=== PATIENT | male | born 1950 | race African-American/Black ===

== ENCOUNTER 2017-04-18 02:44 | Inpatient (IN) ==
--- NOTE | 2017-04-18 02:58 | Emergency Department Note ---
Disposition Clinical Impression: Seizure, Post-ictal confusion Disposition: Admitted As Inpatient Condition: Fair Time of Disposition: 06:16 Altered Mental Status HPI - General Chief Complaint: ED Altered Mental Status Stated Complaint: AMS Time Seen by Provider: 04/18/17 02:52 Nursing Notes Reviewed: Yes Vital Signs Reviewed: Yes - History of Present Illness HPI Narrative: Mr. Seals, this 66-year-old male, presents from home via EMS. Patient states he accidentally called EMS and they would not let him stay home. Per EMS, patient' s initial complaint was dyspnea; on their arrival, he was in no respiratory distress and not dyspneic. While there, EMS witnessed what they are describing as a seizure-patient sitting in his chair with extension of his upper and lower extremities, head twitching rotating to the left with eyes deviated to the left , unresponsive to verbal stimuli. Patient did not bite his tongue or have incontinence of bowel or bladder. Initially, EMShis blood glucose was in the 450s. On interview, patient is a poor historian. He denies any history of seizure disorder. She does, however, note that he was hit in the back of the head by the roberts of his truck yesterday; no loss of consciousness, no visual changes, no confusion, no other traumas. 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 History of rectal cancer. He does not require home oxygen. Patient does have home health for wound care of chronic plantar wounds on bilateral feet. PSH: Abdominal aortic aneurysm repair. Habits: Current every day smoker. Compared to his baseline, patient denies any change in sensory, no change in motor, and no confusion. - Related Data Home Medications Medication Instructions Recorded Confirmed Hydrocodone/Acetaminophen [Vicodin 1 each PO Q6H PRN 10/19/15 10/19/15 Es 7.5-300 mg Tablet] Allergies Allergy/AdvReac Type Severity Reaction Status Date / Time Penicillins Allergy See Verified 10/19/15 20:58 Comments All systems ED: reviewed and negative except as stated. Review of Systems: As Per HPI Past Medical History - Past Medical History Medical history: Reports: arthritis, cancer, diabetes, hypertension Surgical history: Reports: colectomy, herniorrhaphy, other (Knee surgery) Psychiatric history: Reports: no psych history - Social History Smoking Status: Current every day smoker Alcohol use: Reports: none Physical Exam Vital Signs Reviewed General: Patient is alert, oriented, and in no acute distress. He appears disheveled HEENT: Right-sided facial droop-chronic per patient. Head is normocephalic and atraumatic. PERRLA, EOMI. mucosa moist. Trachea midline. Cardiovascular: Heart regular rate and rhythm without clicks, rubs, gallops, or murmurs. No JVD. PMI nondisplaced. Respiratory: Symmetric chest rise with poor respiratory effort. Prolonged expiratory phase. Bilateral breath sounds have scattered wheezes without crackles or rhonchi. Abdomen: Bowel sounds present normoactive x-4 quadrants. Abdomen is soft, nondistended, and nontender. Musculoskeletal: Muscle strength 5/5 and symmetric bilaterally in left upper and lower extremities. No limb drift of lower extremities. No limb drift of the left upper extremity. Right upper extremity strength 1/5 which is baseline per patient. Neuro: GCS 15. Alert and oriented to self, date, location, date. Incorrect year. Skin: Warm, dry. The ball the great toe, patient has hard closed calluses. Small laceration not requiring closure on dorsum of left great toe overlying the eponychiun (patient stubbed his toe). Psych: Patient's affect is appropriate for situation. Course Course Narrative: Patient is a poor historian. His daughter typically keeps track of his medical history; she is not at bedside. ECW was used to fill in multiple gaps in the local history as shown in history of present illness. Patient appears to have no focal neurologic deficits on my examination. He has no history of seizure however, EMS describes seizure-like activity. Concern for brain metastasis of previously diagnosed rectal cancer. We will CT head. Concern for possible DKA given his hyperglycemia and apparent confusion. Baseline mental status is unknown to me at this time. No family bedside. Concern for possible underlying infection; will chest x-ray and perform urinalysis as well as lab work. While in the ED, patient had a second seizure. Witnessed by my attending. Described as tonic-clonic movement of his extremities, tonic-clonic movement of his head rotating to the right, eyes deviated to the right. Lasted 30-40 seconds. He was post ictal medially afterwards; he did not know his name. The seizure spontaneously aborted without retention. Will load with 1 g of IV Keppra. I discussed the patient and his clinical picture with on-call neurology, Dr. Arreola, who agrees to consult with admission to medicine. He has no additional recommendations at this time prior to admission. I discussed the patient and his clinical picture as well as neurology consultation with the admitting hospitalist, Dr. Gray, who agrees to accept the patient for continued evaluation and management. Vital Signs Temperature 97.6 F 04/18/17 02:48 Pulse Rate 80 04/18/17 02:48 Respiratory Rate 14 04/18/17 02:48 Blood Pressure 144/85 04/18/17 02:48 O2 Sat by Pulse Oximetry 100 04/18/17 02:48 Temperature 97.6 F 04/18/17 02:48 Pulse Rate 72 04/18/17 06:12 Respiratory Rate 14 04/18/17 06:12 Blood Pressure 152/92 04/18/17 06:12 O2 Sat by Pulse Oximetry 99 04/18/17 06:12 Oxygen Delivery Oxygen Delivery Room Air Altered Mental Status - Lab Data Lab results reviewed: Yes I reviewed the patient's lab results. Result diagrams: 04/18/17 03:16 04/18/17 03:16 Lab Results 04/18/17 04/18/17 04/18/17 Range/Units 03:16 03:16 03:16 WBC 7.1 (4.3-11.1) K/mcL RBC 4.55 (4.19-5.50) M/mcL Hgb 13.8 (12.9-16.9) g/dL Hct 40.7 (37.5-50.1) % MCV 89.5 (83.0-100.0) fL MCH 30.3 (28.0-33.3) pg MCHC 33.9 (31.6-35.5) g/dL RDW 13.2 (11.5-14.5) % Plt Count 173 (140-400) K/mcL MPV 9.9 (9.4-12.4) fL Immature Gran % 0.7 (0-4) % Seg Neutrophils % 73.4 % Lymphocytes % 12.9 % Monocytes % 10.0 % Eosinophils % 2.0 % Basophils % 1.0 % Neutrophils # 5.2 (1.6-8.9) K/mcL Lymphocytes # 0.9 (0.6-4.6) K/mcL Monocytes # 0.7 (0.0-1.3) K/mcL Eosinophils # 0.1 (0.0-0.6) K/mcL Basophils # 0.1 (0.0-0.2) K/mcL PT 10.3 (9.4-12.1) Seconds INR 1.0 APTT 27.2 (26.0-36.0) Seconds Carboxyhemoglobin (0-5) % Sodium 131 L (136-145) mEq/L Potassium 3.7 (3.5-4.5) mEq/L Chloride 92 L (98-109) mEq/L Carbon Dioxide 31 H (19-29) mEq/L BUN 12 (8-26) mg/dL Creatinine 0.96 (0.72-1.25) mg/dL Est GFR ( Amer) > 60 (> 60) Est GFR (Non-Af Amer) > 60 (> 60) BUN/Creatinine Ratio 13 (6-26) Glucose 424 H (70-99) mg/dL Calculated Osmolality 290 (280-300) Calcium 9.7 (8.6-10.8) mg/dL Total Bilirubin 0.5 (0.2-1.2) mg/dL Direct Bilirubin 0.2 (0.0-0.5) mg/dL Indirect Bilirubin 0.3 (0.0-1.2) mg/dL AST 14 (5-34) Units/L ALT 19 (0-55) Units/L Alkaline Phosphatase 105 (38-126) Units/L Ammonia (18-72) mcmol/L Troponin I (0-0.03) ng/mL Serum Total Protein 7.9 (6.0-8.3) g/dL Albumin 3.0 L (3.5-5.0) g/dL Globulin 4.9 H (2.4-3.5) g/dL Albumin/Globulin Ratio 0.6 L (1.1-2.2) Beta-Hydroxybutyric Acd 0.15 (0.02-0.27) mmol/L Urine Color (Yellow) Urine Clarity (Clear) Urine pH (5.0-8.0) pH Units Ur Specific Lane (1.010-1.025) Urine Protein (Neg-Trace) mg/dL Urine Glucose (UA) (Normal) mg/dL Urine Ketones (Negative) mg/dL Urine Blood (Negative) Urine Nitrite (Negative) Urine Bilirubin (Negative) Urine Urobilinogen (Normal) mg/dL Ur Leukocyte Esterase (Negative) Urine Microscopic RBC (0-3) per hpf Urine Microscopic WBC (0-3) per hpf Ur Squamous Epith Cells (None-Few) per lpf Urine Bacteria (None-Few) per hpf Hyaline Casts (None-Few) per lpf Ur Culture Indicated? (NO) Urine Opiates Screen (Qgubll=638) ng/mL Ur Barbiturates Screen (Txdnil=222) ng/mL Ur Phencyclidine Scrn (Cutoff=25) ng/mL Ur Amphetamines Screen (Whcuoi=6422) ng/mL U Benzodiazepines Scrn (Qlgsis=287) ng/mL Urine Cocaine Screen (Cutoff= 300) ng/mL U Marijuana (THC) Screen (Cutoff = 50) ng/mL Ethyl Alcohol < 10 (0-10) mg/dL 04/18/17 04/18/17 04/18/17 Range/Units 03:16 03:16 03:16 WBC (4.3-11.1) K/mcL RBC (4.19-5.50) M/mcL Hgb (12.9-16.9) g/dL Hct (37.5-50.1) % MCV (83.0-100.0) fL MCH (28.0-33.3) pg MCHC (31.6-35.5) g/dL RDW (11.5-14.5) % Plt Count (140-400) K/mcL MPV (9.4-12.4) fL Immature Gran % (0-4) % Seg Neutrophils % % Lymphocytes % % Monocytes % % Eosinophils % % Basophils % % Neutrophils # (1.6-8.9) K/mcL Lymphocytes # (0.6-4.6) K/mcL Monocytes # (0.0-1.3) K/mcL Eosinophils # (0.0-0.6) K/mcL Basophils # (0.0-0.2) K/mcL PT (9.4-12.1) Seconds INR APTT (26.0-36.0) Seconds Carboxyhemoglobin 6.8 H (0-5) % Sodium (136-145) mEq/L Potassium (3.5-4.5) mEq/L Chloride (98-109) mEq/L Carbon Dioxide (19-29) mEq/L BUN (8-26) mg/dL Creatinine (0.72-1.25) mg/dL Est GFR ( Amer) (> 60) Est GFR (Non-Af Amer) (> 60) BUN/Creatinine Ratio (6-26) Glucose (70-99) mg/dL Calculated Osmolality (280-300) Calcium (8.6-10.8) mg/dL Total Bilirubin (0.2-1.2) mg/dL Direct Bilirubin (0.0-0.5) mg/dL Indirect Bilirubin (0.0-1.2) mg/dL AST (5-34) Units/L ALT (0-55) Units/L Alkaline Phosphatase (38-126) Units/L Ammonia 16 L (18-72) mcmol/L Troponin I 0.02 (0-0.03) ng/mL Serum Total Protein (6.0-8.3) g/dL Albumin (3.5-5.0) g/dL Globulin (2.4-3.5) g/dL Albumin/Globulin Ratio (1.1-2.2) Beta-Hydroxybutyric Acd (0.02-0.27) mmol/L Urine Color (Yellow) Urine Clarity (Clear) Urine pH (5.0-8.0) pH Units Ur Specific Lane (1.010-1.025) Urine Protein (Neg-Trace) mg/dL Urine Glucose (UA) (Normal) mg/dL Urine Ketones (Negative) mg/dL Urine Blood (Negative) Urine Nitrite (Negative) Urine Bilirubin (Negative) Urine Urobilinogen (Normal) mg/dL Ur Leukocyte Esterase (Negative) Urine Microscopic RBC (0-3) per hpf Urine Microscopic WBC (0-3) per hpf Ur Squamous Epith Cells (None-Few) per lpf Urine Bacteria (None-Few) per hpf Hyaline Casts (None-Few) per lpf Ur Culture Indicated? (NO) Urine Opiates Screen (Yeutxp=440) ng/mL Ur Barbiturates Screen (Wmxund=962) ng/mL Ur Phencyclidine Scrn (Cutoff=25) ng/mL Ur Amphetamines Screen (Rjpbbi=8403) ng/mL U Benzodiazepines Scrn (Vdvrnj=849) ng/mL Urine Cocaine Screen (Cutoff= 300) ng/mL U Marijuana (THC) Screen (Cutoff = 50) ng/mL Ethyl Alcohol (0-10) mg/dL 04/18/17 04/18/17 Range/Units 05:10 05:10 WBC (4.3-11.1) K/mcL RBC (4.19-5.50) M/mcL Hgb (12.9-16.9) g/dL Hct (37.5-50.1) % MCV (83.0-100.0) fL MCH (28.0-33.3) pg MCHC (31.6-35.5) g/dL RDW (11.5-14.5) % Plt Count (140-400) K/mcL MPV (9.4-12.4) fL Immature Gran % (0-4) % Seg Neutrophils % % Lymphocytes % % Monocytes % % Eosinophils % % Basophils % % Neutrophils # (1.6-8.9) K/mcL Lymphocytes # (0.6-4.6) K/mcL Monocytes # (0.0-1.3) K/mcL Eosinophils # (0.0-0.6) K/mcL Basophils # (0.0-0.2) K/mcL PT (9.4-12.1) Seconds INR APTT (26.0-36.0) Seconds Carboxyhemoglobin (0-5) % Sodium (136-145) mEq/L Potassium (3.5-4.5) mEq/L Chloride (98-109) mEq/L Carbon Dioxide (19-29) mEq/L BUN (8-26) mg/dL Creatinine (0.72-1.25) mg/dL Est GFR ( Amer) (> 60) Est GFR (Non-Af Amer) (> 60) BUN/Creatinine Ratio (6-26) Glucose (70-99) mg/dL Calculated Osmolality (280-300) Calcium (8.6-10.8) mg/dL Total Bilirubin (0.2-1.2) mg/dL Direct Bilirubin (0.0-0.5) mg/dL Indirect Bilirubin (0.0-1.2) mg/dL AST (5-34) Units/L ALT (0-55) Units/L Alkaline Phosphatase (38-126) Units/L Ammonia (18-72) mcmol/L Troponin I (0-0.03) ng/mL Serum Total Protein (6.0-8.3) g/dL Albumin (3.5-5.0) g/dL Globulin (2.4-3.5) g/dL Albumin/Globulin Ratio (1.1-2.2) Beta-Hydroxybutyric Acd (0.02-0.27) mmol/L Urine Color Yellow (Yellow) Urine Clarity Clear (Clear) Urine pH 7.0 (5.0-8.0) pH Units Ur Specific Lane > 1.030 H (1.010-1.025) Urine Protein 100 H (Neg-Trace) mg/dL Urine Glucose (UA) >=1000 H (Normal) mg/dL Urine Ketones Negative (Negative) mg/dL Urine Blood Small H (Negative) Urine Nitrite Negative (Negative) Urine Bilirubin Negative (Negative) Urine Urobilinogen Normal (Normal) mg/dL Ur Leukocyte Esterase Negative (Negative) Urine Microscopic RBC 15-30 H (0-3) per hpf Urine Microscopic WBC 0-3 (0-3) per hpf Ur Squamous Epith Cells Moderate H (None-Few) per lpf Urine Bacteria None Seen (None-Few) per hpf Hyaline Casts None Seen (None-Few) per lpf Ur Culture Indicated? NO (NO) Urine Opiates Screen Negative (Zuwesg=277) ng/mL Ur Barbiturates Screen Negative (Mhnnbg=158) ng/mL Ur Phencyclidine Scrn Negative (Cutoff=25) ng/mL Ur Amphetamines Screen Positive H (Qpskve=2682) ng/mL U Benzodiazepines Scrn Negative (Kclolb=295) ng/mL Urine Cocaine Screen Negative (Cutoff= 300) ng/mL U Marijuana (THC) Screen Negative (Cutoff = 50) ng/mL Ethyl Alcohol (0-10) mg/dL - Radiology Data Radiology results reviewed: Yes I reviewed the patient's radiology results. - EKG Data EKG attestation: Yes I reviewed and interpreted this EKG. EKG results narrative: EKG dated 04/18/17 at 03:24 interpreted as sinus rhythm with rate of 82. Normal intervals with IL 190, QRS 96, QT/QTC 358/396. Left axis. Compared to previous EKG dated 04/09/2010 showing no acute ischemic changes comparison there has, however, been an axis shift from borderline normal axis to left axis. TPA Checklist - LKW: 3-4.5 hrs Add. Warnings/Precautions Patient/family understanding: The patient/family members have been counseled and understood the risk, benefit , and alternatives of treatment. Attestation Statement - Attestation Attestation: I, Sony Mandel MD, personally evaluated this patient and discussed their management with the resident physician. I reviewed the resident's note and agree with the documented findings, medical decision making, and plan of care. 66-year-old male presents to the emergency department by ambulance for apparently multiple complaints and altered mental status. EMS reported that they were called for shortness of breath when they arrived the patient was not short of breath. He did have an episode of seizure activity which EMS witnessed. He was confused and disoriented. Here in the emergency department the patient had a second episode of seizure activity witnessed by me which did appear to be a tonic-clonic seizure. His head and upper body was deviated to the right with eyes deviated to the right with tonic-clonic jerking. Patient has right sided hemiparesis from an old stroke. The seizure lasted 30-60 seconds and then resolved spontaneously. Patient was immediately alert after the seizure resolved however he was very confused and disoriented and did not know his name. For several minutes patient became a little more oriented and reported that he was working on his truck and the roberts fell and hit him in the head. On examination patient is a elderly male in no acute distress. He is alert but confused and disoriented. There is no cyanosis or diaphoresis. Breath sounds are decreased bilaterally. Abdomen appreciated any significant rales or wheezes. Heart is regular rate and rhythm. Abdomen soft and nontender. Labs reviewed. Chest x-ray negative. Head CT shows no acute intracranial abnormality. Patient received Keppra 1 g IV. The neurologist on-call, Dr. Arreola, was consulted and Dr. Davidson discussed the case with him. He will consult on the patient for an EEG and MRA of the head. The hospitalist, Dr. Gray, was consulted and accepted admission of the patient.
[2017-04-18 03:28] LABS: Basophils # 0.1 K/mcL (0.0-0.2); Eosinophils # 0.1 K/mcL (0.0-0.6); Hematocrit 40.7 % (37.5-50.1); Hemoglobin 13.8 g/dL (12.9-16.9); Immature Granulocytes % 0.7 % (0-4); Lymphocytes # 0.9 K/mcL (0.6-4.6); Lymphocytes % 12.9 %; Mean Corpuscular HGB Conc 33.9 g/dL (31.6-35.5); Mean Corpuscular Hemoglobin 30.3 pg (28.0-33.3); Mean Corpuscular Volume 89.5 fL (83.0-100.0); Mean Platelet Volume 9.9 fL (9.4-12.4); Monocytes # 0.7 K/mcL (0.0-1.3); Neutrophils # 5.2 K/mcL (1.6-8.9); Platelet Count 173 K/mcL (140-400); Red Blood Count 4.55 M/mcL (4.19-5.50); Red Cell Distribution Width 13.2 % (11.5-14.5); Segmented Neutrophils % 73.4 %
[2017-04-18 03:34] LABS: Prothrombin Time 10.3 Seconds (9.4-12.1)
[2017-04-18 03:36] LABS: Activated Partial Thrombo Time 27.2 Seconds (26.0-36.0)
[2017-04-18 03:40] LABS: Alanine Aminotransferase 19 Units/L (0-55); Albumin/Globulin Ratio 0.6 (1.1-2.2); Alkaline Phosphatase 105 Units/L (38-126); Aspartate Amino Transferase 14 Units/L (5-34); BUN/Creatinine Ratio 13 (6-26); Bilirubin,Direct 0.2 mg/dL (0.0-0.5); Bilirubin,Indirect 0.3 mg/dL (0.0-1.2); Bilirubin,Total 0.5 mg/dL (0.2-1.2); Blood Urea Nitrogen 12 mg/dL (8-26); Calcium 9.7 mg/dL (8.6-10.8); Carbon Dioxide 31 mEq/L (19-29); Chloride 92 mEq/L (98-109); Globulin 4.9 g/dL (2.4-3.5); Glucose 424 mg/dL (70-99); Osmolality,Calculated 290 (280-300); Potassium 3.7 mEq/L (3.5-4.5); Sodium 131 mEq/L (136-145); Total Protein 7.9 g/dL (6.0-8.3); eGFR For African Americans > 60 (> 60); eGFR For Non-African Americans > 60 (> 60)
[2017-04-18 03:52] LABS: Ethanol < 10 mg/dL (0-10)
[2017-04-18 04:00] LABS: Beta-Hydroxybutyric Acid 0.15 mmol/L (0.02-0.27)
[2017-04-18] MEDS ORDERED: levETIRAcetam 1,000 MG in 0.9 % Sodium Chloride 100 ML IVPB ONE (04:11)
[2017-04-18 05:21] LABS: Bilirubin,Urine Negative (Negative); Blood,Urine Small (Negative); Clarity,Urine Clear (Clear); Color,Urine Yellow (Yellow); Glucose,Urine (UA) >=1000 mg/dL (Normal); Ketones,Urine Negative (Negative); Leukocyte Esterase,Urine Negative (Negative); Nitrite,Urine Negative (Negative); Protein,Urine 100 mg/dL (Neg-Trace); Specific Gravity,Urine > 1.030 (1.010-1.025); Urobilinogen,Urine Normal (Normal)
[2017-04-18 05:23] LABS: Bacteria,Urine None Seen per hpf (None-Few); Hyaline Casts,Urine None Seen per lpf (None-Few); RBC,Urine 15-30 per hpf (0-3); Squamous Epithelial Cell,Urine Moderate per lpf (None-Few); WBC,Urine 0-3 per hpf (0-3)
[2017-04-18 05:26] LABS: Amphetamine Screen,Urine Positive ng/mL (Cutoff=1000); Barbiturate Screen,Urine Negative ng/mL (Cutoff=200); Benzodiazepines Screen,Urine Negative ng/mL (Cutoff=200); Cannabinoid Screen,Urine Negative ng/mL (Cutoff = 50); Cocaine Screen,Urine Negative ng/mL (Cutoff= 300); Opiate Screen,Urine Negative ng/mL (Cutoff=300); Phencyclidine Screen,Urine Negative ng/mL (Cutoff=25)
--- NOTE | 2017-04-18 07:46 | Internal Med History&Physical ---
Date of Encounter: 04/18/17 Time of Encounter: 07:39 Assessment and Plan (1) Grand mal seizure Current visit: Yes Status: Acute We will admit to medical floor. Obtain MRI of the brain. Obtain EEG. Consult neurology. He is at high risk for morbidity, mortality and complications due to change in mental status. (2) Uncontrolled diabetes mellitus Current visit: Yes Status: Acute Check hemoglobin A1c. Start insulin sliding scale. Start insulin Levemir once patient is safe to eat. Provide diabetic education. Daily wound dressing to lower extremity diabetic foot ulcers. Qualifiers: Diabetes mellitus type: type 2 Diabetes mellitus complication status: with circulatory complication Diabetes mellitus complication detail: with peripheral angiopathy without gangrene Diabetes mellitus care home insulin use : unspecified care home insulin use status Qualified Code(s): E11.51 - Type 2 diabetes mellitus with diabetic peripheral angiopathy without gangrene; E11.65 - Type 2 diabetes mellitus with hyperglycemia; E11.65 - Type 2 diabetes mellitus with hyperglycemia; E11.65 - Type 2 diabetes mellitus with hyperglycemia; E11.65 - Type 2 diabetes mellitus with hyperglycemia (3) Seizure Current visit: Yes Status: Acute Seizure precautions. Consult neurology. Obtain EEG. Urine toxicology is positive for amphetamine which could be a false positive due to cross-reactivity with home medication or [id number] cold remedies. We will obtain additional information was the patient is more alert. Internal Medicine - H&P: HPI Chief complaint: Seizure Admitted From: Emergency Dept Plans for Post Hospital Care: Home History of present illness: Mr. Seals is a 66 year old male with past medical history significant for uncontrolled diabetes and hypertension who was brought to the hospital for evaluation of seizures. He cannot provide history due to altered mental status. The history was obtained from the patient's primary ED nurse. Patient called EMS due to shortness of breath however when EMS arrived he did not appear in respiratory distress but started having generalized tonic seizure with rigid posturing and head deviated to the left. This lasted for 20 seconds and then resolved. The patient was confused. His mental status progressively improved. He was brought to the hospital and while in the emergency departmen the had another episode of tonic seizure de described by the nurse as posturing , lasting 30 seconds followed by postictal confusion. He had a CT scan of the head which showed no acute findings and basic lab work which was within normal limits. Review of systems, past medical history, social history and family history as listed below from the medical records. Any additional history was not available due to altered mental status. Past Med Surg Social Fam HX - Past Medical History Medical history: arthritis, cancer, diabetes, hypertension Psychiatric history: no psych history - Past Surgical History Surgical History: colectomy, herniorrhaphy, other (Knee surgery) - Social History Smoking Status: Current every day smoker Smokeless Tobacco Status: No Alcohol use: none Drug use: marijuana Internal Medicine - H&P: Meds Hydrocodone/Acetaminophen [Vicodin Es 7.5-300 mg Tablet] 1 each PO Q6H PRN 10/18 [History] 3 Allergy/AdvReac Type Severity Reaction Status Date / Time Penicillins Allergy See Verified 10/19/15 20:58 Comments All Systems PM: A 10-system review of systems was performed and is negative for pertinent findings except as documented above in the HPI. - Constitutional Vitals: Temp Pulse Resp BP Pulse Ox 97.6 F 75 14 155/90 98 04/18/17 02:48 04/18/17 06:57 04/18/17 06:57 04/18/17 06:57 04/18/17 06:57 General appearance: Present: A&O X 0 - Eye Eye exam: Present: PERRL, conjuntiva pink, sclera anicteric Pupils: Present: PERRL - Respiratory Respiratory exam: Present: CTAB. Absent: accessory muscle use, rales, rhonchi, wheezes - Cardiovascular Cardiovascular exam: Present: RRR, +S1, +S2. Absent: diastolic murmur, gallop, rubs, systolic murmur - GI/Abdominal GI/Abdominal exam: Present: normal bowel sounds, soft, no peritoneal signs. Absent: distended, tenderness - Extremities Exam Extremities exam: Present: pedal edema, warm, radial pulses palpable and symmetrical. Absent: calf tenderness, cyanotic - Skin Skin exam: Present: dry Additional comments: Skin wounds covered with dressing on both feet. Internal Med - H&P Results - Labs CBC & Chem 7: 04/18/17 03:16 04/18/17 03:16 - EKG Data -: EKG Interpreted by Myself EKG shows normal: sinus rhythm, ST-T waves Rate: normal
[2017-04-18] MEDS ORDERED: Naloxone 0.4 MG/ML INJ IVP PRN (07:53)
[2017-04-18] MEDS ORDERED: Acetaminophen 325 MG TABLET PO PRN (07:53)
[2017-04-18] MEDS ORDERED: Ondansetron 4 MG/2 ML VIAL IVP PRN (07:53)
[2017-04-18] MEDS ORDERED: Dextrose Gel 15 GM PO PRN ×2 (07:57)
[2017-04-18] MEDS ORDERED: *HR* Dextrose 50 % in Water (Syg) 50 ML SYRINGE IVP PRN (07:57)
[2017-04-18] MEDS ORDERED: D5% in Water 1,000 ML IVC PRN (07:57)
[2017-04-18] MEDS ORDERED: 0.9 % Sodium Chloride 1,000 ML IVC SCH (08:00)
[2017-04-18 08:38] LABS: Estimated Average Glucose > 355 mg/dl; Hemoglobin A1C >= 14.1 %
--- NOTE | 2017-04-18 09:07 | Event Note ---
<Lucero Rosas - Last Filed: 04/18/17 16:18> Date of Encounter: 04/18/17 Time of Encounter: 14:35 Mr. Seals is a 66 year old male with PMH of uncontrolled diabetes mellitus and hypertension who was brought to the emergency department by EMS for evaluation of seizures. I saw and examined the patient at bedside. Pt is awake and alert, sitting up in bed. Difficult to obtain reliable, if any, history or ROS. Pt has altered mental status and marginally cooperative in answering questions. GEN: vital signs stable, disheveled, poor hygiene, NAD HEENT: NCAT, EOMI intact RESPIRATORY: normal respiratory effort, no wheezing CARDIOVASCULAR: no murmurs, RRR NEURO: alert, no focal deficits, moves all extremities, no facial droop or speech deficit 1. Grand mal seizure: 2 witnessed episodes, once by EMS crew and once in the ED. Received loading dose of IV Keppra. Keppra 500mg IVPB BID. Seizure percautions in place EEG has been ordered, results pending. Brain MRI ordered, awaiting results. Neurology consulted, recommendations appreciated. 2. Uncontrolled diabetes mellitus: HgbA1c greater than 14.1 and serum glucose of 424. Sliding scale insulin has been started. Will monitor blood glucose with POC glucose checks. Once patient is able to eat safely he will be started on Levemir. Patient also has diabetic foot ulcers--daily wound care. <Jesus Rondon - Last Filed: 04/18/17 18:03> Date of Encounter: 04/18/17 resume diabetic diet start levemir 10 units HS lispro 5 units TID plus sliding scale continue keppra neurology consulted I examined this patient and my medical decision-making was reviewed with the Resident Physician. I agree with the documented findings, disposition and treatment plan as described except to the extent set forth below.
[2017-04-18] MEDS: *HR* Heparin 5,000 UNIT/ML VIAL SQ SCH ×2 (10:34→17:35)
[2017-04-18] MEDS: Insulin LISPRO 300 UNITS/3 ML VIAL SQ SCH ×6 (10:35→20:31)
--- NOTE | 2017-04-18 11:35 | Electrocardiograph Report ---
[address] [address] Test Date: 2017-04-18 Pat Name: Steven Seals Department: 102 Room: [facility] Gender: M Video Engineer: : 1950 Requested By: Jacob Davidson Order Number: [id number] Reading MD: Eduardo Calvert MD Measurements Intervals [place] Rate: 82 P: 59 OR: 190 QRS: -18 QRSD: 96 T: 42 QT: 358 QTc: 396 Interpretive Statements SINUS RHYTHM MODERATE VOLTAGE CRITERIA FOR LVH Electronically Signed On 04-18-2017 11:34:09 EST by Eduardo Calvert MD
--- NOTE | 2017-04-18 16:01 | EEG/EMG/Oth Biometrics Report ---
EEG Procedure Report Date of procedure: 04/18/17 EEG Procedure: Routine EEG Procedure Note: This is a report of a 21 channel bipolar and referential montage EEG. There is no clear posterior dominant alpha rhythm identified in the recording. The rhythm looks to me to be low voltage mixed theta and delta frequencies. This rhythm however is poorly organized and poorly sustained. An emergency of K complexes and sleep spindles. The most outstanding feature of the recording is the presence of bitemporal spikes and phase reversals. This does not evolve into a full-blown seizure however however there is a field of activity identified. Hyperventilation is not performed during the recording. Photic stimulations performed and does not produce a driving response. The EKG rhythm strip reveals normal sinus rhythm at 72 beats per minute. Impressions: EEG recording is abnormal and does reveal phase reversals in the temporal lobes bilaterally. This does correlate with epileptiform potential please correlate clinically.
[2017-04-18] MEDS ORDERED: Permethrin Cream Rinse 60 ML LIQUID TP STA (18:29)
[2017-04-18] MEDS: Gabapentin 100 MG CAPSULE PO SCH (20:31)
[2017-04-18] MEDS: Lisinopril-HCTZ 20-12.5mg TABLET PO SCH (20:31)
[2017-04-18] MEDS ORDERED: Insulin DETEMIR 100 UNIT/ML X5UNITS SQ SCH (21:00)
[2017-04-19] MEDS: *HR* Heparin 5,000 UNIT/ML VIAL SQ SCH ×3 (00:26→16:20)
[2017-04-19] MEDS: *HR* LORazepam 2 MG/ML VIAL IVP PRN ×2 (02:45→19:39)
[2017-04-19] MEDS ORDERED: Fosphenytoin 1,000 MG in D5% in Water 50 ML IVPB ONE (03:17)
[2017-04-19] MEDS ORDERED: *HR* LORazepam 2 MG/ML VIAL IVP PRN (03:18)
--- NOTE | 2017-04-19 04:19 | Event Note ---
<Amanda Vaughan - Last Filed: 04/19/17 04:13> Date of Encounter: 04/19/17 Time of Encounter: 03:15 I was paged by nursing that the patient had a seizure at 1:30am after which he quickly recovered and vitals were stable. Then paged again at 3am that the patient had 2 more seizures. Myself and Dr. Troy assessed and examined the patient. He was post-ictal. He was oriented to person, place, date of . Vitals stable, he was protecting his airway. Ativan was given to the patient and fosphenytoin ordered as well. The nurse was instructed to call us if he should have anymore seizures. <Heriberto Troy - Last Filed: 04/19/17 05:02> Date of Encounter: 04/19/17 I conducted a face to face diagnostic evaluation of this patient and my medical decision-making was reviewed with the Resident Physician, Dr. Amanda Vaughan. I agree with the documented findings, disposition and treatment plan as described except to the extent set forth below: EEG obtained yesterday consistent with seizure activity. I will continue with Keppra 500 mg IV twice a day per neurology recommendations. Follow-up with official neurology consult report in the morning. We will order one loading dose of fosphenytoin. Continue with seizure precautions and aspiration precautions.
--- NOTE | 2017-04-19 07:35 | Neurology - Consult Note ---
Date of Encounter: 04/19/17 Time of Encounter: 07:33 Assessment and Plan (1) Seizure Current Visit: Yes Status: Acute This gentleman has experienced at least 3 episodes of generalized tonic-clonic seizure. The rest of which occurred about 1:00 and 1:30 this morning. MRI scan of the brain without contrast revealed volume loss and an old right cerebellar infarct. Toxicology screening reveals the presence of amphetamines. There are questions about whether or not he may be withdrawing from alcohol. He did have several elevated blood pressure since admission. He does have decreased tone of the right upper extremity. That perhaps this may be due to a postictal Quentin's paralysis. For now I will maintain him on Keppra 500 mg twice a day and reassess him later in the day. If he continues to have seizure activity we may have to transfer him to a tertiary care facility for continuous epilepsy monitoring. He has been afebrile since admission no leukocytosis is present. In addition, he has a history of colon cancer. The MRI scan of the brain was done without contrast. I would need to have a contrasted study completed as well. History of Present Illness HPI: Mr. Seals is a 66 year old male who was seen for neurologic consultation secondary to recurrent episodes of seizure activity. History is scant. To my understanding he does not have reported history of epilepsy. Patient is currently lethargic and perhaps postictal from another seizure he had a 1:00 in the morning. The sural nerves. However chart records reflect that he apparently called EMS with complaints of dyspnea. Apparently he had a general tonic-clonic seizure witnessed by EMS. He had another generalized tonic-clonic seizure after arriving to the ED. And apparently had a third generalized tonic- clonic seizure about 1:00 in the morning. He was loaded on Keppra upon admission. He is also loaded on fosphenytoin. This morning again he is postictal and difficult to arouse. He is not able to give any history. I did not yesterday which revealed bitemporal spikes and phase reversals, consistent with epileptiform activity. Past Med Surg Social Fam HX - Past Medical History Medical history: arthritis, cancer, diabetes, hypertension Psychiatric history: no psych history - Past Surgical History Surgical History: colectomy, herniorrhaphy, other - Social History Smoking Status: Current every day smoker Smokeless Tobacco Status: No Alcohol use: none Drug use: marijuana Medications and Allergies Albuterol Sulfate [Albuterol Inhaler] 2 puff IH Q4HR PRN 04/18/17 [History] Amlodipine Besylate 10 mg PO DAILY 04/18/17 [History] Esomeprazole Magnesium [Nexium] 20 mg PO DAILY 04/18/17 [History] Fluticasone Propionate Nasal [Flonase] 2 spr NS DAILY PRN 04/18/17 [History] Gabapentin [Neurontin] 100 mg PO TID 04/18/17 [History] Gentamicin Oint [Garamycin] 1 appl TP DAILY 04/18/17 [History] Insulin Regular, Human [Novolin R] 10 unit SQ TID 04/18/17 [History] Lisinopril-HCTZ 20-12.5 [Prinzide 20-12.5] 1 tab PO BID 04/18/17 [History] Loratadine [Allergy Relief] 10 mg PO DAILY 04/18/17 [History] Lovastatin 40 mg PO DAILY 04/18/17 [History] Metformin HCl [Glucophage] 1,000 mg PO BID 04/18/17 [History] Montelukast [Singulair] 10 mg PO DAILY 04/18/17 [History] Ondansetron HCl [Zofran] 4 mg PO Q8H PRN 04/18/17 [History] hydrOXYzine HCl [Hydroxyzine HCl] 50 mg PO HS PRN 04/18/17 [History] 3 Allergy/AdvReac Type Severity Reaction Status Date / Time Penicillins Allergy See Verified 10/19/15 20:58 Comments ROS unobtainable: due to mental status All Systems: A 10-system review of systems was performed and is negative for pertinent findings except as documented above in the HPI. Physical Examination - Vital Signs Vital Signs: Initial Vital Signs Temp Pulse Resp BP Pulse Ox 97.6 F 80 14 144/85 100 04/18/17 02:48 04/18/17 02:48 04/18/17 02:48 04/18/17 02:48 04/18/17 02:48 - Exam Exam: Neurologic examination is performed and finds following. For cerebral functions-he is very lethargic, difficult to arouse. Momentarily opened his eyes he does make eye contact, hemoglobin is nonsensically and injured his back also unconsciousness. He does not follow commands. He does withdrawal globally to noxious stimulation. Cranial nerves-pupils are miotic and about 3 mm symmetrically. Doll's eyes are present. Corneal reflexes are brisk bilaterally, there is no facial asymmetry. Gag reflex is intact. Motor exam finds decreased tone of the right upper extremity. He has normal tone of the left upper extremity and both lower extremities. Sensory exam-difficult to assess in an unconscious patient. Deep tendon reflexes-diminished throughout. No long tract signs are present. Cerebellar exam-no nystagmus is identified. Results - Laboratory Findings CBC and BMP: 04/18/17 03:16 04/18/17 03:16 Abnormal lab findings: Abnormal lab results Carboxyhemoglobin 6.8 % (0-5) H 04/18/17 03:16 Sodium 131 mEq/L (136-145) L 04/18/17 03:16 Chloride 92 mEq/L (98-109) L 04/18/17 03:16 Carbon Dioxide 31 mEq/L (19-29) H 04/18/17 03:16 Glucose 424 mg/dL (70-99) H 04/18/17 03:16 POC Glucose 160 (58-89) H 04/18/17 20:08 Hemoglobin A1c >= 14.1 % (-5.6) H 04/18/17 03:16 Ammonia 16 mcmol/L (18-72) L 04/18/17 03:16 Albumin 3.0 g/dL (3.5-5.0) L 04/18/17 03:16 Globulin 4.9 g/dL (2.4-3.5) H 04/18/17 03:16 Albumin/Globulin Ratio 0.6 (1.1-2.2) L 04/18/17 03:16 Ur Specific [place] > 1.030 (1.010-1.025) H 04/18/17 05:10 Urine Protein 100 mg/dL (Neg-Trace) H 04/18/17 05:10 Urine Glucose (UA) >=1000 mg/dL (Normal) H 04/18/17 05:10 Urine Blood Small (Negative) H 04/18/17 05:10 Urine Microscopic RBC 15-30 per hpf (0-3) H 04/18/17 05:10 Ur Squamous Epith Cells Moderate per lpf (None-Few) H 04/18/17 05:10 Ur Amphetamines Screen Positive ng/mL ([id number]) H 04/18/17 05:10 Consult Discharge Plan - Plan Referrals: NONE,PCP [Primary Care Provider] -
[2017-04-19 08:33] LABS: Basophils # 0.1 K/mcL (0.0-0.2); Basophils % 0.7 %; Eosinophils # 0.1 K/mcL (0.0-0.6); Eosinophils % 1.2 %; Hematocrit 39.1 % (37.5-50.1); Hemoglobin 12.8 g/dL (12.9-16.9); Immature Granulocytes % 0.5 % (0-4); Mean Corpuscular HGB Conc 32.7 g/dL (31.6-35.5); Mean Corpuscular Hemoglobin 29.9 pg (28.0-33.3); Mean Corpuscular Volume 91.4 fL (83.0-100.0); Mean Platelet Volume 10.2 fL (9.4-12.4); Monocytes # 0.9 K/mcL (0.0-1.3); Monocytes % 10.5 %; Neutrophils # 6.1 K/mcL (1.6-8.9); Platelet Count 183 K/mcL (140-400); Red Blood Count 4.28 M/mcL (4.19-5.50); Red Cell Distribution Width 13.5 % (11.5-14.5); Segmented Neutrophils % 75.1 %
[2017-04-19] MEDS: Insulin LISPRO 300 UNITS/3 ML VIAL SQ SCH ×7 (08:40→22:30)
[2017-04-19 08:48] LABS: BUN/Creatinine Ratio 16 (6-26); Blood Urea Nitrogen 15 mg/dL (8-26); Calcium 9.2 mg/dL (8.6-10.8); Carbon Dioxide 32 mEq/L (19-29); Chloride 100 mEq/L (98-109); Glucose 324 mg/dL (70-99); Magnesium 1.5 mg/dL (1.6-2.6); Osmolality,Calculated 299 (280-300); Potassium 4.1 mEq/L (3.5-4.5); eGFR For African Americans > 60 (> 60); eGFR For Non-African Americans > 60 (> 60)
[2017-04-19 09:05] LABS: Sodium 138 mEq/L (136-145)
[2017-04-19] MEDS: Gabapentin 100 MG CAPSULE PO SCH ×3 (10:31→22:32)
[2017-04-19] MEDS: Lisinopril-HCTZ 20-12.5mg TABLET PO SCH ×2 (10:31→22:32)
[2017-04-19] MEDS: amLODIPine 5 MG TABLET PO SCH (10:31)
--- NOTE | 2017-04-19 12:52 | Internal Med Progress Note ---
Date of Encounter: 04/19/17 Time of Encounter: 12:50 - Assessment and plan (1) Seizure Current Visit: Yes Status: Acute Assessment and plan: Patient presented with generalized seizure with postictal confusion and possible Quentin's paralysis in right upper extremity. Continues to have recurrent seizures, received 2 doses of Ativan last night. Currently drowsy. Continue telemetry monitoring. Has been started on IV Keppra, continue the same. When necessary IV Ativan for recurrent seizures. Seizure and fall precautions. Monitor and replete electrolytes. Neurology consult appreciated, recommend MRI brain with IV contrast due to history of cancer. EEG shows abnormal signals in bilateral temporal lobes. (2) Essential hypertension Current Visit: Yes Status: Chronic Assessment and plan: Noted to have uncontrolled hypertension in the emergency room likely related to seizures. Blood pressure currently well controlled. (3) Uncontrolled diabetes mellitus Current Visit: Yes Status: Chronic Assessment and plan: Hemoglobin A1c noted to be greater than 14.1%. Blood sugars noted to be elevated. Continue Accu-Chek blood glucose monitoring with basal bolus insulin regimen. Increase Levemir. Diabetic diet as tolerated. Qualifiers: Diabetes mellitus type: type 2 Diabetes mellitus complication status: with circulatory complication Diabetes mellitus complication detail: with peripheral angiopathy without gangrene Diabetes mellitus petroleum terminal plant operator insulin use : with snf use Qualified Code(s): E11.51 - Type 2 diabetes mellitus with diabetic peripheral angiopathy without gangrene; E11.65 - Type 2 diabetes mellitus with hyperglycemia; E11.65 - Type 2 diabetes mellitus with hyperglycemia; E11.65 - Type 2 diabetes mellitus with hyperglycemia; E11.65 - Type 2 diabetes mellitus with hyperglycemia; Z79.4 - senior living (current) use of insulin; Z79.4 - senior living (current) use of insulin; Z79.4 - middle or intermediate school principal (current ) use of insulin; Z79.4 - middle or intermediate school principal (current) use of insulin - Subjective Interval history: Very drowsy, unable to provide history or answer any questions; per full time staff interpreter, he has been asleep most of the day but woke up earlier and had some breakfast; blood sugars improving now; - Constitutional Vitals: Temp Pulse Resp BP Pulse Ox 97.6 F 62 12 104/40 93 04/19/17 11:00 04/19/17 11:00 04/19/17 11:00 04/19/17 11:00 04/19/17 11:00 General appearance: Present: A&O X 0. Absent: answers questions appropriately - Respiratory Respiratory exam: Present: CTAB (anterolaterally). Absent: accessory muscle use , rales, rhonchi, wheezes - Cardiovascular Cardiovascular exam: Present: RRR, +S1, +S2. Absent: diastolic murmur, gallop, rubs, systolic murmur - GI/Abdominal GI/Abdominal exam: Present: normal bowel sounds, soft, no peritoneal signs. Absent: distended, tenderness Internal Medicine: Result - Labs CBC & Chem 7: 04/20/17 04:43 04/20/17 04:43 Labs: Short CBC 04/19/17 Range/Units 07:36 WBC 8.1 (4.3-11.1) K/mcL Hgb 12.8 L (12.9-16.9) g/dL Hct 39.1 (37.5-50.1) % Plt Count 183 (140-400) K/mcL Neutrophils # 6.1 (1.6-8.9) K/mcL BMP 04/19/17 07:36 Sodium 138 D Potassium 4.1 Chloride 100 Carbon Dioxide 32 H BUN 15 Creatinine 0.95 Glucose 324 H Calcium 9.2 - ABG Interpretation ABG results: PT/INR, D-dimer PT 10.3 Seconds (9.4-12.1) 04/18/17 03:16 - Impressions Impressions Brain MRI 04/18/17 07:57 IMPRESSION: Chronic cerebellar infarct. D/ / Jeremias Johansen MD / Jeremias Johansen MD Interpreting Provider: Jeremias Johansen MD Brain MRI 04/19/17 07:45 IMPRESSION: Severe right cerebellar encephalomalacia No evidence of abnormal enhancement to suggest metastatic disease D/ / 04/19/2017 11:10:15 Lion Gray MD / raven Interpreting Provider: Lion Gray MD Consult Discharge Plan - Plan Referrals: Chip Caldwell DO [Resident] - 05/13/17 2:00 pm (PLEASE FILL OUT THE NEW PATIENT PACKET THAT IS BEING MAILED TO YOU, AND TAKE TO YOUR APPOINTMENT. PLEASE TAKE INS. CARDS, PICTURE ID, ALL MEDS IN THE BOTTLES TO YOUR APPOINTMENT. SHOW UP 15 MINS. EARLY. IF YOU NEED TO CANCEL PLEASE CALL [phone] WITHIN 24 HOURS OF YOUR APPOINTMENT.)
[2017-04-19] MEDS: Insulin DETEMIR 100 UNIT/ML X5UNITS SQ SCH (22:30)
[2017-04-20] MEDS: *HR* Heparin 5,000 UNIT/ML VIAL SQ SCH ×4 (01:05→23:48)
[2017-04-20 05:16] LABS: Basophils # 0.1 K/mcL (0.0-0.2); Basophils % 0.9 %; Eosinophils # 0.2 K/mcL (0.0-0.6); Eosinophils % 2.7 %; Hematocrit 39.3 % (37.5-50.1); Hemoglobin 12.8 g/dL (12.9-16.9); Immature Granulocytes % 0.5 % (0-4); Lymphocytes # 1.3 K/mcL (0.6-4.6); Lymphocytes % 17.7 %; Mean Corpuscular HGB Conc 32.6 g/dL (31.6-35.5); Mean Corpuscular Volume 92.3 fL (83.0-100.0); Mean Platelet Volume 9.9 fL (9.4-12.4); Monocytes # 0.9 K/mcL (0.0-1.3); Monocytes % 11.4 %; Platelet Count 162 K/mcL (140-400); Red Blood Count 4.26 M/mcL (4.19-5.50); Red Cell Distribution Width 13.5 % (11.5-14.5); Segmented Neutrophils % 66.8 %
[2017-04-20 05:37] LABS: BUN/Creatinine Ratio 21 (6-26); Blood Urea Nitrogen 15 mg/dL (8-26); Calcium 9.1 mg/dL (8.6-10.8); Carbon Dioxide 31 mEq/L (19-29); Chloride 99 mEq/L (98-109); Glucose 101 mg/dL (70-99); Magnesium 1.4 mg/dL (1.6-2.6); Osmolality,Calculated 287 (280-300); Potassium 3.3 mEq/L (3.5-4.5); Sodium 138 mEq/L (136-145); eGFR For African Americans > 60 (> 60); eGFR For Non-African Americans > 60 (> 60)
[2017-04-20] MEDS: amLODIPine 5 MG TABLET PO SCH (07:40)
[2017-04-20] MEDS: Lisinopril-HCTZ 20-12.5mg TABLET PO SCH ×2 (07:41→21:57)
[2017-04-20] MEDS: Insulin LISPRO 300 UNITS/3 ML VIAL SQ SCH ×7 (07:41→22:01)
[2017-04-20] MEDS: Gabapentin 100 MG CAPSULE PO SCH ×3 (07:41→21:57)
[2017-04-20] MEDS: Insulin DETEMIR 100 UNIT/ML X5UNITS SQ SCH ×3 (09:30→21:57)
[2017-04-20] MEDS ORDERED: Potassium Chloride Elixir 20 MEQ/15 ML UDC PO ONE (12:46)
--- NOTE | 2017-04-20 13:35 | Internal Med Progress Note ---
Date of Encounter: 04/20/17 Time of Encounter: 13:34 - Assessment and plan (1) Seizure Current Visit: Yes Status: Acute Assessment and plan: Patient presented with generalized seizure with postictal confusion and possible Quentin's paralysis in right upper extremity, after sustaining a head injury when a car roberts fell on his head. Had a few episodes of recurrent seizures since admission, including 1 last evening. Continue telemetry monitoring. Has been started on IV Keppra and Dilantin, continue the same. When necessary IV Ativan for recurrent seizures. Seizure and fall precautions. Monitor and replete electrolytes. Neurology consult appreciated, recommend MRI brain with IV contrast, which was done and showed no evidence of metastatic disease. EEG shows abnormal signals in bilateral temporal lobes. Physical and occupational therapy pending. (2) Essential hypertension Current Visit: Yes Status: Chronic (3) Uncontrolled diabetes mellitus Current Visit: Yes Status: Chronic Assessment and plan: Hemoglobin A1c noted to be greater than 14.1%. Blood sugars noted to be elevated in 200s with well controlled fasting sugars. We will decrease basal insulin and continue sliding scale insulin. Continue Accu-Chek blood glucose monitoring. Diabetic diet as tolerated. Qualifiers: Diabetes mellitus type: type 2 Diabetes mellitus complication status: with circulatory complication Diabetes mellitus complication detail: with peripheral angiopathy without gangrene Diabetes mellitus exterminator helper insulin use : with exterminator helper use Qualified Code(s): E11.51 - Type 2 diabetes mellitus with diabetic peripheral angiopathy without gangrene; E11.65 - Type 2 diabetes mellitus with hyperglycemia; E11.65 - Type 2 diabetes mellitus with hyperglycemia; E11.65 - Type 2 diabetes mellitus with hyperglycemia; E11.65 - Type 2 diabetes mellitus with hyperglycemia; Z79.4 - half-way (current) use of insulin; Z79.4 - extermination supervisor (current) use of insulin; Z79.4 - extermination supervisor (current ) use of insulin; Z79.4 - extermination supervisor (current) use of insulin - Subjective Interval history: Reports feeling well; does not remember about recurrent seizures overnight; denies headache, blurred vision, nausea, vomiting; continues to have right arm weakness; wants to go home today; - Constitutional Vitals: Temp Pulse Resp BP Pulse Ox 98.0 F 73 16 122/77 100 04/20/17 12:00 04/20/17 12:00 04/20/17 11:45 04/20/17 12:00 04/20/17 11:45 General appearance: Present: A&O X 3, answers questions appropriately - Respiratory Respiratory exam: Present: CTAB. Absent: accessory muscle use, rales, rhonchi, wheezes - Cardiovascular Cardiovascular exam: Present: RRR, +S1, +S2. Absent: diastolic murmur, gallop, rubs, systolic murmur - GI/Abdominal GI/Abdominal exam: Present: normal bowel sounds, soft, no peritoneal signs. Absent: distended, tenderness - Extremities Exam Extremities exam: Present: full ROM, pedal edema (B/L feet ulcers- chronic), warm, radial pulses palpable and symmetrical. Absent: calf tenderness, cyanotic - Neurological Exam Neurological exam: Present: CN II-XII intact, oriented X3, no focal deficits ( Weakness and right upper extremity, 3-4/5 motor power). Absent: pronater drift , facial droop, speech deficit Internal Medicine: Result - Labs CBC & Chem 7: 04/20/17 04:43 04/21/17 03:31 Labs: Short CBC 04/20/17 Range/Units 04:43 WBC 7.5 (4.3-11.1) K/mcL Hgb 12.8 L (12.9-16.9) g/dL Hct 39.3 (37.5-50.1) % Plt Count 162 (140-400) K/mcL Neutrophils # 5.0 (1.6-8.9) K/mcL BMP 04/20/17 04:43 Sodium 138 Potassium 3.3 L Chloride 99 Carbon Dioxide 31 H BUN 15 Creatinine 0.73 Glucose 101 H Calcium 9.1 - ABG Interpretation ABG results: PT/INR, D-dimer PT 10.3 Seconds (9.4-12.1) 04/18/17 03:16 Consult Discharge Plan - Plan Instructions: Phenytoin (By mouth), Levetiracetam (By mouth), Diabetes Mellitus Type 2 in Adults (DC), Epilepsy (DC) Additional Instructions: F/up with Neurology in 1-2 weeks Referrals: Chip Caldwell DO [Resident] - 05/13/17 2:00 pm (PLEASE FILL OUT THE NEW PATIENT PACKET THAT IS BEING MAILED TO YOU, AND TAKE TO YOUR APPOINTMENT. PLEASE TAKE INS. CARDS, PICTURE ID, ALL MEDS IN THE BOTTLES TO YOUR APPOINTMENT. SHOW UP 15 MINS. EARLY. IF YOU NEED TO CANCEL PLEASE CALL [phone] WITHIN 24 HOURS OF YOUR APPOINTMENT.) Prescriptions: levETIRAcetam [Keppra] 500 mg PO Q12HR #60 tablet Phenytoin ER [Dilantin ER] 300 mg PO DAILY #90 capsule
--- NOTE | 2017-04-20 14:25 | Neurology Progress Note ---
Date of Encounter: 04/20/17 Time of Encounter: 14:22 Assessment and Plan (1) Seizure Current Visit: Yes Status: Acute After taking a second look at the MRI scan of the brain I am unable to identify an area of diffusion abnormality in the left temporal lobe. It is possible that this may represent an area of contusion resulting from the injury of the car roberts falling on top of his head. He states he did not have seizures prior to this event. He is also possible that this could be an area of small infarct. In general I would not expect such a small area of infarct resulting new onset seizure particularly if it is not hemorrhagic, however certainly this is possible. Keppra levels as well as phenytoin levels were ordered today and are yet pending. I will check carotid duplex Doppler study as well as echocardiogram. However I may be more inclined to feel that this is likely contusion because of the rapid onset of seizure activity after the traumatic event. At this juncture since I have identified a cause for this, I am not as convinced that an LP is necessary. Subjective Interval history: Chart was reviewed, the patient was seen and examined. Patient experienced yet another episode of generalized tonic-clonic seizure last night. Approximately 2 :00 AM. Apparently theend of the room to find him having a generalized tonic- clonic seizure. His head and had "rotated toward the right. Patient is currently more awake and alert. However he still has profound weakness of the right upper extremity primarily. Repeat MRI scan of the brain with contrast did not reveal any evidence of enhancement revealed no evidence of metastatic lesion. However I did take another look at the initial MRI with diffusion images the initial MRI with diffusion does reveal an area of diffusion deficit in the left temporal lobe. This would of course explain his seizure activity along with the right upper extremity weakness. I am not certain whether or not this area of abnormality represents an infarct represents an area of contusion when the car roberts fell on top of his head. He insisted he did not have seizures prior to this. Currently is awake and alert sitting up in bed he is wanting to go home. Objective - Constitutional Vitals: Temp Pulse Resp BP Pulse Ox 98.0 F 73 16 122/77 100 04/20/17 12:00 04/20/17 12:00 04/20/17 11:45 04/20/17 12:00 04/20/17 11:45 - Neurological Exam Motor examination - right side: 2/5: wrist flexion, wrist extension, metal dealer, 3/5: deltoids, biceps, triceps, 5/5: hip flexors, tibialis Anterior, quadriceps, toe extension (EHL), plantarflexion Motor examination - left side: 5/5: deltoids, biceps, triceps, wrist flexion, wrist extension, hip flexors, metal dealer, quadriceps, tibialis Anterior, toe extension (EHL), plantarflexion Sensation intact: Present: intact Reflex and gait examination: other (Deep tendon reflexes are diminished throughout.) Mental Status Examination: Present: awake, alert, oriented to person (Patient still however seems to be a bit confused. He does follow simple commands and to simple questions. No agnosia or aphasia.) Cranial nerve examination: Present: PERRL, EOMI, visual mae intact, corneal reflexes brisk symmetrically, sensory to face intact, mastication intact, no facial asymmetry is present, hearing is intact symmetrically, soft palate elevates bilaterally upon phonation, tongue protrudes midline Ataxia: right upper extremity (Ataxia is due to motor weakness of the right upper extremity.) Results - Laboratory Findings CBC and BMP: 04/20/17 04:43 04/20/17 04:43 Abnormal lab findings: Abnormal lab results Hgb 12.8 g/dL (12.9-16.9) L 04/20/17 04:43 Carboxyhemoglobin 6.8 % (0-5) H 04/18/17 03:16 Potassium 3.3 mEq/L (3.5-4.5) L 04/20/17 04:43 Carbon Dioxide 31 mEq/L (19-29) H 04/20/17 04:43 Glucose 101 mg/dL (70-99) H 04/20/17 04:43 POC Glucose 334 (58-89) H 04/19/17 16:31 Hemoglobin A1c >= 14.1 % (-5.6) H 04/18/17 03:16 Magnesium 1.4 mg/dL (1.6-2.6) L 04/20/17 04:43 Ammonia 16 mcmol/L (18-72) L 04/18/17 03:16 Albumin 3.0 g/dL (3.5-5.0) L 04/18/17 03:16 Globulin 4.9 g/dL (2.4-3.5) H 04/18/17 03:16 Albumin/Globulin Ratio 0.6 (1.1-2.2) L 04/18/17 03:16 Ur Specific [place] > 1.030 (1.010-1.025) H 04/18/17 05:10 Urine Protein 100 mg/dL (Neg-Trace) H 04/18/17 05:10 Urine Glucose (UA) >=1000 mg/dL (Normal) H 04/18/17 05:10 Urine Blood Small (Negative) H 04/18/17 05:10 Urine Microscopic RBC 15-30 per hpf (0-3) H 04/18/17 05:10 Ur Squamous Epith Cells Moderate per lpf (None-Few) H 04/18/17 05:10 Ur Amphetamines Screen Positive ng/mL ([id number]) H 04/18/17 05:10 Consult Discharge Plan - Plan Referrals: Chip Caldwell DO [Resident] - 05/13/17 2:00 pm (PLEASE FILL OUT THE NEW PATIENT PACKET THAT IS BEING MAILED TO YOU, AND TAKE TO YOUR APPOINTMENT. PLEASE TAKE INS. CARDS, PICTURE ID, ALL MEDS IN THE BOTTLES TO YOUR APPOINTMENT. SHOW UP 15 MINS. EARLY. IF YOU NEED TO CANCEL PLEASE CALL [phone] WITHIN 24 HOURS OF YOUR APPOINTMENT.)
[2017-04-20] MEDS: *HR* LORazepam 2 MG/ML VIAL IVP PRN ×2 (15:55→23:48)
[2017-04-20] MEDS: Gentamicin Oint 15 GM TUBE TP SCH (16:05)
[2017-04-21 04:35] LABS: BUN/Creatinine Ratio 25 (6-26); Blood Urea Nitrogen 19 mg/dL (8-26); Calcium 9.3 mg/dL (8.6-10.8); Carbon Dioxide 32 mEq/L (19-29); Chloride 100 mEq/L (98-109); Glucose 67 mg/dL (70-99); Magnesium 1.6 mg/dL (1.6-2.6); Osmolality,Calculated 289 (280-300); Potassium 3.7 mEq/L (3.5-4.5); Sodium 139 mEq/L (136-145); eGFR For African Americans > 60 (> 60); eGFR For Non-African Americans > 60 (> 60)
[2017-04-21] MEDS ORDERED: levETIRAcetam 250 MG TABLET PO SCH (06:00)
[2017-04-21 07:55] LABS: Keppra (Levetiracetam) 18 ug/mL (12-46)
[2017-04-21] MEDS ORDERED: Aspirin Enteric Coated 81 MG Tablet PO SCH (09:00)
[2017-04-21] MEDS: Insulin LISPRO 300 UNITS/3 ML VIAL SQ SCH ×4 (09:19→11:54)
[2017-04-21] MEDS: Gabapentin 100 MG CAPSULE PO SCH (09:24)
[2017-04-21] MEDS: Insulin DETEMIR 100 UNIT/ML X5UNITS SQ SCH (09:24)
[2017-04-21] MEDS: Lisinopril-HCTZ 20-12.5mg TABLET PO SCH (09:24)
[2017-04-21] MEDS: amLODIPine 5 MG TABLET PO SCH (09:24)
[2017-04-21] MEDS: *HR* Heparin 5,000 UNIT/ML VIAL SQ SCH (09:25)
[2017-04-21] MEDS: Gentamicin Oint 15 GM TUBE TP SCH (09:25)
[2017-04-21 11:39] VITALS: BP 135/79
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
[2017-04-21 16:02] LABS: Phenytoin (Dilantin) Free 2.1 ug/mL (1.0-2.5); Phenytoin Dose NOT PROVIDED; Phenytoin Dose Frequency NOT PROVIDED; Phenytoin Route NOT PROVIDED
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
--- NOTE | 2017-04-21 16:10 | Physician Discharge Referral ---
Home Health/Hosp Referral Info Transfer to: Home Health Attending Provider: Chey Hi Provider in Charge Post Discharge: PCP - Diagnosis (1) Seizure Priority: Primary Status: Acute (2) Essential hypertension Priority: Secondary Status: Chronic (3) Uncontrolled diabetes mellitus Priority: Secondary Status: Chronic - Respiratory Orders Smoking Cessation: Smoking cessation has been advised. For more information, call the [place] Tobacco Quit Line at 7-083-XLIU-NOW. - Diet/Nutrition Diet/Nutrition Orders: Cardiac, No Concentrated Sweets (diabetic) - Activity Activity Orders: Ambulate - Services Needed Following services are medically necessary services: Nursing, Physical Therapy, Occupational Therapy - Transfer Medications Prescriptions: levETIRAcetam [Keppra] 500 mg PO Q12HR #60 tablet Phenytoin ER [Dilantin ER] 300 mg PO DAILY #90 capsule Home Medications: Albuterol Sulfate [Albuterol Inhaler] 2 puff IH Q4HR PRN 04/18/17 [History] Amlodipine Besylate 10 mg PO DAILY 04/18/17 [History] Esomeprazole Magnesium [Nexium] 20 mg PO DAILY 04/18/17 [History] Fluticasone Propionate Nasal [Flonase] 2 spr NS DAILY PRN 04/18/17 [History] Gabapentin [Neurontin] 100 mg PO TID 04/18/17 [History] Gentamicin Oint [Garamycin] 1 appl TP DAILY 04/18/17 [History] Insulin Regular, Human [Novolin R] 10 unit SQ TID 04/18/17 [History] Lisinopril-HCTZ 20-12.5 [Prinzide 20-12.5] 1 tab PO BID 04/18/17 [History] Loratadine [Allergy Relief] 10 mg PO DAILY 04/18/17 [History] Lovastatin 40 mg PO DAILY 04/18/17 [History] Metformin HCl [Glucophage] 1,000 mg PO BID 04/18/17 [History] Montelukast [Singulair] 10 mg PO DAILY 04/18/17 [History] Ondansetron HCl [Zofran] 4 mg PO Q8H PRN 04/18/17 [History] hydrOXYzine HCl [Hydroxyzine HCl] 50 mg PO HS PRN 04/18/17 [History] Phenytoin ER [Dilantin ER] 300 mg PO DAILY #90 capsule 04/21/17 [Rx] levETIRAcetam [Keppra] 500 mg PO Q12HR #60 tablet 04/21/17 [Rx] Allergies/Adverse Reactions: 3 Allergy/AdvReac Type Severity Reaction Status Date / Time Penicillins Allergy See Verified 10/19/15 20:58 Comments Certification: Further, I certify that my clinical findings support that this patient is homebound (i.e. absences from home require considerable and taxing effort and are for medical reasons or [facility] services or infrequently or short duration when for other reasons) because: Homebound Reason: Leaving home requires considerable and taxing effort due to condition Attestation: My signature below is to certify that this patient is under my care and that I, or nurse practitioner, or a physician's veterinary assistant technician working with me, has a face-to -face encounter with this patient.
[2017-04-22 08:38] LABS: Phenytoin Type of Draw NOT PROVIDED
== END 2017-04-21 17:44 | disposition home health service (06) | DRG 53 ==
LOC: EMEROO 02:44 → 2NNU 02:44 → SUATTDRO 05:22 → 2NNU 07:52 → SUATTDRO 07:53 → 2ANU 16:53 → 2NNU 17:05
PROVIDERS: ADMIT Internal Medicine; ATTEND Internal Medicine

== ENCOUNTER 2017-07-07 19:28 | Inpatient (IN) ==
[2017-07-07] MEDS ORDERED: 0.9 % Sodium Chloride 1,000 ML IVC ONE (19:39)
--- NOTE | 2017-07-07 19:45 | Emergency Department Note ---
Disposition Clinical Impression: Necrotizing fasciitis, Hyperglycemia, Hypokalemia Altered mental status Qualifiers: Altered mental status type: unspecified Qualified Code(s): R41.82 - Altered mental status, unspecified Sepsis Qualifiers: Sepsis type: sepsis due to unspecified organism Qualified Code(s): A41.9 - Sepsis, unspecified organism Disposition: Admitted As Inpatient Condition: Serious General Adult HPI - General Chief complaint: ED Shortness of Breath/Dyspnea Stated complaint: Difficulty breathing Time Seen by Provider: 07/07/17 19:39 Source: EMS Mode of arrival: EMS Limitations: altered mental status Nursing Notes Reviewed: Yes Vital Signs Reviewed: Yes - History of Present Illness HPI Narrative: 66-year-old male presents to the ER via EMS due to concern for hypoxia. Patient is altered alert and oriented times one and is not answering many questions correctly. History is obtained by EMS. Upon arrival the patient is noted be 100% by nonrebreather. There were reports that he was hypoxic on nonrebreather previously. He appears in no respiratory distress. He is noted to have swelling and redness to his right lower extremity. Accu-Chek was too high to register per EMS. Unable to obtain any more in terms of history. Patient has no complaints currently. Pt Subjective Complaint: Difficulty breathing Onset (ago): unknown Pain Scale: 0 Treatments Prior to Arrival: none - Related Data Home Medications Medication Instructions Recorded Confirmed Unable To Obtain [Unable to Obtain] 07/08/17 07/08/17 Allergies Allergy/AdvReac Type Severity Reaction Status Date / Time Penicillins Allergy See Verified 06/28/17 18:13 Comments Limitations: ROS unobtainable due to patients medical condition Past Medical History - Past Medical History Source: old records reviewed Medical history: Reports: arthritis, cancer, diabetes, hypertension Surgical history: Reports: colectomy, herniorrhaphy, other Psychiatric history: Reports: no psych history - Social History Smoking Status: Current every day smoker Smokeless Tobacco Status: No Alcohol use: Reports: none Drug use: Reports: marijuana Physical Exam - General Limitations: altered mental status General appearance: alert, lethargic - Head Head exam: atraumatic, normocephalic - Eye Eye exam: Present: normal appearance - ENT ENT exam: normal exam - Neck Neck exam: Present: normal inspection - Chest Chest inspection: Present: normal inspection, symmetric chest wall rise - Respiratory Respiratory exam: Present: normal lung sounds bilaterally - Cardiovascular Cardiovascular exam: Present: regular rate, normal rhythm, normal heart sounds - Abdominal Exam Abdominal exam: Present: soft, Non-Tender. Absent: tenderness - Extremities Exam Extremities exam: Present: normal inspection, full ROM - Expanded Upper Extremity Exam Shoulder exam: Present: normal inspection, full ROM Arm exam: Present: normal inspection, full ROM Elbow exam: Present: normal inspection, full ROM Forearm/Wrist exam: Present: normal inspection, full ROM Hand exam: Present: normal inspection, full ROM - Expanded Lower Extremity Exam Hip/Pelvis exam: Present: normal inspection, full ROM Upper leg exam: Present: normal inspection, full ROM Knee exam: Present: normal inspection, full ROM Lower leg exam: Present: swelling (There is soft tissue swelling to the right lower extremity distal to the knee with overlying cellulitic changes. There is discoloration of the distal right toes. Open ulceration to the plantar medial surface of the right foot.) - Neurological Exam Neurological exam: Present: alert. Absent: oriented X3 Course Course Narrative: Patient seen and examined. In no respiratory distress. He is altered here. We will pursue a CT scan of the head as well as EKG, chest x-ray, CT of the right lower extremity as well as labs for evaluation of sepsis and DKA. Patient given IV fluids. - Reevaluation(s) Reevaluation #1: Patient has improved during his stay here. He is more alert. Currently waiting for any family members. Reevaluation #2: Family at bedside. They are unsure how long that wound is been on his leg. Discussed the findings on CT and concern for an infection. Told them I would speak with surgery given this concerning finding. He is also receiving IV antibiotics. He remains hemodynamically stable. Reevaluation #3: Vascular surgery paged. Time: 23:57 - Consultations Consultation #1: I spoke with the on-call surgeon Dr. Scherer. Discussed the patient's history exam imaging labs and interventions. He reviewed the CT imaging and recommended I speak with vascular surgery for likely BKA. Consultation #2: I spoke with the on-call vascular surgeon Dr. Uriarte. Discussed the patient's history exam imaging labs interventions and prior input from general surgery. He does agree that this is likely been culminating over several days to weeks. We discussed about the urgency that would be required for surgery. The patient is noted to be septic with an elevated white count and altered mental status. He does have numerous metabolic derangements that make him a poor candidate for operative intervention at this time. Vascular surgery recommends to continue resuscitation to make him a better candidate for definitive operative management. They will see the patient in consultation. Vital Signs Temperature 98.2 F 07/07/17 19:32 Pulse Rate 67 07/07/17 19:32 Respiratory Rate 26 07/07/17 19:32 Blood Pressure 131/68 07/07/17 19:32 O2 Sat by Pulse Oximetry 100 07/07/17 19:32 Temperature 98.8 F 07/08/17 04:25 Pulse Rate 65 07/08/17 04:25 Respiratory Rate 18 07/08/17 04:25 Blood Pressure 131/62 07/08/17 04:25 O2 Sat by Pulse Oximetry 96 07/08/17 04:25 Oxygen Delivery Oxygen Delivery Nasal Cannula Medical Decision Making - MDM Narrative Medical decision making narrative: 66-year-old male presents to the ER due to altered mental status right lower extremity swelling and redness. Alert and oriented times one here which is not his baseline as per family. Extensive swelling and redness to the right lower extremity. During his workup is noted to have necrotizing fasciitis by CT scan. Labs reviewed with the leukocytosis as well as hyponatremia, hypokalemia , metabolic acidosis. Poorly controlled diabetes with glucose over 450. Patient given IV fluids, IV vancomycin and clindamycin. Case discussed with general surgery and vascular surgery. Patient is admitted to the hospitalist service with consultation to vascular surgery. - Lab Data Lab results reviewed: Yes I reviewed the patient's lab results. Result diagrams: 07/07/17 20:33 07/08/17 01:43 Lab Results 07/07/17 07/07/17 07/07/17 Range/Units 19:46 19:52 20:33 WBC 27.7 H (4.3-11.1) K/mcL RBC 2.96 L (4.19-5.50) M/mcL Hgb 8.8 L (12.9-16.9) g/dL Hct 26.9 L (37.5-50.1) % MCV 90.9 (83.0-100.0) fL MCH 29.7 (28.0-33.3) pg MCHC 32.7 (31.6-35.5) g/dL RDW 13.0 (11.5-14.5) % Plt Count 407 H (140-400) K/mcL MPV 9.5 (9.4-12.4) fL Immature Gran % 2.7 (0-4) % Seg Neutrophils % 90.5 % Lymphocytes % 2.3 % Monocytes % 4.3 % Eosinophils % 0.0 % Basophils % 0.2 % Neutrophils # 25.1 H (1.6-8.9) K/mcL Lymphocytes # 0.6 (0.6-4.6) K/mcL Monocytes # 1.2 (0.0-1.3) K/mcL Eosinophils # 0.0 (0.0-0.6) K/mcL Basophils # 0.1 (0.0-0.2) K/mcL Toxic Granulation Present A (Not Present) PT (9.4-12.1) Seconds INR APTT (26.0-36.0) Seconds VBG pH (7.32-7.42) pH Units VBG pCO2 (41-51) mmHg VBG pO2 (25-50) mmHg VBG HCO3 (21-27) mEq/L Sodium (136-145) mEq/L Potassium (3.5-5.1) mEq/L Chloride (98-107) mEq/L Carbon Dioxide (23-29) mEq/L BUN (8-23) mg/dL Creatinine (0.70-1.30) mg/dL Est GFR ( Amer) (> 60) Est GFR (Non-Af Amer) (> 60) BUN/Creatinine Ratio (6-26) Glucose (70-105) mg/dL POC Glucose 468 H* 504 H* (58-89) Calculated Osmolality (280-300) Lactic Acid (0.5-2.2) mmol/L Calcium (8.6-10.3) mg/dL Total Bilirubin (0.3-1.0) mg/dL Direct Bilirubin (0.0-0.2) mg/dL Indirect Bilirubin (0.0-1.2) mg/dL AST (13-39) Units/L ALT (7-52) Units/L Alkaline Phosphatase (34-104) Units/L Troponin I (< 0.04) ng/mL Serum Total Protein (6.4-8.9) g/dL Albumin (3.5-5.7) g/dL Globulin (2.4-3.5) g/dL Albumin/Globulin Ratio (1.1-2.2) Beta-Hydroxybutyric Acd (0.02-0.27) mmol/L TSH (0.340-5.600) mcIU/mL Urine Color (Yellow) Urine Clarity (Clear) Urine pH (5.0-8.0) pH Units Ur Specific [place] (1.010-1.025) Urine Protein (Neg-Trace) mg/dL Urine Glucose (UA) (Normal) mg/dL Urine Ketones (Negative) mg/dL Urine Blood (Negative) Urine Nitrite (Negative) Urine Bilirubin (Negative) Urine Urobilinogen (Normal) mg/dL Ur Leukocyte Esterase (Negative) Urine Microscopic RBC (0-3) per hpf Urine Microscopic WBC (0-3) per hpf Ur Squamous Epith Cells (None-Few) per lpf Urine Bacteria (None-Few) per hpf Hyaline Casts (None-Few) per lpf Ur Culture Indicated? (NO) 07/07/17 07/07/17 07/07/17 Range/Units 20:33 20:33 20:33 WBC (4.3-11.1) K/mcL RBC (4.19-5.50) M/mcL Hgb (12.9-16.9) g/dL Hct (37.5-50.1) % MCV (83.0-100.0) fL MCH (28.0-33.3) pg MCHC (31.6-35.5) g/dL RDW (11.5-14.5) % Plt Count (140-400) K/mcL MPV (9.4-12.4) fL Immature Gran % (0-4) % Seg Neutrophils % % Lymphocytes % % Monocytes % % Eosinophils % % Basophils % % Neutrophils # (1.6-8.9) K/mcL Lymphocytes # (0.6-4.6) K/mcL Monocytes # (0.0-1.3) K/mcL Eosinophils # (0.0-0.6) K/mcL Basophils # (0.0-0.2) K/mcL Toxic Granulation (Not Present) PT 13.1 H (9.4-12.1) Seconds INR 1.2 APTT 23.2 L (26.0-36.0) Seconds VBG pH (7.32-7.42) pH Units VBG pCO2 (41-51) mmHg VBG pO2 (25-50) mmHg VBG HCO3 (21-27) mEq/L Sodium 129 L (136-145) mEq/L Potassium 2.7 L (3.5-5.1) mEq/L Chloride 82 L (98-107) mEq/L Carbon Dioxide 36 H (23-29) mEq/L BUN 26 H (8-23) mg/dL Creatinine 0.97 (0.70-1.30) mg/dL Est GFR ( Amer) > 60 (> 60) Est GFR (Non-Af Amer) > 60 (> 60) BUN/Creatinine Ratio 27 H (6-26) Glucose 457 H (70-105) mg/dL POC Glucose (58-89) Calculated Osmolality 293 (280-300) Lactic Acid (0.5-2.2) mmol/L Calcium 8.5 L (8.6-10.3) mg/dL Total Bilirubin 0.5 (0.3-1.0) mg/dL Direct Bilirubin 0.2 (0.0-0.2) mg/dL Indirect Bilirubin 0.3 (0.0-1.2) mg/dL AST 14 (13-39) Units/L ALT 10 (7-52) Units/L Alkaline Phosphatase 128 H (34-104) Units/L Troponin I 0.03 (< 0.04) ng/mL Serum Total Protein 7.2 (6.4-8.9) g/dL Albumin 2.2 L (3.5-5.7) g/dL Globulin 5.0 H (2.4-3.5) g/dL Albumin/Globulin Ratio 0.4 L (1.1-2.2) Beta-Hydroxybutyric Acd (0.02-0.27) mmol/L TSH 0.757 (0.340-5.600) mcIU/mL Urine Color (Yellow) Urine Clarity (Clear) Urine pH (5.0-8.0) pH Units Ur Specific [place] (1.010-1.025) Urine Protein (Neg-Trace) mg/dL Urine Glucose (UA) (Normal) mg/dL Urine Ketones (Negative) mg/dL Urine Blood (Negative) Urine Nitrite (Negative) Urine Bilirubin (Negative) Urine Urobilinogen (Normal) mg/dL Ur Leukocyte Esterase (Negative) Urine Microscopic RBC (0-3) per hpf Urine Microscopic WBC (0-3) per hpf Ur Squamous Epith Cells (None-Few) per lpf Urine Bacteria (None-Few) per hpf Hyaline Casts (None-Few) per lpf Ur Culture Indicated? (NO) 07/07/17 07/07/17 07/07/17 Range/Units 20:33 20:33 21:04 WBC (4.3-11.1) K/mcL RBC (4.19-5.50) M/mcL Hgb (12.9-16.9) g/dL Hct (37.5-50.1) % MCV (83.0-100.0) fL MCH (28.0-33.3) pg MCHC (31.6-35.5) g/dL RDW (11.5-14.5) % Plt Count (140-400) K/mcL MPV (9.4-12.4) fL Immature Gran % (0-4) % Seg Neutrophils % % Lymphocytes % % Monocytes % % Eosinophils % % Basophils % % Neutrophils # (1.6-8.9) K/mcL Lymphocytes # (0.6-4.6) K/mcL Monocytes # (0.0-1.3) K/mcL Eosinophils # (0.0-0.6) K/mcL Basophils # (0.0-0.2) K/mcL Toxic Granulation (Not Present) PT (9.4-12.1) Seconds INR APTT (26.0-36.0) Seconds VBG pH (7.32-7.42) pH Units VBG pCO2 (41-51) mmHg VBG pO2 (25-50) mmHg VBG HCO3 (21-27) mEq/L Sodium (136-145) mEq/L Potassium (3.5-5.1) mEq/L Chloride (98-107) mEq/L Carbon Dioxide (23-29) mEq/L BUN (8-23) mg/dL Creatinine (0.70-1.30) mg/dL Est GFR ( Amer) (> 60) Est GFR (Non-Af Amer) (> 60) BUN/Creatinine Ratio (6-26) Glucose (70-105) mg/dL POC Glucose (58-89) Calculated Osmolality (280-300) Lactic Acid 1.6 (0.5-2.2) mmol/L Calcium (8.6-10.3) mg/dL Total Bilirubin (0.3-1.0) mg/dL Direct Bilirubin (0.0-0.2) mg/dL Indirect Bilirubin (0.0-1.2) mg/dL AST (13-39) Units/L ALT (7-52) Units/L Alkaline Phosphatase (34-104) Units/L Troponin I (< 0.04) ng/mL Serum Total Protein (6.4-8.9) g/dL Albumin (3.5-5.7) g/dL Globulin (2.4-3.5) g/dL Albumin/Globulin Ratio (1.1-2.2) Beta-Hydroxybutyric Acd 0.24 (0.02-0.27) mmol/L TSH (0.340-5.600) mcIU/mL Urine Color Yellow (Yellow) Urine Clarity Clear (Clear) Urine pH 6.0 (5.0-8.0) pH Units Ur Specific [place] 1.024 (1.010-1.025) Urine Protein 30 H (Neg-Trace) mg/dL Urine Glucose (UA) >=1000 H (Normal) mg/dL Urine Ketones Negative (Negative) mg/dL Urine Blood Negative (Negative) Urine Nitrite Negative (Negative) Urine Bilirubin Negative (Negative) Urine Urobilinogen Normal (Normal) mg/dL Ur Leukocyte Esterase Negative (Negative) Urine Microscopic RBC 3-5 H (0-3) per hpf Urine Microscopic WBC 0-3 (0-3) per hpf Ur Squamous Epith Cells Few (None-Few) per lpf Urine Bacteria None Seen (None-Few) per hpf Hyaline Casts None Seen (None-Few) per lpf Ur Culture Indicated? NO (NO) 07/07/17 07/07/17 07/07/17 Range/Units 21:08 22:55 22:57 WBC (4.3-11.1) K/mcL RBC (4.19-5.50) M/mcL Hgb (12.9-16.9) g/dL Hct (37.5-50.1) % MCV (83.0-100.0) fL MCH (28.0-33.3) pg MCHC (31.6-35.5) g/dL RDW (11.5-14.5) % Plt Count (140-400) K/mcL MPV (9.4-12.4) fL Immature Gran % (0-4) % Seg Neutrophils % % Lymphocytes % % Monocytes % % Eosinophils % % Basophils % % Neutrophils # (1.6-8.9) K/mcL Lymphocytes # (0.6-4.6) K/mcL Monocytes # (0.0-1.3) K/mcL Eosinophils # (0.0-0.6) K/mcL Basophils # (0.0-0.2) K/mcL Toxic Granulation (Not Present) PT (9.4-12.1) Seconds INR APTT (26.0-36.0) Seconds VBG pH 7.45 H (7.32-7.42) pH Units VBG pCO2 58 H (41-51) mmHg VBG pO2 96 H (25-50) mmHg VBG HCO3 40 H (21-27) mEq/L Sodium (136-145) mEq/L Potassium (3.5-5.1) mEq/L Chloride (98-107) mEq/L Carbon Dioxide (23-29) mEq/L BUN (8-23) mg/dL Creatinine (0.70-1.30) mg/dL Est GFR ( Amer) (> 60) Est GFR (Non-Af Amer) (> 60) BUN/Creatinine Ratio (6-26) Glucose (70-105) mg/dL POC Glucose 442 H* 476 H* (58-89) Calculated Osmolality (280-300) Lactic Acid (0.5-2.2) mmol/L Calcium (8.6-10.3) mg/dL Total Bilirubin (0.3-1.0) mg/dL Direct Bilirubin (0.0-0.2) mg/dL Indirect Bilirubin (0.0-1.2) mg/dL AST (13-39) Units/L ALT (7-52) Units/L Alkaline Phosphatase (34-104) Units/L Troponin I (< 0.04) ng/mL Serum Total Protein (6.4-8.9) g/dL Albumin (3.5-5.7) g/dL Globulin (2.4-3.5) g/dL Albumin/Globulin Ratio (1.1-2.2) Beta-Hydroxybutyric Acd (0.02-0.27) mmol/L TSH (0.340-5.600) mcIU/mL Urine Color (Yellow) Urine Clarity (Clear) Urine pH (5.0-8.0) pH Units Ur Specific [place] (1.010-1.025) Urine Protein (Neg-Trace) mg/dL Urine Glucose (UA) (Normal) mg/dL Urine Ketones (Negative) mg/dL Urine Blood (Negative) Urine Nitrite (Negative) Urine Bilirubin (Negative) Urine Urobilinogen (Normal) mg/dL Ur Leukocyte Esterase (Negative) Urine Microscopic RBC (0-3) per hpf Urine Microscopic WBC (0-3) per hpf Ur Squamous Epith Cells (None-Few) per lpf Urine Bacteria (None-Few) per hpf Hyaline Casts (None-Few) per lpf Ur Culture Indicated? (NO) - Radiology Data Radiology results reviewed: Yes I reviewed the patient's radiology results. Chest X-Ray 07/07/17 19:39 IMPRESSION: No acute process. D/ / Abdiaziz Aranda MD / Abdiaziz Aranda MD Interpreting Provider: Abdiaziz Aranda MD Head CT 07/07/17 19:39 IMPRESSION: No acute intracranial abnormality. D/ / Lalo Weems / Lalo Weems Interpreting Provider: Lalo Weems Lower Extremity CT 07/07/17 19:40 IMPRESSION: Extensive gas found throughout the lower extremity, tracking along the muscular and fascia planes, suggesting necrotizing fasciitis. Findings were discussed with Dereck Leavitt at 11:19 pm on 07/07/2017. D/ / Abdiaziz Aranda MD / Abdiaziz Aranda MD Interpreting Provider: Abdiaziz Aranda MD - EKG Data EKG #1 EKG attestation: Yes I reviewed and interpreted this EKG. EKG results narrative: EKG demonstrates sinus rhythm with rate of 68 bpm. Normal axis. Normal intervals. Normal R-wave progression. Nonspecific ST-T wave changes in the inferior leads. No gross ST elevations or depressions. No acute ischemic findings. No significant changes from previous EKG dated 06/20/17. Critical Care Time Critical Care Time: Yes Total Critical Care Time: 60 Attestation: Critical care performed: Time is exclusive of separately billable procedures. Time includes: direct patient care, patient reassessment, coordination of patient care, interpretation of data (laboratory data, radiology data, and respiratory data), review of patient's medical records, medical consultation and documentation of patient care. Procedures included in critical care time: Procedures excluded from critical care time: S.B.A.R. - S.B.A.R. Situation: Demographics, MOA Background: Presenting Complaint, Relevant PMH, Meds, & Allergies Assessment: Course and respsone to treatment, Exam Concerns, Patient/Family Expectation, Pertinant Lab Results Recommendation: Barrier(s) to disposition S.B.A.R. Report Given to: Dr Shonna Smith Repor Time: 00:33 Attestation Statement - Attestation Attestation: I, Sony Mandel MD, personally evaluated this patient and discussed their management with the resident physician. I reviewed the resident's note and agree with the documented findings, medical decision making, and plan of care. 66-year-old male presents to the emergency department by ambulance for reportedly difficulty breathing per EMS. Patient arrived on a nonrebreather and is in no respiratory distress at all. Is stressed heart rate is about 15 and his lungs are clear and his oxygen saturation 100%. Patient has an altered mental status. He is alert but unable to answer any questions. He just mumbles unintelligible answers. Patient has obvious gangrene of the right foot with the open ulcerations with very foul odor of the tissue. There is swelling and erythema up to the proximal lower leg. Patient apparently lives with a sister but no family is present. Patient has no idea how long he has had problems with the foot. On examination patient is a thin elderly male who is alert but confused and unable to answer any questions or provide any kind of history or review of systems. There is no cyanosis or diaphoresis. Breath sounds are clear and equal bilaterally. Heart regular rate and rhythm. Abdomen soft with present bowel sounds. Gangrene of the right foot with deep open wounds and foul smelling drainage. Erythema up to the proximal lower leg. Labs reviewed. WBC 27. CT of the lower extremity shows necrotizing fasciitis. Dr. Leavitt discussed with general surgery, Dr. Scherer. He recommended consulting vascular surgery. Dr. Leavitt discussed with the vascular surgeon on- call, Dr. Uriarte. He is agreeable with keeping the patient here. The hospitalist, Dr. Galeas, was consulted and accepted admission of the patient. Antibiotics initiated in the emergency department.
[2017-07-07 20:47] LABS: Basophils % 0.2 %; Hemoglobin 8.8 g/dL (12.9-16.9)
[2017-07-07 20:48] LABS: Basophils # 0.1 K/mcL (0.0-0.2); Hematocrit 26.9 % (37.5-50.1); Immature Granulocytes % 2.7 % (0-4); Lymphocytes # 0.6 K/mcL (0.6-4.6); Lymphocytes % 2.3 %; Mean Corpuscular HGB Conc 32.7 g/dL (31.6-35.5); Mean Corpuscular Hemoglobin 29.7 pg (28.0-33.3); Mean Corpuscular Volume 90.9 fL (83.0-100.0); Mean Platelet Volume 9.5 fL (9.4-12.4); Monocytes # 1.2 K/mcL (0.0-1.3); Monocytes % 4.3 %; Neutrophils # 25.1 K/mcL (1.6-8.9); Platelet Count 407 K/mcL (140-400); Red Blood Count 2.96 M/mcL (4.19-5.50); Segmented Neutrophils % 90.5 %
[2017-07-07 20:56] LABS: INR 1.2; Prothrombin Time 13.1 Seconds (9.4-12.1)
[2017-07-07 20:59] LABS: Activated Partial Thrombo Time 23.2 Seconds (26.0-36.0)
[2017-07-07 21:10] LABS: Bilirubin,Urine Negative (Negative); Blood,Urine Negative (Negative); Clarity,Urine Clear (Clear); Color,Urine Yellow (Yellow); Glucose,Urine (UA) >=1000 mg/dL (Normal); Ketones,Urine Negative (Negative); Leukocyte Esterase,Urine Negative (Negative); Nitrite,Urine Negative (Negative); Protein,Urine 30 mg/dL (Neg-Trace); Specific Gravity,Urine 1.024 (1.010-1.025); Urobilinogen,Urine Normal (Normal)
[2017-07-07 21:11] LABS: VBG HCO3 40 mEq/L (21-27); VBG PCO2 58 mmHg (41-51); VBG PH 7.45 pH Units (7.32-7.42); VBG PO2 96 mmHg (25-50)
[2017-07-07 21:12] LABS: Toxic Granulation Present (Not Present)
[2017-07-07 21:14] LABS: Bacteria,Urine None Seen per hpf (None-Few); Hyaline Casts,Urine None Seen per lpf (None-Few); Squamous Epithelial Cell,Urine Few per lpf (None-Few); WBC,Urine 0-3 per hpf (0-3)
[2017-07-07 21:21] LABS: Thyroid Stimulating Hormone 0.757 mcIU/mL (0.340-5.600)
[2017-07-07 21:37] LABS: Alanine Aminotransferase 10 Units/L (7-52); Albumin 2.2 g/dL (3.5-5.7); Albumin/Globulin Ratio 0.4 (1.1-2.2); Alkaline Phosphatase 128 Units/L (34-104); Aspartate Amino Transferase 14 Units/L (13-39); BUN/Creatinine Ratio 27 (6-26); Bilirubin,Direct 0.2 mg/dL (0.0-0.2); Bilirubin,Indirect 0.3 mg/dL (0.0-1.2); Bilirubin,Total 0.5 mg/dL (0.3-1.0); Blood Urea Nitrogen 26 mg/dL (8-23); Calcium 8.5 mg/dL (8.6-10.3); Carbon Dioxide 36 mEq/L (23-29); Chloride 82 mEq/L (98-107); Glucose 457 mg/dL (70-105); Osmolality,Calculated 293 (280-300); Potassium 2.7 mEq/L (3.5-5.1); Sodium 129 mEq/L (136-145); Total Protein 7.2 g/dL (6.4-8.9); eGFR For African Americans > 60 (> 60); eGFR For Non-African Americans > 60 (> 60)
[2017-07-07] MEDS ORDERED: Clindamycin 600 MG/50 ML 600 MG/50 ML IV.SOLN IVPB ONE (22:39)
[2017-07-08] MEDS ORDERED: 0.9 % Sodium Chloride 1,000 ML IVC ONE ×2 (00:31→01:23)
[2017-07-08] MEDS ORDERED: Naloxone 0.4 MG/ML INJ IVP PRN ×3 (00:58→17:56)
[2017-07-08] MEDS ORDERED: OXYCODONE Oral CONC 10 MG/0.5 ML ORAL.SYG SL PRN ×2 (00:58→17:56)
[2017-07-08] MEDS ORDERED: Ketorolac 15 MG/ML VIAL IVP PRN (00:58)
[2017-07-08] MEDS ORDERED: Ondansetron 4 MG/2 ML VIAL IVP PRN ×2 (00:58→17:56)
[2017-07-08] MEDS ORDERED: *HR* Dextrose 50 % in Water (Syg) 50 ML SYRINGE IVP PRN ×2 (01:02→17:56)
[2017-07-08] MEDS ORDERED: D5% in Water 1,000 ML IVC PRN ×2 (01:02→17:56)
[2017-07-08] MEDS ORDERED: Dextrose Gel 15 GM/37.5 ML TUBE PO PRN ×4 (01:02→17:56)
[2017-07-08] MEDS ORDERED: Insulin Regular, Human 100 UNIT/ML SQ ONE (01:25)
[2017-07-08] MEDS ORDERED: 0.9 % Sodium Chloride w KCl 20 MEQ/1,000 ML MLS IVC SCH (01:30)
--- NOTE | 2017-07-08 01:54 | Internal Med History&Physical ---
<Jacob Davidson - Last Filed: 07/08/17 02:57> Date of Encounter: 07/08/17 Time of Encounter: 01:48 Assessment and Plan (1) Necrotizing fasciitis Current visit: Yes Status: Acute CT RLE w/contrast: suggestive of necrotizing fasciitis. SIRS (-)...tachypnea, leukocytosis to 27.7. Afebrile, not hypotensive. Patient fluid resuscitated with 2L (just under 30mL/kg) NPO now. mIVF at 100% maintenance rate Empiric antibiotic coverage: Meropenem (PCN allergy), Vancomycin, Clindamycin Cultures pending: Blood culture x2, wound culture x1 Consult vascular: Dr. Azar called from the ED. With the understanding this is likely indolent clinical presentation, he prefers additional medical stabilization prior to operation. Patient will likely require below knee amputation for source control. Consult ID: eval pending and input appreciated Consult psychologist social: patient likely to require placement for rehabilitation Consult to PT/OT (2) Hypokalemia Current visit: Yes Status: Acute Hypokalemia 2.5 on intake. Now: 40mEq PO KCl, 40mEq K-rider Will closely monitor in the context of his hyperglycemia Electrolyte protocol (3) Hyperglycemia Current visit: Yes Status: Acute Intake BG 476. 10u Regular insulin now. POC glucose check 2hrs later. Low dose insulin sliding scale for NPO. (4) Anemia Current visit: Yes Status: Acute Hgb 8.8 in the context of chronic anemia with basline 11-12. No melena. No hematochezia. No hemetemesis or coffee-ground emesis. Will continue to monitor. Qualifiers: Anemia type: unspecified type Qualified Code(s): D64.9 - Anemia, unspecified (5) Hypocalcemia Current visit: Yes Status: Acute Intake Ca 7.9. Electrolyte protocol. Will continue to monitor. Internal Medicine - H&P: HPI History of present illness: Mr. Seals is a 66 year old male presents from home via EMS to the ER with initial concern for hypoxia. In the emergency department, patient was alert, altered, oriented to self only, and in no respiration distress. He was so profound that have right lower extremity cellulitis and necrotizing fasciitis. On interview, patient is unsure of how long his right lower extremity has been different than normal. He is unsure how an infection could have started. Family at bedside notes he has a history of picking at callouses. Neither patient nor family are certain about his past medical diagnoses or current medications. Patient denies pain and currently has no complaints. At baseline, patient ambulates with a walker. He is current non-ambulatory secondary to his right LE wound(s). Patient and family are uncertain about how long he has been non-ambulatory. They defer to patient's daughter who is not bedside at this time. Habits: No EtOH. Denies illicit. Current everyday smoker x "many years". Patient rolls his own cigarettes and cannot approximate his daily use. Family at bedside note "one after the other." Past Med Surg Social Fam HX - Past Medical History Medical history: arthritis, cancer, diabetes, hypertension Psychiatric history: no psych history - Past Surgical History Surgical History: colectomy, herniorrhaphy, other - Social History Smoking Status: Current every day smoker Smokeless Tobacco Status: No Alcohol use: none Drug use: marijuana Internal Medicine - H&P: Meds Unable To Obtain [Unable to Obtain] 07/08/17 [History] 3 Allergy/AdvReac Type Severity Reaction Status Date / Time Penicillins Allergy See Verified 06/28/17 18:13 Comments All Systems PM: A 10-system review of systems was performed and is negative for pertinent findings except as documented above in the HPI. - Constitutional Constitutional: no anorexia, no chills, no fever(s), no weakness - Cardiovascular Cardiovascular ROS IM: dyspnea, edema, no chest pain, no diaphoresis, no lightheadedness - Respiratory Respiratory: cough (chronic), no wheezing, no pain on inspiration, no pain with cough - Gastrointestinal Gastrointestinal: no change in bowel habits, no constipation, no diarrhea - Musculoskeletal Musculoskeletal ROS IM: joint swelling (RLE), limited range of motion (RLE), no numbness, no tingling - Integumentary Integumentary IM: new lesions, non-healing lesions, skin ulcer - Neurological Neurological ROS: no abnormal speech, no behavioral changes, no burning sensations, no confusion, no focal weakness, no headache(s) - Hematologic/Lymphatic Hematologic/Lymphatic: no easy bleeding, no easy bruising - Constitutional Vitals: Temp Pulse Resp BP Pulse Ox 98.2 F 72 18 116/57 100 07/07/17 19:32 02/15/18 23:52 07/08/17 00:53 07/08/17 00:53 07/07/17 23:52 General appearance: Present: cooperative, A&O X 1, pleasant, no acute distress - Head Head exam: Present: normal inspection - Eye Eye exam: Present: EOMI, PERRL, sclera anicteric - ENT ENT exam: Present: mucous membranes moist, normal exam - Respiratory Respiratory exam: Present: CTAB, prolonged expiratory phase. Absent: respiratory distress, wheezes - Cardiovascular Cardiovascular exam: Present: RRR, systolic murmur. Absent: clicks, diastolic murmur, gallop, JVD, rubs - GI/Abdominal GI/Abdominal exam: Present: soft. Absent: guarding, hepatomegaly - Expanded Lower Extremities Exam Hip exam: Present: normal inspection Upper Leg exam: Present: normal inspection Knee exam: Present: normal inspection Lower Leg exam: Present: erythema, swelling Ankle exam: Present: erythema, swelling Foot/Toe exam: Present: abrasion (open ulceration to plantar medial aspect of Rt foot), ecchymosis, erythema, swelling, tenderness Neuro vascular tendon exam: Present: abnormal 2-point discrimination, abnormal cap refill, decreased fine/light touch, extremity cold to touch (discoloration of distal RLE toes), pulse deficit. Absent: tendon deficit Gait: Present: not tested/not observed Internal Med - H&P Results - Labs CBC & Chem 7: 07/07/17 20:33 07/08/17 01:43 - ABG Interpretation Interpretation: abnormal, respiratory acidosis, metabolic alkalosis, venous blood gas - Diagnostic Studies Other Images Additional comments: Chest X-Ray 07/07/17 19:39 IMPRESSION: No acute process. D/ / Abdiaziz Aranda MD / Abdiaziz Aranda MD Interpreting Provider: Abdiaziz Aranda MD Head CT 07/07/17 19:39 IMPRESSION: No acute intracranial abnormality. D/ / Lalo Weems / Lalo Weems Interpreting Provider: Lalo Weems Lower Extremity CT 07/07/17 19:40 IMPRESSION: Extensive gas found throughout the lower extremity, tracking along the muscular and fascia planes, suggesting necrotizing fasciitis. Findings were discussed with Dereck Leavitt at 11:19 pm on 07/07/2017. D/ / Abdiaziz Aranda MD / Abdiaziz Aranda MD Interpreting Provider: Abdiaziz Aranda MD <YoniPal - Last Filed: 07/08/17 06:26> Date of Encounter: 07/08/17 Internal Medicine - H&P: HPI History of present illness: Mr. Seals is a 66 year old male All Systems PM: A 10-system review of systems was performed and is negative for pertinent findings except as documented above in the HPI. - Constitutional Vitals: Temp Pulse Resp BP Pulse Ox 98.8 F 65 18 131/62 96 07/08/17 04:25 07/08/17 04:25 07/08/17 04:25 07/08/17 04:25 07/08/17 04:25 Internal Med - H&P Results - Labs CBC & Chem 7: 07/07/17 20:33 07/08/17 05:10 Labs: BMP 07/08/17 07/08/17 01:43 05:10 Sodium 133 L 133 L Potassium 2.5 L* 2.5 L* Chloride 88 L 89 L Carbon Dioxide 34 H 33 H BUN 21 19 Creatinine 0.80 0.73 Glucose 409 H 348 H Calcium 7.9 L 8.2 L Cardiac Enzymes 07/08/17 Range/Units 01:43 Troponin I 0.03 (< 0.04) ng/mL Liver Function 07/08/17 Range/Units 01:43 Total Bilirubin 0.5 (0.3-1.0) mg/dL AST 11 L (13-39) Units/L ALT 9 (7-52) Units/L Alkaline Phosphatase 111 H (34-104) Units/L Albumin 1.9 L (3.5-5.7) g/dL - Attending Attestation I have seen and examined pt independently. I have discussed with Resident physician Dr Davidson regarding the management plan. Agree with the documentation.
[2017-07-08 02:20] LABS: Alanine Aminotransferase 9 Units/L (7-52); Albumin 1.9 g/dL (3.5-5.7); Albumin/Globulin Ratio 0.4 (1.1-2.2); Alkaline Phosphatase 111 Units/L (34-104); Aspartate Amino Transferase 11 Units/L (13-39); BUN/Creatinine Ratio 26 (6-26); Bilirubin,Total 0.5 mg/dL (0.3-1.0); Blood Urea Nitrogen 21 mg/dL (8-23); Calcium 7.9 mg/dL (8.6-10.3); Carbon Dioxide 34 mEq/L (23-29); Chloride 88 mEq/L (98-107); Globulin 4.5 g/dL (2.4-3.5); Glucose 409 mg/dL (70-105); Magnesium 1.5 mg/dL (1.6-2.6); Osmolality,Calculated 296 (280-300); Potassium 2.5 mEq/L (3.5-5.1); Sodium 133 mEq/L (136-145); Total Protein 6.4 g/dL (6.4-8.9); eGFR For African Americans > 60 (> 60); eGFR For Non-African Americans > 60 (> 60)
[2017-07-08] MEDS ORDERED: Insulin LISPRO 300 UNITS/3 ML VIAL SQ ONE (03:00)
[2017-07-08] MEDS ORDERED: Potassium Chloride 40 MEQ, Lidocaine 1% 2 ML in D5% in Water 500 ML IVPB ONE (03:41)
[2017-07-08] MEDS: 0.9 % Sodium Chloride 1,000 ML IVC SCH ×2 (03:54→10:14)
[2017-07-08] MEDS: Insulin LISPRO 300 UNITS/3 ML VIAL SQ SCH ×3 (05:32→20:16)
[2017-07-08 05:42] LABS: BUN/Creatinine Ratio 26 (6-26); Blood Urea Nitrogen 19 mg/dL (8-23); Calcium 8.2 mg/dL (8.6-10.3); Carbon Dioxide 33 mEq/L (23-29); Chloride 89 mEq/L (98-107); Glucose 348 mg/dL (70-105); Osmolality,Calculated 292 (280-300); Potassium 2.5 mEq/L (3.5-5.1); Sodium 133 mEq/L (136-145); eGFR For African Americans > 60 (> 60); eGFR For Non-African Americans > 60 (> 60)
[2017-07-08] MEDS: Clindamycin 600 MG/50 ML 600 MG/50 ML IV.SOLN IVPB SCH ×2 (08:20→17:37)
[2017-07-08] MEDS ORDERED: Nicotine 14 MG PATCH.TD24 TD SCH (09:30)
[2017-07-08] MEDS ORDERED: Meropenem 1,000 MG in Water for inj. (sterile) 10 ML IVP SCH (10:00)
--- NOTE | 2017-07-08 10:12 | Internal Med Progress Note ---
<Mirna Zhang - Last Filed: 07/08/17 11:32> Date of Encounter: 07/08/17 Time of Encounter: 10:10 - Assessment and plan (1) Gas gangrene Current Visit: Yes Status: Acute Assessment and plan: Patient arrived with significant amount of necrosis on his right lower extremity. CT of the right lower extremity showed extensive gas found throughout the lower extremity, tracking along the muscular and fascial planes, significant for gas gangrene. Patient receives 2 L of fluid with maintenance fluids running. Patient received vancomycin and clindamycin in the ED, he is currently receiving merit pendant. Plan: Blood culturesx2 wound culture NPO Appreciate vascular surgery and ID recs. Per vascular surgeon, he is to go to OR later today for an above the knee amputation PT/OT secondary social studies teacher continue electrolyte protocol. transfer to when bed available. (2) Hypokalemia Current Visit: Yes Status: Acute Assessment and plan: patient has received about 150 mEq of potassium replacement since admission. continue with electrolyte protocol. (3) Diabetes Current Visit: Yes Status: Acute Assessment and plan: Patient arrived with blood glucose of 468. He received insulin upon arrival. Continue with low-dose sliding scale with Q six-hour Accu checks. NPO will check A1C. Qualifiers: Diabetes mellitus type: other specified (including MINISTERIO) Diabetes mellitus complication status: with unspecified complications Diabetes mellitus long term care phlebotomist insulin use: unspecified long term care phlebotomist insulin use status Qualified Code(s): E13.8 - Other specified diabetes mellitus with unspecified complications (4) Hyperglycemia Current Visit: Yes Status: Acute Assessment and plan: plan as above (5) Anemia Current Visit: Yes Status: Acute Assessment and plan: Drop in hemoglobin from 03/2017. Current Hg 8.8 Plan: stool guia obtain anemia workup transfuse as needed. Qualifiers: Anemia type: unspecified type Qualified Code(s): D64.9 - Anemia, unspecified (6) Hypocalcemia Current Visit: Yes Status: Acute Assessment and plan: continue with electrolyte protocol. (7) DVT prophylaxis Current Visit: Yes Status: Acute Assessment and plan: SQ lovenox - Subjective Interval history: 66-year-old male evaluated at bedside. Patient is a poor historian, and is able to completely answer very few questions. He is not able to tell me when his foot first became infected. He admits to nausea but denies any vomiting. he denies fever. he admits to some mild intermittent denies chest pain or shortness of breath. - Constitutional Vitals: Temp Pulse Resp BP Pulse Ox 97.9 F 64 15 136/68 100 07/08/17 08:08 07/08/17 08:08 07/08/17 08:08 07/08/17 08:08 07/08/17 08:08 General appearance: Present: cooperative, A&O X 1, A&O X 3, no acute distress. Absent: answers questions appropriately - Head Head exam: Present: atraumatic, normocephalic - Neck Neck exam general surgery: Present: supple, trachea midline - Respiratory Respiratory exam: Present: CTAB - Cardiovascular Cardiovascular exam: Present: RRR, +S1, +S2 - GI/Abdominal GI/Abdominal exam: Present: normal bowel sounds, soft. Absent: distended, tenderness Additional comments: diastasis recti present. scars present from prior abdominal surgery. - Extremities Exam Additional comments: Left lower extremity: +2 pitting edema present on foot and goes up to the ankle. Callous x3 present at the base of the foot. Right lower extremity: +3 pitting edema present up to mid ankle. Right toes 1-4 are black and necrotic, with areas of necrosis present throughout the foot. The remainder of the right lower extremity appears red, and the skin is peeling. no crepitus can be appreciated on physical exam. - Neurological Exam Neurological exam: Present: alert, oriented X3, no focal deficits - Psychiatric Psychiatric exam: Present: normal affect, normal mood Internal Medicine: Result - Labs CBC & Chem 7: 07/07/17 20:33 07/08/17 09:49 - ABG Interpretation ABG results: PT/INR, D-dimer PT 13.1 Seconds (9.4-12.1) H 07/07/17 20:33 Consult Discharge Plan - Plan Referrals: NONE,PCP [Primary Care Provider] - <Heriberto Troy - Last Filed: 07/08/17 21:41> Date of Encounter: 07/08/17 - Constitutional Vitals: Temp Pulse Resp BP Pulse Ox 98.1 F 82 18 145/77 97 07/08/17 18:08 07/08/17 20:18 07/08/17 20:18 07/08/17 20:18 07/08/17 20:18 Internal Medicine: Result - Labs CBC & Chem 7: 07/07/17 20:33 07/08/17 19:36 Labs: BMP 07/08/17 07/08/17 09:49 19:36 Sodium 135 L 133 L Potassium 2.8 L 3.1 L Chloride 92 L 92 L Carbon Dioxide 36 H 30 H BUN 13 12 Creatinine 0.57 L 0.61 L Glucose 277 H 384 H Calcium 8.1 L 7.8 L - ABG Interpretation ABG results: PT/INR, D-dimer PT 13.1 Seconds (9.4-12.1) H 07/07/17 20:33 - Attending Attestation I examined this patient and my medical decision-making was reviewed with the Resident Physician, Dr Zhang. I agree with the documented findings, disposition and treatment plan as described except to the extent set forth below. For sepsis with Klebsiella pneumoniae secondary to gas gangrene of the right lower extremity we will treat the patient with meropenem and vancomycin. Patient is at high risk for morbidity mortality and complications due to need for emergent major surgery. Heriberto Troy MD
[2017-07-08 10:14] LABS: VBG Ionized Calcium 1.02 mmol/L (1.15-1.35)
--- NOTE | 2017-07-08 10:41 | Vascular/Endovasc Consult Note ---
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 His CT reveals evidence of infection to the level of the proximal leg. A right above knee amputation is recomended. The risks, benefits and alternatives were discussed and all questions were answered. The patient expressed understanding and wishes to proceed. (2) Essential hypertension Current Visit: No Status: Chronic (3) Sepsis Current Visit: Yes Status: Acute Qualifiers: Sepsis type: sepsis due to unspecified organism Qualified Code(s): A41.9 - Sepsis, unspecified organism (4) Anemia Current Visit: Yes Status: Acute Qualifiers: Anemia type: unspecified type Qualified Code(s): D64.9 - Anemia, unspecified (5) Tobacco abuse Current Visit: Yes Status: Acute - History of Present Illness Consult date: 07/08/17 Requesting physician: Dereck Leavitt Consult reason: Gangrene Chief complaint: Right lower extremity gangrene History of present illness: Mr. Seals is a 66 year old male with a medical history of diabetes, hypertension, peripheral vascular disease and tobacco abuse who presented to [facility] ER on via EMS with a gangrenous right foot. Dr. Scherer was contacted and he recommended that Vascular surgery be contacted. Dr. Uriarte spoke with the ER and requested that the patient be resuscitated prior to surgery. The patient is unsure regarding how long his foot has been infected. He previously walked with a walker, but has not ambulated due to right foot pain for some time. He was admitted to the Hospitalist service, started on antibiotics and his electrolyte abnormalities are being corrected. At this time, he states that he is comfortable except for his right foot pain. He denies any chest pain or shortness of breath. Past Med Surg Social Fam HX - Past Medical History Medical history: arthritis, cancer, diabetes, hypertension Psychiatric history: no psych history - Past Surgical History Surgical History: colectomy, herniorrhaphy, other - Social History Smoking Status: Current every day smoker Smokeless Tobacco Status: No Alcohol use: none Drug use: marijuana Medications and Allergies Albuterol Sulfate [Ventolin Hfa] 2 puff IH Q6H PRN 07/08/17 [History] Amlodipine Besylate 10 mg PO DAILY 07/08/17 [History] Gabapentin [Neurontin] 100 mg PO TID 07/08/17 [History] Insulin Regular, Human [Novolin R] 10 unit SQ TID 07/08/17 [History] Lansoprazole [Prevacid] 30 mg PO DAILY 07/08/17 [History] Lisinopril-HCTZ 20-12.5 [Prinzide 20-12.5] 1 tab PO BID 07/08/17 [History] Lovastatin 40 mg PO DAILY 07/08/17 [History] Metformin HCl [Glucophage] 1,000 mg PO BID 07/08/17 [History] Omeprazole [PriLOSEC] 20 mg PO DAILY 07/08/17 [History] 3 Allergy/AdvReac Type Severity Reaction Status Date / Time Penicillins Allergy See Verified 06/28/17 18:13 Comments All Systems Review: A 10-system review of systems was performed and is negative for pertinent findings except as documented above in the HPI. Exam Vital Signs, Last 4 Hours Temp Pulse Resp BP Pulse Ox 07/08/17 08:08 97.9 F 64 15 136/68 100 General: Present: Conversant HEENT: Present: Pupils equal Neck: Absent: Lymphadenopathy, Left Carotid bruit, Right Carotid bruit Cardiac: Present: Reg Rate and Rhythm Lungs: Present: Normal Breath Sounds, No Wheeze, Rales, Rhonchi Abdomen: Present: Soft, Non-tender. Absent: Hepatosplenomegaly, Masses Vascular: Present: Capillary refill delayed, Pulse, absent, Cyanosis, Edema, Other (cyantotic right lower extremity with multipe ulcers, eschars and gangrenous changes, celllitis noted to proximal leg) Musculoskeletal: Present: No Chest Wall Tenderness Consult Discharge Plan - Plan Referrals: NONE,PCP [Primary Care Provider] -
[2017-07-08 11:04] LABS: BUN/Creatinine Ratio 23 (6-26); Blood Urea Nitrogen 13 mg/dL (8-23); Calcium 8.1 mg/dL (8.6-10.3); Carbon Dioxide 36 mEq/L (23-29); Chloride 92 mEq/L (98-107); Glucose 277 mg/dL (70-105); Osmolality,Calculated 290 (280-300); Potassium 2.8 mEq/L (3.5-5.1); Sodium 135 mEq/L (136-145); eGFR For African Americans > 60 (> 60); eGFR For Non-African Americans > 60 (> 60)
[2017-07-08 11:43] LABS: Estimated Average Glucose > 355 mg/dl; Hemoglobin A1C >= 14.1 %
[2017-07-08 12:42] LABS: Acinetobacter baumannii by PCR Not Detected (Not Detect); Enterococcus by PCR Not Detected (Not Detect); Staphylococcus aureus by PCR Not Detected (Not Detect); Streptococcus agalactiae(B)PCR Not Detected (Not Detect); Streptococcus by PCR Not Detected (Not Detect); Streptococcus pneumoniae PCR Not Detected (Not Detect); Streptococcus pyogenes (A) PCR Not Detected (Not Detect); blaKPC Carbapenem-Resist Gene Not Detected (Not Detect)
[2017-07-08 12:43] LABS: Candida albicans by PCR Not Detected (Not Detect); Candida glabrata by PCR Not Detected (Not Detect); Candida krusei by PCR Not Detected (Not Detect); Candida parapsilosis by PCR Not Detected (Not Detect); Candida tropicalis by PCR Not Detected (Not Detect); Escherichia coli by PCR Not Detected (Not Detect); Klebsiella oxytoca by PCR Not Detected (Not Detect); Klebsiella pneumoniae by PCR ***DETECTED*** (Not Detect); Pseudomonas aeruginosa by PCR Not Detected (Not Detect); Serratia marcescens by PCR Not Detected (Not Detect)
[2017-07-08] MEDS ORDERED: Albuterol 2.5 MG/3 ML NEBULIZER IH ONE (13:34)
--- NOTE | 2017-07-08 13:43 | Anesthesia Evaluation PreOp ---
Date of Encounter: 07/08/17 Time of Encounter: 14:40 - Past History Planned Operation: Rt AKA Cardiac History: HTN, Hyperlipidemia, Other (Anemia, CAD) Pulmonary History: Smoker, COPD CASING SOAKER History: Denies Any Significant HX Other Medical History: Diabetes Type II Anesthesia History: No Prior Anesthetic Complications Alcohol Use: none Drug use: marijuana Medications and Allergies Albuterol Sulfate [Ventolin Hfa] 2 puff IH Q6H PRN 07/08/17 [History] Amlodipine Besylate 10 mg PO DAILY 07/08/17 [History] Gabapentin [Neurontin] 100 mg PO TID 07/08/17 [History] Insulin Regular, Human [Novolin R] 10 unit SQ TID 07/08/17 [History] Lansoprazole [Prevacid] 30 mg PO DAILY 07/08/17 [History] Lisinopril-HCTZ 20-12.5 [Prinzide 20-12.5] 1 tab PO BID 07/08/17 [History] Lovastatin 40 mg PO DAILY 07/08/17 [History] Metformin HCl [Glucophage] 1,000 mg PO BID 07/08/17 [History] Omeprazole [PriLOSEC] 20 mg PO DAILY 07/08/17 [History] 3 Allergy/AdvReac Type Severity Reaction Status Date / Time Penicillins Allergy See Verified 06/28/17 18:13 Comments - Meds/Allergy Pre-op Review Medications Reviewed: Yes Allergies Reviewed: Yes Beta Blockers on Current Med List: No Anesthesia Results - Labs 07/07/17 20:33 07/08/17 09:49 - Imaging EKG: report reviewed (SR old FL) Additional studies: ECHO EF 60% Anesthesia Exam O2 Sat Height 1.75 m Height 1.83 m Height 1.83 m Weight 68.039 kg Weight 68.039 kg O2 Sat by Pulse Oximetry 98 O2 Sat by Pulse Oximetry 100 O2 Sat by Pulse Oximetry 96 O2 Sat by Pulse Oximetry 100 O2 Sat by Pulse Oximetry 100 O2 Sat by Pulse Oximetry 100 O2 Sat by Pulse Oximetry 100 O2 Sat by Pulse Oximetry 100 Vital Signs Temp Pulse Resp BP Pulse Ox 98.2 F 67 26 131/68 100 07/07/17 19:32 07/07/17 19:32 07/07/17 19:32 07/07/17 19:32 07/07/17 19:32 Height: 5'9 Weight: 150 lbs NPO (# of Hours): MN Pain Scale: 0 - HEENT Pupil (Motor): Pupils equal, EOMI Mallampati: III Teeth: Edentulous Oral Opening: Less than or equal to 3 - CASING SOAKER LOC: Oriented CASING SOAKER Motor: Normal RUE, Normal LUE, Normal RLE, Normal LLE, Normal Face CASING SOAKER Sensory: Normal: RUE, LUE, Face, Deficit: RLE, LLE - Cardiac Rhythm: Regular Murmur: None JVD: No Carotid Bruit: No - Pulmonary Breath Sounds: bilateral Clear Respiratory Effort: Symmetrical Anesthesia Assess/Plan ASA Score: 4 (DM HTN COPD Tobacco) Modified [place] Scale for Level of Consciousness: Cooperative, oriented, and tranquil Anesthetic Plan: General Monitoring Plan: Standard Monitors Recovery Plan: PACU (Discussed GA, agrees to proceed)
[2017-07-08] MEDS ORDERED: *HR* Propofol 200 MG/20 ML VIAL IVP ONE (13:54)
[2017-07-08] MEDS ORDERED: *HR* FentaNYL (PF) 100 MCG/2 ML VIAL ONE (13:54)
[2017-07-08] MEDS ORDERED: Ketamine *HR* 500 MG/10 ML MDV ONE (13:54)
[2017-07-08] MEDS ORDERED: *HR* Phenylephrine 10 MG/ML VIAL ONE (14:02)
[2017-07-08] MEDS ORDERED: Lidocaine -MPF 2% 2 ML VIAL ONE (14:09)
[2017-07-08] MEDS ORDERED: *HR* Succinylcholine 200 MG/10 ML VIAL IVP ONE (14:21)
[2017-07-08] MEDS ORDERED: Vancomycin 1,000 MG VIAL ONE (14:22)
[2017-07-08 14:55] LABS: Magnesium 1.7 mg/dL (1.6-2.6)
[2017-07-08] MEDS ORDERED: MORPHINE SUL Oral CONC 10 MG/0.5 ML ORAL.SYG SL PRN (15:05)
[2017-07-08] MEDS ORDERED: *HR* Promethazine 25 MG/ML VIAL IVP PRN (15:05)
[2017-07-08] MEDS ORDERED: Acetaminophen IV 1,000 MG/100 ML INFUS..BTL ONE (15:15)
[2017-07-08] MEDS ORDERED: Morphine Oral CONC 5 MG/0.25 ML ORAL.SYG SL PRN (15:37)
--- NOTE | 2017-07-08 15:51 | Operative Note ---
Date of procedure: 07/08/17 Pre-op diagnosis: Peripheral vascular disease with gangrene Post-op diagnosis: same Procedure: Right above knee amputation Complications: None Anesthesia: GETA Surgeon: Lalo Amaya Was there an nursing assistant present: No Estimated blood loss (cc): 150 Specimen: Right lower extremity Condition: stable Disposition: PACU Procedure in Detail: Indications: The patient is a 66 year old male who presented to the emergency room with severe right lower extremity gangrene. He was noted to have gas in his tissues and urgent amputation has been recommended to reduce his risk of . He has agreed to proceed. Procedure: The patient was identified in the holding area. The risks, benefits and alternatives were discussed and all questions were answered. The patient was taken to the operating room and placed in the supine position on the operating room table. After the induction of general endotracheal anesthesia, the patient was cleaned and draped in the normal sterile fashion. The skin of the right thigh was demarcated along the midportion of the femur in a stand incision. The skin was incised with a #15 blade. Using a process of blunt, sharp and electrocautery dissection, the the subcutaneous tissues and muscle fascia were traversed. The muscle tissue was divided with electorcautery. The periosteum was elevated off of the femur. The femoral artery and vein were clamped and divided. The nerve was transected. Using a powered saw, the femur was then transected. The femoral artery and vein were then suture ligated with 0 silk suture ligature. The nerve was grasped and transected as high as possible. The wound was irrigated. Meticulous hemostasis was obtained through out the wound with electrocautery. The fascial layers were reapproximated with Vicryl surture. Skin was reapproximated with sita. A sterile dressing was applied. The patient was extubated and taken to the recovery room in stable condition.
[2017-07-08] MEDS: *HR* HYDROmorphone (PF) 1 MG/ML SYRINGE IVP PRN ×2 (16:01→16:06)
[2017-07-08] MEDS ORDERED: Permethrin Cream Rinse 60 ML LIQUID TP ONE (16:44)
[2017-07-08 16:50] LABS: Phosphorous 2.4 mg/dL (2.7-4.5)
[2017-07-08] MEDS ORDERED: Meropenem 1,000 MG in Water for inj. (sterile) 20 ML 10 ML IVP SCH ×2 (17:15→18:00)
[2017-07-08] MEDS ORDERED: 0.9 % Sodium Chloride 1,000 ML IVC SCH (17:56)
[2017-07-08 20:00] LABS: BUN/Creatinine Ratio 20 (6-26); Blood Urea Nitrogen 12 mg/dL (8-23); Calcium 7.8 mg/dL (8.6-10.3); Carbon Dioxide 30 mEq/L (23-29); Chloride 92 mEq/L (98-107); Glucose 384 mg/dL (70-105); Osmolality,Calculated 292 (280-300); Potassium 3.1 mEq/L (3.5-5.1); Sodium 133 mEq/L (136-145); eGFR For African Americans > 60 (> 60); eGFR For Non-African Americans > 60 (> 60)
[2017-07-08] MEDS: Gabapentin 100 MG CAPSULE PO SCH (20:16)
[2017-07-08] MEDS: Lisinopril-HCTZ 20-12.5mg TABLET PO SCH (20:16)
[2017-07-09] MEDS ORDERED: Clindamycin 600 MG/50 ML 600 MG/50 ML IV.SOLN IVPB SCH
[2017-07-09] MEDS: Insulin LISPRO 300 UNITS/3 ML VIAL SQ SCH ×4 (00:09→16:43)
[2017-07-09] MEDS: Meropenem 1,000 MG in Water for inj. (sterile) 20 ML 10 ML IVP SCH ×4 (00:09→23:49)
[2017-07-09 00:57] LABS: BUN/Creatinine Ratio 19 (6-26); Blood Urea Nitrogen 11 mg/dL (8-23); Calcium 7.7 mg/dL (8.6-10.3); Carbon Dioxide 36 mEq/L (23-29); Chloride 95 mEq/L (98-107); Glucose 239 mg/dL (70-105); Osmolality,Calculated 291 (280-300); Potassium 2.7 mEq/L (3.5-5.1); Sodium 137 mEq/L (136-145); eGFR For African Americans > 60 (> 60); eGFR For Non-African Americans > 60 (> 60)
[2017-07-09 01:31] LABS: Folate 10.3 ng/mL (3.0-16.0)
[2017-07-09 02:36] LABS: % Iron Saturation 23 % (20-55); Ferritin 1302 ng/ml (20-250); Iron 30 mcg/dL (65-175); Transferrin 95 mg/dL (203-362)
[2017-07-09 04:29] LABS: Basophils # 0.1 K/mcL (0.0-0.2); Basophils % 0.4 %; Eosinophils # 0.1 K/mcL (0.0-0.6); Eosinophils % 0.7 %; Hematocrit 25.1 % (37.5-50.1); Hemoglobin 8.1 g/dL (12.9-16.9); Immature Granulocytes % 4.4 % (0-4); Lymphocytes # 0.7 K/mcL (0.6-4.6); Lymphocytes % 4.9 %; Mean Corpuscular HGB Conc 32.3 g/dL (31.6-35.5); Mean Corpuscular Hemoglobin 29.6 pg (28.0-33.3); Mean Corpuscular Volume 91.6 fL (83.0-100.0); Mean Platelet Volume 9.4 fL (9.4-12.4); Monocytes # 0.8 K/mcL (0.0-1.3); Monocytes % 5.7 %; Neutrophils # 11.7 K/mcL (1.6-8.9); Platelet Count 361 K/mcL (140-400); Red Blood Count 2.74 M/mcL (4.19-5.50); Red Cell Distribution Width 13.2 % (11.5-14.5); Segmented Neutrophils % 83.9 %
[2017-07-09 05:06] LABS: BUN/Creatinine Ratio 19 (6-26); Blood Urea Nitrogen 9 mg/dL (8-23); Calcium 7.7 mg/dL (8.6-10.3); Carbon Dioxide 33 mEq/L (23-29); Chloride 94 mEq/L (98-107); Glucose 247 mg/dL (70-105); Osmolality,Calculated 291 (280-300); Potassium 3.2 mEq/L (3.5-5.1); Sodium 137 mEq/L (136-145); eGFR For African Americans > 60 (> 60); eGFR For Non-African Americans > 60 (> 60)
[2017-07-09 05:08] LABS: Magnesium 1.9 mg/dL (1.6-2.6); Phosphorous 3.7 mg/dL (2.7-4.5)
[2017-07-09] MEDS ORDERED: *HR* Enoxaparin 40 MG/0.4 ML SYRINGE SQ SCH ×2 (06:00→10:13)
[2017-07-09] MEDS: *HR* Enoxaparin 40 MG/0.4 ML SYRINGE SQ SCH (06:19)
[2017-07-09] MEDS: *HR* OxyCODONE/APAP 5/325 TABLET PO PRN ×4 (06:19→20:21)
[2017-07-09 06:41] LABS: VBG Ionized Calcium 0.98 mmol/L (1.15-1.35); VBG PH 7.47 pH Units (7.32-7.42)
[2017-07-09] MEDS: Lisinopril-HCTZ 20-12.5mg TABLET PO SCH ×2 (07:58→15:50)
[2017-07-09] MEDS: Gabapentin 100 MG CAPSULE PO SCH ×3 (07:58→20:21)
[2017-07-09] MEDS: amLODIPine 5 MG TABLET PO SCH (07:58)
[2017-07-09] MEDS: Nicotine 14 MG PATCH.TD24 TD SCH (07:59)
[2017-07-09] MEDS: *HR* HYDROcodone/Acet 5/325 mg TABLET PO PRN (09:17)
--- NOTE | 2017-07-09 15:35 | Vascular/Endovas Progress Note ---
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 He bandage will remain in place until Tuesday. Continue with pain control. (2) Essential hypertension Current Visit: No Status: Chronic (3) Sepsis Current Visit: Yes Status: Acute Qualifiers: Sepsis type: sepsis due to unspecified organism Qualified Code(s): A41.9 - Sepsis, unspecified organism (4) Anemia Current Visit: Yes Status: Acute Qualifiers: Anemia type: unspecified type Qualified Code(s): D64.9 - Anemia, unspecified - Subjective Interval history: The patient reports that he is comfortable. He denies chest pain or shortness of breath. Vital Signs, Last 4 Hours Temp Pulse Resp BP Pulse Ox 07/09/17 11:53 97.8 F 90 18 138/62 96 - Physical Examination General: Present: Conversant Cardiac: Present: Reg Rate and Rhythm Lungs: Present: Normal Breath Sounds Neuro: Present: No focal deficits noted Vascular: Present: Amputation(s) (bandage dry), Other (left pedal signals present) Abdomen: Present: Soft - VTE Documentation of Mechanical Device: Intermittent pneumatic compression device Results 07/09/17 04:15 07/09/17 04:15 Lab Results, Last 24 hours 07/08/17 07/08/17 07/09/17 14:24 19:36 00:20 WBC Hgb Hct Plt Count Sodium 133 L 137 Potassium 3.1 L 2.7 L Chloride 92 L 95 L Carbon Dioxide 30 H 36 H BUN 12 11 Creatinine 0.61 L 0.57 L Glucose 384 H 239 H Calcium 7.8 L 7.7 L Magnesium 1.7 07/09/17 07/09/17 07/09/17 00:20 04:15 04:15 WBC 14.0 H Hgb 8.1 L Hct 25.1 L Plt Count 361 Sodium 137 Potassium 3.2 L Chloride 94 L Carbon Dioxide 33 H BUN 9 Creatinine 0.48 L Glucose 247 H Calcium 7.7 L Magnesium 2.1 07/09/17 04:15 WBC Hgb Hct Plt Count Sodium Potassium Chloride Carbon Dioxide BUN Creatinine Glucose Calcium Magnesium 1.9 Consult Discharge Plan - Plan Referrals: NONE,PCP [Primary Care Provider] -
--- NOTE | 2017-07-09 16:53 | Internal Med Progress Note ---
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 (3) Essential hypertension Current Visit: No Status: Chronic Assessment and plan: Controlled; continue bisoprolol hydrochlorothiazide (4) Uncontrolled diabetes mellitus Current Visit: No Status: Chronic Assessment and plan: -Continue slight scale insulin Qualifiers: Diabetes mellitus type: type 2 Diabetes mellitus complication status: with circulatory complication Diabetes mellitus complication detail: with peripheral angiopathy without gangrene Diabetes mellitus senior care insulin use : with watermaster use Qualified Code(s): E11.51 - Type 2 diabetes mellitus with diabetic peripheral angiopathy without gangrene; E11.65 - Type 2 diabetes mellitus with hyperglycemia; E11.65 - Type 2 diabetes mellitus with hyperglycemia; E11.65 - Type 2 diabetes mellitus with hyperglycemia; E11.65 - Type 2 diabetes mellitus with hyperglycemia; Z79.4 - group home (current) use of insulin; Z79.4 - termite inspector (current) use of insulin; Z79.4 - group home (current ) use of insulin; Z79.4 - group home (current) use of insulin (5) Smoker Current Visit: Yes Status: Acute Assessment and plan: Nicotine replacement (6) DVT prophylaxis Current Visit: Yes Status: Acute Assessment and plan: SQ lovenox - Subjective Interval history: Right above the knee amputation POD1 Pain controlled Patient hemodynamically stable - Constitutional Vitals: Temp Pulse Resp BP Pulse Ox 98.5 F 71 20 147/77 95 07/09/17 15:56 07/09/17 15:56 07/09/17 15:56 07/09/17 15:56 07/09/17 15:56 General appearance: Present: cooperative, A&O X 1, A&O X 3, no acute distress. Absent: answers questions appropriately - Respiratory Respiratory exam: Present: CTAB. Absent: accessory muscle use, rales, rhonchi, wheezes - Cardiovascular Cardiovascular exam: Present: RRR, +S1, +S2. Absent: diastolic murmur, gallop, rubs, systolic murmur Internal Medicine: Result - Labs CBC & Chem 7: 07/09/17 04:15 07/09/17 04:15 Labs: Short CBC 07/09/17 Range/Units 04:15 WBC 14.0 H (4.3-11.1) K/mcL Hgb 8.1 L (12.9-16.9) g/dL Hct 25.1 L (37.5-50.1) % Plt Count 361 (140-400) K/mcL Neutrophils # 11.7 H (1.6-8.9) K/mcL BMP 07/08/17 07/09/17 07/09/17 19:36 00:20 04:15 Sodium 133 L 137 137 Potassium 3.1 L 2.7 L 3.2 L Chloride 92 L 95 L 94 L Carbon Dioxide 30 H 36 H 33 H BUN 12 11 9 Creatinine 0.61 L 0.57 L 0.48 L Glucose 384 H 239 H 247 H Calcium 7.8 L 7.7 L 7.7 L - ABG Interpretation ABG results: PT/INR, D-dimer PT 13.1 Seconds (9.4-12.1) H 07/07/17 20:33 - VTE Documentation of Mechanical Device: Intermittent pneumatic compression device Consult Discharge Plan - Plan Referrals: NONE,PCP [Primary Care Provider] -
[2017-07-09 19:50] LABS: Magnesium 1.6 mg/dL (1.6-2.6); Potassium 3.4 mEq/L (3.5-5.1)
[2017-07-09 20:33] LABS: VBG HCO3 37 mEq/L (21-27); VBG PCO2 48 mmHg (41-51); VBG PO2 249 mmHg (25-50)
[2017-07-09 20:58] LABS: VBG HCO3 38 mEq/L (21-27); VBG Ionized Calcium 1.04 mmol/L (1.15-1.35); VBG PCO2 38 mmHg (41-51); VBG PO2 226 mmHg (25-50)
[2017-07-09] MEDS ORDERED: Insulin LISPRO 300 UNITS/3 ML VIAL SQ SCH (21:00)
[2017-07-10 04:40] LABS: Basophils # 0.1 K/mcL (0.0-0.2); Basophils % 0.6 %; Eosinophils # 0.2 K/mcL (0.0-0.6); Eosinophils % 1.3 %; Hematocrit 27.9 % (37.5-50.1); Hemoglobin 8.9 g/dL (12.9-16.9); Immature Granulocytes % 5.8 % (0-4); Lymphocytes # 0.8 K/mcL (0.6-4.6); Lymphocytes % 7.2 %; Mean Corpuscular HGB Conc 31.9 g/dL (31.6-35.5); Mean Corpuscular Hemoglobin 29.3 pg (28.0-33.3); Mean Corpuscular Volume 91.8 fL (83.0-100.0); Mean Platelet Volume 9.1 fL (9.4-12.4); Monocytes # 0.7 K/mcL (0.0-1.3); Monocytes % 5.9 %; Neutrophils # 9.2 K/mcL (1.6-8.9); Platelet Count 372 K/mcL (140-400); Red Blood Count 3.04 M/mcL (4.19-5.50); Red Cell Distribution Width 13.2 % (11.5-14.5); Segmented Neutrophils % 79.2 %
[2017-07-10 04:54] LABS: VBG HCO3 36 mEq/L (21-27); VBG Ionized Calcium 1.07 mmol/L (1.15-1.35); VBG PCO2 48 mmHg (41-51); VBG PH 7.48 pH Units (7.32-7.42); VBG PO2 160 mmHg (25-50)
[2017-07-10 05:02] LABS: Platelet Estimate Normal (Normal)
[2017-07-10 05:17] LABS: BUN/Creatinine Ratio 15 (6-26); Blood Urea Nitrogen 8 mg/dL (8-23); Calcium 8.4 mg/dL (8.6-10.3); Carbon Dioxide 35 mEq/L (23-29); Chloride 90 mEq/L (98-107); Glucose 289 mg/dL (70-105); Magnesium 1.5 mg/dL (1.6-2.6); Osmolality,Calculated 279 (280-300); Phosphorous 1.9 mg/dL (2.7-4.5); Potassium 4.7 mEq/L (3.5-5.1); Sodium 130 mEq/L (136-145); eGFR For African Americans > 60 (> 60); eGFR For Non-African Americans > 60 (> 60)
[2017-07-10] MEDS: *HR* Enoxaparin 40 MG/0.4 ML SYRINGE SQ SCH (05:37)
[2017-07-10] MEDS: *HR* OxyCODONE/APAP 5/325 TABLET PO PRN ×4 (05:40→21:35)
[2017-07-10] MEDS ORDERED: Insulin LISPRO 300 UNITS/3 ML VIAL SQ SCH (07:30)
[2017-07-10] MEDS: Meropenem 1,000 MG in Water for inj. (sterile) 20 ML 10 ML IVP SCH ×3 (08:37→23:55)
[2017-07-10] MEDS: Nicotine 14 MG PATCH.TD24 TD SCH (08:38)
[2017-07-10] MEDS: Lisinopril-HCTZ 20-12.5mg TABLET PO SCH ×2 (08:39→16:24)
[2017-07-10] MEDS: amLODIPine 5 MG TABLET PO SCH (08:39)
[2017-07-10] MEDS: Gabapentin 100 MG CAPSULE PO SCH ×3 (08:39→21:35)
--- NOTE | 2017-07-10 11:03 | Electrocardiograph Report ---
[place] [id number] Test Date: 2017-07-07 Pat Name: Steven Seals Department: 104 Room: 2N11 Gender: M Tube Pusher: EKP : 1950 Requested By: Dereck Leavitt Order Number: [id number] Reading MD: Zuleima Graves Measurements Intervals [place] Rate: 68 P: 72 SD: 171 QRS: 30 QRSD: 107 T: 39 QT: 449 QTc: 466 Interpretive Statements SINUS RHYTHM MODERATE INTRAVENTRICULAR CONDUCTION DELAY NONSPECIFIC T-WAVE ABNORMALITY PROLONGED QT INTERVAL Electronically Signed On 07-10-2017 11:02:08 EST by Zuleima Graves
--- NOTE | 2017-07-10 11:07 | Vascular/[facility] Progress Note ---
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 He remains hemodynamically stable. He bandage will remain in place until Tuesday. Continue with pain control. An ankle brachial index will be ordered to assess his left lower extremity. (2) Essential hypertension Current Visit: No Status: Chronic (3) Sepsis Current Visit: Yes Status: Acute Qualifiers: Sepsis type: sepsis due to unspecified organism Qualified Code(s): A41.9 - Sepsis, unspecified organism (4) Anemia Current Visit: Yes Status: Acute Qualifiers: Anemia type: unspecified type Qualified Code(s): D64.9 - Anemia, unspecified - Subjective Interval history: He is alert today and reports adequate pain control. He denies chest pain or shortness of breath. Vital Signs, Last 4 Hours Temp Pulse Resp BP Pulse Ox 07/10/17 08:44 82 07/10/17 07:18 98.9 F 82 19 144/78 96 - Physical Examination General: Present: Conversant Cardiac: Present: Reg Rate and Rhythm Lungs: Present: Normal Breath Sounds Vascular: Present: Surgical incisions (bandage dry), Other (left pedal signals present) Abdomen: Present: Soft - VTE Documentation of Mechanical Device: Intermittent pneumatic compression device Results 07/10/17 04:32 07/10/17 04:32 Lab Results, Last 24 hours 07/09/17 07/10/17 07/10/17 18:32 04:32 04:32 WBC 11.6 H Hgb 8.9 L Hct 27.9 L Plt Count 372 Sodium 130 L Potassium 3.4 L 4.7 D Chloride 90 L Carbon Dioxide 35 H BUN 8 Creatinine 0.54 L Glucose 289 H Calcium 8.4 L Magnesium 1.6 1.5 L Consult Discharge Plan - Plan Referrals: NONE,PCP [Primary Care Provider] -
[2017-07-10] MEDS: Insulin LISPRO 300 UNITS/3 ML VIAL SQ SCH ×3 (12:00→21:35)
--- NOTE | 2017-07-10 17:45 | Internal Med Progress Note ---
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 Current Visit: Yes Status: Acute Assessment and plan: Patient found to have right lower extremity gangrene now status post Right above the knee amputation POD2 Pain controlled he remains hemodynamically stable Blood cultures collected on 07/07/17 and wound culture collected on 07/07/17 both positive for Klebsiella pneumonia Will continue IV meropenem until sensitivities known (2) Hypokalemia Current Visit: Yes Status: Acute Assessment and plan: Resolved; continue to monitor (3) Essential hypertension Current Visit: No Status: Chronic Assessment and plan: Controlled; continue bisoprolol hydrochlorothiazide (4) Uncontrolled diabetes mellitus Current Visit: No Status: Chronic Assessment and plan: -Hemoglobin A1c greater than 14 -Patient will be started on basal insulin in addition to average with sliding scale insulin Qualifiers: Diabetes mellitus type: type 2 Diabetes mellitus complication status: with circulatory complication Diabetes mellitus complication detail: with peripheral angiopathy without gangrene Diabetes mellitus terminologist insulin use : with mcc use Qualified Code(s): E11.51 - Type 2 diabetes mellitus with diabetic peripheral angiopathy without gangrene; E11.65 - Type 2 diabetes mellitus with hyperglycemia; E11.65 - Type 2 diabetes mellitus with hyperglycemia; E11.65 - Type 2 diabetes mellitus with hyperglycemia; E11.65 - Type 2 diabetes mellitus with hyperglycemia; Z79.4 - shelter (current) use of insulin; Z79.4 - remote computer terminal operator (current) use of insulin; Z79.4 - shelter (current ) use of insulin; Z79.4 - shelter (current) use of insulin (5) Smoker Current Visit: Yes Status: Acute Assessment and plan: Nicotine replacement (6) DVT prophylaxis Current Visit: Yes Status: Acute Assessment and plan: SQ lovenox - Subjective Interval history: Patient found to have right lower extremity gangrene now status post Right above the knee amputation POD2 Pain controlled he remains hemodynamically stable Blood cultures collected on 07/07/17 and wound culture collected on 07/07/17 both positive for Klebsiella pneumonia - Constitutional Vitals: Temp Pulse Resp BP Pulse Ox 98.6 F 77 18 139/77 95 07/10/17 15:48 07/10/17 15:48 07/10/17 15:48 07/10/17 15:48 07/10/17 15:48 General appearance: Present: cooperative, A&O X 1, A&O X 3, no acute distress. Absent: answers questions appropriately - Respiratory Respiratory exam: Present: CTAB. Absent: accessory muscle use, rales, rhonchi, wheezes Internal Medicine: Result - Labs CBC & Chem 7: 07/10/17 04:32 07/10/17 04:32 Labs: Short CBC 07/10/17 Range/Units 04:32 WBC 11.6 H (4.3-11.1) K/mcL Hgb 8.9 L (12.9-16.9) g/dL Hct 27.9 L (37.5-50.1) % Plt Count 372 (140-400) K/mcL Neutrophils # 9.2 H (1.6-8.9) K/mcL BMP 07/09/17 07/10/17 18:32 04:32 Sodium 130 L Potassium 3.4 L 4.7 D Chloride 90 L Carbon Dioxide 35 H BUN 8 Creatinine 0.54 L Glucose 289 H Calcium 8.4 L - ABG Interpretation ABG results: PT/INR, D-dimer PT 13.1 Seconds (9.4-12.1) H 07/07/17 20:33 - VTE Documentation of Mechanical Device: Intermittent pneumatic compression device Consult Discharge Plan - Plan Referrals: NONE,PCP [Primary Care Provider] -
[2017-07-10 20:31] LABS: Magnesium 1.4 mg/dL (1.6-2.6); Phosphorous 3.3 mg/dL (2.7-4.5)
[2017-07-10 20:52] LABS: VBG Ionized Calcium 1.04 mmol/L (1.15-1.35); VBG PH 7.48 pH Units (7.32-7.42)
[2017-07-10] MEDS: Insulin DETEMIR 100 UNIT/ML X5UNITS SQ SCH (21:35)
[2017-07-11 03:28] LABS: VBG Ionized Calcium 1.09 mmol/L (1.15-1.35); VBG PH 7.46 pH Units (7.32-7.42)
[2017-07-11 03:48] LABS: BUN/Creatinine Ratio 23 (6-26); Blood Urea Nitrogen 13 mg/dL (8-23); Calcium 8.2 mg/dL (8.6-10.3); Carbon Dioxide 35 mEq/L (23-29); Chloride 91 mEq/L (98-107); Glucose 352 mg/dL (70-105); Magnesium 1.7 mg/dL (1.6-2.6); Osmolality,Calculated 284 (280-300); Phosphorous 3.2 mg/dL (2.7-4.5); Potassium 4.2 mEq/L (3.5-5.1); Sodium 130 mEq/L (136-145); eGFR For African Americans > 60 (> 60); eGFR For Non-African Americans > 60 (> 60)
[2017-07-11] MEDS: *HR* OxyCODONE/APAP 5/325 TABLET PO PRN ×3 (04:39→19:55)
[2017-07-11] MEDS: *HR* Enoxaparin 40 MG/0.4 ML SYRINGE SQ SCH (04:39)
[2017-07-11] MEDS: *HR* HYDROcodone/Acet 5/325 mg TABLET PO PRN ×2 (08:11→15:45)
[2017-07-11] MEDS: Nicotine 14 MG PATCH.TD24 TD SCH (09:14)
[2017-07-11] MEDS: amLODIPine 5 MG TABLET PO SCH (09:15)
[2017-07-11] MEDS: Lisinopril-HCTZ 20-12.5mg TABLET PO SCH ×2 (09:15→17:11)
[2017-07-11] MEDS: Gabapentin 100 MG CAPSULE PO SCH ×3 (09:15→19:54)
[2017-07-11] MEDS: Meropenem 1,000 MG in Water for inj. (sterile) 20 ML 10 ML IVP SCH (09:15)
[2017-07-11] MEDS: Insulin LISPRO 300 UNITS/3 ML VIAL SQ SCH ×4 (09:23→20:13)
[2017-07-11 10:16] LABS: Basophils # 0.1 K/mcL (0.0-0.2); Basophils % 0.6 %; Eosinophils # 0.1 K/mcL (0.0-0.6); Eosinophils % 1.4 %; Hematocrit 28.5 % (37.5-50.1); Immature Granulocytes % 4.8 % (0-4); Lymphocytes # 0.7 K/mcL (0.6-4.6); Lymphocytes % 7.4 %; Mean Corpuscular HGB Conc 31.6 g/dL (31.6-35.5); Mean Corpuscular Hemoglobin 29.3 pg (28.0-33.3); Mean Corpuscular Volume 92.8 fL (83.0-100.0); Mean Platelet Volume 9.2 fL (9.4-12.4); Monocytes # 0.4 K/mcL (0.0-1.3); Monocytes % 4.2 %; Neutrophils # 7.3 K/mcL (1.6-8.9); Platelet Count 400 K/mcL (140-400); Red Blood Count 3.07 M/mcL (4.19-5.50); Red Cell Distribution Width 13.2 % (11.5-14.5); Segmented Neutrophils % 81.6 %
[2017-07-11 10:18] LABS: VBG Ionized Calcium 1.07 mmol/L (1.15-1.35)
--- NOTE | 2017-07-11 13:21 | Infectious Disease Consult ---
Date of Encounter: 07/11/17 Time of Encounter: 11:05 Assessment and Plan (1) Necrotizing fasciitis Status: Resolved Assessment and plan: Necrotizing fasciitis type I Causative organisms Klebsiella pneumoniae and group B streptococcus Status post AKA on 07/08 Had received 4 days of meropenem, now stopped Ordered to start Levaquin tomorrow morning Recommend continuing Levaquin for 10 days (2) Bacteremia Status: Acute Assessment and plan: Patient had blood cultures performed on 07/07 that were 1/2 positive for Klebsiella pneumonia pansensitive (same sensitivity pattern as seen in wound culture) Source from soft tissue infection of right leg Status post AKA on 07/08 Continue on Levaquin (3) Uncontrolled diabetes mellitus Status: Chronic Assessment and plan: Management per primary team Qualifiers: Diabetes mellitus type: type 2 Diabetes mellitus complication status: with circulatory complication Diabetes mellitus complication detail: with peripheral angiopathy without gangrene Diabetes mellitus alf insulin use : with alf use Qualified Code(s): E11.51 - Type 2 diabetes mellitus with diabetic peripheral angiopathy without gangrene; E11.65 - Type 2 diabetes mellitus with hyperglycemia; E11.65 - Type 2 diabetes mellitus with hyperglycemia; E11.65 - Type 2 diabetes mellitus with hyperglycemia; E11.65 - Type 2 diabetes mellitus with hyperglycemia; Z79.4 - long-term (current) use of insulin; Z79.4 - termite treater helper (current) use of insulin; Z79.4 - long-term (current ) use of insulin; Z79.4 - termite treater helper (current) use of insulin Infectious Disease HPI - Data of Consult Patient: new to practice Consult date: 07/11/17 Requesting Physician: Alejandro Dunbar Primary Care Provider: PCP NONE - Consult Narrative Reason for consult: RLE necrotizing fasciitis History of present illness: Mr. Seals is a 66 year old male with past medical history of colon cancer (s/p colectomy), DM, and htrn who presented to [facility] on 07/08 with findings concerning for necrotizing fasciitis. ID was consulted on 07/08 for the same diagnosis. He states that he has been having problems with overall malaise, anorexia, and leg pain for several months prior to coming to the hospital. Although he denies having had any fevers or chills, he reports feeling overall poorly. At the time of presentation to the hospital his vitals were stable, but he was found to have a significant leukocytosis of 27.7 (among other abnormalities) and to have extensive gas throughout his lower extremity that tracked along the muscular and fascial planes suggestive of nectrotizing fasciitis. He was started on Meropenem, vancomycin, and clindamycin. Cultures of his RLE and blood were obtained. Vascular surgery was consulted. Vascular surgery desired more medical stabilization prior to taking him to the OR. He underwent a AKA on 07/08. He tolerated the procedure well and he was continued on Meropenem following the procedure. On 07/10 he underwent arterial physiologic studies that shpwed moderate occlusive disease in his left leg. When seen today he reports that he has been feeling much improved since his leg was removed on 07/08, with improvement in his appetite and malaise. He continues to deny ever having had a fever. His WBC has continued to trend down and is now back to the normal level and he continues to have stable vitals. CC: Alejandro Dunbar Past Med Surg Social Fam HX - Past Medical History Medical history: arthritis, cancer, diabetes, hypertension Psychiatric history: no psych history - Past Surgical History Surgical History: colectomy, herniorrhaphy, other - Social History Smoking Status: Current every day smoker Smokeless Tobacco Status: No Alcohol use: none Drug use: marijuana Infectious Disease-CN:Meds Albuterol Sulfate [Ventolin Hfa] 2 puff IH Q6H PRN 07/08/17 [History] Amlodipine Besylate 10 mg PO DAILY 07/08/17 [History] Gabapentin [Neurontin] 100 mg PO TID 07/08/17 [History] Insulin Regular, Human [Novolin R] 10 unit SQ TID 07/08/17 [History] Lansoprazole [Prevacid] 30 mg PO DAILY 07/08/17 [History] Lisinopril-HCTZ 20-12.5 [Prinzide 20-12.5] 1 tab PO BID 07/08/17 [History] Lovastatin 40 mg PO DAILY 07/08/17 [History] Metformin HCl [Glucophage] 1,000 mg PO BID 07/08/17 [History] Omeprazole [PriLOSEC] 20 mg PO DAILY 07/08/17 [History] 3 Allergy/AdvReac Type Severity Reaction Status Date / Time Penicillins Allergy See Verified 06/28/17 18:13 Comments Review of systems: Gen: Denies fever, denies chills, denies weakness CV: Denies chest pain, denies palpitations Resp: Denies dyspnea, denies coughing GI: Denies nausea, denies vomiting, denies abdominal pain, denies constipation, denies diarrhea MSK: Reports mild tenderness in right leg stump Neuro: Denies headache, denies confusion, denies focal weakness Exam - Constitutional Vitals: Temp Pulse Resp BP Pulse Ox 97.2 F L 88 18 123/79 96 07/11/17 11:28 07/11/17 11:28 07/11/17 11:28 07/11/17 11:28 07/11/17 11:28 - Additional findings Additional findings: General: Cooperative, pleasant, no acute distress, alert and oriented 3, answers questions appropriately HEENT: Normocephalic, atraumatic,Conjunctiva pink, sclera anicteric, oral mucosa moist, no orophargeal erythema or exudates Respiratory: No accessory muscle usage, clear to auscultation bilaterally, no wheezes/rhonchi/rales appreciated Cardiovascular: Regular rate and rhythm, S1 and S2 present, no murmurs/rubs/ gallops/clicks appreciated GI/abdominal: Nondistended, nontender, soft, normal bowel sounds, no peritoneal signs Extremities: No left calf tenderness, no left pedal edema appreciated, warm, status post right-sided AKA Neurological: Alert and oriented 3, no facial droop, no focal deficits Skin: Dry, intact, normal color Infectious Disease CN: Results - Labs CBC & Chem 7: 07/11/17 10:05 07/11/17 10:04 - VTE Documentation of Mechanical Device: Intermittent pneumatic compression device Consult Discharge Plan - Plan Referrals: NONE,PCP [Primary Care Provider] - - Attending Attestation I examined this patient and my medical decision-making was reviewed with the Resident Physician. I agree with the documented findings, disposition and treatment plan as described except to the extent set forth below. This is an addendum to original report dictated by resident physician. Please refer to residents foot for full detail. Patient is 66-year-old gentleman with past medical history mentioned below including history of colon cancer status post colectomy and diabetes mellitus insulin-dependent came into the emergency department complaining of right lower extremity pain and discoloration for few months. Patient apparently has not followed up with physician. Patient denied any fevers or chills or night sweats but he was having malaise and anorexia. Patient came to the emergency department where his vital signs were all normal his WC was 27.7 thousand with 90% neutrophils. His hemoglobin A1c was over 14. Lactic acid was 1.6. Patient had the culture of the right foot on 07/07/2014 which grew group B strep and Klebsiella. Blood cultures were also positive on 07/07/17 for Klebsiella. Patient had a CT of the lower extremity which is pretty impressive for significant gas and then the very large area. Patient was taken to the OR where he had an above-knee amputation. We were asked to evaluate the patient make further sedation. Currently patient is sitting up in bed and appears comfortable no acute distress agree with above review of system and physical exam. Assessment and plan: #1 has gangrene/necrotizing fasciitis type I causative organism is Klebsiella and group B strep: Status post above-knee amputation on 07/08/17 #2 Klebsiella bacteremia culture positive on 07/07/17 Diabetes mellitus type 2 At this point I agree with levofloxacin. Patient creatinine clearance is 114. As for the necrotizing fasciitis the whole source has been amputated. As for the Klebsiella pneumoniae bacteremia new studies revealed that we dont need to repeat cultures to make sure that bacteremia has resolved especially that we have a source and probably will treat for 10 days total. Continue levofloxacin monitor for drug toxicity.
--- NOTE | 2017-07-11 17:16 | Podiatry Consult Note ---
Date of Encounter: 07/11/17 Time of Encounter: 16:00 Assessment and Plan (1) Ulcer Current visit: Yes Status: Acute Multiple ulcerations to the left foot. Two partial thickness ulcerations to sub #5 metatarsal head and lateral aspect of the 5th metatarsal head left foot. Dried eschar to the lateral aspect at the base of 5th metatarsal. No cellulitis, no tachycardia, no fever, no evidence of bacterial infection. ABIs of LLE: Left Posterior Tibial 83 0.56 Moderately Diminished Left Dorsalis Pedis 117 0.79 Moderately Diminished Plan: Will order xrays of the left foot. Loose skin removed with a sterile tissue nipper. Ulcers irrigated with saline and dry sterile dressing applied. Will order daily wound care with Santyl ointment. Recommend continuing daily wound care. Will f/u with patient tomorrow after Xray is completed. Recommend a surgical post op shoe. F/u with Dr. Perales in wound care one week after discharge from the hospital. (2) Pre-ulcerative calluses Current visit: Yes Status: Acute Large hemmorhaged callused lesion to sub #1 metatarsal head left foot. No signs of bacterial infection. Plan: Sharp cutting performed with a #15 scalpel blade to alleviate pressure and prevent ulceration. Pinpoint bleeding, adaptic applied with 4x4 dry sterile gauze. Will order a post op shoe for the left foot. Recommend diabetic foot care every three months. History of Present Illness HPI: Mr. Seals is a 66 year old male admitted to [place] for a right foot cellulitis and necrotizing fasciitis.. Patient has a medical history significant for arthritis, cancer, diabetes, and hypertension. Patient underwent a Right AKA by Dr. Amaya on 07/08/17. Podiatry was consulted for multiple ulcers to the left foot. Patient states he is not sure how long he has had the ulcers to the left foot. Patient states he was being treated by a doctor down in [place]. Patient states he thinks he has had the ulcers on his feet approximately 6 months. Patient states he needs the callus on his left foot trimmed. Patient states the ulcers started after he was wearing shoes that were too tight. Patient is a poor historian and unable to provide any further details in regards to the ulcers of the left foot. No c/o fever, chills or flu like symptoms. Past Med Surg Social Fam HX - Past Medical History Medical history: arthritis, cancer, diabetes, hypertension Psychiatric history: no psych history - Past Surgical History Surgical History: colectomy, herniorrhaphy, other - Social History Smoking Status: Current every day smoker Smokeless Tobacco Status: No Alcohol use: none Drug use: marijuana Medications and Allergies Albuterol Sulfate [Ventolin Hfa] 2 puff IH Q6H PRN 07/08/17 [History] Amlodipine Besylate 10 mg PO DAILY 07/08/17 [History] Gabapentin [Neurontin] 100 mg PO TID 07/08/17 [History] Insulin Regular, Human [Novolin R] 10 unit SQ TID 07/08/17 [History] Lansoprazole [Prevacid] 30 mg PO DAILY 07/08/17 [History] Lisinopril-HCTZ 20-12.5 [Prinzide 20-12.5] 1 tab PO BID 07/08/17 [History] Lovastatin 40 mg PO DAILY 07/08/17 [History] Metformin HCl [Glucophage] 1,000 mg PO BID 07/08/17 [History] Omeprazole [PriLOSEC] 20 mg PO DAILY 07/08/17 [History] 3 Allergy/AdvReac Type Severity Reaction Status Date / Time Penicillins Allergy See Verified 06/28/17 18:13 Comments All Systems Reviewed: A 10-system review of systems was performed and is negative for pertinent findings except as documented above in the HPI. Physical Exam - Constitutional Vitals: Temp Pulse Resp BP Pulse Ox 97.6 F 91 18 149/93 96 07/11/17 16:53 07/11/17 16:53 07/11/17 16:53 07/11/17 16:53 07/11/17 16:53 Exam: General appearance: alert awake oriented X 3. Calm and pleasant, no acute distress.. Vascular: Left: Pedal pulses +1/4 DP, 0/4PT , No evidence of cyanosis, pallor or rubor, Edema graded at 1+/4, Skin Temperature cool to warm from toes to tibia , No calf pain with manual compression. capillary refill time is immediate to digits. Neurologic: Sensation intact with light touch to left foot. . Integument: Large hemmorhaged callused lesion to sub #1 metatarsal head left foot. Partial thickness ulceration to the sub #5 metatarsal head left measuring 1.5 cm in length x 1 cm in wdith, base of wound white and yellow, surrounding edges are hyperkeratotic with loose skin. Partial thickness ulceration to the lateral aspect of the 5th metatarsal head measuring 1.5 cm in length x 1 cm in width x 0.1 cm in depth, base of wound with yellow slough, no pus, no odor, no periwound erythema, no probe to bone, no fluctuance, no tunneling, no sinus tracts. Hyperkeratotic edges. Dried eschar to the lateral aspect at the base of the 5th metatarsal, connected , measuring 0.5 cm in diameter, no periwound erythema, no fluctuance, no drainage. Results - Labs Result Diagrams: 07/11/17 10:05 07/11/17 10:04 Labs: Abnormal lab results RBC 3.07 M/mcL (4.19-5.50) L 07/11/17 10:05 Hgb 9.0 g/dL (12.9-16.9) L 07/11/17 10:05 Hct 28.5 % (37.5-50.1) L 07/11/17 10:05 MPV 9.2 fL (9.4-12.4) L 07/11/17 10:05 Immature Gran % 4.8 % (0-4) H 07/11/17 10:05 Toxic Granulation Present (Not Present) A 07/07/17 20:33 PT 13.1 Seconds (9.4-12.1) H 07/07/17 20:33 APTT 23.2 Seconds (26.0-36.0) L 07/07/17 20:33 VBG pH 7.46 pH Units (7.32-7.42) H 07/11/17 03:23 VBG pO2 160 mmHg (25-50) H 07/10/17 04:51 VBG HCO3 36 mEq/L (21-27) H 07/10/17 04:51 Sodium 130 mEq/L (136-145) L 07/11/17 03:15 Chloride 91 mEq/L (98-107) L 07/11/17 03:15 Carbon Dioxide 35 mEq/L (23-29) H 07/11/17 03:15 Creatinine 0.56 mg/dL (0.70-1.30) L 07/11/17 03:15 Glucose 352 mg/dL (70-105) H 07/11/17 03:15 POC Glucose 330 (58-89) H 07/10/17 19:38 Hemoglobin A1c >= 14.1 % (-5.6) H 07/08/17 01:43 Calcium 8.2 mg/dL (8.6-10.3) L 07/11/17 03:15 Venous Ioniz Calcium 1.07 mmol/L (1.15-1.35) L 07/11/17 10:14 Iron 30 mcg/dL (65-175) L 07/09/17 00:20 Transferrin 95 mg/dL (203-362) L 07/09/17 00:20 Ferritin 1302 ng/ml (20-250) H 07/09/17 00:20 AST 11 Units/L (13-39) L 07/08/17 01:43 Alkaline Phosphatase 111 Units/L (34-104) H 07/08/17 01:43 Albumin 1.9 g/dL (3.5-5.7) L 07/08/17 01:43 Globulin 4.5 g/dL (2.4-3.5) H 07/08/17 01:43 Albumin/Globulin Ratio 0.4 (1.1-2.2) L 07/08/17 01:43 Urine Protein 30 mg/dL (Neg-Trace) H 07/07/17 21:04 Urine Glucose (UA) >=1000 mg/dL (Normal) H 07/07/17 21:04 Urine Microscopic RBC 3-5 per hpf (0-3) H 07/07/17 21:04 Enterobacteriac sp PCR DETECTED (Not Detect) A 07/07/17 20:33 Klebsiella pneumoniae DETECTED (Not Detect) A 07/07/17 20:33 H & H 07/11/17 Range/Units 10:05 Hgb 9.0 L (12.9-16.9) g/dL Hct 28.5 L (37.5-50.1) % All other labs normal. Consult Discharge Plan - Plan Referrals: NONE,PCP [Primary Care Provider] -
--- NOTE | 2017-07-11 18:32 | Internal Med Progress Note ---
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 Current Visit: Yes Status: Acute Assessment and plan: Patient found to have right lower extremity gangrene now status post Right above the knee amputation POD3 Pain controlled he remains hemodynamically stable Blood cultures collected on 07/07/17 and wound culture collected on 07/07/17 both positive for Klebsiella pneumonia Sensitivities known today and meropenem switched to Levaquin Repeat blood cultures pending Exercise disease consulted for duration of antibiotic as an outpatient (2) Hypokalemia Current Visit: Yes Status: Acute Assessment and plan: Resolved; continue to monitor (3) Essential hypertension Current Visit: No Status: Chronic Assessment and plan: Controlled; continue bisoprolol hydrochlorothiazide (4) Uncontrolled diabetes mellitus Current Visit: No Status: Chronic Assessment and plan: -Hemoglobin A1c greater than 14 -Patient will be started on basal insulin in addition to average with sliding scale insulin Qualifiers: Diabetes mellitus type: type 2 Diabetes mellitus complication status: with circulatory complication Diabetes mellitus complication detail: with peripheral angiopathy without gangrene Diabetes mellitus dedicated intermodal truck driver insulin use : with dedicated intermodal truck driver use Qualified Code(s): E11.51 - Type 2 diabetes mellitus with diabetic peripheral angiopathy without gangrene; E11.65 - Type 2 diabetes mellitus with hyperglycemia; E11.65 - Type 2 diabetes mellitus with hyperglycemia; E11.65 - Type 2 diabetes mellitus with hyperglycemia; E11.65 - Type 2 diabetes mellitus with hyperglycemia; Z79.4 - computer terminal operator (current) use of insulin; Z79.4 - computer terminal operator (current) use of insulin; Z79.4 - computer terminal operator (current ) use of insulin; Z79.4 - USP (current) use of insulin (5) Smoker Current Visit: Yes Status: Acute Assessment and plan: Nicotine replacement (6) DVT prophylaxis Current Visit: Yes Status: Acute Assessment and plan: SQ lovenox - Subjective Interval history: Patient found to have right lower extremity gangrene now status post Right above the knee amputation POD3 Pain controlled he remains hemodynamically stable Blood cultures collected on 07/07/17 and wound culture collected on 07/07/17 both positive for Klebsiella pneumonia Blood cultures also positive for Klebsiella and repeat blood cultures pending Infectious disease consulted for antibiotic duration as an outpatient - Constitutional Vitals: Temp Pulse Resp BP Pulse Ox 97.6 F 88 20 149/93 96 07/11/17 16:53 07/11/17 18:17 07/11/17 18:17 07/11/17 16:53 07/11/17 16:53 General appearance: Present: cooperative, A&O X 1, A&O X 3, no acute distress. Absent: answers questions appropriately - Respiratory Respiratory exam: Present: CTAB. Absent: accessory muscle use, rales, rhonchi, wheezes - Cardiovascular Cardiovascular exam: Present: RRR, +S1, +S2. Absent: diastolic murmur, gallop, rubs, systolic murmur Internal Medicine: Result - Labs CBC & Chem 7: 07/11/17 10:05 07/11/17 10:04 Labs: Short CBC 07/11/17 Range/Units 10:05 WBC 9.0 (4.3-11.1) K/mcL Hgb 9.0 L (12.9-16.9) g/dL Hct 28.5 L (37.5-50.1) % Plt Count 400 (140-400) K/mcL Neutrophils # 7.3 (1.6-8.9) K/mcL BMP 07/11/17 07/11/17 03:15 10:04 Sodium 130 L Potassium 4.2 4.7 Chloride 91 L Carbon Dioxide 35 H BUN 13 Creatinine 0.56 L Glucose 352 H Calcium 8.2 L - ABG Interpretation ABG results: PT/INR, D-dimer PT 13.1 Seconds (9.4-12.1) H 07/07/17 20:33 - VTE Documentation of Mechanical Device: Intermittent pneumatic compression device Consult Discharge Plan - Plan Referrals: NONE,PCP [Primary Care Provider] -
[2017-07-11 19:45] LABS: VBG HCO3 32 mEq/L (21-27); VBG PCO2 57 mmHg (41-51); VBG PH 7.36 pH Units (7.32-7.42); VBG PO2 57 mmHg (25-50)
[2017-07-11] MEDS: Insulin DETEMIR 100 UNIT/ML X5UNITS SQ SCH (20:14)
--- NOTE | 2017-07-11 20:27 | Vascular/End[facility]as Progress Note ---
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 His wound is healing well. He will need staple removal in 4 weeks. His left COOPER is consistent with moderate disease. He will require further evaluation of his left lower extremity disease after discharge. He will follow-up in vascular clinic for further evaluation. (2) Essential hypertension Current Visit: No Status: Chronic (3) Sepsis Current Visit: Yes Status: Acute Qualifiers: Qualified Code(s): A41.9 - Sepsis, unspecified organism (4) Anemia Current Visit: Yes Status: Acute Qualifiers: Qualified Code(s): D64.9 - Anemia, unspecified (5) Tobacco abuse Current Visit: Yes Status: Acute - Subjective Interval history: Alert and comfortable without complaints. He denies chest pain or shortness of breath. Vital Signs, Last 4 Hours Temp Pulse Resp BP Pulse Ox 07/11/17 20:12 98.7 F 87 20 116/81 98 07/11/17 18:17 88 20 07/11/17 16:53 97.6 F 91 18 149/93 96 - Physical Examination General: Present: Conversant HEENT: Present: Pupils equal Cardiac: Present: Reg Rate and Rhythm Lungs: Present: Normal Breath Sounds Neuro: Present: Alert and responsive Vascular: Present: Normal capillary refill (left), Surgical incisions (incision clean and dry withotu erythema or drainage). Absent: Cyanosis, Edema Abdomen: Present: Soft - VTE Documentation of Mechanical Device: Intermittent pneumatic compression device Results 07/11/17 10:05 07/11/17 10:04 Lab Results, Last 24 hours 07/10/17 07/11/17 07/11/17 19:57 03:15 10:04 WBC Hgb Hct Plt Count Sodium 130 L Potassium 4.2 4.7 Chloride 91 L Carbon Dioxide 35 H BUN 13 Creatinine 0.56 L Glucose 352 H Calcium 8.2 L Magnesium 1.4 L 1.7 07/11/17 07/11/17 10:05 16:40 WBC 9.0 Hgb 9.0 L Hct 28.5 L Plt Count 400 Sodium Potassium Chloride Carbon Dioxide BUN Creatinine Glucose Calcium Magnesium 2.0 - Imaging / Other Tests Non Invasive Vascular Testing: report reviewed, image reviewed (Left COOPER 0.79) Consult Discharge Plan - Plan Referrals: NONE,PCP [Primary Care Provider] -
[2017-07-12] MEDS: *HR* Enoxaparin 40 MG/0.4 ML SYRINGE SQ SCH (06:22)
[2017-07-12] MEDS: Nicotine 14 MG PATCH.TD24 TD SCH (07:41)
[2017-07-12] MEDS: Gabapentin 100 MG CAPSULE PO SCH ×3 (07:42→21:43)
[2017-07-12] MEDS: Lisinopril-HCTZ 20-12.5mg TABLET PO SCH ×2 (07:42→17:19)
[2017-07-12] MEDS: amLODIPine 5 MG TABLET PO SCH (07:42)
[2017-07-12] MEDS: Insulin LISPRO 300 UNITS/3 ML VIAL SQ SCH ×4 (07:43→21:43)
[2017-07-12] MEDS ORDERED: Levofloxacin 750 MG/150 ML 750 MG/150 ML BAG IVPB SCH (09:00)
[2017-07-12] MEDS: Insulin DETEMIR 100 UNIT/ML X5UNITS SQ SCH ×2 (09:15→21:42)
--- NOTE | 2017-07-12 09:34 | Podiatry Progress Note ---
Date of Encounter: 07/12/17 Time of Encounter: 06:55 - Assessment and Plan (1) Ulcer Current Visit: Yes Status: Acute Multiple ulcerations to the left foot. Two partial thickness ulcerations to sub #5 metatarsal head and lateral aspect of the 5th metatarsal head left foot. Dried eschar to the lateral aspect at the base of 5th metatarsal. No cellulitis, no tachycardia, no fever, no evidence of bacterial infection. ABIs of LLE: Left Posterior Tibial 83 0.56 Moderately Diminished Left Dorsalis Pedis 117 0.79 Moderately Diminished Foot X-Ray 07/11/17 17:37 IMPRESSION: No radiographic evidence for osteomyelitis. D/ / Gutierrez Waller MD / Gutierrez Waller MD Interpreting Provider: Gutierrez Waller MD Plan: Continue daily wound care with Santyl ointment. Recommend a surgical post op shoe. F/u with Dr. Perales in wound care one week after discharge from the hospital. (2) Pre-ulcerative calluses Current Visit: Yes Status: Acute S/p Sharp cutting performed with a #15 scalpel blade to hemmorhaged callused lesion to sub #1 metatarsal head right left foot on 07/11/17. Will order a post op shoe for the left foot. Recommend diabetic foot care every three months. Subjective Interval history: Patient is lying in bed sleeping with dressing dry and intact to the left foot. Patient is arousable to verbal stimuli. Patient states he is feeling well, denies pain to the left foot. Patient is s/p Right AKA for necrotizing fasciitis by Dr. Amaya on 07/08/17. Objective - Vital Signs Vital Signs: Vital Signs Temp Pulse Resp BP Pulse Ox 07/12/17 07:40 89 07/12/17 07:21 98.3 F 89 15 125/81 95 07/12/17 04:00 86 07/12/17 03:55 98.7 F 88 17 138/87 96 07/12/17 00:10 88 07/11/17 23:12 97.5 F L 90 19 113/87 96 07/11/17 20:12 98.7 F 87 20 116/81 98 07/11/17 20:00 87 07/11/17 18:17 88 20 07/11/17 16:53 97.6 F 91 18 149/93 96 07/11/17 15:55 85 20 07/11/17 13:29 88 20 07/11/17 11:28 97.2 F L 88 18 123/79 96 07/11/17 10:20 84 18 98 07/11/17 09:39 79 07/11/17 09:37 78 16 94 Intake and Output 07/11/17 07/12/17 07/12/17 23:59 07:59 15:59 Intake Total 480 / 480 0 / 0 160 / 160 Output Total 1300 / 1300 0 / 0 Balance -820 / -820 0 / 0 160 / 160 Intake: Oral 480 / 480 0 / 0 160 / 160 Output: Urine 0 / 0 Catheter 1300 / 1300 Other: Meal Dinner Breakfast Percent of Meal Consumed 100% 100% Weight 61.5 kg Blood Glucose* [id number] Patient Weight 07/12/17 23:59 Weight 61.5 kg - Exam Exam: General appearance: alert awake oriented X 3. Calm and pleasant, no acute distress.. Vascular: Left: Pedal pulses +1/4 DP, 0/4PT , No evidence of cyanosis, pallor or rubor, Edema graded at 1+/4, Skin Temperature cool to warm from toes to tibia , No calf pain with manual compression. capillary refill time is immediate to digits. Neurologic: Sensation intact with light touch to left foot. . Integument: Dried blood to sub #1 metatarsal head left foot. Partial thickness ulceration to the sub #5 metatarsal head left measuring 1.5 cm in length x 1 cm in wdith, base of wound white and yellow, surrounding edges are hyperkeratotic with loose skin. Partial thickness ulceration to the lateral aspect of the 5th metatarsal head measuring 1.5 cm in length x 1 cm in width x 0.1 cm in depth, base of wound with yellow slough, no pus, no odor, no periwound erythema, no probe to bone, no fluctuance, no tunneling, no sinus tracts. Hyperkeratotic edges. Dried eschar to the lateral aspect at the base of the 5th metatarsal, connected , measuring 0.5 cm in diameter, no periwound erythema, no fluctuance, no drainage. - Lab Result Diagrams: 07/11/17 10:05 07/11/17 10:04 Labs: Abnormal lab results RBC 3.07 M/mcL (4.19-5.50) L 07/11/17 10:05 Hgb 9.0 g/dL (12.9-16.9) L 07/11/17 10:05 Hct 28.5 % (37.5-50.1) L 07/11/17 10:05 MPV 9.2 fL (9.4-12.4) L 07/11/17 10:05 Immature Gran % 4.8 % (0-4) H 07/11/17 10:05 Toxic Granulation Present (Not Present) A 07/07/17 20:33 PT 13.1 Seconds (9.4-12.1) H 07/07/17 20:33 APTT 23.2 Seconds (26.0-36.0) L 07/07/17 20:33 VBG pCO2 57 mmHg (41-51) H 07/11/17 19:14 VBG pO2 57 mmHg (25-50) H 07/11/17 19:14 VBG HCO3 32 mEq/L (21-27) H 07/11/17 19:14 Sodium 130 mEq/L (136-145) L 07/11/17 03:15 Chloride 91 mEq/L (98-107) L 07/11/17 03:15 Carbon Dioxide 35 mEq/L (23-29) H 07/11/17 03:15 Creatinine 0.56 mg/dL (0.70-1.30) L 07/11/17 03:15 Glucose 352 mg/dL (70-105) H 07/11/17 03:15 POC Glucose 372 (58-89) H 07/11/17 16:53 Hemoglobin A1c >= 14.1 % (-5.6) H 07/08/17 01:43 Calcium 8.2 mg/dL (8.6-10.3) L 07/11/17 03:15 Venous Ioniz Calcium 1.10 mmol/L (1.15-1.35) L 07/11/17 19:14 Iron 30 mcg/dL (65-175) L 07/09/17 00:20 Transferrin 95 mg/dL (203-362) L 07/09/17 00:20 Ferritin 1302 ng/ml (20-250) H 07/09/17 00:20 AST 11 Units/L (13-39) L 07/08/17 01:43 Alkaline Phosphatase 111 Units/L (34-104) H 07/08/17 01:43 Albumin 1.9 g/dL (3.5-5.7) L 07/08/17 01:43 Globulin 4.5 g/dL (2.4-3.5) H 07/08/17 01:43 Albumin/Globulin Ratio 0.4 (1.1-2.2) L 07/08/17 01:43 Urine Protein 30 mg/dL (Neg-Trace) H 07/07/17 21:04 Urine Glucose (UA) >=1000 mg/dL (Normal) H 07/07/17 21:04 Urine Microscopic RBC 3-5 per hpf (0-3) H 07/07/17 21:04 Enterobacteriac sp PCR DETECTED (Not Detect) A 07/07/17 20:33 Klebsiella pneumoniae DETECTED (Not Detect) A 07/07/17 20:33 - VTE Documentation of Mechanical Device: Intermittent pneumatic compression device Consult Discharge Plan - Plan Referrals: Lalo Amaya MD [Partnered Physician] - 08/09/17 1:10 pm
--- NOTE | 2017-07-12 09:49 | Infectious Disease Progress No ---
Date of Encounter: 07/12/17 Time of Encounter: 08:40 - Assessment and Plan (1) Necrotizing fasciitis Status: Acute Necrotizing fasciitis type I Causative organisms Klebsiella pneumoniae and group B streptococcus Status post AKA on 07/08 Had received 4 days of meropenem, now stopped Day one of Levaquin Recommend continuing Levaquin for 10 days from time of positive blood culture (2) Bacteremia Status: Acute Patient had blood cultures performed on 07/07 that were 1/2 positive for Klebsiella pneumonia pansensitive (same sensitivity pattern as seen in wound culture) Source from soft tissue infection of right leg Status post AKA on 07/08 Continue on Levaquin for 10 days from time of positive blood culture on 07/07 (3) Uncontrolled diabetes mellitus Status: Chronic Management per primary team Qualifiers: Diabetes mellitus type: type 2 Diabetes mellitus complication status: with circulatory complication Diabetes mellitus complication detail: with peripheral angiopathy without gangrene Diabetes mellitus correction insulin use : with correction use Qualified Code(s): E11.51 - Type 2 diabetes mellitus with diabetic peripheral angiopathy without gangrene; E11.65 - Type 2 diabetes mellitus with hyperglycemia; E11.65 - Type 2 diabetes mellitus with hyperglycemia; E11.65 - Type 2 diabetes mellitus with hyperglycemia; E11.65 - Type 2 diabetes mellitus with hyperglycemia; Z79.4 - oil heaterman (current) use of insulin; Z79.4 - oil heaterman (current) use of insulin; Z79.4 - long-term (current ) use of insulin; Z79.4 - oil heaterman (current) use of insulin - Subjective Interval history: Patient reports doing well this morning in no significant discomfort. He does report continued soreness in his leg stump but denies other problems. He denies having fever, chills, weakness, malaise, or diaphoresis. He states his appetite is better has been in months Vitals have been stable other than some tachycardia around 90 and no leukocytosis seen on labs drawn yesterday Infect Dis PN-Objective Data - Labs CBC & Chem 7: 07/11/17 10:05 07/13/17 07:02 Labs: Laboratory Results - last 24 hr 07/11/17 07/11/17 07/11/17 07:20 10:04 10:05 WBC 9.0 RBC 3.07 L Hgb 9.0 L Hct 28.5 L MCV 92.8 MCH 29.3 MCHC 31.6 RDW 13.2 Plt Count 400 MPV 9.2 L Immature Gran % 4.8 H Seg Neutrophils % 81.6 Lymphocytes % 7.4 Monocytes % 4.2 Eosinophils % 1.4 Basophils % 0.6 Neutrophils # 7.3 Lymphocytes # 0.7 Monocytes # 0.4 Eosinophils # 0.1 Basophils # 0.1 VBG pH VBG pCO2 VBG pO2 VBG HCO3 Potassium 4.7 POC Glucose 298 H Venous Ioniz Calcium Magnesium 07/11/17 07/11/17 07/11/17 10:14 11:26 16:40 WBC RBC Hgb Hct MCV MCH MCHC RDW Plt Count MPV Immature Gran % Seg Neutrophils % Lymphocytes % Monocytes % Eosinophils % Basophils % Neutrophils # Lymphocytes # Monocytes # Eosinophils # Basophils # VBG pH VBG pCO2 VBG pO2 VBG HCO3 Potassium POC Glucose 351 H Venous Ioniz Calcium 1.07 L Magnesium 2.0 07/11/17 07/11/17 16:53 19:14 WBC RBC Hgb Hct MCV MCH MCHC RDW Plt Count MPV Immature Gran % Seg Neutrophils % Lymphocytes % Monocytes % Eosinophils % Basophils % Neutrophils # Lymphocytes # Monocytes # Eosinophils # Basophils # VBG pH 7.36 VBG pCO2 57 H VBG pO2 57 H VBG HCO3 32 H Potassium POC Glucose 372 H Venous Ioniz Calcium 1.10 L Magnesium - Impressions Impressions Foot X-Ray 07/11/17 17:37 IMPRESSION: No radiographic evidence for osteomyelitis. D/ / Gutierrez Waller MD / Gutierrez Waller MD Interpreting Provider: Gutierrez Waller MD Exam - Constitutional Vitals: Temp Pulse Resp BP Pulse Ox 98.3 F 89 15 125/81 95 07/12/17 07:21 07/12/17 07:40 07/12/17 07:21 07/12/17 07:21 07/12/17 07:21 - Additional findings Additional findings: General: Cooperative, pleasant, no acute distress, alert and oriented 3, answers questions appropriately HEENT: Normocephalic, atraumatic,Conjunctiva pink, sclera anicteric, oral mucosa moist Respiratory: No accessory muscle usage, clear to auscultation bilaterally, no wheezes/rhonchi/rales appreciated Cardiovascular: Regular rate and rhythm, S1 and S2 present, no murmurs/rubs/ gallops/clicks appreciated GI/abdominal: Nondistended, nontender, soft, normal bowel sounds, no peritoneal signs Extremities: No left calf tenderness, no left pedal edema appreciated, warm, status post right-sided AKA Neurological: Alert and oriented 3, no facial droop, no focal deficits Skin: Dry, intact, normal color - VTE Documentation of Mechanical Device: Intermittent pneumatic compression device Consult Discharge Plan - Plan Instructions: Above the Knee Amputation (DC), Diabetic Foot Care (GEN), Diabetes Mellitus Type 2 in Adults (GEN) Referrals: wound,care [Other] - 07/21/17 10:30 am Lalo Amaya MD [Partnered Physician] - 08/09/17 1:10 pm Prescriptions: HYDROcodone/Acet 5/325 mg [[place] 5-325 mg] 1 tab PO Q6H PRN 4 Days #16 tablet PRN Reason: Mild Pain Insulin Degludec [Tresiba Flextouch U-100] 15 unit SQ BID #1 insuln.pen - Attending Attestation I examined this patient and my medical decision-making was reviewed with the Resident Physician. I agree with the documented findings, disposition and treatment plan as described except to the extent set forth below.
--- NOTE | 2017-07-12 11:45 | Vascular/[facility] Progress Note ---
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 He is postoperative day #4. - Subjective Interval history: Patient is status post right [id number] amputation. He is postop day #4. He has no complaints referable to the amputation site. The patient states he is otherwise feeling well and wants to go home. Vital Signs, Last 4 Hours Temp Pulse Resp BP Pulse Ox 07/12/17 11:34 98.5 F 94 18 91/54 99 - Physical Examination General: Present: Conversant, No Apparent Distress HEENT: Present: Atraumatic Neuro: Present: Alert and responsive Vascular: Present: Amputation(s) (Patient is status post right [id number] amputation) - VTE Documentation of Mechanical Device: Intermittent pneumatic compression device Results 07/11/17 10:05 07/11/17 10:04 Lab Results, Last 24 hours 07/11/17 16:40 Magnesium 2.0 Consult Discharge Plan - Plan Referrals: Lalo Amaya MD [Partnered Physician] - 08/09/17 1:10 pm
--- NOTE | 2017-07-12 13:05 | Internal Med Progress Note ---
Addendum entered and electronically signed by Phoenix Abel DO 07/12/17 16:56 : Correction in Physical Exam: Patient does not have a systolic murmur. CV exam is RRR, Normal S1S2. No murmurs, rubs or gallops. Original Note: <Phoenix Abel - Last Filed: 07/12/17 16:48> Date of Encounter: 07/12/17 Time of Encounter: 13:03 - Assessment and plan (1) Necrotizing fasciitis Current Visit: Yes Status: Resolved Assessment and plan: According to ID, patient has necrotizing fasciitis type I - caused by Klebsiella and Group B streptococcus - Post op day #4 AKA on 07/08 - Patient received 4 days of meropenem, stopped, and started on Levaquin 07/12. Continue for 10 days (07/22/16) per ID recommendations - Cultures are sensitive to Levaquin, will switch to PO tomorrow - Repeat blood cultures pending - WBC 11.6 -> 9.0 Neutrophils 9.2 -> 7.3 - Pain: Gabapentin 100mg PO TID, Oxycodone 10mg Q4H pRN, Oxycodone 5/325 PO PRN Q4H - Consults to PT,OT, [employer] Router (2) Ulcer Current Visit: Yes Status: Acute Assessment and plan: Seen by podiatry - Multiple ulcerations to left foot - No cellulitis, no evidence of bacterial infection. Foot x-ray negative for signs of osteomyelitis - Continue daily wound care per podiatry. Recommend surgical post op shoe. F/u with Dr. Perales one week s/p discharge. (3) Hypokalemia Current Visit: Yes Status: Acute Assessment and plan: Resolved. Electrolytes are being replaced by surgery. - Calcium, Magnesium, replaced today, (4) Uncontrolled diabetes mellitus Current Visit: No Status: Chronic Assessment and plan: Basal insulin Levemir 15 units SQ BID increased today from once daily. Qualifiers: Diabetes mellitus type: type 2 Diabetes mellitus complication status: with circulatory complication Diabetes mellitus complication detail: with peripheral angiopathy without gangrene Diabetes mellitus half-way insulin use : with half-way use Qualified Code(s): E11.51 - Type 2 diabetes mellitus with diabetic peripheral angiopathy without gangrene; E11.65 - Type 2 diabetes mellitus with hyperglycemia; E11.65 - Type 2 diabetes mellitus with hyperglycemia; E11.65 - Type 2 diabetes mellitus with hyperglycemia; E11.65 - Type 2 diabetes mellitus with hyperglycemia; Z79.4 - middle or intermediate school principal (current) use of insulin; Z79.4 - middle or intermediate school principal (current) use of insulin; Z79.4 - senior living (current ) use of insulin; Z79.4 - senior living (current) use of insulin (5) Essential hypertension Current Visit: No Status: Chronic Assessment and plan: Controlled on Lisinopril-HCTZ 20-12.5 BID and amlodipine 10mg PO daily - (6) Smoker Current Visit: Yes Status: Acute Assessment and plan: Nicotine replacement (7) DVT prophylaxis Current Visit: Yes Status: Acute Assessment and plan: Lovenox 40 mg SQ @ 0600 - Subjective Interval history: Patient is a 66-year-old male postop day 4 AKA of the right lower extremity secondary to necrotizing fasciitis. Patient is continuing antibiotics today we will stop his IV antibiotics and start him on by mouth tomorrow. The patient remains hemodynamically stable. The patient requires 10 more days of IV antibiotics. He is currently on day 5 of antibiotics, his first day of Levaquin. Patient states that he is doing well today and he is in good spirits. Denies any complaints at this time. Plan is for the patient to be discharged to an ECF for further PT evaluation. Possible discharge tomorrow. - Constitutional Vitals: Temp Pulse Resp BP Pulse Ox 98.5 F 88 18 91/54 99 07/12/17 11:34 07/12/17 11:40 07/12/17 11:34 07/12/17 11:34 07/12/17 11:34 General appearance: Present: cooperative, A&O X 1, A&O X 3, no acute distress. Absent: answers questions appropriately - Head Head exam: Present: atraumatic, normal inspection, normocephalic - Eye Eye exam: Present: normal appearance, PERRL - Neck Neck exam general surgery: Present: normal inspection - Respiratory Respiratory exam: Present: CTAB. Absent: rales, respiratory distress, rhonchi, stridor, wheezes, tachypnea - Cardiovascular Cardiovascular exam: Present: RRR, +S1, +S2, systolic murmur - GI/Abdominal GI/Abdominal exam: Present: normal bowel sounds, soft, no peritoneal signs. Absent: guarding - Extremities Exam Extremities exam: Absent: calf tenderness Additional comments: Patient has a bandage placed over his right lower extremity. He also has bandages placed over his left lower extremity of the foot. The patient's right lower extremity is being followed by vascular surgery. The patient's left foot is being followed by podiatry with wound care instructions. - Back Exam Back exam: Present: full ROM, normal inspection - Neurological Exam Neurological exam: Present: alert, oriented X3, no focal deficits - Psychiatric Psychiatric exam: Present: normal affect, normal mood - Skin Skin exam: Present: dry, normal color, warm. Absent: rash Internal Medicine: Result - Labs CBC & Chem 7: 07/11/17 10:05 07/11/17 10:04 - ABG Interpretation ABG results: PT/INR, D-dimer PT 13.1 Seconds (9.4-12.1) H 07/07/17 20:33 - Impressions Impressions Foot X-Ray 07/11/17 17:37 IMPRESSION: No radiographic evidence for osteomyelitis. D/ / Gutierrez Waller MD / Gutierrez Waller MD Interpreting Provider: Gutierrez Waller MD - VTE Documentation of Mechanical Device: Intermittent pneumatic compression device Consult Discharge Plan - Plan Referrals: wound,care [Other] - 07/21/17 10:30 am Lalo Amaya MD [Partnered Physician] - 08/09/17 1:10 pm <Lalo Smart - Last Filed: 07/12/17 17:18> Date of Encounter: 07/12/17 - Constitutional Vitals: Temp Pulse Resp BP Pulse Ox 99 F 90 20 121/79 99 07/12/17 16:36 07/12/17 16:36 07/12/17 16:36 07/12/17 16:36 07/12/17 16:36 Internal Medicine: Result - Labs CBC & Chem 7: 07/11/17 10:05 07/11/17 10:04 - ABG Interpretation ABG results: PT/INR, D-dimer PT 13.1 Seconds (9.4-12.1) H 07/07/17 20:33 - Impressions Impressions Foot X-Ray 07/11/17 17:37 IMPRESSION: No radiographic evidence for osteomyelitis. D/ / Gutierrez Waller MD / Gutierrez Waller MD Interpreting Provider: Gutierrez Waller MD - Attending Attestation I personally interviewed and examined this patient. I agree with the findings, assessment, and plan of Dr. Babb, internal medicine rn intern. He continues on Levaquin for additional 10 days to complete a 14 day course of antibiotics. Patient otherwise appears to be doing fairly well from a medical standpoint. His physician is pending, possibly to a retirement facility. All else as outlined above.
[2017-07-12] MEDS: Sennosides/Docusate Sodium TABLET PO SCH (15:11)
[2017-07-12] MEDS: *HR* HYDROcodone/Acet 5/325 mg TABLET PO PRN (15:21)
[2017-07-12] MEDS: *HR* OxyCODONE/APAP 5/325 TABLET PO PRN (23:29)
[2017-07-13] MEDS: *HR* Enoxaparin 40 MG/0.4 ML SYRINGE SQ SCH (06:04)
[2017-07-13] MEDS: *HR* OxyCODONE/APAP 5/325 TABLET PO PRN (06:04)
[2017-07-13 07:35] LABS: Carbon Dioxide 30 mEq/L (23-29); Chloride 94 mEq/L (98-107); Magnesium 1.5 mg/dL (1.6-2.6); Potassium 4.2 mEq/L (3.5-5.1); Sodium 130 mEq/L (136-145)
[2017-07-13 07:41] LABS: BUN/Creatinine Ratio 34 (6-26); Blood Urea Nitrogen 23 mg/dL (8-23); Glucose 194 mg/dL (70-105); Osmolality,Calculated 279 (280-300); eGFR For African Americans > 60 (> 60); eGFR For Non-African Americans > 60 (> 60)
[2017-07-13] MEDS ORDERED: Permethrin Cream Rinse 60 ML LIQUID TP ONE (08:48)
[2017-07-13] MEDS ORDERED: levoFLOXacin 750 MG TABLET PO SCH (09:00)
[2017-07-13 09:01] LABS: VBG HCO3 30 mEq/L (21-27); VBG PCO2 34 mmHg (41-51); VBG PH 7.56 pH Units (7.32-7.42); VBG PO2 216 mmHg (25-50)
[2017-07-13 09:34] LABS: VBG Ionized Calcium 0.84 mmol/L (1.15-1.35)
[2017-07-13] MEDS: Insulin DETEMIR 100 UNIT/ML X5UNITS SQ SCH (09:43)
[2017-07-13] MEDS: Gabapentin 100 MG CAPSULE PO SCH ×2 (09:44→17:18)
[2017-07-13] MEDS: amLODIPine 5 MG TABLET PO SCH (09:44)
[2017-07-13] MEDS: Lisinopril-HCTZ 20-12.5mg TABLET PO SCH ×2 (09:44→17:18)
[2017-07-13] MEDS: Nicotine 14 MG PATCH.TD24 TD SCH (09:45)
[2017-07-13] MEDS: Sennosides/Docusate Sodium TABLET PO SCH (09:45)
[2017-07-13] MEDS: Insulin LISPRO 300 UNITS/3 ML VIAL SQ SCH ×3 (09:54→17:19)
--- NOTE | 2017-07-13 11:09 | Podiatry Progress Note ---
Date of Encounter: 07/13/17 Time of Encounter: 09:30 - Assessment and Plan (1) Ulcer Current Visit: Yes Status: Acute Multiple ulcerations to the left foot. Two partial thickness ulcerations to sub #5 metatarsal head and lateral aspect of the 5th metatarsal head left foot. Dried eschar to the lateral aspect at the base of 5th metatarsal, left foot. No cellulitis, no tachycardia, no fever, no evidence of bacterial infection. ABIs of LLE: Left Posterior Tibial 83 0.56 Moderately Diminished Left Dorsalis Pedis 117 0.79 Moderately Diminished Foot X-Ray 07/11/17 17:37 IMPRESSION: No radiographic evidence for osteomyelitis. D/ / Gutierrez Waller MD / Gutierrez Waller MD Interpreting Provider: Gutierrez Waller MD Plan: Continue daily wound care with Santyl ointment. Recommend a surgical post op shoe. F/u with Dr. Perales in wound care one week after discharge from the hospital. (2) Pre-ulcerative calluses Current Visit: Yes Status: Acute S/p Sharp cutting performed with a #15 scalpel blade to hemmorhaged callused lesion to sub #1 metatarsal head right left foot on 07/11/17. Will order a post op shoe for the left foot. Recommend diabetic foot care every three months. Subjective Interval history: Patient is sitting up in bed with dressing dry and intact to the left foot. Patient states he is feeling well, denies pain to the left foot. Patient is s/ p Right AKA for necrotizing fasciitis by Dr. Amaya on 07/08/17. No c/o fever or chills. Objective - Vital Signs Vital Signs: Vital Signs Temp Pulse Resp BP Pulse Ox 07/13/17 09:45 77 07/13/17 07:37 97.8 F 75 18 116/76 97 07/13/17 04:31 98.2 F 75 16 121/78 97 07/12/17 23:43 97.9 F 84 18 139/95 100 07/12/17 19:22 98.6 F 92 18 140/90 96 07/12/17 16:36 99 F 90 20 121/79 99 07/12/17 15:00 93 07/12/17 11:40 88 07/12/17 11:34 98.5 F 94 18 91/54 99 Intake and Output 07/12/17 07/13/17 07/13/17 23:59 07:59 15:59 Intake Total 980 / 980 Output Total 300 / 300 400 / 400 Balance -300 / -300 580 / 580 Intake: Oral 980 / 980 Output: Urine 300 / 300 400 / 400 Other: Meal Dinner Breakfast Percent of Meal Consumed 100% 100% Stool Size Large Moderate Stool Consistency soft formed Stool Color Brown Weight 60.1 kg Blood Glucose* 271 209 Patient Weight 07/13/17 23:59 Weight 60.1 kg - Exam Exam: General appearance: alert awake oriented X 3. Calm and pleasant, no acute distress.. Vascular: Left: Pedal pulses +1/4 DP, 0/4PT , No evidence of cyanosis, pallor or rubor, Edema graded at 1+/4, Skin Temperature cool to warm from toes to tibia , No calf pain with manual compression. capillary refill time is immediate to digits. Neurologic: Sensation intact with light touch to left foot. . Integument: Dried blood to sub #1 metatarsal head left foot. Partial thickness ulceration to the sub #5 metatarsal head left measuring 1.5 cm in length x 1 cm in wdith, base of wound white and yellow, surrounding edges are hyperkeratotic. Partial thickness ulceration to the lateral aspect of the 5th metatarsal head measuring 1.5 cm in length x 1 cm in width x 0.1 cm in depth, base of wound with yellow slough, no pus, no odor, no periwound erythema, no probe to bone, no fluctuance, no tunneling, no sinus tracts. Hyperkeratotic edges. Dried eschar to the lateral aspect at the base of the 5th metatarsal,no periwound erythema, no fluctuance, no drainage. - Lab Result Diagrams: 07/11/17 10:05 07/13/17 07:02 Labs: Abnormal lab results RBC 3.07 M/mcL (4.19-5.50) L 07/11/17 10:05 Hgb 9.0 g/dL (12.9-16.9) L 07/11/17 10:05 Hct 28.5 % (37.5-50.1) L 07/11/17 10:05 MPV 9.2 fL (9.4-12.4) L 07/11/17 10:05 Immature Gran % 4.8 % (0-4) H 07/11/17 10:05 Toxic Granulation Present (Not Present) A 07/07/17 20:33 PT 13.1 Seconds (9.4-12.1) H 07/07/17 20:33 APTT 23.2 Seconds (26.0-36.0) L 07/07/17 20:33 VBG pH 7.56 pH Units (7.32-7.42) H 07/13/17 08:41 VBG pCO2 34 mmHg (41-51) L 07/13/17 08:41 VBG pO2 216 mmHg (25-50) H 07/13/17 08:41 VBG HCO3 30 mEq/L (21-27) H 07/13/17 08:41 Sodium 130 mEq/L (136-145) L 07/13/17 07:02 Chloride 94 mEq/L (98-107) L 07/13/17 07:02 Carbon Dioxide 30 mEq/L (23-29) H 07/13/17 07:02 Creatinine 0.68 mg/dL (0.70-1.30) L 07/13/17 07:02 BUN/Creatinine Ratio 34 (6-26) H 07/13/17 07:02 Glucose 194 mg/dL (70-105) H 07/13/17 07:02 POC Glucose 271 (58-89) H 07/12/17 19:24 Hemoglobin A1c >= 14.1 % (-5.6) H 07/08/17 01:43 Calculated Osmolality 279 (280-300) L 07/13/17 07:02 Calcium 8.0 mg/dL (8.6-10.3) L 07/13/17 07:02 Venous Ioniz Calcium 0.84 mmol/L (1.15-1.35) L 07/13/17 09:31 Magnesium 1.5 mg/dL (1.6-2.6) L 07/13/17 07:02 Iron 30 mcg/dL (65-175) L 07/09/17 00:20 Transferrin 95 mg/dL (203-362) L 07/09/17 00:20 Ferritin 1302 ng/ml (20-250) H 07/09/17 00:20 AST 11 Units/L (13-39) L 07/08/17 01:43 Alkaline Phosphatase 111 Units/L (34-104) H 07/08/17 01:43 Albumin 1.9 g/dL (3.5-5.7) L 07/08/17 01:43 Globulin 4.5 g/dL (2.4-3.5) H 07/08/17 01:43 Albumin/Globulin Ratio 0.4 (1.1-2.2) L 07/08/17 01:43 Urine Protein 30 mg/dL (Neg-Trace) H 07/07/17 21:04 Urine Glucose (UA) >=1000 mg/dL (Normal) H 07/07/17 21:04 Urine Microscopic RBC 3-5 per hpf (0-3) H 07/07/17 21:04 Enterobacteriac sp PCR DETECTED (Not Detect) A 07/07/17 20:33 Klebsiella pneumoniae DETECTED (Not Detect) A 07/07/17 20:33 - VTE Documentation of Mechanical Device: Intermittent pneumatic compression device Consult Discharge Plan - Plan Instructions: Above the Knee Amputation (DC), Diabetic Foot Care (GEN), Diabetes Mellitus Type 2 in Adults (GEN) Referrals: wound,care [Other] - 07/21/17 10:30 am Lalo Amaya MD [Partnered Physician] - 08/09/17 1:10 pm Prescriptions: HYDROcodone/Acet 5/325 mg [[place] 5-325 mg] 1 tab PO Q6H PRN 4 Days #16 tablet PRN Reason: Mild Pain Insulin Degludec [Tresiba Flextouch U-100] 15 unit SQ BID #1 insuln.pen
--- NOTE | 2017-07-13 13:08 | Discharge Summary ---
<Phoenix Abel - Last Filed: 07/13/17 13:27> - NOTES TO OUTPATIENT PROVIDER Notes to Outpatient Provider: Continue Levaquin for 9 days. 750 mg once daily. Orders not resulted at time of discharge: Pending orders 07/08/17 10:58 Occult Blood,Stool [BF] Routine 07/08/17 15:28 Surgical Pathology [PTH] Routine Pathology 07/08/17 15:28 Surgical Pathology [PTH] Routine Comment: Department: Surgical Pathology Specimen: Has been collected Specimen placed in fixative?: No Tissue Removal Time:: 15:10 DATE FERMIN:: 07/08/17 Collected At:: Float: [place] PRE-OP DIAGNOSIS:: peripheral vascular disease POST-OP DIAGNOSIS:: same SPECIMEN & SITE: 1: right lower leg Date of Encounter: 07/13/17 Time of Encounter: 13:07 - Discharge Diagnosis (1) Necrotizing fasciitis Priority: Primary Status: Acute (2) Ulcer Priority: Secondary Status: Acute (3) Hypokalemia Priority: Primary Status: Resolved (4) Uncontrolled diabetes mellitus Priority: Secondary Status: Chronic Qualifiers: Diabetes mellitus type: type 2 Diabetes mellitus complication status: with circulatory complication Diabetes mellitus complication detail: with peripheral angiopathy without gangrene Diabetes mellitus termite control servicer insulin use : with group home use Qualified Code(s): E11.51 - Type 2 diabetes mellitus with diabetic peripheral angiopathy without gangrene; E11.65 - Type 2 diabetes mellitus with hyperglycemia; E11.65 - Type 2 diabetes mellitus with hyperglycemia; E11.65 - Type 2 diabetes mellitus with hyperglycemia; E11.65 - Type 2 diabetes mellitus with hyperglycemia; Z79.4 - skilled nursing (current) use of insulin; Z79.4 - skilled nursing (current) use of insulin; Z79.4 - skilled nursing (current ) use of insulin; Z79.4 - skilled nursing (current) use of insulin (5) Essential hypertension Priority: Secondary Status: Chronic (6) Smoker Priority: Secondary Status: Acute (7) DVT prophylaxis Priority: Secondary Status: Acute Hospital course: Mr. Seals is a 66 year old male admitted to the hospital on July 072017 For the complaint of hypoxia/altered mental status which the patient was found to have swelling and redness to his right lower extremity with evidence of necrosis. The lower extremity CT that was performed showed a necrotizing fasciitis. Patient was seen by vascular surgery on 07/08/17 and underwent a right [id number] amputation. Prior to the amputation the patient had wound and blood cultures taken. He was initiated early on with IV antibiotics that were shown to be sensitive by the bacteria. The patient is being discharged on day 6 of antibiotics. He was switched to oral antibiotics prior to discharge. Plan is to continue the Levaquin for 9 days until completion (until July 22, 2017). The patient has been prescribed [place] for when necessary pain management. The patient was seen by vascular surgeon Dr. Amaya. The patient will require outpatient follow-up in vascular clinic for further evaluation. The patient was also seen by podiatry for ulcers on his left foot. His ulcers were treated in the hospital and there is no signs of cellulitis or bacterial function at that time. He is to continue daily wound care with Santyl ointment. A surgical postop shoe was prescribed. He is to follow-up with Dr. Palafox and wound care at proximally one week after discharge from the hospital Patient has a follow-up appointment with wound care scheduled on 07/21/17 at 10: 30 AM. The patient also has a follow-up appointment with the vascular surgeon on 08/09/17 at 1:10 PM. The patient also into the hospital with history of uncontrolled diabetes. During the patient's hospital stay he was requiring 15 units of long-acting insulin twice daily as well as sliding scale insulin 3 times a day. Recommend continuing the patient on his basal insulin and continuous monitoring improvement of his glucose. Patient's normals most likely in the 200s due to him having the chronic hyperglycemia, caution with overcorrection patient may present with signs of hypoglycemia at a normal glucose level. If the patient experiences any other concerning signs or symptoms such as fever, chills, altered mental status, chest pain, shortness of breath, nausea, vomiting, abdominal pain, worsening redness of his lower extremities or any other concerning signs he is to return to the nearest emergency department immediately for further evaluation and treatment. Discharge discussed with: patient - Time Spent with Patient Total time spent providing and/or coordinating discharge services: - Discharge Medications Prescriptions: HYDROcodone/Acet 5/325 mg [[place] 5-325 mg] 1 tab PO Q6H PRN 4 Days #16 tablet PRN Reason: Mild Pain Insulin Degludec [Tresiba Flextouch U-100] 15 unit SQ BID #1 insuln.pen Home Medications: Albuterol Sulfate [Ventolin Hfa] 2 puff IH Q6H PRN 07/08/17 [History] Amlodipine Besylate 10 mg PO DAILY 07/08/17 [History] Gabapentin [Neurontin] 100 mg PO TID 07/08/17 [History] Lansoprazole [Prevacid] 30 mg PO DAILY 07/08/17 [History] Lisinopril-HCTZ 20-12.5 [Prinzide 20-12.5] 1 tab PO BID 07/08/17 [History] Lovastatin 40 mg PO DAILY 07/08/17 [History] Metformin HCl [Glucophage] 1,000 mg PO BID 07/08/17 [History] Omeprazole [PriLOSEC] 20 mg PO DAILY 07/08/17 [History] Collagenase Oint [Santyl] 1 appl TP DAILY tube 07/13/17 [Rx] HYDROcodone/Acet 5/325 mg [[place] 5-325 mg] 1 tab PO Q6H PRN 4 Days #16 tablet [Rx] Insulin Degludec [Tresiba Flextouch U-100] 15 unit SQ BID #1 insuln.pen [Rx] Insulin LISPRO [HumaLOG] 0 units SQ HS vial 07/13/17 [Rx] Insulin LISPRO [HumaLOG] 0 units SQ TIDAC vial 07/13/17 [Rx] levoFLOXacin [Levaquin] 750 mg PO DAILY tablet 07/13/17 [Rx] Allergies/Adverse Reactions: 3 Allergy/AdvReac Type Severity Reaction Status Date / Time Penicillins Allergy See Verified 06/28/17 18:13 Comments Date of admission: 07/08/17 06:28 Primary care physician: PCP NONE Consults: 07/10/17 06:15 Consult to Wound Care [CONS] Routine Reason for Consult: New AKAto the right leg, Left foot with diabetic wounds Call Completed: No 07/10/17 11:23 Consult to Diabetes Education [CONS] Routine Comment: Reason for Consult: high hga1c 07/11/17 14:56 Consult to Podiatry [CONS] Routine Consulting Provider: [facility] Reason for Consult: necrotic wounds to left foot - just had necrotizing fasciitis to the right leg with AKA on 07/08 Time Notified: 14:58 Call Completed: Yes Discharging clinician: Lalo Smart Anticipated date of discharge: 07/13/17 - Constitutional Vitals: Temp Pulse Resp BP Pulse Ox 98.0 F 87 18 116/78 96 07/13/17 11:34 07/13/17 11:34 07/13/17 11:34 07/13/17 11:34 07/13/17 11:34 General appearance: Present: cooperative, A&O X 1, A&O X 3, no acute distress. Absent: answers questions appropriately Exam: Patient appears much improved today. He is sitting up in bed, alert and talking. He states he is ready to go home. No acute distress at this time. - Head Head exam: Present: atraumatic, normal inspection, normocephalic - Eye Eye exam: Present: normal appearance, PERRL - Neck Neck exam general surgery: Present: full ROM, normal inspection - Respiratory Respiratory exam: Present: CTAB. Absent: rales, respiratory distress, rhonchi, wheezes - Cardiovascular Cardiovascular exam: Present: RRR, +S1, +S2 - GI/Abdominal GI/Abdominal exam: Present: normal bowel sounds, soft, no peritoneal signs. Absent: guarding - Extremities Exam Additional comments: Patient has bandaging around his [id number] amputation. No signs of redness or swelling of the surrounding skin. Patient was seen by vascular surgery yesterday with no further instructions. Podiatry evaluated the patient' s left lower extremity today. No changes from yesterday. - Back Exam Back exam: Present: normal inspection - Neurological Exam Neurological exam: Present: alert, oriented X3 - Psychiatric Psychiatric exam: Present: normal affect, normal mood - Skin Skin exam: Present: dry, intact, warm - Patient Status Disposition: Transfer Inpatient Rehab Fac Condition: Fair Functional capacity at discharge: wheelchair bound Overall status at discharge: patient is progressing back to baseline - Discharge Instructions Instructions: Above the Knee Amputation (DC), Diabetic Foot Care (GEN), Diabetes Mellitus Type 2 in Adults (GEN) Follow Up With: wound,care [Other] - 07/21/17 10:30 am Lalo Amaya MD [Partnered Physician] - 08/09/17 1:10 pm - Diet and Activity Activity: as per physical therapy Diet: advance to your usual diet - VTE Documentation of Mechanical Device: Intermittent pneumatic compression device <SmartLalo - Last Filed: 07/13/17 15:16> Orders not resulted at time of discharge: Pending orders 07/08/17 10:58 Occult Blood,Stool [BF] Routine 07/08/17 15:28 Surgical Pathology [PTH] Routine Pathology 07/08/17 15:28 Surgical Pathology [PTH] Routine Comment: Department: Surgical Pathology Specimen: Has been collected Specimen placed in fixative?: No Tissue Removal Time:: 15:10 DATE FERMIN:: 07/08/17 Collected At:: [facility] PRE-OP DIAGNOSIS:: peripheral vascular disease POST-OP DIAGNOSIS:: same SPECIMEN & SITE: 1: right lower leg Date of Encounter: 07/13/17 Hospital course: Mr. Seals is a 66 year old male - Time Spent with Patient Total time spent providing and/or coordinating discharge services: Date of admission: 07/08/17 06:28 Primary care physician: PCP NONE Consults: 07/10/17 06:15 Consult to Wound Care [CONS] Routine Reason for Consult: New AKAto the right leg, Left foot with diabetic wounds Call Completed: No 07/10/17 11:23 Consult to Diabetes Education [CONS] Routine Comment: Reason for Consult: high hga1c 07/11/17 14:56 Consult to Podiatry [CONS] Routine Consulting Provider: [facility] Reason for Consult: necrotic wounds to left foot - just had necrotizing fasciitis to the right leg with AKA on 07/08 Time Notified: 14:58 Call Completed: Yes - Constitutional Vitals: Temp Pulse Resp BP Pulse Ox 98.0 F 87 18 116/78 96 07/13/17 11:34 07/13/17 11:34 07/13/17 11:34 07/13/17 11:34 07/13/17 11:34 - Attending Attestation I personally interviewed and examined this patient. I agree with the findings, assessment, and plan of Dr. Abel, internal medicine international trade compliance manager. She to complete Levaquin or 9 additional days, through 07/22/2017. Patient does have outpatient vascular surgery follow-up. He also will follow up with podiatry as recommended. He will need ongoing wound care. She was counseled on the importance of smoking cessation. We did adjust his insulin for elevated blood sugars. Patient otherwise is doing well and deemed stable for discharge. 32 minutes spent on discharge and coordination of care.
--- NOTE | 2017-07-13 13:45 | Physician Discharge Referral ---
ExtendedCare Referral Info Transfer To: [place] Provider in Charge: [place] Provider in Charge after Transfer: PCP Institutional Level of Care: Skilled - Diagnosis (1) Necrotizing fasciitis Priority: Primary Status: Acute (2) Ulcer Status: Acute (3) Hypokalemia Status: Resolved (4) Uncontrolled diabetes mellitus Status: Chronic (5) Essential hypertension Status: Chronic (6) Smoker Status: Acute (7) DVT prophylaxis Status: Acute - Transfer Medications Prescriptions: HYDROcodone/Acet 5/325 mg [[place] 5-325 mg] 1 tab PO Q6H PRN 4 Days #16 tablet PRN Reason: Mild Pain Insulin Degludec [Tresiba Flextouch U-100] 15 unit SQ BID #1 insuln.pen Home Medications: Albuterol Sulfate [Ventolin Hfa] 2 puff IH Q6H PRN 07/08/17 [History] Amlodipine Besylate 10 mg PO DAILY 07/08/17 [History] Gabapentin [Neurontin] 100 mg PO TID 07/08/17 [History] Lansoprazole [Prevacid] 30 mg PO DAILY 07/08/17 [History] Lisinopril-HCTZ 20-12.5 [Prinzide 20-12.5] 1 tab PO BID 07/08/17 [History] Lovastatin 40 mg PO DAILY 07/08/17 [History] Metformin HCl [Glucophage] 1,000 mg PO BID 07/08/17 [History] Omeprazole [PriLOSEC] 20 mg PO DAILY 07/08/17 [History] Collagenase Oint [Santyl] 1 appl TP DAILY tube 07/13/17 [Rx] HYDROcodone/Acet 5/325 mg [[place] 5-325 mg] 1 tab PO Q6H PRN 4 Days #16 tablet [Rx] Insulin Degludec [Tresiba Flextouch U-100] 15 unit SQ BID #1 insuln.pen [Rx] Insulin LISPRO [HumaLOG] 0 units SQ HS vial 07/13/17 [Rx] Insulin LISPRO [HumaLOG] 0 units SQ TIDAC vial 07/13/17 [Rx] levoFLOXacin [Levaquin] 750 mg PO DAILY tablet 07/13/17 [Rx] Allergies/Adverse Reactions: 3 Allergy/AdvReac Type Severity Reaction Status Date / Time Penicillins Allergy See Verified 06/28/17 18:13 Comments - Respiratory Orders None Smoking Cessation: Smoking cessation has been advised. For more information, call the [place] Tobacco Quit Line at 6-974-XFUB-NOW. - Rehabiliation Orders Rehab Orders: Evaluation for Physical Therapy, Evaluation for Occupational Therapy - Treatments List/Other: Wound care of right and left lower extremity. Continue Levaquin 750mg PO daily for the next 9 days - Diet Orders Regular CERTIFICATION: I certify that the transfer of the above named patient to an Extended Care Facility is necessary for the continuing treatment of the diagnosis listed. The above information is true and accurate reflection of patient's current condition. Confidential - Redisclosure prohibited without a patient's written consent.
[2017-07-13 16:28] VITALS: BP 107/75
== END 2017-07-13 18:49 | DRG 710 ==
LOC: 2SOUTHHOLD 19:28 → EMEROO 19:28 → 2SOUTHHOLD 07-08 00:53 → SUATTDRO 07-08 06:28 → 2NNU 07-08 16:17
PROVIDERS: ADMIT Internal Medicine; ATTEND Hospitalist

== ENCOUNTER 2018-08-25 15:09 | Inpatient (IN) ==
[2018-08-25] MEDS ORDERED: 0.9 % Sodium Chloride 1,000 ML IVC ONE (17:45)
[2018-08-25] MEDS ORDERED: Isovue-370 500 ML BOTTLE IVP ONE (17:50)
--- NOTE | 2018-08-25 18:03 | Emergency Department Note ---
Disposition Clinical Impression: Gangrene of toe of left foot Disposition: Still a Patient Condition: Fair General Adult HPI - General Chief complaint: ED Extremity Injury, Lower Stated complaint: gangrene L foot Time Seen by Provider: 08/25/18 17:28 Nursing Notes Reviewed: Yes Vital Signs Reviewed: Yes - History of Present Illness HPI Narrative: Patient is a 68-year-old male past medical history significant for poorly controlled insulin-dependent diabetes mellitus, prior right AKA. Presenting with his mother for evaluation and management of left foot infection. Patient was previously seen in emergency department 2 days ago with recommendation for admission, IV antibiotics, and surgery. Patient did leave against medical planner at that time. Patient states he is now agreeable to inpatient admission and treatment. He is unsure how long this infection has been present. He denies symptoms such as fever, nausea, vomiting, chest pain, shortness of breath, dizziness. Admits to purulent drainage. Pt Subjective Complaint: Foot infection Pain Scale: 10 Associated symptoms: Reports: denies other symptoms - Related Data Home Medications Medication Instructions Recorded Confirmed Albuterol Sulfate [Ventolin Hfa] 2 puff IH Q6H PRN 07/08/17 08/23/18 Amlodipine Besylate 10 mg PO DAILY 07/08/17 08/23/18 Gabapentin [Neurontin] 100 mg PO TID 07/08/17 08/23/18 Lansoprazole [Prevacid] 30 mg PO DAILY 07/08/17 08/23/18 Lisinopril-HCTZ 20-12.5 [Prinzide 1 tab PO BID 07/08/17 08/23/18 20-12.5] Lovastatin 40 mg PO DAILY 07/08/17 08/23/18 Metformin HCl [Glucophage] 1,000 mg PO BID 07/08/17 08/23/18 Omeprazole [PriLOSEC] 20 mg PO DAILY 07/08/17 08/23/18 Aspirin [Lo-Dose Aspirin EC] 81 mg PO DAILY 08/23/18 08/23/18 Clindamycin HCl [Cleocin HCl] 300 mg PO TID 08/23/18 08/23/18 Insulin LISPRO [HumaLOG] 20 units SQ TIDAC 08/23/18 08/23/18 Insulin LISPRO [HumaLOG] 50 units SQ HS 08/23/18 08/23/18 Previous Rx's Medication Instructions Recorded Collagenase Oint [Santyl] 1 appl TP DAILY tube 07/13/17 HYDROcodone/Acet 5/325 mg [[place] 1 tab PO Q6H PRN 4 Days #16 tablet 07/13/17 5-325 mg] Insulin Degludec [Tresiba 15 unit SQ BID #1 insuln.pen 07/13/17 Flextouch U-100] Allergies Allergy/AdvReac Type Severity Reaction Status Date / Time Penicillins Allergy See Verified 06/28/17 18:13 Comments Constitutional: Denies: fever, chills Eyes: Denies: vision change Cardiovascular: Denies: chest pain Respiratory: Denies: dyspnea Gastrointestinal: Denies: abdominal pain, nausea, vomiting, diarrhea Musculoskeletal: Denies: back pain Integumentary: Reports: lesions (left foot). Denies: rash Neurological: Reports: numbness (chronic neuropathy). Denies: weakness Past Medical History - Past Medical History Source: patient, nursing notes reviewed Medical history: Reports: arthritis, cancer, diabetes, hepatitis, hypertension, other Surgical history: Reports: colectomy, herniorrhaphy, other Psychiatric history: Reports: no psych history - Social History Smoking Status: Current every day smoker Smokeless Tobacco Status: No Alcohol use: Reports: none Drug use: Reports: none Physical Exam - General General appearance: alert, in no apparent distress - Head Head exam: atraumatic, normocephalic - Eye Eye exam: Absent: scleral icterus, conjunctival injection - ENT ENT exam: mucous membranes moist - Respiratory Respiratory exam: Present: normal lung sounds bilaterally. Absent: respiratory distress, wheezes, accessory muscle use, prolonged expiratory phase - Cardiovascular Cardiovascular exam: Present: regular rate, normal rhythm. Absent: systolic murmur, diastolic murmur - Abdominal Exam Abdominal exam: Present: soft, Non-Tender. Absent: distention, guarding, rebound - Extremities Exam Extremities exam: Present: pedal edema (Pitting edema to level of the knee. Gangranous left 5th toe, purulent lesion extending along the lateral aspect of the forefoot), other. Absent: calf tenderness - Expanded Lower Extremity Exam Neurovascular/Tendon exam: Present: pulse deficit, sensory deficit - Neurological Exam Neurological exam: Present: alert, oriented X3, CN II-XII intact - Psychiatric Psychiatric exam: Present: normal mood - Skin Skin exam: Present: warm, dry Course Course Narrative: Patient with gangrenous fifth toe on his left foot and purulent infection extending along the lateral forefoot. She is agreeable to admission. Will evaluate with CBC, CMP, lactate, blood cultures, CT of the left lower extremity, COOPER - Reevaluation(s) Reevaluation #1: Starting antibiotics with vancomycin COLIN. Will obtain venous Doppler study. Patient will be signed out shift change to evening attending. Please see their documentation for further management and findings. Vital Signs Temperature 97.9 F 08/25/18 15:12 Pulse Rate 101 08/25/18 15:12 Respiratory Rate 18 08/25/18 15:12 Blood Pressure 134/74 08/25/18 15:12 O2 Sat by Pulse Oximetry 96 08/25/18 15:12 Temperature 97.9 F 08/25/18 15:12 Pulse Rate 101 08/25/18 15:12 Respiratory Rate 18 08/25/18 15:12 Blood Pressure 134/74 08/25/18 15:12 O2 Sat by Pulse Oximetry 96 08/25/18 15:12 Oxygen Delivery Oxygen Delivery Room Air
[2018-08-25] MEDS ORDERED: Clindamycin 900 MG/50 ML 900 MG/50 ML IV.SOLN IVPB ONE (18:14)
[2018-08-25 18:16] LABS: Basophils # 0.1 K/mcL (0.0-0.2); Basophils % 0.9 %; Eosinophils # 0.1 K/mcL (0.0-0.6); Eosinophils % 1.2 %; Hematocrit 32.6 % (37.5-50.1); Hemoglobin 10.5 g/dL (12.9-16.9); Immature Granulocytes % 1.6 % (0-4); Lymphocytes # 1.1 K/mcL (0.6-4.6); Lymphocytes % 10.5 %; Mean Corpuscular HGB Conc 32.2 g/dL (31.6-35.5); Mean Corpuscular Hemoglobin 29.6 pg (28.0-33.3); Mean Corpuscular Volume 91.8 fL (83.0-100.0); Mean Platelet Volume 8.7 fL (9.4-12.4); Monocytes # 1.1 K/mcL (0.0-1.3); Monocytes % 10.5 %; Neutrophils # 7.9 K/mcL (1.6-8.9); Platelet Count 376 K/mcL (140-400); Red Blood Count 3.55 M/mcL (4.19-5.50); Red Cell Distribution Width 13.2 % (11.5-14.5); Segmented Neutrophils % 75.3 %
[2018-08-25 18:23] LABS: INR 1.1; Prothrombin Time 12.7 Seconds (9.4-12.1)
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
[2018-08-25 18:35] LABS: Alanine Aminotransferase 9 Units/L (7-52); Albumin/Globulin Ratio 0.6 (1.1-2.2); Alkaline Phosphatase 137 Units/L (34-104); Aspartate Amino Transferase 8 Units/L (13-39); BUN/Creatinine Ratio 20 (6-26); Bilirubin,Direct 0.1 mg/dL (0.0-0.2); Bilirubin,Indirect 0.2 mg/dL (0.0-1.2); Bilirubin,Total 0.3 mg/dL (0.3-1.0); Blood Urea Nitrogen 17 mg/dL (8-23); Calcium 9.1 mg/dL (8.6-10.3); Carbon Dioxide 31 mEq/L (23-29); Chloride 89 mEq/L (98-107); Globulin 4.8 g/dL (2.4-3.5); Glucose 681 mg/dL (70-105); Magnesium 1.6 mg/dL (1.6-2.6); Osmolality,Calculated 302 (280-300); Potassium 4.3 mEq/L (3.5-5.1); Sodium 129 mEq/L (136-145); Total Protein 7.8 g/dL (6.4-8.9); eGFR For Non-African Americans > 60 (> 60)
[2018-08-25] MEDS: 0.9 % Sodium Chloride 1,000 ML IVC SCH ×2 (19:05→20:56)
[2018-08-25 20:00] LABS: VBG HCO3 29 mEq/L (21-27); VBG PCO2 49 mmHg (41-51); VBG PH 7.38 pH Units (7.32-7.42); VBG PO2 93 mmHg (25-50)
[2018-08-25 21:42] LABS: C-Reactive Protein 94 mg/L (Less than 10)
[2018-08-25] MEDS ORDERED: *HR* Dextrose 50 % in Water (Syg) 50 ML SYRINGE IVP PRN (21:53)
[2018-08-25] MEDS ORDERED: Insulin Regular, Human 100 UNIT/ML IV ONE (21:53)
[2018-08-25] MEDS ORDERED: Insulin Human Regular 100 UNIT in 0.9 % Sodium Chloride 100 ML IVC SCH (22:00)
--- NOTE | 2018-08-25 23:03 | Podiatry Consult Note ---
Date of Encounter: 08/25/18 Time of Encounter: 23:15 Assessment and Plan (1) Gas gangrene Current visit: Yes Status: Acute I had a thorough review with the patient regarding the serious nature of his infection, my findings, and recommendations for treatment. We discussed infection present and emergent surgical intervention consisting of partial left foot amputation. Discussed with patient amputation site would likely be left open and he is going to require more surgery and there are no guarantees made that his foot will be salvageable and he could end up with an amputation of the leg or ultimately . Discussed with patient supportive choice of decision to leave the other night and worse outcome he could sustain due to this and his decisions and general. I am not optimistic that he will keep his leg but the patient wants to try to save it. All of his questions were answered and the informed consent was signed. On-call to the OR. (2) Osteomyelitis Current visit: Yes Status: Acute See above Qualifiers: Osteomyelitis type: other acute Osteomyelitis location: foot Laterality: right Qualified Code(s): M86.171 - Other acute osteomyelitis, right ankle and foot History of Present Illness Chief complaint: Left foot infection HPI: Mr. Seals is a 68 year old diabetic male who was in the ER 2 days ago and left despite being told he had a severe infection that needed surgery. Patient came back today reports that his foot is been darken infected and swollen and painful on the outside of the left foot for a few days. He says he does not know how it happened He has a history of a right [id number] amputation last year. He sees Dr. Morales and wound care and says he was recently there. He denies fever, chills, nausea, vomiting, shortness of breath, chest pain, calf pain. CT scan was done in the emergency room which showed left foot gas gangrene and podiatry was consult by the emergency room for surgical intervention. Past Med Surg Social Fam HX - Past Medical History Medical history: arthritis, cancer, diabetes, hepatitis, hypertension, other Additional medical history: allergic rhinitis. colon cancer. hepatitis c Psychiatric history: no psych history - Past Surgical History Surgical History: colectomy, herniorrhaphy, other (Right [id number] amputation) Additional surgical history: right aka. colon sx - Social History Smoking Status: Current every day smoker Smokeless Tobacco Status: No Alcohol use: none Drug use: none - Family History Mother Living Status: Hx Family Cardiac Disorders: No Hx Family Respiratory Disorders: No Hx Family Cancer: Yes (unknown) Hx Family GI Disorders: No Hx Family Endocrine Disorder: No Hx Family Neuromuscular Disorders: No Hx Family Neurologic Disorders: No Hx Family HEENT Disorders: No Hx Family Autoimmune Disorders: No Father Living Status: Medications and Allergies Albuterol Sulfate [Ventolin Hfa] 2 puff IH Q6H PRN 07/08/17 [History] Amlodipine Besylate 10 mg PO DAILY 07/08/17 [History] Gabapentin [Neurontin] 100 mg PO TID 07/08/17 [History] Lansoprazole [Prevacid] 30 mg PO DAILY 07/08/17 [History] Lisinopril-HCTZ 20-12.5 [Prinzide 20-12.5] 1 tab PO BID 07/08/17 [History] Lovastatin 40 mg PO DAILY 07/08/17 [History] Metformin HCl [Glucophage] 1,000 mg PO BID 07/08/17 [History] Omeprazole [PriLOSEC] 20 mg PO DAILY 07/08/17 [History] Collagenase Oint [Santyl] 1 appl TP DAILY tube 07/13/17 [Rx] HYDROcodone/Acet 5/325 mg [[place] 5-325 mg] 1 tab PO Q6H PRN 4 Days #16 tablet 07/13/17 [Rx] Insulin Degludec [Tresiba Flextouch U-100] 15 unit SQ BID #1 insuln.pen 07/13/17 [Rx] Aspirin [Lo-Dose Aspirin EC] 81 mg PO DAILY 08/23/18 [History] Clindamycin HCl [Cleocin HCl] 300 mg PO TID 08/23/18 [History] Insulin LISPRO [HumaLOG] 20 units SQ TIDAC 08/23/18 [History] Insulin LISPRO [HumaLOG] 50 units SQ HS 08/23/18 [History] Allergy/AdvReac Type Severity Reaction Status Date / Time Penicillins Allergy See Verified 06/28/17 18:13 Comments All Systems Reviewed: The remainder of the systems were reviewed and are negative - Constitutional Constitutional: no fever(s) - Cardiovascular Cardiovascular: no chest pain, no dyspnea - Respiratory Respiratory: no cough - Musculoskeletal Musculoskeletal: numbness Physical Exam - Constitutional Vitals: Temp Pulse Resp BP Pulse Ox 97.9 F 85 16 151/80 100 08/25/18 15:12 08/25/18 21:23 08/25/18 21:23 08/25/18 21:23 08/25/18 21:23 General appearance: cooperative, no acute distress - Head Head exam: Present: atraumatic - Neurological Exam Additional comments: Absent protective sensation left lower extremity. - Ankle & Foot Exam: Well-developed male in no acute distress Left foot is warm to touch and moderate edema is present. There is a dark gangrenous patch with erythema of the skin laterally. There is fluctuance. There is crepitus. Absent protective sensation. Medial aspect of right foot has a superficial abrasion. Right above-knee amputation. CT scan left foot soft tissue gas and osteomyelitis Results - Labs Result Diagrams: 08/25/18 17:50 08/25/18 17:50 Labs: Abnormal lab results RBC 3.55 M/mcL (4.19-5.50) L 08/25/18 17:50 Hgb 10.5 g/dL (12.9-16.9) L 08/25/18 17:50 Hct 32.6 % (37.5-50.1) L 08/25/18 17:50 MPV 8.7 fL (9.4-12.4) L 08/25/18 17:50 ESR >= 130 mm/hr (0-10) H 08/25/18 17:50 PT 12.7 Seconds (9.4-12.1) H 08/25/18 17:50 VBG pO2 93 mmHg (25-50) H 08/25/18 19:54 VBG HCO3 29 mEq/L (21-27) H 08/25/18 19:54 Sodium 129 mEq/L (136-145) L 08/25/18 17:50 Chloride 89 mEq/L (98-107) L 08/25/18 17:50 Carbon Dioxide 31 mEq/L (23-29) H 08/25/18 17:50 Glucose 681 mg/dL (70-105) H* 08/25/18 17:50 Calculated Osmolality 302 (280-300) H 08/25/18 17:50 AST 8 Units/L (13-39) L 08/25/18 17:50 Alkaline Phosphatase 137 Units/L (34-104) H 08/25/18 17:50 C-Reactive Protein 94 mg/L (Less than 10) H 08/25/18 17:50 Albumin 3.0 g/dL (3.5-5.7) L 08/25/18 17:50 Globulin 4.8 g/dL (2.4-3.5) H 08/25/18 17:50 Albumin/Globulin Ratio 0.6 (1.1-2.2) L 08/25/18 17:50 H & H 08/25/18 Range/Units 17:50 Hgb 10.5 L (12.9-16.9) g/dL Hct 32.6 L (37.5-50.1) % All other labs normal. Consult Discharge Plan - Plan Referrals: NONE,PCP [Primary Care Provider] -
--- NOTE | 2018-08-25 23:40 | Emergency Department Note ---
Disposition Clinical Impression: Gangrene of toe of left foot, Hyperglycemia Osteomyelitis Qualifiers: Osteomyelitis type: other acute Osteomyelitis location: foot Laterality: right Qualified Code(s): M86.171 - Other acute osteomyelitis, right ankle and foot Disposition: Admitted As Inpatient Condition: Fair Extremity Problem HPI - General Chief complaint: ED Extremity Injury, Lower Stated complaint: gangrene L foot Time Seen by Provider: 08/25/18 17:28 Source: patient Nursing Notes Reviewed: Yes Vital Signs Reviewed: Yes - History of Present Illness Pain Scale: 0 - Related Data Home Medications Medication Instructions Recorded Confirmed RX: Albuterol Sulfate [Ventolin 2 puff IH Q6H PRN 07/08/17 08/25/18 Hfa] RX: Amlodipine Besylate 10 mg PO DAILY 07/08/17 08/25/18 RX: Gabapentin [Neurontin] 100 mg PO TID 07/08/17 08/25/18 RX: Lansoprazole [Prevacid] 30 mg PO DAILY 07/08/17 08/25/18 RX: Lisinopril-HCTZ 20-12.5 1 tab PO BID 07/08/17 08/25/18 [Prinzide 20-12.5] RX: Lovastatin 40 mg PO DAILY 07/08/17 08/25/18 RX: Metformin HCl [Glucophage] 1,000 mg PO BID 07/08/17 08/25/18 RX: Omeprazole [PriLOSEC] 20 mg PO DAILY 07/08/17 08/25/18 Aspirin [Lo-Dose Aspirin EC] 81 mg PO DAILY 08/23/18 08/25/18 Clindamycin HCl [Cleocin HCl] 300 mg PO TID 08/23/18 08/25/18 RX: Insulin LISPRO [HumaLOG] 20 units SQ TIDAC 08/23/18 08/25/18 RX: Insulin LISPRO [HumaLOG] 50 units SQ HS 08/23/18 08/25/18 Previous Rx's Medication Instructions Recorded Insulin Degludec [Tresiba 15 unit SQ BID #1 insuln.pen 07/13/17 Flextouch U-100] RX: Collagenase Oint [Santyl] 1 appl TP DAILY tube 07/13/17 RX: HYDROcodone/Acet 5/325 mg 1 tab PO Q6H PRN 4 Days #16 tablet 02/21/18 [[place] 5-325 mg] Allergies Allergy/AdvReac Type Severity Reaction Status Date / Time Penicillins Allergy See Verified 06/28/17 18:13 Comments Constitutional: Denies: fever, chills Eyes: Denies: vision change Cardiovascular: Denies: chest pain Respiratory: Denies: dyspnea Gastrointestinal: Denies: abdominal pain, nausea, vomiting, diarrhea Musculoskeletal: Denies: back pain Integumentary: Reports: lesions (left foot). Denies: rash Neurological: Reports: numbness (chronic neuropathy). Denies: weakness Past Medical History - Past Medical History Medical history: Reports: arthritis, cancer, diabetes, hepatitis, hypertension, other Surgical history: Reports: colectomy, herniorrhaphy, other (Right [id number] amputation) Psychiatric history: Reports: no psych history - Social History Smoking Status: Current every day smoker Smokeless Tobacco Status: No Alcohol use: Reports: none Drug use: Reports: none Physical Exam - General General appearance: alert, in no apparent distress Course Vital Signs Temperature 97.9 F 08/25/18 15:12 Pulse Rate 101 08/25/18 15:12 Respiratory Rate 18 08/25/18 15:12 Blood Pressure 134/74 08/25/18 15:12 O2 Sat by Pulse Oximetry 96 08/25/18 15:12 Temperature 98.8 F 08/26/18 11:39 Pulse Rate 76 08/26/18 11:39 Respiratory Rate 16 08/26/18 11:39 Blood Pressure 129/68 08/26/18 11:39 O2 Sat by Pulse Oximetry 98 08/26/18 11:39 Oxygen Delivery Oxygen Delivery Room Air Extremity Problem, Nontraumati - MDM Narrative Medical decision making narrative: 68-year-old male received in sign out at 7 PM pending laboratory evaluation and imaging, reevaluation and disposition. Patient has soft tissue gas, likely osteomyelitis on CT scan of the left lower extremity. Patient vital signs are stable in emergency department. He was given vancomycin and clindamycin secondary to an allergy to penicillins. Upon return receiving the CT results I called the lumber marker who agreed with the plan of action and will see the susu nt in the hospital. Patient will be admitted to hospitalist for further care and evaluation. Vital signs stable prior to admission to hospital. - Medical Records Medical records reviewed: Yes I reviewed the patient's medical records. - Lab Data Lab results reviewed: Yes I reviewed the patient's lab results. Result diagrams: 08/25/18 17:50 08/25/18 17:50 Lab Results 08/25/18 08/25/18 08/25/18 Range/Units 17:50 17:50 17:50 WBC 10.4 (4.3-11.1) K/mcL RBC 3.55 L (4.19-5.50) M/mcL Hgb 10.5 L (12.9-16.9) g/dL Hct 32.6 L (37.5-50.1) % MCV 91.8 (83.0-100.0) fL MCH 29.6 (28.0-33.3) pg MCHC 32.2 (31.6-35.5) g/dL RDW 13.2 (11.5-14.5) % Plt Count 376 (140-400) K/mcL MPV 8.7 L (9.4-12.4) fL Immature Gran % 1.6 (0-4) % Seg Neutrophils % 75.3 % Lymphocytes % 10.5 % Monocytes % 10.5 % Eosinophils % 1.2 % Basophils % 0.9 % Neutrophils # 7.9 (1.6-8.9) K/mcL Lymphocytes # 1.1 (0.6-4.6) K/mcL Monocytes # 1.1 (0.0-1.3) K/mcL Eosinophils # 0.1 (0.0-0.6) K/mcL Basophils # 0.1 (0.0-0.2) K/mcL ESR (0-10) mm/hr PT 12.7 H (9.4-12.1) Seconds INR 1.1 APTT 31.0 (26.0-36.0) Seconds VBG pH (7.32-7.42) pH Units VBG pCO2 (41-51) mmHg VBG pO2 (25-50) mmHg VBG HCO3 (21-27) mEq/L Sodium 129 L (136-145) mEq/L Potassium 4.3 (3.5-5.1) mEq/L Chloride 89 L (98-107) mEq/L Carbon Dioxide 31 H (23-29) mEq/L BUN 17 (8-23) mg/dL Creatinine 0.85 (0.70-1.30) mg/dL Est GFR ( Amer) > 60 (> 60) Est GFR (Non-Af Amer) > 60 (> 60) BUN/Creatinine Ratio 20 (6-26) Glucose 681 H* (70-105) mg/dL POC Glucose (70-99) mg/dL Est Mean Plasma Glucose mg/dl Hemoglobin A1c ( - 5.6) % Calculated Osmolality 302 H (280-300) Lactic Acid (0.5-2.2) mmol/L Calcium 9.1 (8.6-10.3) mg/dL Phosphorus 3.0 (2.7-4.5) mg/dL Magnesium 1.6 (1.6-2.6) mg/dL Total Bilirubin 0.3 (0.3-1.0) mg/dL Direct Bilirubin 0.1 (0.0-0.2) mg/dL Indirect Bilirubin 0.2 (0.0-1.2) mg/dL AST 8 L (13-39) Units/L ALT 9 (7-52) Units/L Alkaline Phosphatase 137 H (34-104) Units/L C-Reactive Protein 94 H (Less than 10) mg/L Serum Total Protein 7.8 (6.4-8.9) g/dL Albumin 3.0 L (3.5-5.7) g/dL Globulin 4.8 H (2.4-3.5) g/dL Albumin/Globulin Ratio 0.6 L (1.1-2.2) Beta-Hydroxybutyric Acd (0.02-0.27) mmol/L 08/25/18 08/25/18 08/25/18 Range/Units 17:50 17:50 17:50 WBC (4.3-11.1) K/mcL RBC (4.19-5.50) M/mcL Hgb (12.9-16.9) g/dL Hct (37.5-50.1) % MCV (83.0-100.0) fL MCH (28.0-33.3) pg MCHC (31.6-35.5) g/dL RDW (11.5-14.5) % Plt Count (140-400) K/mcL MPV (9.4-12.4) fL Immature Gran % (0-4) % Seg Neutrophils % % Lymphocytes % % Monocytes % % Eosinophils % % Basophils % % Neutrophils # (1.6-8.9) K/mcL Lymphocytes # (0.6-4.6) K/mcL Monocytes # (0.0-1.3) K/mcL Eosinophils # (0.0-0.6) K/mcL Basophils # (0.0-0.2) K/mcL ESR >= 130 H (0-10) mm/hr PT (9.4-12.1) Seconds INR APTT (26.0-36.0) Seconds VBG pH (7.32-7.42) pH Units VBG pCO2 (41-51) mmHg VBG pO2 (25-50) mmHg VBG HCO3 (21-27) mEq/L Sodium (136-145) mEq/L Potassium (3.5-5.1) mEq/L Chloride (98-107) mEq/L Carbon Dioxide (23-29) mEq/L BUN (8-23) mg/dL Creatinine (0.70-1.30) mg/dL Est GFR ( Amer) (> 60) Est GFR (Non-Af Amer) (> 60) BUN/Creatinine Ratio (6-26) Glucose (70-105) mg/dL POC Glucose (70-99) mg/dL Est Mean Plasma Glucose mg/dl Hemoglobin A1c ( - 5.6) % Calculated Osmolality (280-300) Lactic Acid 2.2 (0.5-2.2) mmol/L Calcium (8.6-10.3) mg/dL Phosphorus (2.7-4.5) mg/dL Magnesium (1.6-2.6) mg/dL Total Bilirubin (0.3-1.0) mg/dL Direct Bilirubin (0.0-0.2) mg/dL Indirect Bilirubin (0.0-1.2) mg/dL AST (13-39) Units/L ALT (7-52) Units/L Alkaline Phosphatase (34-104) Units/L C-Reactive Protein (Less than 10) mg/L Serum Total Protein (6.4-8.9) g/dL Albumin (3.5-5.7) g/dL Globulin (2.4-3.5) g/dL Albumin/Globulin Ratio (1.1-2.2) Beta-Hydroxybutyric Acd 0.18 (0.02-0.27) mmol/L 08/25/18 08/25/18 08/25/18 Range/Units 19:54 21:56 22:37 WBC (4.3-11.1) K/mcL RBC (4.19-5.50) M/mcL Hgb (12.9-16.9) g/dL Hct (37.5-50.1) % MCV (83.0-100.0) fL MCH (28.0-33.3) pg MCHC (31.6-35.5) g/dL RDW (11.5-14.5) % Plt Count (140-400) K/mcL MPV (9.4-12.4) fL Immature Gran % (0-4) % Seg Neutrophils % % Lymphocytes % % Monocytes % % Eosinophils % % Basophils % % Neutrophils # (1.6-8.9) K/mcL Lymphocytes # (0.6-4.6) K/mcL Monocytes # (0.0-1.3) K/mcL Eosinophils # (0.0-0.6) K/mcL Basophils # (0.0-0.2) K/mcL ESR (0-10) mm/hr PT (9.4-12.1) Seconds INR APTT (26.0-36.0) Seconds VBG pH 7.38 (7.32-7.42) pH Units VBG pCO2 49 (41-51) mmHg VBG pO2 93 H (25-50) mmHg VBG HCO3 29 H (21-27) mEq/L Sodium (136-145) mEq/L Potassium (3.5-5.1) mEq/L Chloride (98-107) mEq/L Carbon Dioxide (23-29) mEq/L BUN (8-23) mg/dL Creatinine (0.70-1.30) mg/dL Est GFR ( Amer) (> 60) Est GFR (Non-Af Amer) (> 60) BUN/Creatinine Ratio (6-26) Glucose (70-105) mg/dL POC Glucose 459 H* (70-99) mg/dL Est Mean Plasma Glucose mg/dl Hemoglobin A1c ( - 5.6) % Calculated Osmolality (280-300) Lactic Acid 2.2 (0.5-2.2) mmol/L Calcium (8.6-10.3) mg/dL Phosphorus (2.7-4.5) mg/dL Magnesium (1.6-2.6) mg/dL Total Bilirubin (0.3-1.0) mg/dL Direct Bilirubin (0.0-0.2) mg/dL Indirect Bilirubin (0.0-1.2) mg/dL AST (13-39) Units/L ALT (7-52) Units/L Alkaline Phosphatase (34-104) Units/L C-Reactive Protein (Less than 10) mg/L Serum Total Protein (6.4-8.9) g/dL Albumin (3.5-5.7) g/dL Globulin (2.4-3.5) g/dL Albumin/Globulin Ratio (1.1-2.2) Beta-Hydroxybutyric Acd (0.02-0.27) mmol/L 08/25/18 08/26/18 08/26/18 Range/Units 22:39 07:00 11:42 WBC (4.3-11.1) K/mcL RBC (4.19-5.50) M/mcL Hgb (12.9-16.9) g/dL Hct (37.5-50.1) % MCV (83.0-100.0) fL MCH (28.0-33.3) pg MCHC (31.6-35.5) g/dL RDW (11.5-14.5) % Plt Count (140-400) K/mcL MPV (9.4-12.4) fL Immature Gran % (0-4) % Seg Neutrophils % % Lymphocytes % % Monocytes % % Eosinophils % % Basophils % % Neutrophils # (1.6-8.9) K/mcL Lymphocytes # (0.6-4.6) K/mcL Monocytes # (0.0-1.3) K/mcL Eosinophils # (0.0-0.6) K/mcL Basophils # (0.0-0.2) K/mcL ESR (0-10) mm/hr PT (9.4-12.1) Seconds INR APTT (26.0-36.0) Seconds VBG pH (7.32-7.42) pH Units VBG pCO2 (41-51) mmHg VBG pO2 (25-50) mmHg VBG HCO3 (21-27) mEq/L Sodium (136-145) mEq/L Potassium (3.5-5.1) mEq/L Chloride (98-107) mEq/L Carbon Dioxide (23-29) mEq/L BUN (8-23) mg/dL Creatinine (0.70-1.30) mg/dL Est GFR ( Amer) (> 60) Est GFR (Non-Af Amer) (> 60) BUN/Creatinine Ratio (6-26) Glucose (70-105) mg/dL POC Glucose 414 H* 212 H (70-99) mg/dL Est Mean Plasma Glucose 355 mg/dl Hemoglobin A1c 14.0 H ( - 5.6) % Calculated Osmolality (280-300) Lactic Acid (0.5-2.2) mmol/L Calcium (8.6-10.3) mg/dL Phosphorus (2.7-4.5) mg/dL Magnesium (1.6-2.6) mg/dL Total Bilirubin (0.3-1.0) mg/dL Direct Bilirubin (0.0-0.2) mg/dL Indirect Bilirubin (0.0-1.2) mg/dL AST (13-39) Units/L ALT (7-52) Units/L Alkaline Phosphatase (34-104) Units/L C-Reactive Protein (Less than 10) mg/L Serum Total Protein (6.4-8.9) g/dL Albumin (3.5-5.7) g/dL Globulin (2.4-3.5) g/dL Albumin/Globulin Ratio (1.1-2.2) Beta-Hydroxybutyric Acd (0.02-0.27) mmol/L - Radiology Data Radiology results reviewed: Yes I reviewed the patient's radiology results.
[2018-08-26] MEDS ORDERED: Vancomycin 1,000 MG VIAL ONE (00:04)
--- NOTE | 2018-08-26 00:20 | Anesthesia Evaluation PreOp ---
Date of Encounter: 08/26/18 Time of Encounter: 00:18 - Past History Planned Operation: Partial Amputation Left Foot Cardiac History: HTN, Hyperlipidemia Pulmonary History: Smoker (36 years), COPD [employer] History: Denies Any Significant HX Other Medical History: Hepatic (hepatitis C), Diabetes Type II (poorly controlled on insulin infusion), GERD, Other (H/O colon CA S/P colon resection and chemo) Anesthesia History: No Prior Anesthetic Complications, Past Anesthesia Alcohol Use: none Drug use: none Medications and Allergies Albuterol Sulfate [Ventolin Hfa] 2 puff IH Q6H PRN 07/08/17 [History] Amlodipine Besylate 10 mg PO DAILY 07/08/17 [History] Gabapentin [Neurontin] 100 mg PO TID 07/08/17 [History] Lansoprazole [Prevacid] 30 mg PO DAILY 07/08/17 [History] Lisinopril-HCTZ 20-12.5 [Prinzide 20-12.5] 1 tab PO BID 07/08/17 [History] Lovastatin 40 mg PO DAILY 07/08/17 [History] Metformin HCl [Glucophage] 1,000 mg PO BID 07/08/17 [History] Omeprazole [PriLOSEC] 20 mg PO DAILY 07/08/17 [History] Collagenase Oint [Santyl] 1 appl TP DAILY tube 07/13/17 [Rx] HYDROcodone/Acet 5/325 mg [[place] 5-325 mg] 1 tab PO Q6H PRN 4 Days #16 tablet 07/13/17 [Rx] Insulin Degludec [Tresiba Flextouch U-100] 15 unit SQ BID #1 insuln.pen 07/13/17 [Rx] Aspirin [Lo-Dose Aspirin EC] 81 mg PO DAILY 08/23/18 [History] Clindamycin HCl [Cleocin HCl] 300 mg PO TID 08/23/18 [History] Insulin LISPRO [HumaLOG] 20 units SQ TIDAC 08/23/18 [History] Insulin LISPRO [HumaLOG] 50 units SQ HS 08/23/18 [History] Allergy/AdvReac Type Severity Reaction Status Date / Time Penicillins Allergy See Verified 06/28/17 18:13 Comments - Meds/Allergy Pre-op Review Medications Reviewed: Yes Allergies Reviewed: Yes Beta Blockers on Current Med List: No Anesthesia Results - Labs 08/25/18 17:50 08/25/18 17:50 - Imaging EKG: report reviewed (07/07/2017 SINUS RHYTHM MODERATE INTRAVENTRICULAR CONDUCTION DELAY NONSPECIFIC T-WAVE ABNORMALITY PROLONGED QT INTERVAL) Additional studies: 04/20/2017 Echo Impressions: LVEF 60-65%. Normal LV chamber size and function. Mild concentric left ventricular hypertrophy. Mild left ventricular diastolic dysfunction. Normal right ventricular structure and function. Mild to moderately dilated left atrium. No evidence of PFO with agitated saline contrast. No significant valvular dysfunction. Anesthesia Exam Vital Signs/O2 Sat/Glucose, Most Recent Temp Pulse Resp BP Pulse Ox 98.6 F 83 16 163/76 99 08/25/18 23:37 08/25/18 23:37 08/25/18 23:37 08/25/18 23:37 08/25/18 23:37 Blood Glucose* 281 Height: 5'9''/1.75m Weight: 142/64.7 kg NPO (# of Hours): 1 - HEENT Pupil (Motor): EOMI Mallampati: II Teeth: Edentulous Oral Opening: Greater than 3 - [employer] LOC: Oriented [employer] Motor: Normal RUE, Normal LUE, Normal LLE, Normal Face, Deficit RLE (right AKA) [employer] Sensory: Normal: RUE, LUE, LLE, Face, Deficit: RLE (right AKA) - Cardiac Rhythm: Regular Murmur: None - Pulmonary Breath Sounds: bilateral Clear Respiratory Effort: Symmetrical Anesthesia Assess/Plan ASA Score: 4, E Level of consciousness: Cooperative, Oriented, Tranquil Anesthetic Plan: General (rapid sequence) Monitoring Plan: Standard Monitors Recovery Plan: PACU
--- NOTE | 2018-08-26 00:20 | Operative Note ---
Date of procedure: 08/26/18 Pre-op diagnosis: left foot gas gangrene, osteomyelitis, abscess Post-op diagnosis: same Procedure: incision and drainage left foot into deep fascia, partial 4th and 5th ray amputation left foot Implants: none Complications: none Anesthesia: DENNISA Surgeon: Daniel Perales Was there an project assistant present: No Estimated blood loss (cc): 10 Specimen: left foot soft tissue and bone-micro and path Condition: stable Disposition: PACU Procedure in Detail: Indications: 68-year-old diabetic male with right AKA came back to the ER after leaving AMA from the ER a couple days prior with left foot gas gangrene and osteomyelitis with a necrotic fifth digit and purulent drainage from the necrotic patch being brought to the operating room for the above procedures after having the nature the procedures, risks first benefits potential complications consequences of surgery and his condition discussed at length. No guarantees were made as to the outcome or that his limb would be salvageable. It was explained to the patient that he will need multiple trips to the operating room to try to salvage his limb. It was explained to the patient that he could end up with an amputation of his leg. All of his questions have been answered and the informed consent was signed. Patient was taken from the preoperative holding area and operating room placed on operating room table in the supine position the left lower extremity was scrubbed prepped and draped in the usual sterile fashion. No tourniquet was utilized during the procedure. Incision and drainage left foot. Attention was directed and lateral aspect of the patient's left foot #15 blade was used to make an incision over the necrotic patch which purulent drainage was expressed. Purulent drainage was noted to track medially into the third interspace. It did not track proximally. There was purulent drainage around the bone. The site was irrigated with normal sterile saline which contained vancomycin. Tissue was resected which was nonviable and haynes in nature. Tendons in the operative site were traced as far proximal as possible and resected. Deep fascia tissue was also resected. This tissue was sent to microbiology. After irrigating the site, no more purulence could be expressed and devitalized tissue was felt to have been adequately resected. Partial left fourth and fifth ray amputation. With the abscess and nonviable tissue removed the fourth and fifth metatarsals were freed from their remaining soft tissue attachments and sagittal saw was used to make an osteotomy of the fourth and fifth metatarsals and the bones were excised as well as the respective toes and sent to pathology. Minimal bleeding was present. Retention sutures were placed in the wound was packed open. The wound was packed open with iodoform packing. Postoperative bandaging included adaptic, 4 x 4 gauze, ABD and Kerlix. Patient was escorted the recovery room vital signs stable. He will be admitted to the floor where he will continue IV antibiotics.
[2018-08-26] MEDS ORDERED: Ondansetron 4 MG/2 ML VIAL IVP ONE (00:25)
[2018-08-26] MEDS ORDERED: *HR* HYDROmorphone (PF) 1 MG/ML SYRINGE IVP PRN (00:25)
[2018-08-26] MEDS ORDERED: Albuterol 2.5 MG/3 ML NEBULIZER IH ONE (00:29)
[2018-08-26] MEDS ORDERED: Albuterol 2.5 MG/3 ML NEBULIZER ONE (00:30)
[2018-08-26] MEDS ORDERED: Lidocaine -MPF 2% 2 ML VIAL ONE (00:38)
[2018-08-26] MEDS ORDERED: *HR* Succinylcholine 200 MG/10 ML VIAL IVP ONE (00:38)
[2018-08-26] MEDS ORDERED: *HR* Rocuronium Bromide 50 MG/5 ML VIAL ONE (00:38)
[2018-08-26] MEDS ORDERED: *HR* Propofol 200 MG/20 ML VIAL IVP ONE (00:38)
[2018-08-26] MEDS ORDERED: *HR* FentaNYL (PF) 100 MCG/2 ML VIAL ONE (00:38)
[2018-08-26] MEDS ORDERED: Dexamethasone 4 MG/ML VIAL ONE (00:39)
[2018-08-26] MEDS ORDERED: Ondansetron 4 MG/2 ML VIAL ONE (00:39)
[2018-08-26] MEDS ORDERED: D5% in 0.9% NACL 1,000 ML IVC ONE ×2 (01:00→02:43)
[2018-08-26] MEDS ORDERED: D5% in 0.9% NACL 1,000 ML IVC SCH (01:00)
[2018-08-26] MEDS ORDERED: *HR* PHENYLEPHRINE 1,000 MCG/10 ML SYRINGE IVP ONE (01:23)
--- NOTE | 2018-08-26 02:25 | Anesthesia Evaluation Post Op ---
Date of Encounter: 08/26/18 Time of Encounter: 02:24 - Vital Signs Vital Signs: Vital Signs/O2 Sat, Most Current Temp Pulse Resp BP Pulse Ox 98.6 F 83 16 163/76 99 08/25/18 23:37 08/25/18 23:37 08/25/18 23:37 08/25/18 23:37 08/25/18 23:37 - Lungs Lungs: Clear Ascult./Percussion - Airway Airway: Non-obstructed - Cardiovascular Regular Rate - Mental Status Mental Status: Asleep with brisk response to light stimulation - Pain Pain Scale: 0 Pain Scale used: Numeric (1 - 10) - Nausea Vomiting Nausea Vomiting: Not Present - Hydration Hydration: NPO, Has not voided - Discharge PostOp Status: Transfer Patient to floor
[2018-08-26] MEDS ORDERED: *HR* Dextrose 50 % in Water (Syg) 50 ML SYRINGE IVP PRN ×2 (02:43→05:29)
[2018-08-26] MEDS ORDERED: Insulin Human Regular 100 UNIT in 0.9 % Sodium Chloride 100 ML IVC SCH (02:43)
[2018-08-26] MEDS ORDERED: Dextrose Gel 15 GM/37.5 ML TUBE PO PRN ×2 (05:29)
[2018-08-26] MEDS ORDERED: D5% in Water 1,000 ML IVC PRN (05:29)
--- NOTE | 2018-08-26 05:38 | Internal Med History&Physical ---
Date of Encounter: 08/26/18 Time of Encounter: 05:30 Internal Medicine - H&P: HPI Chief complaint: Left foot pain Admitted From: Emergency Dept Plans for Post Hospital Care: Home History of present illness: Mr. Seals is a 68 year old male w/PMH of arthritis, diabetes, hypertension, allergic rhinitis, hepatitis C, and colon cancer presents from the ED with chief complaint of left foot pain. Patient was present in the ED 2 days ago but left AMA in spite of being told he had a severe infection that required surgery. Moi benitez returned today with dark and an infected left foot which was swollen and painful on the outside portion. History of right goikn-jyz-omtf amputation last year. Patient sees Dr. Morales and wound care. Hx of poorly controlled DM. CT in the ED showed left foot gas gangrene with possible osteomyelitis. Podiatry consulted for surgical intervention. Patient denied recent illness, fever, chills, nausea, vomiting, shortness of breath, chest pain, or calf pain while in the ED. Due to pt. being taken to surgery shortly after reaching the 3NE unit, no history or physical was possible d/t pt. still being under the effects of anesthesia post-amputation this a.m. Morning team to follow-up and complete history and physical when pt. is A&O and less somnolent. Pt. was able to verify his CODE STATUS clearly for me which is FULL CODE. Past Med Surg Social Fam HX - Past Medical History Source: old records reviewed Medical history: arthritis, cancer, diabetes, hepatitis, hypertension, other Additional medical history: allergic rhinitis. colon cancer. hepatitis c Psychiatric history: no psych history - Past Surgical History Surgical History: colectomy, herniorrhaphy, other (Right ljecl-wem-lgcj amputation last year) Additional surgical history: right aka. colon sx - Social History Smoking Status: Current every day smoker Packs per day: 1.5 PPD Smokeless Tobacco Status: No Alcohol use: none Drug use: none Current living situation: Home Activity Level: Uses cane/walker Recent Out of Country Travel Within the Last 8 Weeks: No Exposure or Possible Exposure to Illness During Travel: No - Family History Mother Living Status: Hx Family Cardiac Disorders: No Hx Family Respiratory Disorders: No Hx Family Cancer: Yes (unknown) Hx Family GI Disorders: No Hx Family Endocrine Disorder: No Hx Family Neuromuscular Disorders: No Hx Family Neurologic Disorders: No Hx Family HEENT Disorders: No Hx Family Autoimmune Disorders: No Father Living Status: Internal Medicine - H&P: Meds Albuterol Sulfate [Ventolin Hfa] 2 puff IH Q6H PRN 07/08/17 [History] Amlodipine Besylate 10 mg PO DAILY 07/08/17 [History] Gabapentin [Neurontin] 100 mg PO TID 07/08/17 [History] Lansoprazole [Prevacid] 30 mg PO DAILY 07/08/17 [History] Lisinopril-HCTZ 20-12.5 [Prinzide 20-12.5] 1 tab PO BID 07/08/17 [History] Lovastatin 40 mg PO DAILY 07/08/17 [History] Metformin HCl [Glucophage] 1,000 mg PO BID 07/08/17 [History] Omeprazole [PriLOSEC] 20 mg PO DAILY 07/08/17 [History] Collagenase Oint [Santyl] 1 appl TP DAILY tube 07/13/17 [Rx] HYDROcodone/Acet 5/325 mg [[place] 5-325 mg] 1 tab PO Q6H PRN 4 Days #16 tablet 07/13/17 [Rx] Insulin Degludec [Tresiba Flextouch U-100] 15 unit SQ BID #1 insuln.pen 07/13/17 [Rx] Aspirin [Lo-Dose Aspirin EC] 81 mg PO DAILY 08/23/18 [History] Clindamycin HCl [Cleocin HCl] 300 mg PO TID 08/23/18 [History] Insulin LISPRO [HumaLOG] 20 units SQ TIDAC 08/23/18 [History] Insulin LISPRO [HumaLOG] 50 units SQ HS 08/23/18 [History] Allergy/AdvReac Type Severity Reaction Status Date / Time Penicillins Allergy See Verified 06/28/17 18:13 Comments ROS unobtainable: other (D/t pt. still being under the effects of anesthesia) All Systems PM: A 10-system review of systems was performed and is negative for pertinent findings except as documented above in the HPI. - Constitutional Vitals: Temp Pulse Resp BP Pulse Ox 98.6 F 83 16 163/76 96 08/25/18 23:37 08/25/18 23:37 08/25/18 23:37 08/25/18 23:37 08/26/18 03:12 General appearance: Present: A&O X 0 Exam: Pt. unable to provide H&P d/t being under anesthesia post-amputation. A.M team to evaluate and obtain pertinent information when the patient is A&O. Pt. examined at bedside and was somnolent but arousable. Reported that he is not in pain at this time. Denied any CP, SOB, or other complaints. VS: 98.2F temp, HR 80, RR 17, BP 145/74, SPO2 97% on room air. - Head Head exam: Present: atraumatic, normocephalic - Eye Eye exam: Present: PERRL, conjuntiva pink, sclera anicteric Pupils: Present: PERRL - ENT ENT exam: Present: normal exam - Neck Neck exam general surgery: Present: normal inspection - Respiratory Respiratory exam: Present: CTAB. Absent: accessory muscle use, rales, rhonchi, wheezes - Cardiovascular Cardiovascular exam: Present: RRR, +S1, +S2. Absent: diastolic murmur, gallop, rubs, systolic murmur - GI/Abdominal GI/Abdominal exam: Present: normal bowel sounds, soft, no peritoneal signs. Absent: distended, tenderness - Rectal Rectal exam: Present: deferred - Additional comments: exam deferred. - Extremities Exam Extremities exam: Present: pedal edema, warm, radial pulses palpable and symmetrical. Absent: calf tenderness, cyanotic - Neurological Exam Neurological exam: Present: altered - Skin Skin exam: Present: dry, intact Internal Med - H&P Results - Labs CBC & Chem 7: 08/25/18 17:50 08/25/18 17:50 Labs: Short CBC 08/25/18 Range/Units 17:50 WBC 10.4 (4.3-11.1) K/mcL Hgb 10.5 L (12.9-16.9) g/dL Hct 32.6 L (37.5-50.1) % Plt Count 376 (140-400) K/mcL Neutrophils # 7.9 (1.6-8.9) K/mcL BMP 08/25/18 17:50 Sodium 129 L Potassium 4.3 Chloride 89 L Carbon Dioxide 31 H BUN 17 Creatinine 0.85 Glucose 681 H* Calcium 9.1 Liver Function 08/25/18 Range/Units 17:50 Total Bilirubin 0.3 (0.3-1.0) mg/dL Direct Bilirubin 0.1 (0.0-0.2) mg/dL AST 8 L (13-39) Units/L ALT 9 (7-52) Units/L Alkaline Phosphatase 137 H (34-104) Units/L Albumin 3.0 L (3.5-5.7) g/dL - ABG Interpretation ABG results: 08/25/18 19:54 VBG pH 7.38 VBG pCO2 49 VBG pO2 93 H VBG HCO3 29 H - Impressions ITS Impressions Foot CT 08/25/18 17:50 IMPRESSION: 1. Evaluation limited by patient motion artifact. 2. Large deep soft tissue ulceration lateral to the 5th metatarsal head and proximal phalanx with extensive underlying soft tissue gas. No definite drainable fluid collection. 3. Erosive changes of the 5th metatarsal head compatible with osteomyelitis. Suspected pathologic fracture of the 5th metatarsal head and base of the 5th proximal phalanx. D/ / Jean Lawrence MD / Jean Lawrence MD Interpreting Provider: Jean Lawrence MD - Diagnostic Studies Other Images Additional comments: Impressions Foot CT 08/25/18 17:50 IMPRESSION: 1. Evaluation limited by patient motion artifact. 2. Large deep soft tissue ulceration lateral to the 5th metatarsal head and proximal phalanx with extensive underlying soft tissue gas. No definite drainable fluid collection. 3. Erosive changes of the 5th metatarsal head compatible with osteomyelitis. Suspected pathologic fracture of the 5th metatarsal head and base of the 5th proximal phalanx. D/ / Jean Lawrence MD / Jean Lawrence MD Interpreting Provider: Jean Lawrence MD - Assessment and Plan (1) Gangrene of toe of left foot Current Visit: Yes Status: Acute Assessment and plan: Acute gangrene of the toe of left foot. CT of the left foot shows no syndesmotic widening. The distal tibia and fibula are intact. Mild tibiotalar degenerative changes. Subtalar joint is unremarkable. Moderate retro-calcaneal enthesophyte. The talonavicular and calcaneocuboid joints are unremarkable. Normal midfoot alignment is maintained. Evaluation of the forefoot is limited by patient motion artifact. There is a large deep soft tissue ulceration lateral to the fifth metatarsal head and proximal phalanx with extensive underlying soft tissue gas. Erosive changes are suspected pathological fracturing of the fifth metatarsal head and base of the proximal phalanx gas may extend in the medullary space of the fifth metatarsal head. Extensive subcutaneous fat stranding. No well-defined drainable fluid collection. Partial left fourth and fifth ray amputation this morning. IVPB Flagyl, levofloxacin, and Vancomycin w/Pharmacy dosing for infection coverage. Stair- step pain medications for pain mgmt. PT/OT consults ordered. Current WBC 10.4 on admission. Will monitor closely for signs of increasing infection and/or sepsis criteria. Pt. is high risk d/t current poorly controlled DM and hyperglycemia, gangrene and osteomyelitis of the left foot on admission resulting in amputation, increased risk for infection/sepsis, hx of previous right grdqz-ndo-otox amputation, hx; and current risk factors of HLD, HTN, poorly controlled DM, and current tobacco abuse. Observation. (2) Osteomyelitis Current Visit: Yes Status: Acute Assessment and plan: Acute osteomyelitis of the left foot according to CT of the left foot which showed erosive changes of the fifth metatarsal head compatible with osteomyelitis. Suspected pathological fracture of the fifth metatarsal head and base of the fifth proximal phalanx. Surgical intervention planned and completed this a.m. Will order IVBP Flagyl, levofloxacin, and vancomycin with pharmacy dosing for infection coverage. Qualifiers: Osteomyelitis type: other acute Osteomyelitis location: foot Laterality: right Qualified Code(s): M86.171 - Other acute osteomyelitis, right ankle and foot (3) Hyperglycemia Current Visit: Yes Status: Acute Assessment and plan: Acute hyperglycemia on admission w/BG of 681 d/t poorly controlled DM. Insulin gtt initiated w/titration. BG 209 at 05:57. Continue to monitor. Add SS coverage and pts. home Humalog dosing once gtt is stopped and BG under control. (4) Altered mental status Current Visit: Yes Status: Acute Assessment and plan: Acute somnolence d/t effects of anesthesia from post-surgery status. Pt. arousable for brief periods on exam but returns to somnolence quickly. VS stable. Continuous cardiac telemetry. Supplemental O2 w/titration and SpO2 monitoring. NPO. Dysphasia screen. Advance diet as tolerated once dysphasia screen is passed. Falls/safety precautions. Up with assist only. Qualifiers: Altered mental status type: somnolence Qualified Code(s): R40.0 - Somnolence (5) HTN (hypertension) Current Visit: Yes Status: Chronic Assessment and plan: Hx of chronic HTN. Monitor pt. and VS. Continue pts. Amlodipine and lisinopril HCTZ. Qualifiers: Hypertension type: essential hypertension Qualified Code(s): I10 - Essential (primary) hypertension (6) HLD (hyperlipidemia) Current Visit: Yes Status: Chronic Assessment and plan: Hx of chronic HLD. Lipid panel in a.m. labs. Continue pts. Lovastatin. Qualifiers: Hyperlipidemia type: pure hypercholesterolemia Qualified Code(s): E78.00 - Pure hypercholesterolemia, unspecified; E78.0 - Pure hypercholesterolemia (7) Uncontrolled diabetes mellitus Current Visit: Yes Status: Chronic Assessment and plan: Hx of poorly controlled DM resulting in hyperglycemia and amputations. Pt. had right wdvcg-ban-tsdb amputation last year and now partial amputation of the left foot this morning. Pt. currently on insulin gtt for HHS and initial BG of 681 on admission. NPO status now until dysphasia screen passed so Q6HR BG checks. Change to ACHS once diet is advanced as tolerated. Add SS coverage once gtt is stopped and BG is under control. A1c in a.m. labs. Qualifiers: Diabetes mellitus type: type 2 Glycemic state: with hyperglycemia Qualified Code(s): E11.65 - Type 2 diabetes mellitus with hyperglycemia (8) Smoker Current Visit: Yes Status: Chronic Assessment and plan: Hx of chronic tobacco abuse. Pt. reports smoking 1.5 PPD. Add nicotine patch if pt. requires. (9) DVT prophylaxis Current Visit: Yes Status: Acute Assessment and plan: Heparin 5,000 units SQ Q12HR to start this evening. Monitor pt. for signs of bleeding. - Time Spent With Patient Total time spent is greater than 50% in coordination of care (as documented) at patient's floor/unit and/or counseling patient: less than 15 minutes
[2018-08-26] MEDS ORDERED: Naloxone 0.4 MG/ML INJ IVP PRN (06:18)
[2018-08-26] MEDS ORDERED: *HR* OxyCODONE Immed Rel 5 MG TABLET PO PRN (06:18)
[2018-08-26] MEDS ORDERED: Acetaminophen 325 MG TABLET PO PRN (06:18)
[2018-08-26] MEDS ORDERED: *HR* Promethazine 25 MG/ML VIAL IVP PRN (06:18)
[2018-08-26] MEDS ORDERED: *HR* HYDROcodone/Acet 5/325 mg TABLET PO PRN (06:18)
[2018-08-26] MEDS ORDERED: MetroNIDAZOLE 500 MG/100 ML 500 MG/100 ML BAG IVPB SCH (08:00)
--- NOTE | 2018-08-26 08:07 | Event Note ---
Date of Encounter: 08/26/18 Time of Encounter: 08:07 Patient seen and examined at bedside. Feeling much better. some pain on Lt foot Has Rt AKA. Bandage on Lt foot. RRR, S1S2 no MRG CTAB A/P Gangrene of toe of left foot and osteomyelitis - s/p surgery with intent to salvage foot. Had I&D of left foot into deep fascia, partial 4th and 5th ray amputation left foot - c/w vancomycin. Will switch to zosyn and clindamycin. Patient had only some rash with penicillin. Monitor for reaction - f/u culture. Blood culture NGTD uncontrolled DM - On insulin drip. a1c of 14. Switch to long acting. c/w accuchecks achs DVT ppx with heparin
[2018-08-26] MEDS ORDERED: Levofloxacin 750 MG/150 ML 750 MG/150 ML BAG IVPB SCH (09:00)
[2018-08-26] MEDS ORDERED: Insulin DETEMIR 100 UNIT/ML X5UNITS SQ SCH (09:15)
[2018-08-26] MEDS: 0.9 % Sodium Chloride 1,000 ML IVC SCH (09:23)
[2018-08-26] MEDS: Clindamycin 900 MG/50 ML 900 MG/50 ML IV.SOLN IVPB SCH ×3 (09:25→23:30)
[2018-08-26] MEDS: Gabapentin 100 MG CAPSULE PO SCH ×3 (09:26→21:26)
[2018-08-26] MEDS: Lisinopril-HCTZ 20-12.5mg TABLET PO SCH ×2 (09:26→21:26)
[2018-08-26] MEDS: amLODIPine 5 MG TABLET PO SCH (09:26)
[2018-08-26] MEDS: Piperacillin/Tazobactam 3.375 GM in 0.9 % Sodium Chloride Mini Bag 100 ML IVPB SCH ×3 (09:27→23:31)
[2018-08-26] MEDS: Insulin LISPRO 300 UNITS/3 ML VIAL SQ SCH ×4 (09:52→21:25)
[2018-08-26 13:50] LABS: Estimated Average Glucose 355 mg/dl
[2018-08-26] MEDS: *HR* Heparin 5,000 UNIT/ML VIAL SQ SCH (16:49)
[2018-08-26] MEDS ORDERED: Insulin LISPRO 300 UNITS/3 ML VIAL SQ SCH (21:00)
[2018-08-26] MEDS: Insulin DETEMIR 100 UNIT/ML X5UNITS SQ SCH (21:35)
[2018-08-27] MEDS: *HR* Heparin 5,000 UNIT/ML VIAL SQ SCH ×2 (05:33→18:14)
[2018-08-27] MEDS: 0.9 % Sodium Chloride 1,000 ML IVC SCH (05:36)
[2018-08-27] MEDS: Lisinopril-HCTZ 20-12.5mg TABLET PO SCH ×2 (08:13→20:40)
[2018-08-27] MEDS: Gabapentin 100 MG CAPSULE PO SCH ×3 (08:13→20:40)
[2018-08-27] MEDS: amLODIPine 5 MG TABLET PO SCH (08:13)
[2018-08-27] MEDS: Clindamycin 900 MG/50 ML 900 MG/50 ML IV.SOLN IVPB SCH ×2 (08:14→15:45)
[2018-08-27] MEDS: Insulin LISPRO 300 UNITS/3 ML VIAL SQ SCH ×4 (08:15→20:29)
--- NOTE | 2018-08-27 08:15 | Electrocardiograph Report ---
[address] [place], [place] [address] Test Date: 2018-08-25 Pat Name: Steven Seals Department: [id number] Room: [facility] Gender: M Rn Plastic Surgery: : 1950 Requested By: Faustino Meng Order Number: [id number] Reading MD: Zuleima Graves Measurements Intervals [place] Rate: 92 P: 47 ID: [id number] QRS: 7 QRSD: 96 T: 63 QT: 379 QTc: 469 Interpretive Statements Sinus rhythm Anteroseptal infarct, old Electronically Signed On 08-27-2018 8:14:10 EDT by Zuleima Graves
[2018-08-27] MEDS: Piperacillin/Tazobactam 3.375 GM in 0.9 % Sodium Chloride Mini Bag 100 ML IVPB SCH ×2 (08:16→15:44)
[2018-08-27 10:04] LABS: Hematocrit 30.1 % (37.5-50.1); Hemoglobin 9.8 g/dL (12.9-16.9); Mean Corpuscular HGB Conc 32.6 g/dL (31.6-35.5); Mean Corpuscular Hemoglobin 29.5 pg (28.0-33.3); Mean Corpuscular Volume 90.7 fL (83.0-100.0); Mean Platelet Volume 8.5 fL (9.4-12.4); Platelet Count 335 K/mcL (140-400); Red Blood Count 3.32 M/mcL (4.19-5.50); Red Cell Distribution Width 13.1 % (11.5-14.5)
[2018-08-27 10:24] LABS: BUN/Creatinine Ratio 17 (6-26); Blood Urea Nitrogen 10 mg/dL (8-23); Calcium 8.4 mg/dL (8.6-10.3); Carbon Dioxide 29 mEq/L (23-29); Chloride 98 mEq/L (98-107); Chol/HDL Ratio 4.2 (0-4.9); Cholesterol 123 mg/dL (< 200); Glucose 119 mg/dL (70-105); HDL Cholesterol 29 mg/dL (40-59); LDL Cholesterol,Calculated 72 mg/dL (0-99); Magnesium 1.6 mg/dL (1.6-2.6); Osmolality,Calculated 282 (280-300); Potassium 3.2 mEq/L (3.5-5.1); Sodium 136 mEq/L (136-145); Triglycerides 109 mg/dL (< 150); eGFR For Non-African Americans > 60 (> 60)
--- NOTE | 2018-08-27 10:32 | Podiatry Progress Note ---
Date of Encounter: 08/27/18 Time of Encounter: 10:15 - Assessment and Plan (1) Gas gangrene Current Visit: Yes Status: Acute resting in bed. says he feels better today than he did when he came to the hospital denies f/c/n/v/sob/cp. left foot retention sutures intact. wound base is granular. no purulence. no erythema of the skin. discussed condition and treatment plan with patient. discussed left foot washout and delayed closure of surgical wound left foot. nature of procedure, risks vs benefits potential complications and consequences of surgery and condition. discussed at risk for limb loss and no guarantees made as to the outcome or that his limb will be able to be salvaged. added on to OR tomorrow. NPO after 8am (breakfast) tomorrow. all questions answered and informed consent was signed. Lab did not answer the phone, microbiology specimens were specified to be sent multiple times during the surgery and were handed off to staff. to this point they are not locatable in the computer or physically. (2) Osteomyelitis Current Visit: Yes Status: Acute See above Qualifiers: Osteomyelitis type: other acute Osteomyelitis location: foot Laterality: right Qualified Code(s): M86.171 - Other acute osteomyelitis, right ankle and foot Objective - Vital Signs Vital Signs: Vital Signs Temp Pulse Resp BP Pulse Ox 08/27/18 07:03 98.9 F 77 17 138/70 98 08/27/18 04:47 98.3 F 79 18 155/80 98 08/27/18 00:10 98.5 F 83 20 130/66 98 08/26/18 21:44 99 08/26/18 18:30 97.6 F 81 16 126/75 99 08/26/18 16:49 97.6 F 88 16 135/79 100 08/26/18 11:39 98.8 F 76 16 129/68 98 Intake and Output 08/26/18 08/27/18 08/27/18 23:59 07:59 15:59 Intake Total 640 / 640 1100 / 1100 Output Total 1400 / 1400 1375 / 1375 Balance -760 / -760 -275 / -275 Intake: IV Fluids 400 / 400 1100 / 1100 0.9 % Sodium Chloride 1,000 ML 950 / 950 @ 60 mls/hr IVC .[id number] [facility] Rx #:[id number] Cleocin Premix 900 MG/50 ML 900 50 / 50 50 / 50 mg In 50 ml @ 50 mls/hr IVPB Q8HR [facility] Rx#:[id number] Zosyn 3.375 GM In 0.9 % Sodium 100 / 100 100 / 100 Chloride (Mini-Bag +) 100 ML @ 25 mls/hr IVPB Q8HR [facility] Rx#: [id number] Vancocin 1,000 MG In 0.9 % 250 / 250 Sodium Chloride 250 ML @ 167 mls/hr IVPB Q12H [facility] Rx#: [id number] Oral 240 / 240 0 / 0 Output: Urine 1400 / 1400 1375 / 1375 Other: Meal Dinner Percent of Meal Consumed 100% Weight 64.86 kg Blood Glucose* 326 180 Patient Weight 08/27/18 23:59 Weight 64.86 kg - Lab Result Diagrams: 08/27/18 09:36 08/27/18 09:36 Labs: Abnormal lab results RBC 3.32 M/mcL (4.19-5.50) L 08/27/18 09:36 Hgb 9.8 g/dL (12.9-16.9) L 08/27/18 09:36 Hct 30.1 % (37.5-50.1) L 08/27/18 09:36 MPV 8.5 fL (9.4-12.4) L 08/27/18 09:36 ESR >= 130 mm/hr (0-10) H 08/25/18 17:50 PT 12.7 Seconds (9.4-12.1) H 08/25/18 17:50 VBG pO2 93 mmHg (25-50) H 08/25/18 19:54 VBG HCO3 29 mEq/L (21-27) H 08/25/18 19:54 Potassium 3.2 mEq/L (3.5-5.1) L 08/27/18 09:36 Creatinine 0.58 mg/dL (0.70-1.30) L 08/27/18 09:36 Glucose 119 mg/dL (70-105) H 08/27/18 09:36 POC Glucose 336 mg/dL (70-99) H 08/26/18 16:57 Hemoglobin A1c 14.0 % (-5.6) H 08/26/18 07:00 Calcium 8.4 mg/dL (8.6-10.3) L 08/27/18 09:36 AST 8 Units/L (13-39) L 08/25/18 17:50 Alkaline Phosphatase 137 Units/L (34-104) H 08/25/18 17:50 C-Reactive Protein 94 mg/L (Less than 10) H 08/25/18 17:50 Albumin 3.0 g/dL (3.5-5.7) L 08/25/18 17:50 Globulin 4.8 g/dL (2.4-3.5) H 08/25/18 17:50 Albumin/Globulin Ratio 0.6 (1.1-2.2) L 08/25/18 17:50 HDL Cholesterol 29 mg/dL (40-59) L 08/27/18 09:36 Microbiology, Last 48 Hours 08/25/18 17:50 Blood Culture - Preliminary Peripheral Venipuncture Culture is incubating and being continuously monitored for growth. Final report to follow. 08/25/18 18:01 Blood Culture - Preliminary Peripheral Venipuncture Culture is incubating and being continuously monitored for growth. Final report to follow. Consult Discharge Plan - Plan Referrals: NONE,PCP [Primary Care Provider] -
[2018-08-27] MEDS: Insulin DETEMIR 100 UNIT/ML X5UNITS SQ SCH ×2 (10:36→20:40)
--- NOTE | 2018-08-27 14:16 | Internal Med Progress Note ---
Hospitalist Progress Note - Encounter Date of Encounter: 08/27/18 Time of Encounter: 10:16 - Subjective Interval History: Patient seen and examined this morning at bedside. No acute overnight events. Feeling much better. Remains afebrile. Denies new complaints. - Exam Vitals: Temp Pulse Resp BP Pulse Ox 98.1 F 80 18 138/65 96 08/27/18 12:18 08/27/18 12:18 08/27/18 12:18 08/27/18 12:18 08/27/18 12:18 Exam: General: In no acute distress. Respiratory exam: CTAB. no accessory muscle use, rales, rhonchi, wheezes Cardiovascular exam: RRR, +S1, +S2. no murmur, gallop, rubs. GI/Abdominal exam: Non-tender, Non-distended, normal bowel sounds, soft, no peritoneal signs. Extremities exam: Has Rt AKA. Bandage on Lt foot. Neurological exam: CN II-XII intact, AO X3, no focal deficits. Skin exam: No skin rash - Assessment and Plan (1) Hyperglycemia Current Visit: Yes Status: Acute (2) Altered mental status Current Visit: Yes Status: Acute (3) DVT prophylaxis Current Visit: Yes Status: Acute (4) Smoker Current Visit: Yes Status: Chronic (5) Gangrene of toe of left foot Current Visit: Yes Status: Acute (6) Osteomyelitis Current Visit: Yes Status: Acute (7) HTN (hypertension) Current Visit: Yes Status: Chronic (8) HLD (hyperlipidemia) Current Visit: Yes Status: Chronic (9) Uncontrolled diabetes mellitus Current Visit: Yes Status: Chronic - Summary of Assessment and Plan Summary of Assessment and Plan: Gangrene of toe of left foot and osteomyelitis - s/p surgery. Had I&D of left foot into deep fascia, partial 4th and 5th ray amputation left foot - Plan for left foot washout and delayed closure of surgical wound left foot tomorrow. - c/w vancomycin, zosyn and clindamycin. Did not have any reaction to zosyn with his history of penicillin. will consult ID tomorrow. - f/u culture. Blood culture NGTD - No surgical available. Spoke with microbiology who is investigating location of sample. uncontrolled DM - a1c of 14. - c/w Levemir, SSI and accuchecks achs. BG now controlled DVT ppx - sc heparin - Time Spent with Patient Total time spent is greater than 50% in coordination of care (as documented) at patient's floor/unit and/or counseling patient: Internal Medicine: Result - Labs CBC & Chem 7: 08/27/18 09:36 08/27/18 09:36 Labs: Short CBC 08/27/18 Range/Units 09:36 WBC 8.6 (4.3-11.1) K/mcL Hgb 9.8 L (12.9-16.9) g/dL Hct 30.1 L (37.5-50.1) % Plt Count 335 (140-400) K/mcL BMP 08/27/18 09:36 Sodium 136 Potassium 3.2 L Chloride 98 Carbon Dioxide 29 BUN 10 Creatinine 0.58 L Glucose 119 H Calcium 8.4 L - ABG Interpretation ABG results: PT/INR, D-dimer PT 12.7 Seconds (9.4-12.1) H 08/25/18 17:50 Consult Discharge Plan - Plan Referrals: NONE,PCP [Primary Care Provider] - (2) Altered mental status Qualifiers: Altered mental status type: somnolence Qualified Code(s): R40.0 - Somnolence (6) Osteomyelitis Qualifiers: Osteomyelitis type: other acute Osteomyelitis location: foot Laterality: right Qualified Code(s): M86.171 - Other acute osteomyelitis, right ankle and foot (7) HTN (hypertension) Qualifiers: Hypertension type: essential hypertension Qualified Code(s): I10 - Essential (primary) hypertension (8) HLD (hyperlipidemia) Qualifiers: Hyperlipidemia type: pure hypercholesterolemia Qualified Code(s): E78.00 - Pure hypercholesterolemia, unspecified; E78.0 - Pure hypercholesterolemia (9) Uncontrolled diabetes mellitus Qualifiers: Diabetes mellitus type: type 2 Glycemic state: with hyperglycemia Qualified Code(s): E11.65 - Type 2 diabetes mellitus with hyperglycemia
[2018-08-28] MEDS: Piperacillin/Tazobactam 3.375 GM in 0.9 % Sodium Chloride Mini Bag 100 ML IVPB SCH ×3 (00:14→16:30)
[2018-08-28] MEDS: Clindamycin 900 MG/50 ML 900 MG/50 ML IV.SOLN IVPB SCH ×3 (00:14→16:29)
[2018-08-28 03:22] LABS: Hemoglobin 9.5 g/dL (12.9-16.9); Mean Corpuscular HGB Conc 31.7 g/dL (31.6-35.5); Mean Corpuscular Volume 91.5 fL (83.0-100.0); Mean Platelet Volume 8.5 fL (9.4-12.4); Platelet Count 329 K/mcL (140-400); Red Blood Count 3.28 M/mcL (4.19-5.50)
[2018-08-28 03:40] LABS: BUN/Creatinine Ratio 20 (6-26); Blood Urea Nitrogen 13 mg/dL (8-23); Calcium 8.6 mg/dL (8.6-10.3); Carbon Dioxide 29 mEq/L (23-29); Chloride 94 mEq/L (98-107); Glucose 350 mg/dL (70-105); Osmolality,Calculated 286 (280-300); Potassium 3.8 mEq/L (3.5-5.1); Sodium 131 mEq/L (136-145); eGFR For Non-African Americans > 60 (> 60)
[2018-08-28] MEDS: *HR* Heparin 5,000 UNIT/ML VIAL SQ SCH ×2 (05:45→16:31)
--- NOTE | 2018-08-28 08:03 | Internal Med Progress Note ---
Hospitalist Progress Note - Encounter Date of Encounter: 08/28/18 Time of Encounter: 08:02 - Subjective Interval History: Patient seen and examined this morning with. No acute overnight events. Feeling much better and wants to leave as early as possible. Denies any fevers chills nausea vomiting or diarrhea. NPO after breakfast for surgery. - Exam Vitals: Temp Pulse Resp BP Pulse Ox 98.2 F 74 18 138/89 98 08/28/18 06:45 08/28/18 06:45 08/28/18 06:45 08/28/18 06:45 08/28/18 06:45 Exam: General: In no acute distress. Respiratory exam: CTAB. no accessory muscle use, rales, rhonchi, wheezes Cardiovascular exam: RRR, +S1, +S2. no murmur, gallop, rubs. GI/Abdominal exam: Non-tender, Non-distended, no peritoneal signs. Extremities exam: Has Rt AKA. Bandage on Lt foot. Neurological exam: CN II-XII intact, AO X3, no focal deficits. Skin exam: No skin rash - Assessment and Plan (1) Hyperglycemia Current Visit: Yes Status: Acute (2) Altered mental status Current Visit: Yes Status: Acute (3) DVT prophylaxis Current Visit: Yes Status: Acute (4) Smoker Current Visit: Yes Status: Chronic (5) Gangrene of toe of left foot Current Visit: Yes Status: Acute (6) Osteomyelitis Current Visit: Yes Status: Acute (7) HTN (hypertension) Current Visit: Yes Status: Chronic (8) HLD (hyperlipidemia) Current Visit: Yes Status: Chronic (9) Uncontrolled diabetes mellitus Current Visit: Yes Status: Chronic - Summary of Assessment and Plan Summary of Assessment and Plan: Gangrene of toe of left foot and osteomyelitis - s/p surgery. 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 Currently NPO - c/w vancomycin, zosyn and clindamycin. Did not have any reaction to zosyn with his history of penicillin. ID consulted. Previoulsy wound culture and blood cultures positive for Klebsiella with similar sensitivity profile. - f/u culture. Blood culture NGTD - Surgical biopsy with GPC in preliminary and anerobic culture incubating. uncontrolled DM - a1c of 14. - c/w Levemir, SSI and accuchecks achs. BG elevated. will cover with SSI and not adjust levemir for now. - c/w statin HTN - c/w amlodipine, lisinopril/HCTZ DVT ppx - sc heparin - Time Spent with Patient Total time spent is greater than 50% in coordination of care (as documented) at patient's floor/unit and/or counseling patient: Internal Medicine: Result - Labs CBC & Chem 7: 08/28/18 02:55 08/28/18 02:55 Labs: Short CBC 08/27/18 08/28/18 Range/Units 09:36 02:55 WBC 8.6 8.9 (4.3-11.1) K/mcL Hgb 9.8 L 9.5 L (12.9-16.9) g/dL Hct 30.1 L 30.0 L (37.5-50.1) % Plt Count 335 329 (140-400) K/mcL BMP 08/27/18 08/28/18 09:36 02:55 Sodium 136 131 L Potassium 3.2 L 3.8 Chloride 98 94 L Carbon Dioxide 29 29 BUN 10 13 Creatinine 0.58 L 0.65 L Glucose 119 H 350 H Calcium 8.4 L 8.6 - ABG Interpretation ABG results: PT/INR, D-dimer PT 12.7 Seconds (9.4-12.1) H 08/25/18 17:50 Consult Discharge Plan - Plan Referrals: NONE,PCP [Primary Care Provider] - (2) Altered mental status Qualifiers: Altered mental status type: somnolence Qualified Code(s): R40.0 - Somnolence (6) Osteomyelitis Qualifiers: Osteomyelitis type: other acute Osteomyelitis location: foot Laterality: right Qualified Code(s): M86.171 - Other acute osteomyelitis, right ankle and foot (7) HTN (hypertension) Qualifiers: Hypertension type: essential hypertension Qualified Code(s): I10 - Essential (primary) hypertension (8) HLD (hyperlipidemia) Qualifiers: Hyperlipidemia type: pure hypercholesterolemia Qualified Code(s): E78.00 - Pure hypercholesterolemia, unspecified; E78.0 - Pure hypercholesterolemia (9) Uncontrolled diabetes mellitus Qualifiers: Diabetes mellitus type: type 2 Glycemic state: with hyperglycemia Qualified Code(s): E11.65 - Type 2 diabetes mellitus with hyperglycemia
[2018-08-28] MEDS: Insulin LISPRO 300 UNITS/3 ML VIAL SQ SCH ×4 (08:09→20:38)
[2018-08-28] MEDS: Gabapentin 100 MG CAPSULE PO SCH ×3 (08:13→21:04)
[2018-08-28] MEDS: Lisinopril-HCTZ 20-12.5mg TABLET PO SCH ×2 (08:13→21:04)
[2018-08-28] MEDS: amLODIPine 5 MG TABLET PO SCH (08:13)
[2018-08-28] MEDS: 0.9 % Sodium Chloride 1,000 ML IVC SCH ×2 (08:24→21:05)
[2018-08-28] MEDS: Insulin DETEMIR 100 UNIT/ML X5UNITS SQ SCH ×2 (11:10→21:06)
--- NOTE | 2018-08-28 15:49 | Podiatry Progress Note ---
Date of Encounter: 08/28/18 Time of Encounter: 14:30 Subjective Interval history: Patient sitting up in bed requesting something to eat. Discussed NPO status since he is having surgery last this evening. He verbalized understanding. No acute distress noted. He denies any further questions regarding his upcoming surgery and reports he last ate around 0630. He denies any chest pain, SOB, or calf pain. He denies any fever, chills, nausea, vomiting, or diarrhea. Pending ID recommendations [facility] after discharge with Dr. Perales, please call to schedule appointment. Objective - Vital Signs Vital Signs: Vital Signs Temp Pulse Resp BP Pulse Ox 08/28/18 10:45 98.1 F 81 17 115/71 97 08/28/18 08:35 98 08/28/18 06:45 98.2 F 74 18 138/89 98 08/28/18 03:24 97.9 F 85 17 125/70 97 08/27/18 23:34 98.2 F 91 15 146/82 95 08/27/18 20:50 97 08/27/18 19:31 98.0 F 84 17 131/79 97 08/27/18 17:05 98.4 F 76 17 139/74 95 Intake and Output 08/27/18 08/28/18 08/28/18 23:59 07:59 15:59 Intake Total 1800 / 1800 50 / 50 640 / 640 Output Total 1000 / 1000 1175 / 1175 Balance 800 / 800 50 / 50 -535 / -535 Intake: IV Fluids 1400 / 1400 50 / 50 400 / 400 0.9 % Sodium Chloride 1,000 ML 1000 / 1000 @ 60 mls/hr IVC .[id number] [facility] Rx #:[id number] Cleocin Premix 900 MG/50 ML 900 50 / 50 50 / 50 50 / 50 mg In 50 ml @ 50 mls/hr IVPB Q8HR [facility] Rx#:[id number] Zosyn 3.375 GM In 0.9 % Sodium 100 / 100 100 / 100 Chloride (Mini-Bag +) 100 ML @ 25 mls/hr IVPB Q8HR [facility] Rx#: [id number] Vancocin 1,000 MG In 0.9 % 250 / 250 250 / 250 Sodium Chloride 250 ML @ 167 mls/hr IVPB Q12H [facility] Rx#: [id number] Oral 400 / 400 240 / 240 Output: Urine 1000 / 1000 1175 / 1175 Other: Meal Breakfast Percent of Meal Consumed 100% Weight 64.9 kg Blood Glucose* 170 202 302 Patient Weight 08/28/18 23:59 Weight 64.9 kg - Lab Result Diagrams: 08/28/18 02:55 08/28/18 02:55 Labs: Abnormal lab results RBC 3.28 M/mcL (4.19-5.50) L 08/28/18 02:55 Hgb 9.5 g/dL (12.9-16.9) L 08/28/18 02:55 Hct 30.0 % (37.5-50.1) L 08/28/18 02:55 MPV 8.5 fL (9.4-12.4) L 08/28/18 02:55 ESR >= 130 mm/hr (0-10) H 08/25/18 17:50 PT 12.7 Seconds (9.4-12.1) H 08/25/18 17:50 VBG pO2 93 mmHg (25-50) H 08/25/18 19:54 VBG HCO3 29 mEq/L (21-27) H 08/25/18 19:54 Sodium 131 mEq/L (136-145) L 08/28/18 02:55 Chloride 94 mEq/L (98-107) L 08/28/18 02:55 Creatinine 0.65 mg/dL (0.70-1.30) L 08/28/18 02:55 Glucose 350 mg/dL (70-105) H 08/28/18 02:55 POC Glucose 302 mg/dL (70-99) H 08/28/18 10:51 Hemoglobin A1c 14.0 % (-5.6) H 08/26/18 07:00 AST 8 Units/L (13-39) L 08/25/18 17:50 Alkaline Phosphatase 137 Units/L (34-104) H 08/25/18 17:50 C-Reactive Protein 94 mg/L (Less than 10) H 08/25/18 17:50 Albumin 3.0 g/dL (3.5-5.7) L 08/25/18 17:50 Globulin 4.8 g/dL (2.4-3.5) H 08/25/18 17:50 Albumin/Globulin Ratio 0.6 (1.1-2.2) L 08/25/18 17:50 HDL Cholesterol 29 mg/dL (40-59) L 08/27/18 09:36 Microbiology, Last 48 Hours 08/26/18 01:40 Surgical Biopsy Culture - Preliminary Left Foot Strep agalactiae - (Group B) 08/26/18 01:40 Anaerobic Culture - Preliminary Left Foot Culture is incubating. Consult Discharge Plan - Plan Referrals: NONE,PCP [Primary Care Provider] -
[2018-08-28] MEDS ORDERED: Vancomycin 1,000 MG VIAL ONE (17:53)
--- NOTE | 2018-08-28 18:03 | Anesthesia Evaluation PreOp ---
Date of Encounter: 08/28/18 Time of Encounter: 18:18 - Past History Planned Operation: LEFT FOOT WASHOUT Cardiac History: HTN, Hyperlipidemia Pulmonary History: Smoker, COPD Other Medical History: Hepatic (HEP C), Diabetes Type II (INSULIN DEPENDENT), GERD, Other (CA COLON, POST CHEMO, ANEMIA) Anesthesia History: No Prior Anesthetic Complications, Past Anesthesia Alcohol Use: none Drug use: none Medications and Allergies Albuterol Sulfate [Ventolin Hfa] 2 puff IH Q6H PRN 07/08/17 [History] Lisinopril-HCTZ 20-12.5 [Prinzide 20-12.5] 1 tab PO BID 07/08/17 [History] Lovastatin 40 mg PO DAILY 07/08/17 [History] Metformin HCl [Glucophage] 1,000 mg PO BID 07/08/17 [History] Aspirin [Lo-Dose Aspirin EC] 81 mg PO DAILY 08/23/18 [History] Amlodipine Besylate 10 mg PO DAILY 08/27/18 [History] DULoxetine [Cymbalta] 30 mg PO DAILY 08/27/18 [History] Fluticasone Propionate Nasal [Flonase] 1 spr NS DAILY 08/27/18 [History] Insulin ASPART [Novolog Flexpen] 20 unit SQ TIDWM 08/27/18 [History] Insulin Glargine,Hum.rec.anlog [Basaglar Kwikpen U-100] 0 unit SQ HS 08/27/18 [History] Loratadine [Claritin] 10 mg PO DAILY 08/27/18 [History] Montelukast [Singulair] 10 mg PO HS 08/27/18 [History] hydrOXYzine HCl [Hydroxyzine HCl] 50 - 100 mg PO HS PRN 08/27/18 [History] Allergy/AdvReac Type Severity Reaction Status Date / Time Penicillins Allergy See Verified 06/28/17 18:13 Comments - Meds/Allergy Pre-op Review Medications Reviewed: Yes Allergies Reviewed: Yes Anesthesia Results - Labs 08/28/18 02:55 08/28/18 02:55 Anesthesia Exam Vital Signs/O2 Sat/Glucose, Most Recent Temp Pulse Resp BP Pulse Ox 98.3 F 76 16 111/68 99 08/28/18 15:29 08/28/18 15:29 08/28/18 15:29 08/28/18 15:29 08/28/18 15:29 Blood Glucose* 125 Weight: 65 KG - BMI 21 NPO (# of Hours): >0730 - HEENT Mallampati: II (BEARDED) Teeth: Edentulous Oral Opening: Greater than 3 - Cardiac Rhythm: Regular - Pulmonary Breath Sounds: bilateral Clear Respiratory Effort: Symmetrical Anesthesia Assess/Plan ASA Score: 4 Anesthetic Plan: MAC Monitoring Plan: Standard Monitors Recovery Plan: PACU
[2018-08-28] MEDS ORDERED: Lidocaine -MPF 2% 2 ML VIAL ONE (18:05)
[2018-08-28] MEDS ORDERED: *HR* FentaNYL (PF) 100 MCG/2 ML VIAL ONE (18:05)
[2018-08-28] MEDS ORDERED: *HR* Propofol 200 MG/20 ML VIAL IVP ONE ×2 (18:06→18:46)
--- NOTE | 2018-08-28 19:23 | Operative Note ---
Date of procedure: 08/28/18 Pre-op diagnosis: left foot surgical wound 8cmx1.5cmx1.9cm Post-op diagnosis: same Procedure: left foot delayed closure of surgical wound Implants: none Complications: none Anesthesia: MAC Local Anesthetics: 1% Lidocaine HCL SubQ (cc) Surgeon: Daniel Perales Was there an bilingual teacher assistant present: No Estimated blood loss (cc): 5 Specimen: none Condition: stable Disposition: PACU Procedure in Detail: Indications: 68-year-old male with previous left partial foot amputation measuring and surgical wound being brought back to the operating room for delayed closure of the surgical wound. The skin had no cellulitis and wound was dry. Nature of the above procedure, risks versus benefits potential complications consequences of surgery and his condition discussed at length. No guarantees made as to the outcome or that his limb could be salvaged. All of his questions had been answered informed consent was signed patient was taken from the preoperative holding area into the operating room. Placed on operating room table in the supine position. Tourniquet was applied but not utilized during the procedure. The perfusion team to obtain the patient's blood and spun it into PRP which was applied into the wound. The left foot was scrubbed prepped and draped in the usual sterile fashion. The following procedure then began. Delayed closure left foot surgical wound. Attention was directed to the left where a #15 blade used to remove the retention stitch. Debridement of the tissue at the wound margins was performed full-thickness with a #15 blade. The wound base was completely granular. The pulse lavage with vancomycin was used to irrigate the wound. There was no purulence expressed. There was no devitalized tissue in the wound. The wound was deemed adequate for closure and 2-0 and 3-0 Vicryl was used to reapproximate deep and subcutaneous tissue and 2-0 Prolene was used to reapproximate the skin margins. PRP had been applied to the wound bed site prior to closure. Postoperative bandaging included Adaptic, 4 x 4 gauze Kerlix and an [place] wrap. Patient tolerated the anesthesia and the procedure well escorted the recovery room vital signs stable and vascular status intact to the left foot. Patient will return to the floor and continue IV antibiotics.
[2018-08-28] MEDS ORDERED: Aminoglycoside Consult 1 EACH MC ONE (19:29)
[2018-08-28] MEDS ORDERED: Naloxone 0.4 MG/ML INJ IVP PRN (19:39)
[2018-08-28] MEDS ORDERED: D5% in Water 1,000 ML IVC PRN (19:39)
[2018-08-28] MEDS ORDERED: *HR* Dextrose 50 % in Water (Syg) 50 ML SYRINGE IVP PRN (19:39)
[2018-08-28] MEDS ORDERED: *HR* Promethazine 25 MG/ML VIAL IVP PRN (19:39)
[2018-08-28] MEDS ORDERED: Dextrose Gel 15 GM/37.5 ML TUBE PO PRN ×2 (19:39)
[2018-08-28] MEDS ORDERED: Acetaminophen 325 MG TABLET PO PRN (19:39)
[2018-08-28] MEDS: *HR* HYDROcodone/Acet 5/325 mg TABLET PO PRN (21:04)
[2018-08-29] MEDS: Clindamycin 900 MG/50 ML 900 MG/50 ML IV.SOLN IVPB SCH ×2 (01:45→09:20)
[2018-08-29] MEDS: Piperacillin/Tazobactam 3.375 GM in 0.9 % Sodium Chloride Mini Bag 100 ML IVPB SCH ×2 (01:46→09:20)
[2018-08-29 02:28] LABS: Hemoglobin 9.8 g/dL (12.9-16.9); Mean Corpuscular HGB Conc 31.6 g/dL (31.6-35.5); Mean Corpuscular Volume 91.7 fL (83.0-100.0); Mean Platelet Volume 8.6 fL (9.4-12.4); Platelet Count 339 K/mcL (140-400); Red Blood Count 3.38 M/mcL (4.19-5.50); Red Cell Distribution Width 13.3 % (11.5-14.5)
[2018-08-29 02:45] LABS: BUN/Creatinine Ratio 19 (6-26); Blood Urea Nitrogen 16 mg/dL (8-23); Calcium 8.5 mg/dL (8.6-10.3); Carbon Dioxide 31 mEq/L (23-29); Chloride 96 mEq/L (98-107); Glucose 442 mg/dL (70-105); Osmolality,Calculated 296 (280-300); Potassium 4.3 mEq/L (3.5-5.1); Sodium 133 mEq/L (136-145); eGFR For Non-African Americans > 60 (> 60)
[2018-08-29] MEDS: *HR* Heparin 5,000 UNIT/ML VIAL SQ SCH ×2 (05:03→17:12)
[2018-08-29] MEDS: *HR* HYDROcodone/Acet 5/325 mg TABLET PO PRN (05:27)
[2018-08-29] MEDS: Insulin LISPRO 300 UNITS/3 ML VIAL SQ SCH ×4 (06:10→23:28)
[2018-08-29] MEDS ORDERED: Insulin DETEMIR 100 UNIT/ML X5UNITS SQ ONE (08:41)
[2018-08-29] MEDS: Insulin DETEMIR 100 UNIT/ML X5UNITS SQ SCH ×2 (08:43→21:08)
[2018-08-29] MEDS: Lisinopril-HCTZ 20-12.5mg TABLET PO SCH ×2 (09:20→21:07)
[2018-08-29] MEDS: Gabapentin 100 MG CAPSULE PO SCH ×3 (09:20→21:07)
[2018-08-29] MEDS: amLODIPine 5 MG TABLET PO SCH (09:21)
[2018-08-29] MEDS: *HR* OxyCODONE Immed Rel 5 MG TABLET PO PRN ×2 (09:21→21:08)
--- NOTE | 2018-08-29 10:03 | Podiatry Progress Note ---
Date of Encounter: 08/29/18 Time of Encounter: 09:45 - Assessment and Plan (1) Gangrene of left foot Current Visit: No Status: Acute Assessment: -Post op day #1 left foot delayed closure of surgical wound by Dr. Perales on 08/28/2018 -Surgical wound with sutures intact, edges coapting, serosanguineous drainage on dressing, no erythema, no odor, no lymphangitis -Skin warm from tibia to toes -WBC 11.2 and patient remains afebrile -Wound cultures final for Strep. agalactiae (Group B) Plan: -Dressing changed -Site flushed with sterile .9NS and pat dry -Site covered with adaptic, 4x4 dry gauze, and Kerlix -Secured with DENNIS -NWB LLE -Continue OT/PT -Follow up with [facility] one week after discharge, please call to schedule Subjective Interval history: Post op day #1 left foot delayed closure of surgical wound by Dr. Perales on 08/28/2018. Patient is alert and oriented sitting up on bedside commode. Patient denies any chest pain, shortness of breath, or calf pain. Patient denies any fever, chills, nausea, vomiting, or diarrhea. Objective - Vital Signs Vital Signs: Vital Signs Temp Pulse Resp BP Pulse Ox 08/29/18 07:18 98.0 F 82 16 122/77 95 08/29/18 03:28 97.8 F 86 17 119/75 96 08/29/18 01:15 95 08/29/18 00:27 98.1 F 83 16 125/77 95 08/28/18 20:33 97.8 F 82 14 141/76 98 08/28/18 19:45 97.8 F 74 14 120/70 92 08/28/18 15:29 98.3 F 76 16 111/68 99 08/28/18 10:45 98.1 F 81 17 115/71 97 Intake and Output 08/28/18 08/29/18 08/29/18 23:59 07:59 15:59 Intake Total 200 / 200 400 / 400 Output Total 5 / 5 550 / 550 Balance 195 / 195 -150 / -150 Intake: IV Fluids 200 / 200 400 / 400 Cleocin Premix 900 MG/50 ML 900 50 / 50 mg In 50 ml @ 50 mls/hr IVPB Q8HR [facility] Rx#:[id number] Zosyn 3.375 GM In 0.9 % Sodium 200 / 200 100 / 100 Chloride (Mini-Bag +) 100 ML @ 25 mls/hr IVPB Q8HR [facility] Rx#: [id number] Vancocin 1,000 MG In 0.9 % 250 / 250 Sodium Chloride 250 ML @ 167 mls/hr IVPB Q12H [facility] Rx#: [id number] Output: Urine 550 / 550 Estimated Blood Loss 5 / 5 Other: Stool Size Large Stool Consistency loose liquid Stool Color Brown # Bowel Movements 1 Blood Glucose* 91 347 - Exam Exam: Constitutional: Alert and oriented x 3, no acute distress noted Vascular: Skin warm from tibia to toes LLE, Rt AKA Neurological: Diminished protective sensation, abnormal plantar response, abnormal proprioception dorsiflexion/plantar flexion Dermatological: Surgical wound with sutures intact, edges coapting, s erosanguineous drainage on dressing, no erythema, no odor, no lymphangitis Musculoskeletal: 3/5 muscle strength and normal muscle tone - Lab Result Diagrams: 08/29/18 01:37 08/29/18 01:37 Labs: Abnormal lab results WBC 11.2 K/mcL (4.3-11.1) H 08/29/18 01:37 RBC 3.38 M/mcL (4.19-5.50) L 08/29/18 01:37 Hgb 9.8 g/dL (12.9-16.9) L 08/29/18 01:37 Hct 31.0 % (37.5-50.1) L 08/29/18 01:37 MPV 8.6 fL (9.4-12.4) L 08/29/18 01:37 ESR >= 130 mm/hr (0-10) H 08/25/18 17:50 PT 12.7 Seconds (9.4-12.1) H 08/25/18 17:50 VBG pO2 93 mmHg (25-50) H 08/25/18 19:54 VBG HCO3 29 mEq/L (21-27) H 08/25/18 19:54 Sodium 133 mEq/L (136-145) L 08/29/18 01:37 Chloride 96 mEq/L (98-107) L 08/29/18 01:37 Carbon Dioxide 31 mEq/L (23-29) H 08/29/18 01:37 Glucose 442 mg/dL (70-105) H 08/29/18 01:37 POC Glucose 302 mg/dL (70-99) H 08/28/18 10:51 Hemoglobin A1c 14.0 % (-5.6) H 08/26/18 07:00 Calcium 8.5 mg/dL (8.6-10.3) L 08/29/18 01:37 AST 8 Units/L (13-39) L 08/25/18 17:50 Alkaline Phosphatase 137 Units/L (34-104) H 08/25/18 17:50 C-Reactive Protein 94 mg/L (Less than 10) H 08/25/18 17:50 Albumin 3.0 g/dL (3.5-5.7) L 08/25/18 17:50 Globulin 4.8 g/dL (2.4-3.5) H 08/25/18 17:50 Albumin/Globulin Ratio 0.6 (1.1-2.2) L 08/25/18 17:50 HDL Cholesterol 29 mg/dL (40-59) L 08/27/18 09:36 Vancomycin Trough 13 mcg/mL (5-10) H 08/28/18 20:07 Microbiology, Last 48 Hours 08/26/18 01:40 Surgical Biopsy Culture - Final Left Foot Strep agalactiae - (Group B) 08/26/18 01:40 Anaerobic Culture - Preliminary Left Foot Culture is incubating. Consult Discharge Plan - Plan Referrals: NONE,PCP [Primary Care Provider] -
--- NOTE | 2018-08-29 11:01 | Infectious Disease Progress No ---
ID Progress Note Date of Encounter: 08/29/18 Time of Encounter: 10:05 - Subjective Subjective: Patient seen and examined. No acute events noted overnight. Patient reports some intermittent pain to the left foot surgical site. Denies any fevers or chills or rigors. Denies chest pain, shortness of breath, or cough. Denies nausea, vomiting, or constipation. Reports loose stool this morning. Denies abdominal pain or urinary complaints. Denies any oral thrush or new skin le sions. - Objective CBC & Chem 7: 08/30/18 08:12 08/30/18 08:12 - Line Documentation Line Documentation: Peripheral - Exam Vitals: Temp Pulse Resp BP Pulse Ox 98.0 F 82 16 122/77 95 08/29/18 07:18 08/29/18 07:18 08/29/18 07:18 08/29/18 07:18 08/29/18 07:18 Exam: Head: Atraumatic, normal inspection, normocephalic. Eye: EOMI, PERRLA, no scleral icterus noted. ENT: Mucous membranes moist. Adentitious. Neck: Normal inspection, no meningismus. Respiratory: Clear to auscultation. No rales, respiratory distress, rhonchi, or wheezes noted. Cardiovascular: Regular rate and rhythm, S1 and S2 audible. No murmurs, rubs, or gallops. GI: Soft, nondistended, normal bowel sounds. Hernia noted to the lower abdomen. Extremities: Left foot dressing clean, dry, and intact. No joint swelling, pedal edema, or tenderness noted. Right AKA stump without abnormality. Neurological: Alert, oriented 3, no focal deficits. Psychiatric, normal affect, normal mood. Skin: Dry, intact, warm. Normal color. No rashes. - Assessment and Plan (1) Osteomyelitis Current Visit: Yes Status: Acute Location: Left foot fifth metatarsal. Causative organism: Group B strep. Likely secondary to chronic diabetic foot ulcer. CT of the left foot showed extensive soft tissue gas and osteo-myelitis of the fifth metatarsal. Preop ESR greater than 130, CRP 94. Podiatry consult. The status post I&D of the left foot to the deep fascia and partial fourth and fifth ray amputation 08/26/[address] Palafox. Operative note reviewed. Cultures as above. Anaerobic cultures are preliminarily negative. Pathology is pending. Status post delayed wound closure 08/28/[address] Palafox. Operative note reviewed. No evidence of infection noted during the surgery. Currently on vancomycin, Zosyn, and clindamycin. Qualifiers: Osteomyelitis type: other acute Osteomyelitis location: foot Laterality: right Qualified Code(s): M86.171 - Other acute osteomyelitis, right ankle and foot SNOMED Code(s): 10056402 (2) Gas gangrene Current Visit: Yes Status: Acute Location: Left foot. Likely secondary to gas forming organism. Status post I&D 08/26/18 Dr. Palafox. Currently on vancomycin, Zosyn, and clindamycin. SNOMED Code(s): 04446584 (3) Chronic diabetic ulcer of left foot determined by examination Current Visit: No Status: Acute Etiology: Unclear. Patient denies any known trauma. He states it had been there for about a week prior to admission. Podiatry consulted. SNOMED Code(s): 365932558 (4) HTN (hypertension) Current Visit: Yes Status: Chronic Qualifiers: Hypertension type: essential hypertension Qualified Code(s): I10 - Essential (primary) hypertension SNOMED Code(s): 59620032 (5) HLD (hyperlipidemia) Current Visit: Yes Status: Chronic Qualifiers: Hyperlipidemia type: pure hypercholesterolemia Qualified Code(s): E78.00 - Pure hypercholesterolemia, unspecified; E78.0 - Pure hypercholesterolemia SNOMED Code(s): 48606149 (6) Uncontrolled diabetes mellitus Current Visit: Yes Status: Chronic Hemoglobin A1c 14. Recommend aggressive glucose monitoring and control to promote wound healing and prevent reinfection. Management per the primary team. Qualifiers: Diabetes mellitus type: type 2 Glycemic state: with hyperglycemia Qualified Code(s): E11.65 - Type 2 diabetes mellitus with hyperglycemia SNOMED Code(s): 90049058, 985386138 (7) Smoker Current Visit: Yes Status: Chronic SNOMED Code(s): 44557340 - Recommendations Recommendations: Check post-op ESR and CRP. Await blood cultures to finalize. Wound care and activity per podiatry's recommendations. Discontinue vancomycin, Zosyn, and clindamycin. Start Rocephin 2 g IV daily. Start Flagyl 500 mg by mouth 3 times a day until anaerobic cultures finalize. Duration of treatment depends on the clinical picture, but likely 6 weeks. Monitor renal function for drug toxicity and does adjust antibiotics. patient services clerk to assist with discharge planning. The patient would likely be best suited to go to an ECF on discharge. We will need weekly CBC, BUN/creatinine, ESR, and CRP. Will need weekly IV care per protocol. Follow-up with ID 2 weeks post discharge. Consult Discharge Plan - Plan Referrals: Brinda Porter [employer] [Advanced Practice Nurse] - 09/13/18 2:25 pm NONE,PCP [Primary Care Provider] - Prescriptions: RX: cefTRIAXone [Rocephin] 2,000 mg IVPB DAILY 42 Days #42 vial - Attending Attestation I have personally performed a face to face evaluation on this patient. I have reviewed and agree with the care plan. History and Exam by me shows: Assessment and plan: 1.Osteomyelitis left foot fifth metatarsal causative organism not clear likely gram-positive cocci 2.Gas gangrene left foot status post I&D 08/26/2018 by 3.Chronic diabetic ulcer of the left foot determined by examination 4.Hepatitis C 5.Cachexia Recommendations Await cultures to finalize Continue vancomycin, Zosyn and clindamycin for now; if it is not grew a Streptococcus, we will stop the clindamycin. Tailor antibiotics according to culture results. Records say patient is allergic to penicillin but clearly is t olerating Zosyn. Duration of treatment likely 6 weeks Patient will probably need a PICC line placement Monitor labs and for drug toxicity
[2018-08-29 11:19] LABS: C-Reactive Protein 22 mg/L (Less than 10)
[2018-08-29] MEDS: cefTRIAXone 2,000 MG in Water for inj. (sterile) 20 ML 20 ML IVP SCH (11:50)
--- NOTE | 2018-08-29 14:16 | Internal Med Progress Note ---
Hospitalist Progress Note - Encounter Date of Encounter: 08/29/18 Time of Encounter: 14:15 - Subjective Interval History: Seen and examined this morning at bedside. No acute overnight events. Denies new complaint. No fever or chills nausea vomiting or diarrhea. Wants to go home. - Exam Vitals: Temp Pulse Resp BP Pulse Ox 97.6 F 83 16 125/82 99 08/29/18 11:50 08/29/18 11:50 08/29/18 11:50 08/29/18 11:50 08/29/18 11:50 Exam: General: In no acute distress. Respiratory exam: CTAB. no accessory muscle use, rales, rhonchi, wheezes Cardiovascular exam: RRR, +S1, +S2. no murmur, gallop, rubs. GI/Abdominal exam: Non-tender, Non-distended, no peritoneal signs. Extremities exam: Has Rt AKA. Bandage on Lt foot. Neurological exam: CN II-XII intact, AO X3, no focal deficits. - Assessment and Plan (1) Hyperglycemia Current Visit: Yes Status: Acute (2) Altered mental status Current Visit: Yes Status: Acute (3) DVT prophylaxis Current Visit: Yes Status: Acute (4) Smoker Current Visit: Yes Status: Chronic (5) Gangrene of toe of left foot Current Visit: Yes Status: Acute (6) Osteomyelitis Current Visit: Yes Status: Acute (7) HTN (hypertension) Current Visit: Yes Status: Chronic (8) HLD (hyperlipidemia) Current Visit: Yes Status: Chronic (9) Uncontrolled diabetes mellitus Current Visit: Yes Status: Chronic - Summary of Assessment and Plan Summary of Assessment and Plan: Gangrene of toe of left foot and osteomyelitis - s/p surgery on 08/26/18 and Had I&D of left foot into deep fascia, partial 4th and 5th ray amputation left foot - s/p left foot washout and delayed closure of surgical wound left foot on 08/28/18 - ID following. Surgical culture growing strep B. anerobic culture pending - abx changed to rocephin and metronidazole. Will need 6 week IV antbiotics. Will get midline place. uncontrolled DM - a1c of 14. - c/w Levemir, SSI and accuchecks achs. Will increase levemir dose. - c/w statin HTN - c/w amlodipine, lisinopril/HCTZ DVT ppx - sc heparin PT recommending rehab. SW arranging however patient expressing wish to leave to home which he would be unsafe. - Time Spent with Patient Total time spent is greater than 50% in coordination of care (as documented) at patient's floor/unit and/or counseling patient: Internal Medicine: Result - Labs CBC & Chem 7: 08/29/18 01:37 08/29/18 01:37 Labs: Short CBC 08/29/18 Range/Units 01:37 WBC 11.2 H (4.3-11.1) K/mcL Hgb 9.8 L (12.9-16.9) g/dL Hct 31.0 L (37.5-50.1) % Plt Count 339 (140-400) K/mcL BMP 08/29/18 01:37 Sodium 133 L Potassium 4.3 Chloride 96 L Carbon Dioxide 31 H BUN 16 Creatinine 0.84 Glucose 442 H Calcium 8.5 L - ABG Interpretation ABG results: PT/INR, D-dimer PT 12.7 Seconds (9.4-12.1) H 08/25/18 17:50 Consult Discharge Plan - Plan Referrals: NONE,PCP [Primary Care Provider] - Prescriptions: cefTRIAXone [Rocephin] 2,000 mg IVPB DAILY 42 Days #42 vial (2) Altered mental status Qualifiers: Altered mental status type: somnolence Qualified Code(s): R40.0 - Somnolence (6) Osteomyelitis Qualifiers: Osteomyelitis type: other acute Osteomyelitis location: foot Laterality: right Qualified Code(s): M86.171 - Other acute osteomyelitis, right ankle and foot (7) HTN (hypertension) Qualifiers: Hypertension type: essential hypertension Qualified Code(s): I10 - Essential (primary) hypertension (8) HLD (hyperlipidemia) Qualifiers: Hyperlipidemia type: pure hypercholesterolemia Qualified Code(s): E78.00 - Pure hypercholesterolemia, unspecified; E78.0 - Pure hypercholesterolemia (9) Uncontrolled diabetes mellitus Qualifiers: Diabetes mellitus type: type 2 Glycemic state: with hyperglycemia Qualified Code(s): E11.65 - Type 2 diabetes mellitus with hyperglycemia
--- NOTE | 2018-08-29 14:49 | Infectious Disease Consult ---
Infectious Disease-Consult - Encounter Date/Time Date of Encounter: 08/28/18 Time of Encounter: 11:09 - Data of Consult Patient: new to practice Reason for consult: Left foot OM. Consult date: 08/28/18 Requesting Physician: Jay Barakat MD Primary Care Provider: PCP NONE - HPI HPI: Reason for consult: Left foot OM HPI: Mr. Seals is a 68-year-old male with past medical history of diabetes, colon cancer status post colectomy, hepatitis C, hypertension, and right AKA in 2018. The patient was admitted to the hospital 08/25/18 for left foot gangrene. We are consulted for further treatment recommendations for left foot osteomyelitis and gangrene. Briefly, the patient is a 68 year old male with past medical history as stated above. The patient presented to the emergency department on the day of admission complaint of worsening left foot infection. He had been evaluated in the emergency department 2 days prior and sign out AMA. Upon arrival, he was tachycardic, but was afebrile and otherwise hemodynamically stable. Laboratory studies revealed a normal white blood cell count, lactic acid, and renal function. His glucose was markedly elevated at 681. ESR was elevated at greater than 130 with a CRP of 94. He had a left foot CT scan that showed extensive soft tissue gas and osteo-myelitis of the fifth metatarsal. He had left lower showed COOPER studies that were normal. Venous duplex study was negative for SVT or DVT. Blood cultures were obtained 2 sets are no growth. He was evaluated by podiatry in the ER and was taken emergently to the operating room where he underwent an I&D of the left foot to the deep fascia and partial fourth and fifth ray amputation. Intraoperative cultures are pending, but the Gram stain does show many gram-positive cocci. His A1c is elevated at 14. Currently, he is on IV and the mycin, Zosyn, and vancomycin. We have been asked to evaluate and make further recommendations. During my exam today, the patient states that his foot had been turning black for about a week prior to admission. He states he is unsure what caused the ulceration to the lateral aspect of his left foot. He denies any known trauma. He states the foot was painful. He denies any fevers or chills or rigors. Denies chest pain, shortness of breath, or cough. Denies nausea, vomiting, diarrhea, or constipation. Denies abdominal pain or urinary complaints. Denies any oral thrush or skin rashes. He does have an allergy to penicillin listed, but states it was when he was a child and he is unsure of the reaction. Appears he is tolerating Zosyn without a problem. The patient lives at home with his daughter. He is disabled and does not work outside the home. He denies any pet or animal exposures. He is positive for hepatitis C. He denies any other chronic infectious diseases. He denies any recent travel. - ROS Review of Systems: All systems reviewed and no additional remarkable complaints except as stated. - Results CBC & Chem 7: 08/28/18 02:55 08/28/18 02:55 - Exam Vitals: Temp Pulse Resp BP Pulse Ox 98.1 F 81 17 115/71 97 08/28/18 10:45 08/28/18 10:45 08/28/18 10:45 08/28/18 10:45 08/28/18 10:45 Exam: Head: Atraumatic, normal inspection, normocephalic. Eye: EOMI, PERRLA, no scleral icterus noted. ENT: Mucous membranes moist. Adentitious. Neck: Normal inspection, no meningismus. Respiratory: Clear to auscultation. No rales, respiratory distress, rhonchi, or wheezes noted. Cardiovascular: Regular rate and rhythm, S1 and S2 audible. No murmurs, rubs, or gallops. GI: Soft, nondistended, normal bowel sounds. Hernia noted to the lower abdomen. Extremities: Left foot dressing clean, dry, and intact. No joint swelling, pedal edema, or tenderness noted. Right AKA stump without abnormality. Back: Normal inspection. Neurological: Alert, oriented 3, no focal deficits. Psychiatric, normal affect, normal mood. Skin: Dry, intact, warm. Normal color. No rashes. Albuterol Sulfate [Ventolin Hfa] 2 puff IH Q6H PRN 07/08/17 [History] Lisinopril-HCTZ 20-12.5 [Prinzide 20-12.5] 1 tab PO BID 07/08/17 [History] Lovastatin 40 mg PO DAILY 07/08/17 [History] Metformin HCl [Glucophage] 1,000 mg PO BID 07/08/17 [History] Aspirin [Lo-Dose Aspirin EC] 81 mg PO DAILY 08/23/18 [History] Amlodipine Besylate 10 mg PO DAILY 08/27/18 [History] DULoxetine [Cymbalta] 30 mg PO DAILY 08/27/18 [History] Fluticasone Propionate Nasal [Flonase] 1 spr NS DAILY 08/27/18 [History] Insulin ASPART [Novolog Flexpen] 20 unit SQ TIDWM 08/27/18 [History] Insulin Glargine,Hum.rec.anlog [Basaglar Kwikpen U-100] 0 unit SQ HS 08/27/18 [History] Loratadine [Claritin] 10 mg PO DAILY 08/27/18 [History] Montelukast [Singulair] 10 mg PO HS 08/27/18 [History] hydrOXYzine HCl [Hydroxyzine HCl] 50 - 100 mg PO HS PRN 08/27/18 [History] Allergy/AdvReac Type Severity Reaction Status Date / Time Penicillins Allergy See Verified 06/28/17 18:13 Comments - Assessment and Plan (1) Osteomyelitis Current Visit: Yes Status: Acute Location: Left foot fifth metatarsal. Causative organism: Unclear. Likely secondary to chronic diabetic foot ulcer. CT of the left foot showed extensive soft tissue gas and osteo-myelitis of the fifth metatarsal. Preop ESR greater than 130, CRP 94. Podiatry consult. The status post I&D of the left foot to the deep fascia and partial fourth and fifth ray amputation 08/26/[address] Palafox. Operative note reviewed. Cultures are pending. Gram stain shows many gram-positive cocci. Pathology is pending. Currently on vancomycin, Zosyn, and clindamycin. Qualifiers: Osteomyelitis type: other acute Osteomyelitis location: foot Laterality: right Qualified Code(s): M86.171 - Other acute osteomyelitis, right ankle and foot SNOMED Code(s): 93738132 (2) Gas gangrene Current Visit: Yes Status: Acute Location: Left foot. Likely secondary to gas forming organism. Status post I&D 08/26/18 Dr. Palafox. Currently on vancomycin, Zosyn, and clindamycin. SNOMED Code(s): 48050902 (3) Chronic diabetic ulcer of left foot determined by examination Current Visit: No Status: Acute Etiology: Unclear. Patient denies any known trauma. He states it had been there for about a week prior to admission. Podiatry consulted. SNOMED Code(s): 057126816 (4) HTN (hypertension) Current Visit: Yes Status: Chronic Qualifiers: Hypertension type: essential hypertension Qualified Code(s): I10 - Essential (primary) hypertension SNOMED Code(s): 93813473 (5) HLD (hyperlipidemia) Current Visit: Yes Status: Chronic Qualifiers: Hyperlipidemia type: pure hypercholesterolemia Qualified Code(s): E78.00 - Pure hypercholesterolemia, unspecified; E78.0 - Pure hypercholesterolemia SNOMED Code(s): 18324522 (6) Uncontrolled diabetes mellitus Current Visit: Yes Status: Chronic Hemoglobin A1c 14. Recommend aggressive glucose monitoring and control to promote wound healing and prevent reinfection. Management per the primary team. Qualifiers: Diabetes mellitus type: type 2 Glycemic state: with hyperglycemia Qualified Code(s): E11.65 - Type 2 diabetes mellitus with hyperglycemia SNOMED Code(s): 37241500, 569885864 (7) Smoker Current Visit: Yes Status: Chronic SNOMED Code(s): 06330770 - Recommendations Recommendations: Await intraoperative cultures. Await blood cultures to finalize. Wound care and activity per podiatry's recommendations. Continue vancomycin IV. Pharmacy to dose. Goal trough approximately 15. Continue Zosyn 3.375 g IV every 8 hours. Continue clindamycin 600 mg IV every 8 hours. Duration of treatment depends on the clinical picture, but likely 6 weeks. Monitor renal function for drug toxicity and does adjust antibiotics. clinical services consultant to assist with discharge planning. Avoid insertion of long-term IV access until final antibiotic regimens are determined. Past Med Surg Social Fam HX - Past Medical History Attestation: Yes The following information was validated with the patient. Source: patient, old records reviewed, nursing notes reviewed Medical history: arthritis, cancer, diabetes, hepatitis, hypertension, other Additional medical history: allergic rhinitis. colon cancer. hepatitis c Psychiatric history: no psych history - Past Surgical History Surgical History: colectomy, herniorrhaphy, other (Right vsonw-bmz-fvqg amputat ion) Additional surgical history: right aka. colon sx - Social History Smoking Status: Current every day smoker Packs per day: 1.5 PPD Smokeless Tobacco Status: No Alcohol use: none Drug use: none Occupational status: disabled Current living situation: Home, With Family Activity Level: Bed bound Recent Out of Country Travel Within the Last 8 Weeks: No Exposure or Possible Exposure to Illness During Travel: No - Family History Mother Living Status: Hx Family Cardiac Disorders: No Hx Family Respiratory Disorders: No Hx Family Cancer: Yes (unknown) Hx Family GI Disorders: No Hx Family Endocrine Disorder: No Hx Family Neuromuscular Disorders: No Hx Family Neurologic Disorders: No Hx Family HEENT Disorders: No Hx Family Autoimmune Disorders: No Father Living Status: Consult Discharge Plan - Plan Referrals: NONE,PCP [Primary Care Provider] - - Attending Attestation I have personally performed a face to face evaluation on this patient. I have reviewed and agree with the care plan. History and Exam by me shows: This is an addendum to original report dictated by Brinda Porter CNP. Please refer to Brinda's note for full detail. Patient is a 68-year-old gentleman with extensive past medical history including diabetes mellitus, history of colon cancer status post colectomy, hepatitis C, hypertension and right AKA in 2018 presented for the treatment of the left foot gangrene/osteomyelitis. Patient is not the best historian and really unable to give much information. Patient denies any trauma to his foot. Assessment and plan: Osteomyelitis left foot fifth metatarsal causative organism not clear likely gram-positive cocci Gas gangrene left foot status post I&D 08/26/2018 by Chronic diabetic ulcer of the left foot determined by examination Hepatitis C Cachexia Recommendations Await cultures to finalize Continue vancomycin, Zosyn and clindamycin for now; if it is not grew a Streptococcus, we will stop the clindamycin. Tailor antibiotics according to culture results. Records say patient is allergic to penicillin but clearly is tolerating Zosyn. Duration of treatment likely 6 weeks Patient will probably need a PICC line placement Monitor labs and for drug toxicity
[2018-08-29] MEDS: metroNIDAZOLE 500 MG TABLET PO SCH ×2 (15:44→21:07)
[2018-08-29] MEDS: 0.9 % Sodium Chloride 1,000 ML IVC SCH (21:08)
[2018-08-30] MEDS: 0.9 % Sodium Chloride 1,000 ML IVC SCH ×2 (01:40→06:02)
[2018-08-30] MEDS: *HR* Heparin 5,000 UNIT/ML VIAL SQ SCH (06:03)
[2018-08-30] MEDS: Gabapentin 100 MG CAPSULE PO SCH ×2 (08:32→14:16)
[2018-08-30] MEDS: metroNIDAZOLE 500 MG TABLET PO SCH ×2 (08:32→14:16)
[2018-08-30] MEDS: Insulin DETEMIR 100 UNIT/ML X5UNITS SQ SCH (08:32)
[2018-08-30] MEDS: amLODIPine 5 MG TABLET PO SCH (08:33)
[2018-08-30] MEDS: Lisinopril-HCTZ 20-12.5mg TABLET PO SCH (08:33)
[2018-08-30] MEDS: Insulin LISPRO 300 UNITS/3 ML VIAL SQ SCH ×3 (08:34→17:13)
[2018-08-30 08:59] LABS: Hematocrit 30.6 % (37.5-50.1); Hemoglobin 9.6 g/dL (12.9-16.9); Mean Corpuscular HGB Conc 31.4 g/dL (31.6-35.5); Mean Corpuscular Hemoglobin 29.2 pg (28.0-33.3); Mean Platelet Volume 8.6 fL (9.4-12.4); Platelet Count 326 K/mcL (140-400); Red Blood Count 3.29 M/mcL (4.19-5.50); Red Cell Distribution Width 13.5 % (11.5-14.5)
[2018-08-30 09:21] LABS: BUN/Creatinine Ratio 19 (6-26); Blood Urea Nitrogen 13 mg/dL (8-23); Calcium 8.7 mg/dL (8.6-10.3); Carbon Dioxide 31 mEq/L (23-29); Chloride 98 mEq/L (98-107); Glucose 162 mg/dL (70-105); Osmolality,Calculated 288 (280-300); Potassium 3.5 mEq/L (3.5-5.1); Sodium 137 mEq/L (136-145); eGFR For Non-African Americans > 60 (> 60)
--- NOTE | 2018-08-30 10:56 | Infectious Disease Progress No ---
ID Progress Note Date of Encounter: 08/30/18 Time of Encounter: 10:52 - Subjective Subjective: Patient seen and examined. No acute events noted overnight. Patient reports some intermittent pain to the left foot surgical site. Denies any fevers or chills or rigors. Denies chest pain, shortness of breath, or cough. Denies nausea, vomiting, or constipation. Reports loose stool yesterday. Denies abdominal pain or urinary complaints. Denies any oral thrush or new skin lesio ns. - Objective CBC & Chem 7: 08/30/18 08:12 08/30/18 08:12 - Line Documentation Line Documentation: Midline (RUE with transparent dressing C/D/I.) - Exam Vitals: Temp Pulse Resp BP Pulse Ox 98.3 F 100 15 154/77 99 08/30/18 07:12 08/30/18 07:12 08/30/18 07:12 08/30/18 07:58 08/30/18 07:12 Exam: Head: Atraumatic, normal inspection, normocephalic. Eye: EOMI, PERRLA, no scleral icterus noted. ENT: Mucous membranes moist. Adentitious. Neck: Normal inspection, no meningismus. Respiratory: Clear to auscultation. No rales, respiratory distress, rhonchi, or wheezes noted. Cardiovascular: Regular rate and rhythm, S1 and S2 audible. No murmurs, rubs, or gallops. GI: Soft, nondistended, normal bowel sounds. Hernia noted to the lower abdomen. Extremities: Left foot dressing clean, dry, and intact. No joint swelling, ped al edema, or tenderness noted. Right AKA stump without abnormality. Neurological: Alert, oriented 3, no focal deficits. Psychiatric, normal affect, normal mood. Skin: Dry, intact, warm. Normal color. No rashes. - Assessment and Plan (1) Osteomyelitis Status: Acute Location: Left foot fifth metatarsal. Causative organism: Group B strep. Likely secondary to chronic diabetic foot ulcer. CT of the left foot showed extensive soft tissue gas and osteo-myelitis of the fifth metatarsal. Preop ESR greater than 130, CRP 94. Podiatry consult. The status post I&D of the left foot to the deep fascia and partial fourth and fifth ray amputation 08/26/[address] Perales. Operative note reviewed. Cultures as above. Anaerobic cultures are preliminarily negative. Pathology is pending. Status post delayed wound closure 08/28/[address] Palafox. Operative note reviewed. No evidence of infection noted during the surgery. Currently on Rocephin and flagyl. Qualifiers: Osteomyelitis type: other acute Osteomyelitis location: foot Laterality: right Qualified Code(s): M86.171 - Other acute osteomyelitis, right ankle and foot SNOMED Code(s): 15329379 (2) Gas gangrene Status: Acute Location: Left foot. Likely secondary to gas forming organism. Status post I&D 08/26/18 Dr. Perales. Currently on Rocephin and flagyl. SNOMED Code(s): 20570137 (3) Chronic diabetic ulcer of left foot determined by examination Status: Acute Etiology: Unclear. Patient denies any known trauma. He states it had been t here for about a week prior to admission. Podiatry consulted. SNOMED Code(s): 699978061 (4) HTN (hypertension) Status: Chronic Qualifiers: Hypertension type: essential hypertension Qualified Code(s): I10 - Essential (primary) hypertension SNOMED Code(s): 54739013 (5) HLD (hyperlipidemia) Status: Chronic Qualifiers: Hyperlipidemia type: pure hypercholesterolemia Qualified Code(s): E78.00 - Pure hypercholesterolemia, unspecified; E78.0 - Pure hypercholesterolemia SNOMED Code(s): 21074137 (6) Uncontrolled diabetes mellitus Status: Chronic Hemoglobin A1c 14. Recommend aggressive glucose monitoring and control to promote wound healing and prevent reinfection. Management per the primary team. Qualifiers: Diabetes mellitus type: type 2 Glycemic state: with hyperglycemia Qualified Code(s): E11.65 - Type 2 diabetes mellitus with hyperglycemia SNOMED Code(s): 04056190, 957176437 (7) Smoker Status: Chronic SNOMED Code(s): 35851366 - Recommendations Recommendations: Await blood cultures to finalize. Wound care and activity per podiatry's recommendations. Continue Rocephin 2 g IV daily. Continue Flagyl 500 mg by mouth 3 times a day until anaerobic cultures finalize. Duration of treatment depends on the clinical picture, but likely 6 weeks. Monitor renal function for drug toxicity and does adjust antibiotics. creative services manager to assist with discharge planning. The patient would likely be best suited to go to an [facility] on discharge. We will need weekly CBC, BUN/creatinine, ESR, and CRP. Will need weekly IV care per protocol. Follow-up with ID 09/13/18 at 1425. Consult Discharge Plan - Plan Additional Instructions: WOUND CARE: Cleanse with .9NS and pat dry Wyatt with betadine cover 4x4 dry gauze, and Kerlix Secured with DENNIS Change daily -NWB LLE *FOLLOW UP WITH IN WOUND CLINIC WITHIN ONE WEEK *FOLLOW UP WITH INFECTIOUS DISEASE WITHIN ONE WEEK. *CONTINUE ROCPEHIN AND FLAGYL. Follow-up appointments: If there is not an appointment listed below, please call your physician and schedule a follow-up appointment. If you have congestive heart failure and your symptoms return, make an appointment with your physician. Medication List: Carry an up to date list of medications you are taking at all time. We have given you an updated medication list including any new medications that you have been prescribed. Please provide that list to your primary provider Symptoms: If your condition changes or you experience any of the following symptoms, notify your physician immediately: Unusual or worsening pain, fever, persistent nausea and vomiting, bleeding, increase in swelling (especially in your legs), sudden weight gain, extreme dizziness, chest pain, increased drainage or redness from a wound or incision. Go to the emergency department if you experience a problem with breathing. Weights: If you have a history of swelling or shortness of breath, weigh yourself daily and notify your physician if you have a weight gain of two or more pounds in one day or 5 or more pounds in a week. If you experience any of the warning signs for stroke: Sudden numbness or weakness of the face, arm or leg; especially on one side of the body, sudden confusion, trouble speaking or understanding, sudden trouble seeing in one or both eyes, sudden trouble walking, dizziness, loss of balance or coordination, sudden sever headache with no cause; Call 911 or go to the emergency room. Stroke is a medical emergency. Some risk factors for stroke: Age, cigarette smoking, diabetes, excessive alcohol consumption, family history, high blood pressure, overweight, physical inactivity, prior stroke, heart att ack, diagnosis of carotid artery stenosis or other artery disease. If you smoke, STOP: Smoking or tobacco use significantly increases your risk of heart and lung disease. Your chance of disease greatly increases if you continue to smoke. For more information, call the [place] tobacco quit line for smoking cessation 7-083-PTAP-NOW ( ) Referrals: NONE,PCP [Primary Care Provider] - Brinda Porter, PRODUCT MARKETER [Advanced Practice Nurse] - 09/13/18 2:25 pm Prescriptions: RX: HYDROcodone/Acet 5/325 mg [[place] 5-325 mg] 1 tab PO Q6HR PRN 2 Days #10 tablet PRN Reason: Moderate Pain RX: cefTRIAXone [Rocephin] 2,000 mg IVPB DAILY 42 Days #42 vial metroNIDAZOLE [Flagyl] 500 mg PO TID #30 tablet - Attending Attestation I have personally performed a face to face evaluation on this patient. I have reviewed and agree with the care plan. History and Exam by me shows: Assessment and plan: 1.Osteomyelitis left foot fifth metatarsal causative organism not clear likely gram-positive cocci 2.Gas gangrene left foot status post I&D 08/26/2018 by 3.Chronic diabetic ulcer of the left foot determined by examination 4.Hepatitis C 5.Cachexia Recommended continuing Rocephin and Flagyl. Patient was insisting on leaving AMA. Hospitalist told me that the patient again see if he states. If patient decides to be transferred to correction on to Rocephin plus Flagyl for 6 weeks duration and follow-up with us in clinic but if he decides so no AMA then Augmentin for 6 weeks and no follow-up needed.
--- NOTE | 2018-08-30 11:00 | Consult Note ---
Date of Encounter: 08/30/18 Time of Encounter: 09:30 Assessment & Recommendation (1) Encounter for psychiatric assessment Current visit: Yes Status: Acute Assessment & Recommendation: -Although patient understands why he is currently having medical difficulties, he does not have proper insight into his current disability or the common dangers that can occur if he were to go home. He is not understanding of the amount help that he needs. As such, he is not seen to have capacity for making the decision of declining inpatient PT rehabilitation at this time. -Please let us know if you have questions or concerns about this case. Will sign off at this time. Thank you for the consult. History of Present Illness Patient: new to practice Requesting Physician: Jay Barakat MD Reason for consult: Capacity evaluation History of present illness: Mr. Seals is a 68 year old male with no significant past psychiatric history who is admitted on 08/26/2018 for an infection in the left foot and was consulted today to psychiatry for capacity evaluation. 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 Physical therapy reports that he will need PT rehabilitation in an ECF, but the patient has declined. OT reports that he has "decreased safety awareness." Notes explain that he is a 3 person assist to get out of bed, but patient states that he can ambulate himself. Reports explain the patient does say he will go to an ECF but does need to go home first. In speaking with the patient, he is aware of his current condition. 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 He explains that once he gets his prosthetic, he will be able to walk. When asked how he will be able to walk, he states that he will practice with it on a chair, "sitting up and down." He explains that he will do this at his home and once he does this, he will get his strength back. When asked his opinion of what PT stated that he needed to go to inpatient rehabilitation, he reports he does not need this. He reports, "I can get stronger my own." He states that he will be okay on his own and will be able to regain his strength through practicing. When asked what kind of help he has, he states his daughter. When asked if she has any special medical training, he denied that she has formal training but reports that she was trained when he had cancer to help him. When asks about the negative things that could happen, he said "nothing happened." He does admit that "anything could happen," but he explains that he is "going to be careful." He reports that he just has to "take my time." When asked why he wants to go home, he reports that he needs to get the electricity turned back on. He explains that he "may" go to the ECF in about 1 week but needs to get things situated. When asked why he cannot deal with electricity in an ECF, he does admit that he also has his daughter at home who is upset that he is not there. He denies current issues with depression. He does report "a little bit" of anxiety explains that he does not take medication for this and is doing well. He denies issues with sleep outside hospital but reports not getting enough hours while in the hospital. He denies issues appetite. He denies SI, HI, and AVH. CC: Jay Barakat MD Past Med Surg Social Fam HX - Past Medical History Source: patient Medical history: arthritis, cancer, diabetes, hepatitis, hypertension, other - Past Psychiatric History Psychiatric history: Reports: no psych history (None noted), other (Does take duloxetine but it may be for neuropathic pain) Family psychiatric history: Unknown Family History of Suicide: Unknown - Past Surgical History Surgical History: colectomy, herniorrhaphy, other (Right [id number] amputation) - Social History Smoking Status: Current every day smoker Smokeless Tobacco Status: No Alcohol use: none Drug use: none - Family History Mother Living Status: Hx Family Cardiac Disorders: No Hx Family Respiratory Disorders: No Hx Family Cancer: Yes (unknown) Hx Family GI Disorders: No Hx Family Endocrine Disorder: No Hx Family Neuromuscular Disorders: No Hx Family Neurologic Disorders: No Hx Family HEENT Disorders: No Hx Family Autoimmune Disorders: No Father Living Status: Medications & Allergies Albuterol Sulfate [Ventolin Hfa] 2 puff IH Q6H PRN 07/08/17 [History] Lisinopril-HCTZ 20-12.5 [Prinzide 20-12.5] 1 tab PO BID 07/08/17 [History] Lovastatin 40 mg PO DAILY 07/08/17 [History] Metformin HCl [Glucophage] 1,000 mg PO BID 07/08/17 [History] Aspirin [Lo-Dose Aspirin EC] 81 mg PO DAILY 08/23/18 [History] Amlodipine Besylate 10 mg PO DAILY 08/27/18 [History] DULoxetine [Cymbalta] 30 mg PO DAILY 08/27/18 [History] Fluticasone Propionate Nasal [Flonase] 1 spr NS DAILY 08/27/18 [History] Insulin ASPART [Novolog Flexpen] 20 unit SQ TIDWM 08/27/18 [History] Insulin Glargine,Hum.rec.anlog [Basaglar Kwikpen U-100] 0 unit SQ HS 08/27/18 [History] Loratadine [Claritin] 10 mg PO DAILY 08/27/18 [History] Montelukast [Singulair] 10 mg PO HS 08/27/18 [History] hydrOXYzine HCl [Hydroxyzine HCl] 50 - 100 mg PO HS PRN 08/27/18 [History] cefTRIAXone [Rocephin] 2,000 mg IVPB DAILY 42 Days #42 vial 08/29/18 [Rx] Allergy/AdvReac Type Severity Reaction Status Date / Time Penicillins Allergy See Verified 06/28/17 18:13 Comments Review of Systems Musculoskeletal: Reports: other (Toe pain due to amputation) Psychiatric: Reports: anxiety, abnormal sleep pattern. Denies: depression, suicidal ideation, change in appetite, homicidal ideation, auditory hallucinations, visual hallucinations Psychiatry Exam - Constitutional Vitals: Temp Pulse Resp BP Pulse Ox 98.3 F 100 15 154/77 99 08/30/18 07:12 08/30/18 07:12 08/30/18 07:12 08/30/18 07:58 08/30/18 07:12 General appearance: age & developmentally appropriate, well-groomed, well- nourished, thin Additional observations: Long unkempt lassiter, hollowed cheeks Bandaged left foot, clean Right AKA present - Musculoskeletal Gait: other (Not assessed) Station: relaxed Strength & Tone: normal for patient (Grossly) - Psychiatric Patient Orientation: Yes Person, Yes Time, Yes Place, Yes Circumstance Level of alertness: Alert, Follows commands Behavior: calm, cooperative Psychomotor activity: Normal Eye Contact: Maintains Eye Contact Mood Description: Euthymic/stable Patient description of mood: "All right" Affect description: congruent with mood, full range Speech Volume: Loud Speech pattern: normal rate, normal rhythm, normal tone, fluent, spontaneous, appropriate, slurred, garbled, mumbled (Speech issues made it moderately difficult to understand the patient) Language & Vocabulary: consistent with education Thought Process: Logical, Linear, Goal Oriented Thought Content: No Suicidal ideation, No Homicidal ideation, No Overt delusions Perceptual Disturbances: No Reacting to internal stimuli, No Auditory hallucinations, No Visual hallucinations Attention Span Ability: Capable of Focused Attention Memory Description: Grossly Intact Patient Reliability: Reliable Historian Fund of knowledge: Yes abstraction ability, Yes aware of current events Intelligence Estimate: Average Judgment: Limited Insight: Partial Results - Drug Levels and Toxicology Drug Levels and Toxicology: None noted this a.m. - Labs Labs: Laboratory Last Values WBC 9.8 K/mcL (4.3-11.1) 08/30/18 08:12 RBC 3.29 M/mcL (4.19-5.50) L 08/30/18 08:12 Hgb 9.6 g/dL (12.9-16.9) L 08/30/18 08:12 Hct 30.6 % (37.5-50.1) L 08/30/18 08:12 MCV 93.0 fL (83.0-100.0) 08/30/18 08:12 MCH 29.2 pg (28.0-33.3) 08/30/18 08:12 MCHC 31.4 g/dL (31.6-35.5) L 08/30/18 08:12 RDW 13.5 % (11.5-14.5) 08/30/18 08:12 Plt Count 326 K/mcL (140-400) 08/30/18 08:12 MPV 8.6 fL (9.4-12.4) L 08/30/18 08:12 Immature Gran % 1.6 % (0-4) 08/25/18 17:50 Seg Neutrophils % 75.3 % 08/25/18 17:50 Lymphocytes % 10.5 % 08/25/18 17:50 Monocytes % 10.5 % 08/25/18 17:50 Eosinophils % 1.2 % 08/25/18 17:50 Basophils % 0.9 % 08/25/18 17:50 Neutrophils # 7.9 K/mcL (1.6-8.9) 08/25/18 17:50 Lymphocytes # 1.1 K/mcL (0.6-4.6) 08/25/18 17:50 Monocytes # 1.1 K/mcL (0.0-1.3) 08/25/18 17:50 Eosinophils # 0.1 K/mcL (0.0-0.6) 08/25/18 17:50 Basophils # 0.1 K/mcL (0.0-0.2) 08/25/18 17:50 ESR >= 130 mm/hr (0-10) H 08/29/18 01:37 PT 12.7 Seconds (9.4-12.1) H 08/25/18 17:50 INR 1.1 08/25/18 17:50 APTT 31.0 Seconds (26.0-36.0) 08/25/18 17:50 VBG pH 7.38 pH Units (7.32-7.42) 08/25/18 19:54 VBG pCO2 49 mmHg (41-51) 08/25/18 19:54 VBG pO2 93 mmHg (25-50) H 08/25/18 19:54 VBG HCO3 29 mEq/L (21-27) H 08/25/18 19:54 Sodium 137 mEq/L (136-145) 08/30/18 08:12 Potassium 3.5 mEq/L (3.5-5.1) 08/30/18 08:12 Chloride 98 mEq/L (98-107) 08/30/18 08:12 Carbon Dioxide 31 mEq/L (23-29) H 08/30/18 08:12 BUN 13 mg/dL (8-23) 08/30/18 08:12 Creatinine 0.69 mg/dL (0.70-1.30) L 08/30/18 08:12 Est GFR ( Amer) > 60 (> 60) 08/30/18 08:12 Est GFR (Non-Af Amer) > 60 (> 60) 08/30/18 08:12 BUN/Creatinine Ratio 19 (6-26) 08/30/18 08:12 Glucose 162 mg/dL (70-105) H 08/30/18 08:12 POC Glucose 124 mg/dL (70-99) H 08/29/18 19:42 Est Mean Plasma Glucose 355 mg/dl 08/26/18 07:00 Hemoglobin A1c 14.0 % (-5.6) H 08/26/18 07:00 Calculated Osmolality 288 (280-300) 08/30/18 08:12 Lactic Acid 2.2 mmol/L (0.5-2.2) 08/25/18 21:56 Calcium 8.7 mg/dL (8.6-10.3) 08/30/18 08:12 Phosphorus 3.0 mg/dL (2.7-4.5) 08/25/18 17:50 Magnesium 1.6 mg/dL (1.6-2.6) 08/27/18 09:36 Total Bilirubin 0.3 mg/dL (0.3-1.0) 08/25/18 17:50 Direct Bilirubin 0.1 mg/dL (0.0-0.2) 08/25/18 17:50 Indirect Bilirubin 0.2 mg/dL (0.0-1.2) 08/25/18 17:50 AST 8 Units/L (13-39) L 08/25/18 17:50 ALT 9 Units/L (7-52) 08/25/18 17:50 Alkaline Phosphatase 137 Units/L (34-104) H 08/25/18 17:50 C-Reactive Protein 22 mg/L (Less than 10) H 08/29/18 01:37 Serum Total Protein 7.8 g/dL (6.4-8.9) 08/25/18 17:50 Albumin 3.0 g/dL (3.5-5.7) L 08/25/18 17:50 Globulin 4.8 g/dL (2.4-3.5) H 08/25/18 17:50 Albumin/Globulin Ratio 0.6 (1.1-2.2) L 08/25/18 17:50 Triglycerides 109 mg/dL (< 150) 08/27/18 09:36 Cholesterol 123 mg/dL (< 200) 08/27/18 09:36 LDL Cholesterol, Calc 72 mg/dL (0-99) 08/27/18 09:36 VLDL Cholesterol, Calc 22 mg/dL (< 31) 08/27/18 09:36 HDL Cholesterol 29 mg/dL (40-59) L 08/27/18 09:36 Cholesterol/HDL Ratio 4.2 (0-4.9) 08/27/18 09:36 Beta-Hydroxybutyric Acd 0.18 mmol/L (0.02-0.27) 08/25/18 17:50 Vancomycin Trough 13 mcg/mL (5-10) H 08/28/18 20:07 - Impressions None noted this a.m. Consult Discharge Plan - Plan Referrals: Brinda Porter CNP [Advanced Practice Nurse] - 09/13/18 2:25 pm NONE,PCP [Primary Care Provider] - Prescriptions: cefTRIAXone [Rocephin] 2,000 mg IVPB DAILY 42 Days #42 vial - Attending Attestation I examined this patient and my medical decision-making was reviewed with the Resident Physician. I agree with the documented findings, disposition and treatment plan as described.
--- NOTE | 2018-08-30 12:11 | Podiatry Progress Note ---
Date of Encounter: 08/30/18 Time of Encounter: 11:00 - Assessment and Plan (1) Gangrene of left foot Current Visit: No Status: Acute Assessment: -Post op day #2 left foot delayed closure of surgical wound by Dr. Perales on 08/28/2018 -Surgical wound with sutures intact, edges coapting, serosanguineous drainage on dressing, no erythema, no odor, no lymphangitis. Minimal maceration of tissue noted proximal aspect of surgical wound. -Skin warm from tibia to toes -WBC 9.8 and patient remains afebrile -Wound cultures final for Strep. agalactiae (Group B) Plan: -Dressing changed -Site flushed with sterile .9NS and pat dry -Painted with betadine -Site covered 4x4 dry gauze, and Kerlix -Secured with DENNIS -NWB LLE -Continue OT/PT -ID following -Follow up with [facility] one week after discharge, please call to schedule Subjective Interval history: Post op day #2 left foot delayed closure of surgical wound by Dr. Perales on 08/28/2018. Patient is alert and oriented sitting up in bed eating ice cream. Patient denies any chest pain, shortness of breath, or calf pain. Patient denies any fever, chills, nausea, vomiting, or diarrhea. Objective - Vital Signs Vital Signs: Vital Signs Temp Pulse Resp BP Pulse Ox 08/30/18 11:06 98.1 F 81 16 135/77 97 08/30/18 07:58 154/77 08/30/18 07:12 98.3 F 100 15 185/90 99 08/30/18 04:10 97.9 F 75 18 121/77 100 08/29/18 22:59 98.8 F 87 17 147/83 99 08/29/18 21:25 93 08/29/18 19:45 98.7 F 84 16 135/86 97 08/29/18 15:55 97.5 F L 74 15 137/80 96 Intake and Output 08/29/18 08/30/18 08/30/18 23:59 07:59 15:59 Intake Total 100 / 100 260 / 260 Output Total 1000 / 1000 350 / 350 Balance -1000 / -1000 -250 / -250 260 / 260 Intake: IV Fluids 20 / 20 Rocephin 2,000 MG In Water for inj. (sterile) 20 ML @ 600 mls/ hr IVP Q24H [facility] Rx#:[id number] Oral 100 / 100 240 / 240 Output: Urine 1000 / 1000 350 / 350 Other: Meal Breakfast Percent of Meal Consumed 25% Stool Size Large Stool Consistency loose liquid Weight 65 kg Blood Glucose* 247 169 211 Patient Weight 08/30/18 23:59 Weight 65 kg - Exam Exam: Constitutional: Alert and oriented x 3, no acute distress noted Vascular: Skin warm from tibia to toes LLE, Rt AKA Neurological: Diminished protective sensation, abnormal plantar response, abnormal proprioception dorsiflexion/plantar flexion Dermatological: Surgical wound with sutures intact, edges coapting, serosanguineous drainage on dressing, no erythema, no odor, no lymphangitis. Minimal maceration of tissue noted proximal aspect of surgical wound. Musculoskeletal: 3/5 muscle strength and normal muscle tone - Lab Result Diagrams: 08/30/18 08:12 08/30/18 08:12 Labs: Abnormal lab results RBC 3.29 M/mcL (4.19-5.50) L 08/30/18 08:12 Hgb 9.6 g/dL (12.9-16.9) L 08/30/18 08:12 Hct 30.6 % (37.5-50.1) L 08/30/18 08:12 MCHC 31.4 g/dL (31.6-35.5) L 08/30/18 08:12 MPV 8.6 fL (9.4-12.4) L 08/30/18 08:12 ESR >= 130 mm/hr (0-10) H 08/29/18 01:37 PT 12.7 Seconds (9.4-12.1) H 08/25/18 17:50 VBG pO2 93 mmHg (25-50) H 08/25/18 19:54 VBG HCO3 29 mEq/L (21-27) H 08/25/18 19:54 Carbon Dioxide 31 mEq/L (23-29) H 08/30/18 08:12 Creatinine 0.69 mg/dL (0.70-1.30) L 08/30/18 08:12 Glucose 162 mg/dL (70-105) H 08/30/18 08:12 POC Glucose 124 mg/dL (70-99) H 08/29/18 19:42 Hemoglobin A1c 14.0 % (-5.6) H 08/26/18 07:00 AST 8 Units/L (13-39) L 08/25/18 17:50 Alkaline Phosphatase 137 Units/L (34-104) H 08/25/18 17:50 C-Reactive Protein 22 mg/L (Less than 10) H 08/29/18 01:37 Albumin 3.0 g/dL (3.5-5.7) L 08/25/18 17:50 Globulin 4.8 g/dL (2.4-3.5) H 08/25/18 17:50 Albumin/Globulin Ratio 0.6 (1.1-2.2) L 08/25/18 17:50 HDL Cholesterol 29 mg/dL (40-59) L 08/27/18 09:36 Vancomycin Trough 13 mcg/mL (5-10) H 08/28/18 20:07 Microbiology, Last 48 Hours 08/26/18 01:40 Anaerobic Culture - Preliminary Left Foot At this time, no anaerobic growth is present. The culture will be finalized after 5 days of incubation. 08/26/18 01:40 Surgical Biopsy Culture - Final Left Foot Strep agalactiae - (Group B) Consult Discharge Plan - Plan Referrals: Brinda Porter CNP [Advanced Practice Nurse] - 09/13/18 2:25 pm NONE,PCP [Primary Care Provider] - Prescriptions: cefTRIAXone [Rocephin] 2,000 mg IVPB DAILY 42 Days #42 vial
[2018-08-30] MEDS: cefTRIAXone 2,000 MG in Water for inj. (sterile) 20 ML 20 ML IVP SCH (12:20)
[2018-08-30] MEDS ORDERED: Nicotine 14 MG PATCH.TD24 TD SCH (14:45)
[2018-08-30 15:54] VITALS: BP 134/73
--- NOTE | 2018-08-30 17:42 | Discharge Summary ---
- NOTES TO OUTPATIENT PROVIDER Notes to Outpatient Provider: Follow-up with Dr. humphreys in wound care center in 1 week-follow wound care instruction as per decorating inspector's. Follow-up ID specialist in one week. Follow-up with PCP 7-10 days Orders not resulted at time of discharge: Pending orders 08/25/18 17:50 Culture,Blood [BC] Stat 08/26/18 01:40 Culture,Anaerobic [RM] Routine 08/31/18 04:00 BMP [Basic Metabolic Panel] AM 0400 BMP [Basic Metabolic Panel] AM 0400 CBC [Complete Blood Count] [HEME] AM 0400 CBC no Diff [Complete Blood Count w/o Diff] [HEME] AM 0400 Date of Encounter: 08/30/18 Time of Encounter: 17:39 - Discharge Diagnosis (1) Gangrene of toe of left foot Priority: Primary Status: Acute Assessment and Plan: - s/p surgery on 08/26/18 and Had I&D of left foot into deep fascia, partial 4th and 5th ray amputation left foot - s/p left foot washout and delayed closure of surgical wound left foot on 08/28/18 - ID on board and acute to discharge patient on Rocephin for 6 week and metronidazole until anaerobic culture finalize. Follow-up with ID specialist in one week. -Okay to discharge to SNF facility from ID standpoint Follow with decorating inspector in [facility] week [facility]. -Okay to discharge from podiatry standpoint Surgical culture growing strep B. pagalactie. Patient is being transferred to [facility] (2) Hyperglycemia Priority: Primary Status: Acute Assessment and Plan: Better controlled blood glucose level. Continue long-acting insulin with sliding scale coverage is. Needs close monitoring of blood glucose level. Continue a diabetic diet. Acute hyperglycemia on admission w/BG of 681 d/t poorly controlled DM. Insulin gtt initiated w/titration. (3) Altered mental status Priority: Primary Status: Acute Assessment and Plan: Back to baseline. Qualifiers: Altered mental status type: somnolence Qualified Code(s): R40.0 - Somnolence (4) Smoker Priority: Secondary Status: Chronic Assessment and Plan: Hx of chronic tobacco abuse. Pt. reports smoking 1.5 PPD. Add nicotine patch . A smoking cessation education given (5) Osteomyelitis Priority: Primary Status: Acute Assessment and Plan: Acute osteomyelitis of the left foot according to CT of the left foot which showed erosive changes of the fifth metatarsal head compatible with osteomyelitis. Suspected pathological fracture of the fifth metatarsal head and base of the fifth proximal phalanx. Please see details as above Qualifiers: Osteomyelitis type: other acute Osteomyelitis location: foot Laterality: right Qualified Code(s): M86.171 - Other acute osteomyelitis, right ankle and foot (6) HTN (hypertension) Priority: Primary Status: Chronic Assessment and Plan: Well controlled. Continue home medicine Qualifiers: Hypertension type: essential hypertension Qualified Code(s): I10 - Essential (primary) hypertension (7) HLD (hyperlipidemia) Priority: Secondary Status: Chronic Assessment and Plan: Stable. Qualifiers: Hyperlipidemia type: pure hypercholesterolemia Qualified Code(s): E78.00 - Pure hypercholesterolemia, unspecified; E78.0 - Pure hypercholesterolemia (8) Uncontrolled diabetes mellitus Priority: Primary Status: Chronic Assessment and Plan: As mentioned above Qualifiers: Diabetes mellitus type: type 2 Glycemic state: with hyperglycemia Qualified Code(s): E11.65 - Type 2 diabetes mellitus with hyperglycemia Hospital course: Mr. Seals is a 68 year old male patient got admitted for osteomyelitis, gas gangrene, uncontrolled diabetes mellitus. Is status post AKA. decorating inspector's, ID specialist where consulted. Please see details in diagnosis section of discharge summary. Psychiatrist was consulted and did not find competent enough to take care at home. Patient is being discharged to SNF to complete antibiotic course, PTOT and close diabetes management. Discharge discussed with: patient, nurse Time spent discussing smoking cessation with patient: more than 10 minutes - Time Spent with Patient Total time spent providing and/or coordinating discharge services: Time spent: Greater than 30 minutes - Discharge Medications Prescriptions: New cefTRIAXone [Rocephin] 2,000 mg IVPB DAILY 42 Days #42 vial No Action Albuterol Sulfate [Ventolin Hfa] 2 puff IH Q6H PRN PRN Reason: Dyspnea Metformin HCl [Glucophage] 1,000 mg PO BID Lovastatin 40 mg PO DAILY Lisinopril-HCTZ 20-12.5 [Prinzide 20-12.5] 1 tab PO BID Amlodipine Besylate 10 mg PO DAILY DULoxetine [Cymbalta] 30 mg PO DAILY Fluticasone Propionate Nasal [Flonase] 1 spr NS DAILY hydrOXYzine HCl [Hydroxyzine HCl] 50 - 100 mg PO HS PRN PRN Reason: Sleep Insulin ASPART [Novolog Flexpen] 20 unit SQ TIDWM Insulin Glargine,Hum.rec.anlog [Basaglar Kwikpen U-100] 0 unit SQ HS Loratadine [Claritin] 10 mg PO DAILY Montelukast [Singulair] 10 mg PO HS Aspirin [Lo-Dose Aspirin EC] 81 mg PO DAILY Home Medications: Albuterol Sulfate [Ventolin Hfa] 2 puff IH Q6H PRN 07/08/17 [History] Lisinopril-HCTZ 20-12.5 [Prinzide 20-12.5] 1 tab PO BID 07/08/17 [History] Lovastatin 40 mg PO DAILY 07/08/17 [History] Metformin HCl [Glucophage] 1,000 mg PO BID 07/08/17 [History] Aspirin [Lo-Dose Aspirin EC] 81 mg PO DAILY 08/23/18 [History] Amlodipine Besylate 10 mg PO DAILY 08/27/18 [History] DULoxetine [Cymbalta] 30 mg PO DAILY 08/27/18 [History] Fluticasone Propionate Nasal [Flonase] 1 spr NS DAILY 08/27/18 [History] Insulin ASPART [Novolog Flexpen] 20 unit SQ TIDWM 08/27/18 [History] Insulin Glargine,Hum.rec.anlog [Basaglar Kwikpen U-100] 0 unit SQ HS 08/27/18 [History] Loratadine [Claritin] 10 mg PO DAILY 08/27/18 [History] Montelukast [Singulair] 10 mg PO HS 08/27/18 [History] hydrOXYzine HCl [Hydroxyzine HCl] 50 - 100 mg PO HS PRN 08/27/18 [History] cefTRIAXone [Rocephin] 2,000 mg IVPB DAILY 42 Days #42 vial 08/29/18 [Rx] Allergies/Adverse Reactions: Allergy/AdvReac Type Severity Reaction Status Date / Time Penicillins Allergy See Verified 06/28/17 18:13 Comments Date of admission: 08/26/18 13:10 Primary care physician: PCP NONE Consults: 08/25/18 23:49 Consult to Liquor Gallery Operator [CONS] Routine Reason for SW Consult: non compliant, unable to get medications 08/26/18 05:32 Consult to Occupational Therapy [CONS] Routine Comment: Evaluate, develop and implement POC Reason for Consult: Patient is status post-amputation Does patient have active BEDREST order?: Yes Is patient medically & hemodynamically stable?: Yes Patient assessed for mobility or mobilized this visit?: No Consult to Physical Therapy [CONS] Routine Comment: Evaluate, develop and implement POC Reason for Consult: Patient is status post-amputation Does patient have active BEDREST order?: Yes Is patient medically & hemodynamically stable?: Yes Patient assessed for mobility or mobilized this visit?: No 08/28/18 07:09 Consult to Infectious Diseases [CONS] Routine Consulting Provider: Infectious Disease Stitzer Reason for Consult: osteomyelitis Call Completed: Yes 08/29/18 12:17 Consult to Psychiatry [CONS] Routine Consulting Provider: Psychiatry Misty Reason consult: Capacity assessment 08/29/18 15:30 Consult to Invasive Line Access Team [CONS] Routine Reason for Consult: 6 weeks IV abx Line Type: Midline 08/29/18 15:37 Consult to Invasive Line Access Team [CONS] Routine Reason for Consult: midline 6 weeks rocephin Line Type: Midline - Constitutional Vitals: Temp Pulse Resp BP Pulse Ox 98.6 F 82 16 134/73 99 08/30/18 15:52 08/30/18 15:52 08/30/18 15:52 08/30/18 15:52 08/30/18 15:52 General appearance: Present: A&O X 0 Exam: General appearance: No acute distress Eye exam: EOMI, PERRLA ENT exam: Moist oral mucosa Neck nontender, supple Respiratory exam: Clear to auscultation bilaterally Cardiovascular exam: Regular rate and rhythm, no systolic murmur Abdominal exam: Soft, nontender, nondistended, positive bowel sounds Extremities exam: Right AKA Neurological exam: Grossly intact - Patient Status Disposition: Transfer SNF Condition: Fair Overall status at discharge: patient is progressing back to baseline - Discharge Instructions Follow Up With: Brinda Porter WET END HELPER [Advanced Practice Nurse] - 09/13/18 2:25 pm NONE,PCP [Primary Care Provider] - - Diet and Activity Activity: as per physical therapy Diet: diabetic diet, low fat, low cholesterol, low salt diet, regular diet
--- NOTE | 2018-08-30 18:00 | Physician Discharge Referral ---
ExtendedCare Referral Info Transfer To: [facility] - Diagnosis (1) Gangrene of toe of left foot Priority: Primary Status: Acute (2) Hyperglycemia Priority: Primary Status: Acute (3) Altered mental status Priority: Primary Status: Acute (4) Smoker Priority: Primary Status: Chronic (5) Osteomyelitis Priority: Primary Status: Acute (6) HTN (hypertension) Priority: Primary Status: Chronic (7) HLD (hyperlipidemia) Priority: Secondary Status: Chronic (8) Uncontrolled diabetes mellitus Priority: Primary Status: Chronic - Transfer Medications Prescriptions: HYDROcodone/Acet 5/325 mg [[place] 5-325 mg] 1 tab PO Q6HR PRN 2 Days #10 tablet PRN Reason: Moderate Pain cefTRIAXone [Rocephin] 2,000 mg IVPB DAILY 42 Days #42 vial Home Medications: Albuterol Sulfate [Ventolin Hfa] 2 puff IH Q6H PRN 07/08/17 [History] Lisinopril-HCTZ 20-12.5 [Prinzide 20-12.5] 1 tab PO BID 07/08/17 [History] Lovastatin 40 mg PO DAILY 07/08/17 [History] Metformin HCl [Glucophage] 1,000 mg PO BID 07/08/17 [History] Aspirin [Lo-Dose Aspirin EC] 81 mg PO DAILY 08/23/18 [History] DULoxetine [Cymbalta] 30 mg PO DAILY 08/27/18 [History] Fluticasone Propionate Nasal [Flonase] 1 spr NS DAILY 08/27/18 [History] Insulin ASPART [Novolog Flexpen] 20 unit SQ TIDWM 08/27/18 [History] Loratadine [Claritin] 10 mg PO DAILY 08/27/18 [History] Montelukast [Singulair] 10 mg PO HS 08/27/18 [History] hydrOXYzine HCl [Hydroxyzine HCl] 50 - 100 mg PO HS PRN 08/27/18 [History] cefTRIAXone [Rocephin] 2,000 mg IVPB DAILY 42 Days #42 vial 08/29/18 [Rx] Acetaminophen [Tylenol] 650 mg PO Q6HR PRN tablet 08/30/18 [Rx] Docusate [Colace] 100 mg PO BID capsule 08/30/18 [Rx] HYDROcodone/Acet 5/325 mg [[place] 5-325 mg] 1 tab PO Q6HR PRN 2 Days #10 tablet 08/30/18 [Rx] Insulin DETEMIR [Levemir] 30 unit SQ BID [id number] 08/30/18 [Rx] Insulin LISPRO [HumaLOG] 0 units SQ HS vial 08/30/18 [Rx] Nicotine Patch [Nicoderm] 14 mg TD DAILY patch.[id number] 08/30/18 [Rx] amLODIPine [Norvasc] 10 mg PO DAILY tablet 08/30/18 [Rx] metroNIDAZOLE [Flagyl] 500 mg PO TID tablet 08/30/18 [Rx] Allergies/Adverse Reactions: Allergy/AdvReac Type Severity Reaction Status Date / Time Penicillins Allergy See Verified 06/28/17 18:13 Comments - Respiratory Orders Smoking Cessation: Smoking cessation has been advised. For more information, call the [employer] Tobacco Quit Line at 4-945-CUQM-NOW. 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 Close blood glucose level monitoring) CERTIFICATION: I certify that the transfer of the above named patient to an Extended Care Facility is necessary for the continuing treatment of the diagnosis listed. The above information is true and accurate reflection of patient's current condition. Confidential - Redisclosure prohibited without a patient's written consent.
== END 2018-08-30 19:30 | DRG 305 ==
LOC: EMEROOARM 15:09 → INTOOBSV 22:43 → 3NENU 22:43
PROVIDERS: ADMIT Family Medicine; ATTEND Internal Medicine

== ENCOUNTER 2019-03-26 11:11 | Inpatient (IN) ==
[2019-03-26] MEDS ORDERED: 0.9 % Sodium Chloride 1,000 ML IVC ONE (12:04)
[2019-03-26 12:38] LABS: Prothrombin Time 11.6 Seconds (9.4-12.1)
[2019-03-26 12:40] LABS: Bilirubin,Urine Negative (Negative); Blood,Urine Moderate (Negative); Clarity,Urine Cloudy (Clear); Color,Urine Yellow (Yellow); Glucose,Urine (UA) >=1000 mg/dL (Normal); Ketones,Urine Negative (Negative); Leukocyte Esterase,Urine Small (Negative); Nitrite,Urine Negative (Negative); PH,Urine 6.5 pH Units (5.0-8.0); Protein,Urine 30 mg/dL (Neg-Trace); Specific Gravity,Urine > 1.030 (1.010-1.025); Urobilinogen,Urine Normal (Normal)
[2019-03-26 12:41] LABS: Activated Partial Thrombo Time 27.5 Seconds (26.0-36.0)
[2019-03-26 12:42] LABS: Bacteria,Urine None Seen per hpf (None-Few); Hyaline Casts,Urine None Seen per lpf (None-Few); RBC,Urine 15-30 per hpf (0-3); Squamous Epithelial Cell,Urine None Seen per lpf (None-Few); WBC,Urine TNTC per hpf (0-3)
[2019-03-26 12:49] LABS: Basophils # 0.1 K/mcL (0.0-0.2); Basophils % 0.8 %; Eosinophils # 0.1 K/mcL (0.0-0.6); Eosinophils % 1.4 %; Hematocrit 31.8 % (37.5-50.1); Hemoglobin 10.5 g/dL (12.9-16.9); Lymphocytes # 1.2 K/mcL (0.6-4.6); Lymphocytes % 13.2 %; Mean Corpuscular Volume 87.8 fL (83.0-100.0); Mean Platelet Volume 9.3 fL (9.4-12.4); Monocytes # 0.9 K/mcL (0.0-1.3); Monocytes % 10.4 %; Neutrophils # 6.4 K/mcL (1.6-8.9); Platelet Count 316 K/mcL (140-400); Red Blood Count 3.62 M/mcL (4.19-5.50); Red Cell Distribution Width 13.4 % (11.5-14.5); Segmented Neutrophils % 73.2 %; White Blood Count 8.7 K/mcL (4.3-11.1)
[2019-03-26 12:59] LABS: Yeast,Urine Few per hpf (None Seen)
[2019-03-26 13:25] LABS: Alanine Aminotransferase 8 Units/L (7-52); Albumin 2.7 g/dL (3.5-5.7); Albumin/Globulin Ratio 0.6 (1.1-2.2); Alkaline Phosphatase 133 Units/L (34-104); Aspartate Amino Transferase 7 Units/L (13-39); BUN/Creatinine Ratio 20 (6-26); Bilirubin,Direct 0.1 mg/dL (0.0-0.2); Bilirubin,Indirect 0.1 mg/dL (0.0-1.0); Bilirubin,Total 0.2 mg/dL (0.3-1.0); Blood Urea Nitrogen 11 mg/dL (8-23); Calcium 8.5 mg/dL (8.6-10.3); Carbon Dioxide 27 mEq/L (23-29); Chloride 90 mEq/L (98-107); Globulin 4.5 g/dL (2.4-3.5); Glucose 552 mg/dL (70-105); Osmolality,Calculated 287 (280-300); Potassium 4.6 mEq/L (3.5-5.1); Sodium 126 mEq/L (136-145); Total Protein 7.2 g/dL (6.4-8.9); Troponin I < 0.03 ng/mL (< 0.04); eGFR For African Americans > 60 (> 60); eGFR For Non-African Americans > 60 (> 60)
[2019-03-26] MEDS ORDERED: 0.9 % Sodium Chloride 2,000 ML IV ONE (13:31)
[2019-03-26] MEDS ORDERED: Insulin Human Regular 10 UNIT in 0.9 % Sodium Chloride 10 ML IV ONE (13:32)
[2019-03-26] MEDS ORDERED: Cefepime HCl 1,000 MG in Water for inj. (sterile) 10 ML IVP ONE (13:35)
[2019-03-26 15:02] LABS: C-Reactive Protein 105 mg/L (Less than 10)
[2019-03-26] MEDS ORDERED: metroNIDAZOLE 500 MG TABLET PO ONE (16:07)
[2019-03-26] MEDS ORDERED: Ondansetron 4 MG/2 ML VIAL IVP PRN (16:41)
[2019-03-26] MEDS ORDERED: Naloxone 0.4 MG/ML INJ IVP PRN (16:41)
[2019-03-26] MEDS ORDERED: Acetaminophen 325 MG TABLET PO PRN (16:41)
[2019-03-26] MEDS ORDERED: traMADol 50 MG TABLET PO PRN (16:41)
[2019-03-26] MEDS ORDERED: Dextrose Gel 15 GM/37.5 ML TUBE PO PRN ×2 (16:47)
[2019-03-26] MEDS ORDERED: D5% in Water 1,000 ML IVC PRN (16:47)
[2019-03-26] MEDS ORDERED: *HR* Dextrose 50 % in Water (Syg) 50 ML SYRINGE IVP PRN (16:47)
[2019-03-26] MEDS: *HR* Heparin 5,000 UNIT/ML VIAL SQ SCH (21:18)
[2019-03-26] MEDS: Insulin LISPRO 300 UNITS/3 ML VIAL SQ SCH (21:19)
[2019-03-26] MEDS: Insulin DETEMIR 100 UNIT/ML X5UNITS SQ SCH (21:19)
[2019-03-26] MEDS: 0.9 % Sodium Chloride 1,000 ML IVC SCH (21:26)
[2019-03-26] MEDS: Cefepime HCl 1,000 MG in Water for inj. (sterile) 10 ML IVP SCH (23:46)
[2019-03-26] MEDS: MetroNIDAZOLE 500 MG/100 ML 500 MG/100 ML BAG IVPB SCH (23:46)
[2019-03-27] MEDS: *HR* Heparin 5,000 UNIT/ML VIAL SQ SCH ×2 (05:15→20:32)
[2019-03-27 05:51] LABS: Basophils # 0.1 K/mcL (0.0-0.2); Eosinophils # 0.2 K/mcL (0.0-0.6); Hematocrit 29.2 % (37.5-50.1); Hemoglobin 9.7 g/dL (12.9-16.9); Immature Granulocytes % 0.7 % (0-4); Lymphocytes # 1.5 K/mcL (0.6-4.6); Lymphocytes % 16.8 %; Mean Corpuscular HGB Conc 33.2 g/dL (31.6-35.5); Mean Corpuscular Hemoglobin 28.7 pg (28.0-33.3); Mean Corpuscular Volume 86.4 fL (83.0-100.0); Mean Platelet Volume 9.1 fL (9.4-12.4); Monocytes # 1.1 K/mcL (0.0-1.3); Monocytes % 11.9 %; Neutrophils # 6.2 K/mcL (1.6-8.9); Platelet Count 292 K/mcL (140-400); Red Blood Count 3.38 M/mcL (4.19-5.50); Red Cell Distribution Width 13.6 % (11.5-14.5); Segmented Neutrophils % 67.6 %; White Blood Count 9.1 K/mcL (4.3-11.1)
[2019-03-27 06:09] LABS: BUN/Creatinine Ratio 22 (6-26); Blood Urea Nitrogen 13 mg/dL (8-23); Calcium 8.1 mg/dL (8.6-10.3); Carbon Dioxide 29 mEq/L (23-29); Chloride 101 mEq/L (98-107); Glucose 66 mg/dL (70-105); Magnesium 1.6 mg/dL (1.6-2.6); Osmolality,Calculated 276 (280-300); Phosphorous 2.3 mg/dL (2.7-4.5); Potassium 3.7 mEq/L (3.5-5.1); Sodium 134 mEq/L (136-145); eGFR For African Americans > 60 (> 60); eGFR For Non-African Americans > 60 (> 60)
[2019-03-27] MEDS: Insulin LISPRO 300 UNITS/3 ML VIAL SQ SCH ×6 (08:01→16:20)
[2019-03-27] MEDS: Insulin DETEMIR 100 UNIT/ML X5UNITS SQ SCH ×2 (08:10→20:45)
[2019-03-27] MEDS: Cefepime HCl 1,000 MG in Water for inj. (sterile) 10 ML IVP SCH ×3 (08:11→22:59)
[2019-03-27] MEDS: MetroNIDAZOLE 500 MG/100 ML 500 MG/100 ML BAG IVPB SCH ×3 (08:12→23:49)
[2019-03-27] MEDS: 0.9 % Sodium Chloride 1,000 ML IVC SCH (08:16)
[2019-03-27] MEDS: Gabapentin 100 MG CAPSULE PO SCH ×2 (16:21→20:32)
[2019-03-27 18:24] LABS: Estimated Average Glucose 355 mg/dl
[2019-03-27] MEDS: Lisinopril-HCTZ 20-12.5mg TABLET PO SCH (20:32)
[2019-03-27] MEDS: Budesonide/Formoterol 160/4.5 1 PUFF INH IH SCH (21:43)
[2019-03-28] MEDS: *HR* Heparin 5,000 UNIT/ML VIAL SQ SCH ×2 (05:19→17:38)
[2019-03-28] MEDS: Budesonide/Formoterol 160/4.5 1 PUFF INH IH SCH ×2 (07:15→19:44)
[2019-03-28] MEDS: Insulin LISPRO 300 UNITS/3 ML VIAL SQ SCH ×6 (08:53→18:05)
[2019-03-28] MEDS: Gabapentin 100 MG CAPSULE PO SCH ×3 (08:55→20:05)
[2019-03-28] MEDS: Lisinopril-HCTZ 20-12.5mg TABLET PO SCH ×2 (08:55→20:05)
[2019-03-28] MEDS: Insulin DETEMIR 100 UNIT/ML X5UNITS SQ SCH ×2 (08:55→21:12)
[2019-03-28] MEDS: Cefepime HCl 1,000 MG in Water for inj. (sterile) 10 ML IVP SCH ×2 (08:55→16:08)
[2019-03-28] MEDS: MetroNIDAZOLE 500 MG/100 ML 500 MG/100 ML BAG IVPB SCH ×3 (08:57→23:58)
[2019-03-28] MEDS ORDERED: Fluticasone Propionate Nasal 50 MCG/SPRAY BOTTLE NS SCH (09:00)
[2019-03-28] MEDS ORDERED: Aspirin Enteric Coated 81 MG Tablet PO SCH (09:00)
[2019-03-28] MEDS ORDERED: amLODIPine 5 MG TABLET PO SCH (09:00)
[2019-03-28] MEDS ORDERED: Loratadine 10 MG TABLET PO SCH (09:00)
[2019-03-28] MEDS ORDERED: NON-FORMULARY MEDICATION 1 EACH EACH (Fluticasone/Vilanterol [Breo Ellipta 200-25 Mcg Inh] IH SCH (09:00)
[2019-03-28] MEDS ORDERED: Morphine Sulfate 2 MG/ML SYRINGE IVP PRN ×2 (12:43→14:53)
[2019-03-28] MEDS ORDERED: *HR* Propofol 200 MG/20 ML VIAL IVP ONE (13:02)
[2019-03-28] MEDS ORDERED: Lidocaine -MPF 2% 2 ML VIAL ONE (13:03)
[2019-03-28] MEDS ORDERED: *HR* Midazolam HCl 2 MG/2 ML VIAL ONE (13:03)
[2019-03-28] MEDS ORDERED: *HR* FentaNYL (PF) 100 MCG/2 ML VIAL ONE (13:03)
[2019-03-28] MEDS ORDERED: Lidocaine 1% 20 ML MDV ONE (13:32)
[2019-03-28] MEDS ORDERED: D5% in Water 1,000 ML IVC PRN (14:53)
[2019-03-28] MEDS ORDERED: Naloxone 0.4 MG/ML INJ IVP PRN (14:53)
[2019-03-28] MEDS ORDERED: Ondansetron 4 MG/2 ML VIAL IVP PRN (14:53)
[2019-03-28] MEDS ORDERED: Dextrose Gel 15 GM/37.5 ML TUBE PO PRN ×2 (14:53)
[2019-03-28] MEDS ORDERED: *HR* Dextrose 50 % in Water (Syg) 50 ML SYRINGE IVP PRN (14:53)
[2019-03-28] MEDS ORDERED: Desitin (Zinc Oxide) 56 GM TUBE TP PRN (15:16)
[2019-03-29] MEDS ORDERED: Isovue-370 500 ML BOTTLE IVP ONE (00:34)
[2019-03-29] MEDS: *HR* Heparin 5,000 UNIT/ML VIAL SQ SCH ×2 (05:09→17:46)
[2019-03-29] MEDS: Budesonide/Formoterol 160/4.5 1 PUFF INH IH SCH ×2 (07:43→22:01)
[2019-03-29 09:02] LABS: Hemoglobin 10.4 g/dL (12.9-16.9); Mean Corpuscular HGB Conc 33.5 g/dL (31.6-35.5); Mean Corpuscular Volume 86.4 fL (83.0-100.0); Mean Platelet Volume 8.9 fL (9.4-12.4); Platelet Count 243 K/mcL (140-400); Red Blood Count 3.59 M/mcL (4.19-5.50); Red Cell Distribution Width 13.8 % (11.5-14.5)
[2019-03-29 09:19] LABS: BUN/Creatinine Ratio 29 (6-26); Blood Urea Nitrogen 18 mg/dL (8-23); Carbon Dioxide 29 mEq/L (23-29); Chloride 97 mEq/L (98-107); Glucose 208 mg/dL (70-105); Osmolality,Calculated 282 (280-300); Potassium 3.5 mEq/L (3.5-5.1); Sodium 132 mEq/L (136-145); eGFR For African Americans > 60 (> 60); eGFR For Non-African Americans > 60 (> 60)
[2019-03-29] MEDS: Lisinopril-HCTZ 20-12.5mg TABLET PO SCH ×2 (10:24→21:25)
[2019-03-29] MEDS: Loratadine 10 MG TABLET PO SCH (10:24)
[2019-03-29] MEDS: Gabapentin 100 MG CAPSULE PO SCH ×3 (10:24→21:25)
[2019-03-29] MEDS: Aspirin Enteric Coated 81 MG Tablet PO SCH (10:25)
[2019-03-29] MEDS: Cefepime HCl 1,000 MG in Water for inj. (sterile) 10 ML IVP SCH ×4 (10:25→23:56)
[2019-03-29] MEDS: amLODIPine 5 MG TABLET PO SCH (10:25)
[2019-03-29] MEDS: MetroNIDAZOLE 500 MG/100 ML 500 MG/100 ML BAG IVPB SCH ×3 (10:26→23:57)
[2019-03-29] MEDS: Insulin LISPRO 300 UNITS/3 ML VIAL SQ SCH ×6 (10:27→17:47)
[2019-03-29] MEDS: Fluticasone Propionate Nasal 50 MCG/SPRAY BOTTLE NS SCH (10:36)
[2019-03-29] MEDS: Insulin DETEMIR 100 UNIT/ML X5UNITS SQ SCH ×2 (11:36→21:25)
[2019-03-30 05:10] LABS: Hematocrit 28.6 % (37.5-50.1); Hemoglobin 9.5 g/dL (12.9-16.9); Mean Corpuscular HGB Conc 33.2 g/dL (31.6-35.5); Mean Corpuscular Hemoglobin 28.5 pg (28.0-33.3); Mean Corpuscular Volume 85.9 fL (83.0-100.0); Platelet Count 281 K/mcL (140-400); Red Blood Count 3.33 M/mcL (4.19-5.50); Red Cell Distribution Width 13.9 % (11.5-14.5); White Blood Count 14.5 K/mcL (4.3-11.1)
[2019-03-30 05:20] LABS: BUN/Creatinine Ratio 30 (6-26); Blood Urea Nitrogen 16 mg/dL (8-23); Calcium 8.2 mg/dL (8.6-10.3); Carbon Dioxide 30 mEq/L (23-29); Chloride 94 mEq/L (98-107); Glucose 56 mg/dL (70-105); Magnesium 1.4 mg/dL (1.6-2.6); Osmolality,Calculated 271 (280-300); Potassium 3.5 mEq/L (3.5-5.1); Sodium 131 mEq/L (136-145); eGFR For African Americans > 60 (> 60); eGFR For Non-African Americans > 60 (> 60)
[2019-03-30] MEDS: *HR* Heparin 5,000 UNIT/ML VIAL SQ SCH ×2 (06:07→17:35)
[2019-03-30] MEDS: Budesonide/Formoterol 160/4.5 1 PUFF INH IH SCH ×2 (07:38→19:58)
[2019-03-30] MEDS: Aspirin Enteric Coated 81 MG Tablet PO SCH (08:43)
[2019-03-30] MEDS: Loratadine 10 MG TABLET PO SCH (08:44)
[2019-03-30] MEDS: Cefepime HCl 1,000 MG in Water for inj. (sterile) 10 ML IVP SCH ×3 (08:44→23:39)
[2019-03-30] MEDS: Lisinopril-HCTZ 20-12.5mg TABLET PO SCH ×2 (08:44→21:15)
[2019-03-30] MEDS: amLODIPine 5 MG TABLET PO SCH (08:44)
[2019-03-30] MEDS: Gabapentin 100 MG CAPSULE PO SCH ×3 (08:44→21:15)
[2019-03-30] MEDS: Insulin LISPRO 300 UNITS/3 ML VIAL SQ SCH ×6 (08:46→17:49)
[2019-03-30] MEDS: MetroNIDAZOLE 500 MG/100 ML 500 MG/100 ML BAG IVPB SCH ×3 (08:46→23:40)
[2019-03-30] MEDS: Fluticasone Propionate Nasal 50 MCG/SPRAY BOTTLE NS SCH (08:48)
[2019-03-30] MEDS: Insulin DETEMIR 100 UNIT/ML X5UNITS SQ SCH ×2 (10:19→21:10)
[2019-03-30] MEDS: traMADol 50 MG TABLET PO PRN (21:15)
[2019-03-30] MEDS: Melatonin 3 MG TABLET PO PRN (23:37)
[2019-03-31 01:54] LABS: Hematocrit 27.4 % (37.5-50.1); Mean Corpuscular HGB Conc 32.8 g/dL (31.6-35.5); Mean Corpuscular Hemoglobin 28.8 pg (28.0-33.3); Mean Corpuscular Volume 87.5 fL (83.0-100.0); Mean Platelet Volume 9.1 fL (9.4-12.4); Platelet Count 256 K/mcL (140-400); Red Blood Count 3.13 M/mcL (4.19-5.50); Red Cell Distribution Width 14.1 % (11.5-14.5); White Blood Count 10.7 K/mcL (4.3-11.1)
[2019-03-31 01:59] LABS: Alanine Aminotransferase 7 Units/L (7-52); Albumin 2.2 g/dL (3.5-5.7); Albumin/Globulin Ratio 0.6 (1.1-2.2); Alkaline Phosphatase 88 Units/L (34-104); Aspartate Amino Transferase 11 Units/L (13-39); BUN/Creatinine Ratio 38 (6-26); Bilirubin,Total 0.2 mg/dL (0.3-1.0); Blood Urea Nitrogen 23 mg/dL (8-23); Calcium 7.8 mg/dL (8.6-10.3); Carbon Dioxide 29 mEq/L (23-29); Chloride 92 mEq/L (98-107); Globulin 3.9 g/dL (2.4-3.5); Glucose 247 mg/dL (70-105); Osmolality,Calculated 278 (280-300); Potassium 4.1 mEq/L (3.5-5.1); Sodium 128 mEq/L (136-145); Total Protein 6.1 g/dL (6.4-8.9); eGFR For African Americans > 60 (> 60); eGFR For Non-African Americans > 60 (> 60)
[2019-03-31] MEDS: *HR* Heparin 5,000 UNIT/ML VIAL SQ SCH ×2 (06:18→17:42)
[2019-03-31] MEDS: Budesonide/Formoterol 160/4.5 1 PUFF INH IH SCH ×2 (07:49→21:17)
[2019-03-31] MEDS: MetroNIDAZOLE 500 MG/100 ML 500 MG/100 ML BAG IVPB SCH ×3 (08:16→22:59)
[2019-03-31] MEDS: Cefepime HCl 1,000 MG in Water for inj. (sterile) 10 ML IVP SCH ×3 (08:16→23:00)
[2019-03-31] MEDS: Loratadine 10 MG TABLET PO SCH (08:17)
[2019-03-31] MEDS: Gabapentin 100 MG CAPSULE PO SCH ×3 (08:17→20:48)
[2019-03-31] MEDS: amLODIPine 5 MG TABLET PO SCH (08:17)
[2019-03-31] MEDS: Lisinopril-HCTZ 20-12.5mg TABLET PO SCH ×2 (08:17→20:47)
[2019-03-31] MEDS: Aspirin Enteric Coated 81 MG Tablet PO SCH (08:17)
[2019-03-31] MEDS: Insulin LISPRO 300 UNITS/3 ML VIAL SQ SCH ×6 (08:18→16:44)
[2019-03-31] MEDS: Fluticasone Propionate Nasal 50 MCG/SPRAY BOTTLE NS SCH (08:19)
[2019-03-31] MEDS: Insulin DETEMIR 100 UNIT/ML X5UNITS SQ SCH ×2 (08:32→20:48)
[2019-04-01 01:11] LABS: Hematocrit 28.3 % (37.5-50.1); Mean Corpuscular HGB Conc 31.8 g/dL (31.6-35.5); Mean Corpuscular Hemoglobin 28.7 pg (28.0-33.3); Mean Corpuscular Volume 90.1 fL (83.0-100.0); Mean Platelet Volume 9.1 fL (9.4-12.4); Platelet Count 278 K/mcL (140-400); Red Blood Count 3.14 M/mcL (4.19-5.50); Red Cell Distribution Width 14.2 % (11.5-14.5); White Blood Count 8.1 K/mcL (4.3-11.1)
[2019-04-01 01:31] LABS: Alanine Aminotransferase 7 Units/L (7-52); Albumin 2.4 g/dL (3.5-5.7); Albumin/Globulin Ratio 0.6 (1.1-2.2); Alkaline Phosphatase 90 Units/L (34-104); Aspartate Amino Transferase 10 Units/L (13-39); BUN/Creatinine Ratio 32 (6-26); Bilirubin,Total 0.2 mg/dL (0.3-1.0); Blood Urea Nitrogen 27 mg/dL (8-23); Calcium 8.1 mg/dL (8.6-10.3); Carbon Dioxide 29 mEq/L (23-29); Chloride 92 mEq/L (98-107); Globulin 4.1 g/dL (2.4-3.5); Glucose 357 mg/dL (70-105); Osmolality,Calculated 285 (280-300); Potassium 4.1 mEq/L (3.5-5.1); Sodium 128 mEq/L (136-145); Total Protein 6.5 g/dL (6.4-8.9); eGFR For African Americans > 60 (> 60); eGFR For Non-African Americans > 60 (> 60)
[2019-04-01] MEDS: *HR* Heparin 5,000 UNIT/ML VIAL SQ SCH ×2 (06:44→18:17)
[2019-04-01] MEDS: Budesonide/Formoterol 160/4.5 1 PUFF INH IH SCH ×2 (08:15→20:19)
[2019-04-01] MEDS: Gabapentin 100 MG CAPSULE PO SCH ×3 (08:53→21:58)
[2019-04-01] MEDS: amLODIPine 5 MG TABLET PO SCH (08:53)
[2019-04-01] MEDS: Lisinopril-HCTZ 20-12.5mg TABLET PO SCH ×2 (08:53→21:58)
[2019-04-01] MEDS: Loratadine 10 MG TABLET PO SCH (08:54)
[2019-04-01] MEDS: Insulin DETEMIR 100 UNIT/ML X5UNITS SQ SCH ×2 (08:54→21:58)
[2019-04-01] MEDS: Aspirin Enteric Coated 81 MG Tablet PO SCH (08:54)
[2019-04-01] MEDS: Cefepime HCl 1,000 MG in Water for inj. (sterile) 10 ML IVP SCH ×2 (08:54→15:50)
[2019-04-01] MEDS: Insulin LISPRO 300 UNITS/3 ML VIAL SQ SCH ×6 (08:55→18:14)
[2019-04-01] MEDS: Fluticasone Propionate Nasal 50 MCG/SPRAY BOTTLE NS SCH (09:09)
[2019-04-01] MEDS: metroNIDAZOLE 500 MG TABLET PO SCH ×3 (11:15→21:58)
[2019-04-02] MEDS: Cefepime HCl 1,000 MG in Water for inj. (sterile) 10 ML IVP SCH ×3 (00:52→19:18)
[2019-04-02] MEDS: *HR* Heparin 5,000 UNIT/ML VIAL SQ SCH ×2 (05:20→18:05)
[2019-04-02 05:24] LABS: Hematocrit 28.7 % (37.5-50.1); Hemoglobin 9.3 g/dL (12.9-16.9); Mean Corpuscular HGB Conc 32.4 g/dL (31.6-35.5); Mean Corpuscular Hemoglobin 28.6 pg (28.0-33.3); Mean Corpuscular Volume 88.3 fL (83.0-100.0); Mean Platelet Volume 8.8 fL (9.4-12.4); Platelet Count 313 K/mcL (140-400); Red Blood Count 3.25 M/mcL (4.19-5.50); Red Cell Distribution Width 14.3 % (11.5-14.5); White Blood Count 10.4 K/mcL (4.3-11.1)
[2019-04-02 05:39] LABS: Alanine Aminotransferase 7 Units/L (7-52); Albumin 2.4 g/dL (3.5-5.7); Albumin/Globulin Ratio 0.6 (1.1-2.2); Alkaline Phosphatase 83 Units/L (34-104); Aspartate Amino Transferase 9 Units/L (13-39); BUN/Creatinine Ratio 29 (6-26); Bilirubin,Total 0.2 mg/dL (0.3-1.0); Blood Urea Nitrogen 19 mg/dL (8-23); Calcium 8.2 mg/dL (8.6-10.3); Carbon Dioxide 29 mEq/L (23-29); Chloride 95 mEq/L (98-107); Glucose 265 mg/dL (70-105); Osmolality,Calculated 280 (280-300); Sodium 129 mEq/L (136-145); Total Protein 6.4 g/dL (6.4-8.9); eGFR For African Americans > 60 (> 60); eGFR For Non-African Americans > 60 (> 60)
[2019-04-02] MEDS: traMADol 50 MG TABLET PO PRN ×2 (07:20→19:44)
[2019-04-02] MEDS: Budesonide/Formoterol 160/4.5 1 PUFF INH IH SCH ×2 (07:35→20:16)
[2019-04-02] MEDS ORDERED: Aminoglycoside Consult 1 EACH MC ONE (09:27)
[2019-04-02] MEDS: amLODIPine 5 MG TABLET PO SCH (10:06)
[2019-04-02] MEDS: Acetaminophen 325 MG TABLET PO PRN ×2 (10:06→21:25)
[2019-04-02] MEDS: Lisinopril-HCTZ 20-12.5mg TABLET PO SCH ×2 (10:07→21:25)
[2019-04-02] MEDS: Aspirin Enteric Coated 81 MG Tablet PO SCH (10:07)
[2019-04-02] MEDS: Loratadine 10 MG TABLET PO SCH (10:07)
[2019-04-02] MEDS: metroNIDAZOLE 500 MG TABLET PO SCH ×3 (10:07→22:57)
[2019-04-02] MEDS: Gabapentin 100 MG CAPSULE PO SCH ×3 (10:07→21:25)
[2019-04-02] MEDS: Insulin LISPRO 300 UNITS/3 ML VIAL SQ SCH ×6 (10:08→18:08)
[2019-04-02] MEDS: Fluticasone Propionate Nasal 50 MCG/SPRAY BOTTLE NS SCH (10:09)
[2019-04-02] MEDS: Insulin DETEMIR 100 UNIT/ML X5UNITS SQ SCH ×2 (10:09→21:25)
[2019-04-02] MEDS: levoFLOXacin 750 MG/150 ML 750 MG/150 ML BAG IVPB SCH (18:06)
[2019-04-02] MEDS: MetroNIDAZOLE 500 MG/100 ML 500 MG/100 ML BAG IVPB SCH (19:17)
[2019-04-02] MEDS: Melatonin 3 MG TABLET PO PRN (21:25)
[2019-04-03 06:56] LABS: Hematocrit 28.2 % (37.5-50.1); Hemoglobin 9.2 g/dL (12.9-16.9); Mean Corpuscular HGB Conc 32.6 g/dL (31.6-35.5); Mean Corpuscular Hemoglobin 29.1 pg (28.0-33.3); Mean Corpuscular Volume 89.2 fL (83.0-100.0); Mean Platelet Volume 8.7 fL (9.4-12.4); Platelet Count 358 K/mcL (140-400); Red Blood Count 3.16 M/mcL (4.19-5.50); Red Cell Distribution Width 14.6 % (11.5-14.5); White Blood Count 12.9 K/mcL (4.3-11.1)
[2019-04-03 07:17] LABS: Alanine Aminotransferase 7 Units/L (7-52); Albumin 2.6 g/dL (3.5-5.7); Albumin/Globulin Ratio 0.6 (1.1-2.2); Alkaline Phosphatase 90 Units/L (34-104); Aspartate Amino Transferase 9 Units/L (13-39); BUN/Creatinine Ratio 38 (6-26); Bilirubin,Total 0.3 mg/dL (0.3-1.0); Blood Urea Nitrogen 20 mg/dL (8-23); Calcium 8.6 mg/dL (8.6-10.3); Carbon Dioxide 30 mEq/L (23-29); Chloride 96 mEq/L (98-107); Globulin 4.2 g/dL (2.4-3.5); Glucose 123 mg/dL (70-105); Osmolality,Calculated 278 (280-300); Potassium 3.8 mEq/L (3.5-5.1); Sodium 132 mEq/L (136-145); Total Protein 6.8 g/dL (6.4-8.9); eGFR For African Americans > 60 (> 60); eGFR For Non-African Americans > 60 (> 60)
[2019-04-03] MEDS: *HR* Heparin 5,000 UNIT/ML VIAL SQ SCH ×2 (07:58→16:34)
[2019-04-03] MEDS: Insulin LISPRO 300 UNITS/3 ML VIAL SQ SCH ×6 (07:59→16:29)
[2019-04-03] MEDS: Insulin DETEMIR 100 UNIT/ML X5UNITS SQ SCH ×2 (10:19→20:46)
[2019-04-03] MEDS: levoFLOXacin 750 MG/150 ML 750 MG/150 ML BAG IVPB SCH (10:20)
[2019-04-03] MEDS: amLODIPine 5 MG TABLET PO SCH (10:20)
[2019-04-03] MEDS: Loratadine 10 MG TABLET PO SCH (10:24)
[2019-04-03] MEDS: Gabapentin 100 MG CAPSULE PO SCH ×3 (10:24→20:46)
[2019-04-03] MEDS: Lisinopril-HCTZ 20-12.5mg TABLET PO SCH ×2 (10:24→20:46)
[2019-04-03] MEDS: Fluticasone Propionate Nasal 50 MCG/SPRAY BOTTLE NS SCH (10:25)
[2019-04-03] MEDS: Aspirin Enteric Coated 81 MG Tablet PO SCH (10:25)
[2019-04-03] MEDS: metroNIDAZOLE 500 MG TABLET PO SCH (10:25)
[2019-04-03] MEDS: Budesonide/Formoterol 160/4.5 1 PUFF INH IH SCH ×2 (11:13→21:28)
[2019-04-03] MEDS ORDERED: Lidocaine -MPF 1% 5 ML AMPUL INFILT ONE (14:11)
[2019-04-04 05:05] LABS: Hematocrit 27.6 % (37.5-50.1); Hemoglobin 8.9 g/dL (12.9-16.9); Mean Corpuscular HGB Conc 32.2 g/dL (31.6-35.5); Mean Corpuscular Hemoglobin 29.2 pg (28.0-33.3); Mean Corpuscular Volume 90.5 fL (83.0-100.0); Mean Platelet Volume 8.6 fL (9.4-12.4); Platelet Count 341 K/mcL (140-400); Red Blood Count 3.05 M/mcL (4.19-5.50); Red Cell Distribution Width 14.7 % (11.5-14.5); White Blood Count 10.1 K/mcL (4.3-11.1)
[2019-04-04 05:27] LABS: Alanine Aminotransferase 7 Units/L (7-52); Albumin 2.4 g/dL (3.5-5.7); Albumin/Globulin Ratio 0.6 (1.1-2.2); Alkaline Phosphatase 86 Units/L (34-104); Aspartate Amino Transferase 9 Units/L (13-39); BUN/Creatinine Ratio 25 (6-26); Bilirubin,Total 0.2 mg/dL (0.3-1.0); Blood Urea Nitrogen 24 mg/dL (8-23); Calcium 8.3 mg/dL (8.6-10.3); Carbon Dioxide 30 mEq/L (23-29); Chloride 95 mEq/L (98-107); Globulin 3.9 g/dL (2.4-3.5); Glucose 337 mg/dL (70-105); Osmolality,Calculated 287 (280-300); Potassium 4.3 mEq/L (3.5-5.1); Sodium 130 mEq/L (136-145); Total Protein 6.3 g/dL (6.4-8.9); eGFR For African Americans > 60 (> 60); eGFR For Non-African Americans > 60 (> 60)
[2019-04-04] MEDS: *HR* Heparin 5,000 UNIT/ML VIAL SQ SCH (05:45)
[2019-04-04] MEDS: Budesonide/Formoterol 160/4.5 1 PUFF INH IH SCH (07:10)
[2019-04-04] MEDS: levoFLOXacin 750 MG/150 ML 750 MG/150 ML BAG IVPB SCH (08:43)
[2019-04-04] MEDS: Insulin DETEMIR 100 UNIT/ML X5UNITS SQ SCH (08:45)
[2019-04-04] MEDS: Aspirin Enteric Coated 81 MG Tablet PO SCH (08:45)
[2019-04-04] MEDS: amLODIPine 5 MG TABLET PO SCH (08:46)
[2019-04-04] MEDS: Lisinopril-HCTZ 20-12.5mg TABLET PO SCH (08:46)
[2019-04-04] MEDS: Loratadine 10 MG TABLET PO SCH (08:46)
[2019-04-04] MEDS: Gabapentin 100 MG CAPSULE PO SCH ×2 (08:46→17:11)
[2019-04-04] MEDS: Insulin LISPRO 300 UNITS/3 ML VIAL SQ SCH ×6 (08:47→17:11)
[2019-04-04] MEDS: Fluticasone Propionate Nasal 50 MCG/SPRAY BOTTLE NS SCH (08:52)
[2019-04-04 16:29] VITALS: BP 137/67
[2019-04-04] MEDS ORDERED: Insulin DETEMIR 100 UNIT/ML X5UNITS SQ SCH (21:00)
== END 2019-04-04 18:04 | DRG 710 ==
LOC: EMEROOARM 11:11 → 3BNU 11:11 → SUATTDRO 16:05 → 3BNU 17:15 → SUATTDRO 03-28 13:51
PROVIDERS: ADMIT Internal Medicine; ATTEND Internal Medicine

== ENCOUNTER 2019-07-30 15:12 | Inpatient (IN) ==
[2019-07-30] MEDS ORDERED: 0.9 % Sodium Chloride 1,000 ML IVC ONE (16:31)
[2019-07-30] MEDS ORDERED: Isovue-370 500 ML BOTTLE IVP ONE (16:32)
[2019-07-30 17:03] LABS: Basophils # 0.1 K/mcL (0.0-0.2); Basophils % 0.5 %; Eosinophils # 0.1 K/mcL (0.0-0.6); Eosinophils % 0.7 %; Hematocrit 35.7 % (37.5-50.1); Hemoglobin 11.5 g/dL (12.9-16.9); Lymphocytes # 1.4 K/mcL (0.6-4.6); Lymphocytes % 12.1 %; Mean Corpuscular HGB Conc 32.2 g/dL (31.6-35.5); Mean Corpuscular Hemoglobin 28.5 pg (28.0-33.3); Mean Corpuscular Volume 88.6 fL (83.0-100.0); Monocytes # 1.2 K/mcL (0.0-1.3); Monocytes % 10.1 %; Neutrophils # 8.7 K/mcL (1.6-8.9); Platelet Count 307 K/mcL (140-400); Red Blood Count 4.03 M/mcL (4.19-5.50); Segmented Neutrophils % 75.6 %; White Blood Count 11.5 K/mcL (4.3-11.1)
[2019-07-30 17:25] LABS: Bilirubin,Urine Negative (Negative); Blood,Urine Large (Negative); Clarity,Urine Turbid (Clear); Color,Urine Yellow (Yellow); Glucose,Urine (UA) >=1000 mg/dL (Normal); Ketones,Urine Negative (Negative); Leukocyte Esterase,Urine Large (Negative); Nitrite,Urine Negative (Negative); Protein,Urine 100 mg/dL (Neg-Trace); Specific Gravity,Urine 1.026 (1.010-1.025); Urobilinogen,Urine Normal (Normal)
[2019-07-30] MEDS ORDERED: Ibuprofen 600 MG TABLET PO ONE (17:25)
[2019-07-30 17:28] LABS: Hyaline Casts,Urine None Seen per lpf (None-Few); WBC,Urine TNTC per hpf (0-3)
[2019-07-30 17:35] LABS: Alanine Aminotransferase 11 Units/L (7-52); Albumin/Globulin Ratio 0.7 (1.1-2.2); Alkaline Phosphatase 107 Units/L (34-104); Aspartate Amino Transferase 9 Units/L (13-39); BUN/Creatinine Ratio 19 (6-26); Bilirubin,Indirect 0.3 mg/dL (0.0-1.0); Bilirubin,Total 0.3 mg/dL (0.3-1.0); Blood Urea Nitrogen 19 mg/dL (8-23); Calcium 8.8 mg/dL (8.6-10.3); Carbon Dioxide 28 mEq/L (23-29); Chloride 90 mEq/L (98-107); Globulin 4.5 g/dL (2.4-3.5); Glucose 646 mg/dL (70-105); Lipase 24 Units/L (11-82); Osmolality,Calculated 295 (280-300); Potassium 4.7 mEq/L (3.5-5.1); Sodium 126 mEq/L (136-145); Total Protein 7.5 g/dL (6.4-8.9); Troponin I < 0.03 ng/mL (< 0.04); eGFR For African Americans > 60 (> 60); eGFR For Non-African Americans > 60 (> 60)
[2019-07-30 17:42] LABS: RBC,Urine TNTC per hpf (0-3); Squamous Epithelial Cell,Urine Few per lpf (None-Few)
[2019-07-30 17:45] LABS: Bacteria,Urine Few per hpf (None-Few); Yeast,Urine Few per hpf (None Seen)
[2019-07-30] MEDS ORDERED: cefTRIAXone 1,000 MG in Water for inj. (sterile) 10 ML IVP ONE ×2 (17:52→19:55)
[2019-07-30 18:11] LABS: C-Reactive Protein 68 mg/L (Less than 10)
[2019-07-30] MEDS: 0.9 % Sodium Chloride 1,000 ML IVC SCH (18:25)
[2019-07-30] MEDS ORDERED: Insulin Regular, Human 100 UNIT/ML SQ ONE (19:04)
[2019-07-30] MEDS ORDERED: Acetaminophen 325 MG TABLET PO PRN (19:43)
[2019-07-30] MEDS ORDERED: Naloxone 0.4 MG/ML INJ IVP PRN (19:43)
[2019-07-30] MEDS ORDERED: Ondansetron 4 MG/2 ML VIAL IVP PRN (19:43)
[2019-07-30] MEDS ORDERED: D5% in Water 1,000 ML IVC PRN (19:48)
[2019-07-30] MEDS ORDERED: Dextrose Gel 15 GM/37.5 ML TUBE PO PRN ×2 (19:48)
[2019-07-30] MEDS ORDERED: *HR* Dextrose 50 % in Water (Syg) 50 ML SYRINGE IVP PRN (19:48)
[2019-07-30] MEDS ORDERED: Insulin LISPRO 300 UNITS/3 ML VIAL SQ ONE (19:51)
[2019-07-30] MEDS ORDERED: Desitin (Zinc Oxide) 56 GM TUBE TP PRN (19:52)
[2019-07-30] MEDS ORDERED: hydrOXYzine pamoate 25 MG CAPSULE PO PRN (19:52)
[2019-07-30] MEDS ORDERED: Ipratropium/Albuterol Neb 3 ML IH PRN (19:53)
[2019-07-30] MEDS ORDERED: Insulin DETEMIR 100 UNIT/ML X5UNITS SQ SCH (21:00)
[2019-07-30] MEDS ORDERED: Ringers Solution, Lactated 1,000 ML IVC ONE (21:43)
[2019-07-30] MEDS: Lactobacillus 1 EACH CAP.SPRINK PO SCH (22:16)
[2019-07-30] MEDS: Gabapentin 100 MG CAPSULE PO SCH (22:16)
[2019-07-30] MEDS: Insulin LISPRO 300 UNITS/3 ML VIAL SQ SCH (22:17)
[2019-07-31 01:38] LABS: Basophils # 0.1 K/mcL (0.0-0.2); Basophils % 0.9 %; Eosinophils # 0.2 K/mcL (0.0-0.6); Eosinophils % 2.1 %; Hemoglobin 10.4 g/dL (12.9-16.9); Lymphocytes # 1.9 K/mcL (0.6-4.6); Lymphocytes % 21.2 %; Mean Corpuscular HGB Conc 32.5 g/dL (31.6-35.5); Mean Corpuscular Hemoglobin 28.6 pg (28.0-33.3); Mean Corpuscular Volume 87.9 fL (83.0-100.0); Mean Platelet Volume 8.6 fL (9.4-12.4); Monocytes # 1.2 K/mcL (0.0-1.3); Monocytes % 12.6 %; Neutrophils # 5.7 K/mcL (1.6-8.9); Platelet Count 254 K/mcL (140-400); Red Blood Count 3.64 M/mcL (4.19-5.50); Red Cell Distribution Width 13.8 % (11.5-14.5); Segmented Neutrophils % 62.2 %; White Blood Count 9.1 K/mcL (4.3-11.1)
[2019-07-31 01:56] LABS: BUN/Creatinine Ratio 20 (6-26); Blood Urea Nitrogen 15 mg/dL (8-23); Calcium 8.2 mg/dL (8.6-10.3); Carbon Dioxide 26 mEq/L (23-29); Chloride 102 mEq/L (98-107); Glucose 89 mg/dL (70-105); Magnesium 1.6 mg/dL (1.6-2.6); Osmolality,Calculated 276 (280-300); Potassium 3.6 mEq/L (3.5-5.1); Sodium 133 mEq/L (136-145); eGFR For African Americans > 60 (> 60); eGFR For Non-African Americans > 60 (> 60)
[2019-07-31] MEDS: *HR* Heparin 5,000 UNIT/ML VIAL SQ SCH ×3 (05:48→22:52)
[2019-07-31] MEDS: Aspirin Enteric Coated 81 MG Tablet PO SCH (07:56)
[2019-07-31] MEDS: Lactobacillus 1 EACH CAP.SPRINK PO SCH ×2 (07:56→22:48)
[2019-07-31] MEDS: Gabapentin 100 MG CAPSULE PO SCH ×3 (07:56→22:48)
[2019-07-31] MEDS: Lisinopril-HCTZ 20-12.5mg TABLET PO SCH (07:56)
[2019-07-31] MEDS: amLODIPine 5 MG TABLET PO SCH (07:56)
[2019-07-31] MEDS: Loratadine 10 MG TABLET PO SCH (07:56)
[2019-07-31] MEDS: Fluticasone Propionate Nasal 50 MCG/SPRAY BOTTLE NS SCH (07:57)
[2019-07-31] MEDS: cefTRIAXone 2,000 MG in 0.9 % Sodium Chloride Mini Bag 100 ML IVPB SCH (07:57)
[2019-07-31] MEDS: Insulin LISPRO 300 UNITS/3 ML VIAL SQ SCH ×5 (08:00→16:59)
[2019-07-31] MEDS ORDERED: *HR* Dextrose 50 % in Water (Syg) 50 ML SYRINGE IVP PRN (08:39)
[2019-07-31] MEDS ORDERED: D5% in Water 1,000 ML IVC PRN (08:39)
[2019-07-31] MEDS ORDERED: Dextrose Gel 15 GM/37.5 ML TUBE PO PRN ×2 (08:39)
[2019-07-31 08:48] LABS: Estimated Average Glucose 315 mg/dl
[2019-07-31] MEDS ORDERED: Insulin LISPRO 300 UNITS/3 ML VIAL SQ SCH (21:00)
[2019-07-31] MEDS: Insulin DETEMIR 100 UNIT/ML X5UNITS SQ SCH (22:52)
[2019-07-31] MEDS: Budesonide/Formoterol 160/4.5 1 PUFF INH IH SCH (22:58)
[2019-08-01] MEDS: 0.9 % Sodium Chloride 1,000 ML IVC SCH ×2 (04:06→04:08)
[2019-08-01 05:41] LABS: Basophils # 0.1 K/mcL (0.0-0.2); Basophils % 0.9 %; Eosinophils # 0.1 K/mcL (0.0-0.6); Eosinophils % 1.2 %; Hematocrit 30.4 % (37.5-50.1); Immature Granulocytes % 0.9 % (0-4); Lymphocytes # 1.8 K/mcL (0.6-4.6); Lymphocytes % 20.5 %; Mean Corpuscular HGB Conc 32.9 g/dL (31.6-35.5); Mean Corpuscular Hemoglobin 29.2 pg (28.0-33.3); Mean Corpuscular Volume 88.9 fL (83.0-100.0); Monocytes % 11.5 %; Neutrophils # 5.8 K/mcL (1.6-8.9); Platelet Count 265 K/mcL (140-400); Red Blood Count 3.42 M/mcL (4.19-5.50); Red Cell Distribution Width 13.7 % (11.5-14.5); White Blood Count 8.9 K/mcL (4.3-11.1)
[2019-08-01 05:57] LABS: BUN/Creatinine Ratio 15 (6-26); Blood Urea Nitrogen 11 mg/dL (8-23); Calcium 8.3 mg/dL (8.6-10.3); Carbon Dioxide 28 mEq/L (23-29); Chloride 96 mEq/L (98-107); Glucose 433 mg/dL (70-105); Magnesium 1.5 mg/dL (1.6-2.6); Osmolality,Calculated 290 (280-300); Phosphorous 2.9 mg/dL (2.7-4.5); Potassium 3.5 mEq/L (3.5-5.1); Sodium 131 mEq/L (136-145); eGFR For African Americans > 60 (> 60); eGFR For Non-African Americans > 60 (> 60)
[2019-08-01] MEDS: *HR* Heparin 5,000 UNIT/ML VIAL SQ SCH ×3 (06:10→21:15)
[2019-08-01] MEDS: Budesonide/Formoterol 160/4.5 1 PUFF INH IH SCH ×2 (07:39→20:16)
[2019-08-01] MEDS: Aspirin Enteric Coated 81 MG Tablet PO SCH (08:33)
[2019-08-01] MEDS: amLODIPine 5 MG TABLET PO SCH (08:33)
[2019-08-01] MEDS: Loratadine 10 MG TABLET PO SCH (08:34)
[2019-08-01] MEDS: cefTRIAXone 2,000 MG in 0.9 % Sodium Chloride Mini Bag 100 ML IVPB SCH (08:34)
[2019-08-01] MEDS: Lisinopril-HCTZ 20-12.5mg TABLET PO SCH (08:34)
[2019-08-01] MEDS: Lactobacillus 1 EACH CAP.SPRINK PO SCH ×2 (08:34→20:47)
[2019-08-01] MEDS: Gabapentin 100 MG CAPSULE PO SCH ×3 (08:34→20:47)
[2019-08-01] MEDS: Insulin LISPRO 300 UNITS/3 ML VIAL SQ SCH ×6 (08:35→16:16)
[2019-08-01] MEDS: Fluticasone Propionate Nasal 50 MCG/SPRAY BOTTLE NS SCH (08:35)
[2019-08-01] MEDS: Insulin DETEMIR 100 UNIT/ML X5UNITS SQ SCH ×2 (11:15→21:16)
[2019-08-01] MEDS ORDERED: Insulin LISPRO 300 UNITS/3 ML VIAL SQ SCH (21:00)
[2019-08-02 01:37] LABS: BUN/Creatinine Ratio 15 (6-26); Blood Urea Nitrogen 13 mg/dL (8-23); Calcium 8.4 mg/dL (8.6-10.3); Carbon Dioxide 28 mEq/L (23-29); Chloride 96 mEq/L (98-107); Glucose 262 mg/dL (70-105); Magnesium 1.6 mg/dL (1.6-2.6); Osmolality,Calculated 281 (280-300); Phosphorous 3.2 mg/dL (2.7-4.5); Potassium 3.9 mEq/L (3.5-5.1); Sodium 131 mEq/L (136-145); eGFR For African Americans > 60 (> 60); eGFR For Non-African Americans > 60 (> 60)
[2019-08-02] MEDS: *HR* Heparin 5,000 UNIT/ML VIAL SQ SCH ×2 (06:15→13:43)
[2019-08-02] MEDS: Budesonide/Formoterol 160/4.5 1 PUFF INH IH SCH (07:18)
[2019-08-02] MEDS: Lactobacillus 1 EACH CAP.SPRINK PO SCH (08:51)
[2019-08-02] MEDS: Lisinopril-HCTZ 20-12.5mg TABLET PO SCH (08:51)
[2019-08-02] MEDS: amLODIPine 5 MG TABLET PO SCH (08:51)
[2019-08-02] MEDS: Loratadine 10 MG TABLET PO SCH (08:51)
[2019-08-02] MEDS: Aspirin Enteric Coated 81 MG Tablet PO SCH (08:51)
[2019-08-02] MEDS: Insulin LISPRO 300 UNITS/3 ML VIAL SQ SCH ×5 (08:52→13:38)
[2019-08-02] MEDS: Gabapentin 100 MG CAPSULE PO SCH (08:52)
[2019-08-02] MEDS: Fluticasone Propionate Nasal 50 MCG/SPRAY BOTTLE NS SCH (08:52)
[2019-08-02] MEDS: cefTRIAXone 2,000 MG in 0.9 % Sodium Chloride Mini Bag 100 ML IVPB SCH (08:54)
[2019-08-02] MEDS: Insulin DETEMIR 100 UNIT/ML X5UNITS SQ SCH (09:14)
[2019-08-02] MEDS: 0.9 % Sodium Chloride 1,000 ML IVC SCH (10:33)
[2019-08-02 15:52] VITALS: BP 112/67
== END 2019-08-02 16:35 | DRG 720 ==
LOC: EMEROOARM 15:12 → 3BNU 15:12 → SUATTDRO 19:29 → 3BNU 20:53
PROVIDERS: ADMIT Pharmacist; ATTEND Internal Medicine

== ENCOUNTER 2019-11-24 15:23 | Inpatient (IN) ==
[2019-11-24] MEDS ORDERED: Naloxone 0.4 MG/ML INJ IVP PRN (19:31)
[2019-11-24] MEDS ORDERED: 0.9 % Sodium Chloride 1,000 ML IVC SCH (19:45)
[2019-11-24] MEDS ORDERED: D5% in Water 1,000 ML IVC PRN (20:35)
[2019-11-24] MEDS ORDERED: Dextrose Gel 15 GM/37.5 ML TUBE PO PRN ×2 (20:35)
[2019-11-24] MEDS ORDERED: *HR* Dextrose 50 % in Water (Vial) 50 ML VIAL IVP PRN (20:35)
[2019-11-24 20:58] LABS: Basophils % 0.3 %; Eosinophils # 0.1 K/mcL (0.0-0.6); Eosinophils % 0.5 %; Hematocrit 28.7 % (37.5-50.1); Hemoglobin 9.3 g/dL (12.9-16.9); Immature Granulocytes % 1.5 % (0-4); Lymphocytes # 1.4 K/mcL (0.6-4.6); Lymphocytes % 9.6 %; Mean Corpuscular HGB Conc 32.4 g/dL (31.6-35.5); Mean Corpuscular Hemoglobin 28.7 pg (28.0-33.3); Mean Corpuscular Volume 88.6 fL (83.0-100.0); Mean Platelet Volume 8.6 fL (9.4-12.4); Monocytes # 1.1 K/mcL (0.0-1.3); Monocytes % 7.1 %; Platelet Count 339 K/mcL (140-400); Red Blood Count 3.24 M/mcL (4.19-5.50); Red Cell Distribution Width 14.5 % (11.5-14.5)
[2019-11-24 21:03] LABS: Basophils # 0.1 K/mcL (0.0-0.2); Neutrophils # 12.2 K/mcL (1.6-8.9)
[2019-11-24 21:08] LABS: Estimated Average Glucose 387 mg/dl
[2019-11-24 21:23] LABS: Albumin 2.3 g/dL (3.5-5.7); Albumin/Globulin Ratio 0.5 (1.1-2.2); Bilirubin,Total 0.3 mg/dL (0.3-1.0); Calcium 7.7 mg/dL (8.6-10.3); Globulin 4.3 g/dL (2.4-3.5); Potassium 4.4 mEq/L (3.5-5.1); Total Protein 6.6 g/dL (6.4-8.9)
[2019-11-24 21:36] LABS: Thyroid Stimulating Hormone 0.571 mcIU/mL (0.340-5.600)
[2019-11-24] MEDS: Insulin DETEMIR 100 UNIT/ML X5UNITS SQ SCH (22:04)
[2019-11-24] MEDS: *HR* Heparin 5,000 UNIT/ML VIAL SQ SCH (23:27)
[2019-11-24] MEDS: Insulin LISPRO 300 UNITS/3 ML VIAL SQ SCH ×2 (23:28→23:36)
[2019-11-24] MEDS: Acetaminophen 325 MG TABLET PO PRN (23:35)
[2019-11-25] MEDS: Insulin LISPRO 300 UNITS/3 ML VIAL SQ SCH ×7 (02:04→16:19)
[2019-11-25 02:33] LABS: Basophils % 0.3 %; Eosinophils # 0.1 K/mcL (0.0-0.6); Eosinophils % 0.5 %; Hematocrit 26.8 % (37.5-50.1); Hemoglobin 8.6 g/dL (12.9-16.9); Immature Granulocytes % 1.2 % (0-4); Immature Platelets 2.7 % (1.1-6.1); Lymphocytes # 1.6 K/mcL (0.6-4.6); Lymphocytes % 11.1 %; Mean Corpuscular HGB Conc 32.1 g/dL (31.6-35.5); Mean Corpuscular Hemoglobin 28.3 pg (28.0-33.3); Mean Corpuscular Volume 88.2 fL (83.0-100.0); Mean Platelet Volume 9.3 fL (9.4-12.4); Monocytes # 1.4 K/mcL (0.0-1.3); Monocytes % 9.2 %; Neutrophils # 11.4 K/mcL (1.6-8.9); Platelet Count 316 K/mcL (140-400); Red Blood Count 3.04 M/mcL (4.19-5.50); Red Cell Distribution Width 14.5 % (11.5-14.5); Segmented Neutrophils % 77.7 %; White Blood Count 14.7 K/mcL (4.3-11.1)
[2019-11-25 02:48] LABS: Albumin 2.2 g/dL (3.5-5.7); Albumin/Globulin Ratio 0.5 (1.1-2.2); Bilirubin,Total 0.3 mg/dL (0.3-1.0); Calcium 7.8 mg/dL (8.6-10.3); Globulin 4.1 g/dL (2.4-3.5); Potassium 4.3 mEq/L (3.5-5.1); Total Protein 6.3 g/dL (6.4-8.9)
[2019-11-25] MEDS ORDERED: 0.9 % Sodium Chloride 500 ML IVC ONE ×2 (04:15→05:04)
[2019-11-25] MEDS ORDERED: *HR* Heparin 5,000 UNIT/ML VIAL IVP PRN ×2 (04:38)
[2019-11-25] MEDS ORDERED: Heparin 25,000 UNIT/250 ML D5W 25,000 UNIT/250 ML IV.SOLN IVC SCH (04:45)
[2019-11-25] MEDS: *HR* Heparin 5,000 UNIT/ML VIAL SQ SCH ×2 (04:52→17:46)
[2019-11-25] MEDS ORDERED: 0.9 % Sodium Chloride 1,000 ML IVC SCH ×2 (07:45→14:30)
[2019-11-25] MEDS ORDERED: levoFLOXacin 750 MG/150 ML 750 MG/150 ML BAG IVPB SCH (09:00)
[2019-11-25] MEDS: Cefepime HCl 2,000 MG in Water for inj. (sterile) 20 ML IVP SCH (14:42)
[2019-11-25] MEDS ORDERED: Cefepime HCl 2,000 MG in Water for inj. (sterile) 20 ML IVP SCH (18:00)
[2019-11-25] MEDS ORDERED: Insulin LISPRO 300 UNITS/3 ML VIAL SQ SCH ×2 (18:00)
[2019-11-25] MEDS: Insulin DETEMIR 100 UNIT/ML X5UNITS SQ SCH (22:45)
[2019-11-26] MEDS: Cefepime HCl 2,000 MG in Water for inj. (sterile) 20 ML IVP SCH ×3 (00:26→15:23)
[2019-11-26] MEDS ORDERED: *HR* Promethazine 25 MG/ML VIAL IVP PRN (00:43)
[2019-11-26 03:39] LABS: Basophils % 0.3 %; Eosinophils % 0.2 %; Hematocrit 24.7 % (37.5-50.1); Hemoglobin 7.8 g/dL (12.9-16.9); Immature Granulocytes % 1.7 % (0-4); Lymphocytes % 8.9 %; Mean Corpuscular HGB Conc 31.6 g/dL (31.6-35.5); Mean Corpuscular Volume 91.8 fL (83.0-100.0); Mean Platelet Volume 8.6 fL (9.4-12.4); Monocytes # 1.1 K/mcL (0.0-1.3); Monocytes % 9.4 %; Platelet Count 266 K/mcL (140-400); Red Blood Count 2.69 M/mcL (4.19-5.50); Red Cell Distribution Width 14.7 % (11.5-14.5); Segmented Neutrophils % 79.5 %; White Blood Count 11.3 K/mcL (4.3-11.1)
[2019-11-26 03:58] LABS: BUN/Creatinine Ratio 21 (6-26); Blood Urea Nitrogen 20 mg/dL (8-23); Calcium 7.4 mg/dL (8.6-10.3); Carbon Dioxide 21 mEq/L (23-29); Chloride 105 mEq/L (98-107); Glucose 162 mg/dL (70-105); Osmolality,Calculated 282 (280-300); Potassium 3.7 mEq/L (3.5-5.1); Sodium 133 mEq/L (136-145); eGFR For African Americans > 60 (> 60); eGFR For Non-African Americans > 60 (> 60)
[2019-11-26] MEDS: *HR* Heparin 5,000 UNIT/ML VIAL SQ SCH ×2 (04:31→18:13)
[2019-11-26] MEDS: Insulin LISPRO 300 UNITS/3 ML VIAL SQ SCH ×3 (07:21→17:09)
[2019-11-26] MEDS ORDERED: *HR* Midazolam HCl 2 MG/2 ML VIAL IVP ONE (10:56)
[2019-11-26] MEDS ORDERED: *HR* FentaNYL (PF) 100 MCG/2 ML VIAL IVP ONE (10:56)
[2019-11-26] MEDS ORDERED: Isovue-370 500 ML BOTTLE IVP ONE (15:35)
[2019-11-26] MEDS ORDERED: Leptospermum Honey Paste 1 APPL/5 ML MLS TP SCH (16:15)
[2019-11-26] MEDS ORDERED: hydrOXYzine pamoate 25 MG CAPSULE PO PRN (17:55)
[2019-11-26] MEDS: Leptospermum Honey Paste 44 ML TUBE TP SCH (18:48)
[2019-11-26] MEDS: Budesonide/Formoterol 160/4.5 1 PUFF INH IH SCH (20:54)
[2019-11-26] MEDS: Insulin DETEMIR 100 UNIT/ML X5UNITS SQ SCH (22:52)
[2019-11-27] MEDS: Cefepime HCl 2,000 MG in Water for inj. (sterile) 20 ML IVP SCH ×3 (01:29→22:42)
[2019-11-27] MEDS ORDERED: Famotidine 20 MG/2 ML VIAL IVP ONE (02:26)
[2019-11-27] MEDS: *HR* Heparin 5,000 UNIT/ML VIAL SQ SCH ×2 (06:50→16:54)
[2019-11-27] MEDS: Leptospermum Honey Paste 44 ML TUBE TP SCH (08:52)
[2019-11-27 08:57] LABS: Hematocrit 26.2 % (37.5-50.1); Hemoglobin 8.3 g/dL (12.9-16.9); Mean Corpuscular HGB Conc 31.7 g/dL (31.6-35.5); Mean Corpuscular Hemoglobin 29.4 pg (28.0-33.3); Mean Corpuscular Volume 92.9 fL (83.0-100.0); Mean Platelet Volume 8.3 fL (9.4-12.4); Platelet Count 229 K/mcL (140-400); Red Blood Count 2.82 M/mcL (4.19-5.50); Red Cell Distribution Width 14.7 % (11.5-14.5); White Blood Count 9.2 K/mcL (4.3-11.1)
[2019-11-27] MEDS ORDERED: Aspirin Enteric Coated 81 MG Tablet PO SCH (09:00)
[2019-11-27] MEDS: Insulin LISPRO 300 UNITS/3 ML VIAL SQ SCH ×3 (09:03→16:36)
[2019-11-27] MEDS: Loratadine 10 MG TABLET PO SCH ×2 (09:10→09:43)
[2019-11-27] MEDS: Fluticasone Propionate Nasal 50 MCG/SPRAY BOTTLE NS SCH (09:11)
[2019-11-27 09:17] LABS: BUN/Creatinine Ratio 15 (6-26); Blood Urea Nitrogen 13 mg/dL (8-23); Carbon Dioxide 21 mEq/L (23-29); Chloride 104 mEq/L (98-107); Glucose 240 mg/dL (70-105); Osmolality,Calculated 282 (280-300); Potassium 3.4 mEq/L (3.5-5.1); Sodium 132 mEq/L (136-145); eGFR For African Americans > 60 (> 60); eGFR For Non-African Americans > 60 (> 60)
[2019-11-27] MEDS: Budesonide/Formoterol 160/4.5 1 PUFF INH IH SCH ×2 (10:08→21:09)
[2019-11-27] MEDS ORDERED: Vancomycin 1,250 MG/262.5 ML IV.SOLN IVPB SCH (16:00)
[2019-11-27] MEDS: Acetaminophen 325 MG TABLET PO PRN ×2 (16:31→22:45)
[2019-11-27] MEDS ORDERED: Insulin DETEMIR 100 UNIT/ML X5UNITS SQ SCH (21:00)
[2019-11-28] MEDS: *HR* Heparin 5,000 UNIT/ML VIAL SQ SCH (05:56)
[2019-11-28 06:31] LABS: Basophils # 0.1 K/mcL (0.0-0.2); Basophils % 0.9 %; Eosinophils # 0.2 K/mcL (0.0-0.6); Eosinophils % 2.3 %; Hematocrit 25.8 % (37.5-50.1); Hemoglobin 8.1 g/dL (12.9-16.9); Immature Granulocytes % 2.8 % (0-4); Lymphocytes # 1.1 K/mcL (0.6-4.6); Lymphocytes % 12.3 %; Mean Corpuscular HGB Conc 31.4 g/dL (31.6-35.5); Mean Corpuscular Hemoglobin 28.7 pg (28.0-33.3); Mean Corpuscular Volume 91.5 fL (83.0-100.0); Mean Platelet Volume 8.5 fL (9.4-12.4); Monocytes # 1.1 K/mcL (0.0-1.3); Monocytes % 13.2 %; Neutrophils # 5.9 K/mcL (1.6-8.9); Nucleated Red Blood Cells 0.2 /100 WBC (0); Platelet Count 256 K/mcL (140-400); Red Blood Count 2.82 M/mcL (4.19-5.50); Red Cell Distribution Width 14.9 % (11.5-14.5); Segmented Neutrophils % 68.5 %; White Blood Count 8.6 K/mcL (4.3-11.1)
[2019-11-28 06:51] LABS: BUN/Creatinine Ratio 14 (6-26); Blood Urea Nitrogen 13 mg/dL (8-23); Calcium 7.9 mg/dL (8.6-10.3); Carbon Dioxide 24 mEq/L (23-29); Chloride 104 mEq/L (98-107); Glucose 339 mg/dL (70-105); Osmolality,Calculated 291 (280-300); Sodium 134 mEq/L (136-145); eGFR For African Americans > 60 (> 60); eGFR For Non-African Americans > 60 (> 60)
[2019-11-28] MEDS: Budesonide/Formoterol 160/4.5 1 PUFF INH IH SCH (07:17)
[2019-11-28] MEDS ORDERED: Aspirin Enteric Coated 81 MG Tablet PO SCH (09:00)
[2019-11-28] MEDS: Insulin LISPRO 300 UNITS/3 ML VIAL SQ SCH ×2 (09:01→11:38)
[2019-11-28] MEDS: Cefepime HCl 2,000 MG in Water for inj. (sterile) 20 ML IVP SCH (09:02)
[2019-11-28] MEDS: Loratadine 10 MG TABLET PO SCH (09:02)
[2019-11-28] MEDS: Leptospermum Honey Paste 44 ML TUBE TP SCH (09:03)
[2019-11-28] MEDS: Fluticasone Propionate Nasal 50 MCG/SPRAY BOTTLE NS SCH (09:03)
[2019-11-28 10:52] VITALS: BP 92/61
[2019-11-28] MEDS ORDERED: Aminoglycoside Consult 1 EACH MC ONE (15:11)
== END 2019-11-28 15:12 | disposition home or self-care (01) | DRG 720 ==
LOC: 2NNU → SUATTDRO 18:49 → 3ANU 11-26 17:43 → SUATTDRO 11-26 17:54
PROVIDERS: ADMIT Internal Medicine; ATTEND Internal Medicine